=== PATIENT | male | born 1955 | race Caucasian/White ===

== ENCOUNTER 2017-07-08 15:04 | Observation (INO) | payer OTHER, MEDICAID ==
[~2017-07-08] VITALS: Ht 175.3 cm; Wt 112.9 kg
[~2017-07-08 15:04] MED LIST: ALBU18 IN; AMLO5TAB2 PO; FENO160T8 PO; FUR40T PO; GLIP-116 PO; HYDR10TA26 PO; LORA-654 PO; MOME200A IN; PAR20T PO; POTA8TAB2 PO; TAMS0.4C36 PO; WARF5TAB71 PO
[2017-07-08] MEDS ORDERED: ALBUTEROL SULF 2.5 MG/0.5ML(0.5%) NEB SOLN NEB ONE (16:00)
[2017-07-08] MEDS ORDERED: methylPREDNISolone SOD SUCC 125 MG/2 ML VL IV ONE (16:00)
[2017-07-08] MEDS ORDERED: IPRATROPIUM BROM 0.5 MG/2.5ML INH SOL HHN ONE (16:00)
[2017-07-08 16:06] LABS: Basophils # (auto) 0.1 uL; Basophils % (auto) 0.5 % (0.0-2.0); Eosinophils # (auto) 0.2 uL; Eosinophils % (auto) 1.9 % (0.0-7.0); Hemoglobin 11.1 g/dL (13.5-17.5); Lymphocytes # (auto) 1.6 uL; Lymphocytes % (auto) 12.8 % (10.0-50.0); Mean Corpuscular Hemoglobin 29.4 pg (28.0-32.0); Mean Corpuscular Hgb Conc. 32.6 g/dL (32.0-36.0); Mean Corpuscular Volume 90.2 fL (80.0-100.0); Monocytes % (auto) 7.8 % (0.0-12.0); Neutrophils # (auto) 9.6 uL; Platelet Count (auto) 381 10^3/uL (140-450); Red Blood Cells 3.77 10^6/uL (4.5-5.90); Red Cell Distribution Width 16.4 % (11.8-14.3); White Blood Cell 12.5 10^3/uL (4.4-10.8)
[2017-07-08 16:28] LABS: Alanine Aminotransferase 30 U/L (16-61); Albumin 3.1 g/dL (3.4-5.0); Alkaline Phosphatase 80 U/L (45-117); Anion Gap 8 (5-15); Aspartate Aminotransferase 22 U/L (15-37); BUN/Creatinine Ratio 14.1; Bilirubin, Total 0.2 mg/dL (0.2-1.0); Blood Urea Nitrogen 19 mg/dL (7-18); Calcium 8.6 mg/dL (8.5-10.1); Carbon Dioxide 31 mmol/L (21-32); Chloride 99 mmol/L (98-107); GFR African American 68 mL/min; GFR Non-African American 57 mL/min; Glucose 121 mg/dL (74-106); INR 2.08 (0.9-1.15); Magnesium 2.2 mg/dL (1.6-2.6); Partial Thromboplastin Time 67.4 sec (23.78-33.04); Potassium 4.3 mmol/L (3.5-5.1); Prothrombin Time 21.4 sec (9.27-12.13); Sodium 138 mmol/L (136-145); Total Protein 7.9 g/dL (6.4-8.2)
[2017-07-08] MEDS ORDERED: cefTRIAXone 1GM/10ml IVPUSH 10 ML IV ONE (17:15)
[2017-07-08] MEDS ORDERED: AZITHROMYCIN 500MG/ 250ML 250 ML IV ONE (17:15)
[2017-07-08 21:26] VITALS: BP 147/87
== END 2017-07-08 21:27 | disposition short-term general hospital (02) | DRG 194 ==
LOC: EDBD 15:04 → ER 15:04 → OVERFLOW 15:53 → ER 21:27
PROVIDERS: ADMIT Family Medicine; ATTEND Family Medicine
DX: J18.1 Lobar pneumonia, unspecified organism (principal); J44.0 Chronic obstructive pulmonary disease with (acute) lower respiratory infection; I11.0 Hypertensive heart disease with heart failure; I50.9 Heart failure, unspecified; J44.1 Chronic obstructive pulmonary disease with (acute) exacerbation; I48.91 Unspecified atrial fibrillation; K80.20 Calculus of gallbladder without cholecystitis without obstruction; E78.5 Hyperlipidemia, unspecified; Z86.718 Personal history of other venous thrombosis and embolism; Z87.442 Personal history of urinary calculi; Z87.891 Personal history of nicotine dependence; Z93.3 Colostomy status
CPT/HCPCS: 36415; 71045; 74176; 80053; 83605; 83735; 83880; 84484; 85025; 85379; 85610; 85730; 87040; 87070; 87205; 93005; 94640; 96365; 96366; 96375; 99291; G0378; J0456; J2930; 87077; 87186

== ENCOUNTER 2018-06-17 09:09 | Emergency (ER) | payer OTHER ==
[~2018-06-17] VITALS: Ht 182.9 cm; Wt 127.0 kg
[~2018-06-17 09:09] MED LIST changes: +AMLO5TAB13 PO; -AMLO5TAB2 PO
[2018-06-17 10:01] LABS: Basophils # (auto) 0 uL; Basophils % (auto) 0.4 % (0.0-2.0); Eosinophils # (auto) 0.1 uL; Eosinophils % (auto) 0.5 % (0.0-7.0); Hematocrit 38.9 % (41.0-53.0); Hemoglobin 12.5 g/dL (13.5-17.5); Lymphocytes # (auto) 1.2 uL; Lymphocytes % (auto) 9.8 % (10.0-50.0); Mean Corpuscular Hemoglobin 29.4 pg (28.0-32.0); Mean Corpuscular Hgb Conc. 32.1 g/dL (32.0-36.0); Mean Corpuscular Volume 91.6 fL (80.0-100.0); Monocytes # (auto) 1.3 uL; Monocytes % (auto) 10.1 % (0.0-12.0); Neutrophils # (auto) 9.9 uL; Neutrophils % (auto) 79.2 % (37.0-80.0); Platelet Count (auto) 280 10^3/uL (140-450); Red Blood Cells 4.24 10^6/uL (4.5-5.90); Red Cell Distribution Width 17.7 % (11.8-14.3); White Blood Cell 12.5 10^3/uL (4.4-10.8)
[2018-06-17 10:17] LABS: INR 3.2 (0.9-1.15); Partial Thromboplastin Time 68.2 sec (23.78-33.04); Prothrombin Time 32.1 sec (9.27-12.13)
[2018-06-17 10:26] LABS: Albumin 2.8 g/dL (3.4-5.0); BUN/Creatinine Ratio 20.7; Calcium 8.4 mg/dL (8.5-10.1); Potassium 3.8 mmol/L (3.5-5.1)
[2018-06-17 10:31] LABS: Bilirubin, Total 0.3 mg/dL (0.2-1.0); Lactic Acid w/Reflex 2.8 mmol/L (0.4-2.0); Total Protein 6.8 g/dL (6.4-8.2)
[2018-06-17] MEDS ORDERED: SODIUM CHLORIDE 0.9% 1,000 ML IV ONE (10:53)
[2018-06-17] MEDS ORDERED: PHYTONADIONE (VIT K)10 MG/ML 1ML VIAL SUBCUT ONE (11:00)
[2018-06-17] MEDS ORDERED: IOHEXOL 300 MG/ML 100ML BOTTLE IJ ONE (11:18)
[2018-06-17 11:53] LABS: Urine Amorphous Crystal FEW /hpf (None Seen); Urine Bacteria NONE SEEN /hpf (None Seen); Urine Blood TRACE /uL (Negative); Urine Specific Gravity 1.011 (1.001-1.035); Urine WBC 1 /hpf (0 - 3)
[2018-06-17 12:02] LABS: Magnesium 1.7 mg/dL (1.6-2.6)
[2018-06-17] MEDS ORDERED: PROMETHAZINE HCL 25 MG/ML 1ML IV ONE (16:15)
[2018-06-17] MEDS ORDERED: MORPHINE SULF INJ 2 MG/ML SYRINGE 1ML IV ONE (16:15)
[2018-06-17 16:34] VITALS: BP 145/7
== END 2018-06-17 17:12 | disposition short-term general hospital (02) ==
LOC: EDBD 09:09 → ER 09:09
DX: J44.1 Chronic obstructive pulmonary disease with (acute) exacerbation (principal); K92.2 Gastrointestinal hemorrhage, unspecified; E11.9 Type 2 diabetes mellitus without complications; K80.20 Calculus of gallbladder without cholecystitis without obstruction; K76.0 Fatty (change of) liver, not elsewhere classified; T45.515A Adverse effect of anticoagulants, initial encounter; I11.0 Hypertensive heart disease with heart failure; I50.9 Heart failure, unspecified; I25.10 Atherosclerotic heart disease of native coronary artery without angina pectoris; E78.00 Pure hypercholesterolemia, unspecified; Z87.891 Personal history of nicotine dependence; Y92.89 Other specified places as the place of occurrence of the external cause
CPT/HCPCS: 36415; 71045; 74176; 80053; 81001; 83605; 83690; 83735; 84443; 84484; 85025; 85610; 85730; 87040; 93005; 93971; 94761; 96361; 96372; 96374; 96375; 99285; J2270; J2550; J3430; J7030

== ENCOUNTER 2018-06-22 14:51 | Emergency (ER) | payer OTHER ==
[~2018-06-22] VITALS: Ht 175.3 cm; Wt 122.5 kg
[2018-06-22] MEDS ORDERED: ALBUTEROL SULF 2.5 MG/0.5ML(0.5%) NEB SOLN HHN ONE (15:15)
[2018-06-22] MEDS ORDERED: methylPREDNISolone SOD SUCC 125 MG/2 ML VL IV ONE (15:15)
[2018-06-22] MEDS ORDERED: IPRATROPIUM BROM 0.5 MG/2.5ML INH SOL HHN ONE (15:15)
[2018-06-22 15:52] LABS: Basophils # (auto) 0 uL; Basophils % (auto) 0.1 % (0.0-2.0); Eosinophils # (auto) 0 uL; Hematocrit 34.4 % (41.0-53.0); Hemoglobin 10.8 g/dL (13.5-17.5); Lymphocytes # (auto) 0.8 uL; Lymphocytes % (auto) 6.9 % (10.0-50.0); Mean Corpuscular Hemoglobin 29.3 pg (28.0-32.0); Mean Corpuscular Hgb Conc. 31.4 g/dL (32.0-36.0); Mean Corpuscular Volume 93.2 fL (80.0-100.0); Monocytes # (auto) 0.5 uL; Neutrophils # (auto) 10.1 uL; Nucleated Red Blood Cells % 0.2 %; Platelet Count (auto) 270 10^3/uL (140-450); Red Cell Distribution Width 17.9 % (11.8-14.3); White Blood Cell 11.3 10^3/uL (4.4-10.8)
[2018-06-22 16:04] LABS: Potassium 4.4 mmol/L (3.5-5.1)
[2018-06-22 16:05] LABS: Albumin 2.4 g/dL (3.4-5.0); Calcium 8.4 mg/dL (8.5-10.1); INR 1.07 (0.9-1.15); Prothrombin Time 11.4 sec (9.27-12.13)
[2018-06-22 16:09] LABS: BUN/Creatinine Ratio 26.9; Bilirubin, Total 0.2 mg/dL (0.2-1.0); Total Protein 6.8 g/dL (6.4-8.2)
[2018-06-22 19:27] VITALS: BP 139/77
== END 2018-06-22 19:40 | disposition short-term general hospital (02) ==
LOC: ER 14:51 → EDBD 14:51 → ER 19:40
DX: J96.00 Acute respiratory failure, unspecified whether with hypoxia or hypercapnia (principal); J44.1 Chronic obstructive pulmonary disease with (acute) exacerbation; I11.0 Hypertensive heart disease with heart failure; I50.9 Heart failure, unspecified; E78.5 Hyperlipidemia, unspecified; Z86.73 Personal history of transient ischemic attack (TIA), and cerebral infarction without residual deficits; Z87.891 Personal history of nicotine dependence; Z87.442 Personal history of urinary calculi
CPT/HCPCS: 36415; 36600; 71045; 80053; 82805; 83605; 83735; 83880; 84484; 85025; 85610; 85730; 87040; 93005; 94644; 94761; 96374; 99291; J2930; J7611; J7644

== ENCOUNTER 2019-01-13 11:04 | Emergency (ER) | payer OTHER ==
[~2019-01-13] VITALS: Ht 167.6 cm; Wt 108.9 kg
[~2019-01-13 11:04] MED LIST changes: -AMLO5TAB13 PO; +AMLO5TAB15 PO; -GLIP-116 PO; +GLIP10TA9 PO; -LORA-654 PO; +LORA0.5T12 PO
[2019-01-13] MEDS ORDERED: SODIUM CHLORIDE 0.9% 1,000 ML IVB ONE (11:48)
[2019-01-13 12:20] LABS: Basophils # (auto) 0.1 uL; Basophils % (auto) 0.9 % (0.0-2.0); Eosinophils # (auto) 0.2 uL; Hematocrit 40.9 % (41.0-53.0); Hemoglobin 13.5 g/dL (13.5-17.5); Lymphocytes # (auto) 1.8 uL; Lymphocytes % (auto) 14.7 % (10.0-50.0); Mean Corpuscular Hemoglobin 29.1 pg (28.0-32.0); Mean Corpuscular Hgb Conc. 33.1 g/dL (32.0-36.0); Mean Corpuscular Volume 87.8 fL (80.0-100.0); Monocytes # (auto) 0.9 uL; Monocytes % (auto) 7.3 % (0.0-12.0); Neutrophils # (auto) 9.2 uL; Neutrophils % (auto) 75.1 % (37.0-80.0); Platelet Count (auto) 290 10^3/uL (140-450); Red Blood Cells 4.66 10^6/uL (4.5-5.90); Red Cell Distribution Width 16.8 % (11.8-14.3); White Blood Cell 12.2 10^3/uL (4.4-10.8)
[2019-01-13 13:08] LABS: Albumin 3.1 g/dL (3.4-5.0); Potassium 4.3 mmol/L (3.5-5.1)
[2019-01-13 13:12] LABS: BUN/Creatinine Ratio 43.4; Bilirubin, Total 0.2 mg/dL (0.2-1.0); Total Protein 7.2 g/dL (6.4-8.2)
[2019-01-13 16:17] VITALS: BP 126/96
== END 2019-01-13 15:05 | disposition short-term general hospital (02) ==
LOC: EDBD 11:04 → ER 11:04
DX: K80.20 Calculus of gallbladder without cholecystitis without obstruction (principal); R19.7 Diarrhea, unspecified; J44.9 Chronic obstructive pulmonary disease, unspecified; E11.9 Type 2 diabetes mellitus without complications; I11.0 Hypertensive heart disease with heart failure; I50.9 Heart failure, unspecified; Z79.899 Other long term (current) drug therapy
CPT/HCPCS: 36415; 71045; 74176; 80053; 83735; 85025; 99291

== ENCOUNTER 2019-05-27 17:43 | Inpatient (IN) | payer OTHER, SELFPAY ==
[~2019-05-27] VITALS: Ht 170.2 cm; Wt 102.8 kg
[2019-05-27] MEDS ORDERED: ACETAMINOPHEN 500 MG TAB PO PRN ×2 (18:30→21:30)
[2019-05-27] MEDS ORDERED: AZITHROMYCIN 500MG/ 250ML 250 ML IV ONE (18:30)
[2019-05-27] MEDS ORDERED: methylPREDNISolone SOD SUCC 125 MG/2 ML VL IV ONE (18:30)
[2019-05-27 19:31] LABS: Basophils # (auto) 0.2 10 ^3/uL (0-0.2); Eosinophils # (auto) 0 10 ^3/uL (0-0.8); Hemoglobin 11.9 g/dL (13.5-17.5); Lymphocytes # (auto) 0.8 10 ^3/uL (0.4-5.4); Monocytes # (auto) 0.4 10 ^3/uL (0-1.3)
[2019-05-27 19:41] LABS: Basophils % (auto) 1.1 % (0.0-2.0); Hematocrit 38.6 % (41.0-53.0); Lymphocytes % (auto) 4.7 % (10.0-50.0); Mean Corpuscular Hemoglobin 28.4 pg (28.0-32.0); Mean Corpuscular Hgb Conc. 30.9 g/dL (32.0-36.0); Monocytes % (auto) 2.2 % (0.0-12.0); Neutrophils # (auto) 16.4 10 ^3/uL (1.6-8.6); Nucleated Red Blood Cells % 0.1 %; Platelet Count (auto) 309 10^3/uL (140-450); Red Cell Distribution Width 15.3 % (11.8-14.3); White Blood Cell 17.8 10^3/uL (4.4-10.8)
[2019-05-27] MEDS ORDERED: SUCCINYLCHOLINE CHLORIDE 20 MG/ML 10ML VIAL IV ONE ×2 (19:47→20:00)
[2019-05-27] MEDS ORDERED: ETOMIDATE (2MG/ML) 20ML VIAL IV ONE ×2 (19:47→20:00)
[2019-05-27] MEDS: MIDAZOLAM DRIP 50 mg/50mL 50 ML IV SCH (20:04)
[2019-05-27] MEDS ORDERED: MIDAZOLAM DRIP 50 mg/50mL 50 ML IV ONE (20:05)
[2019-05-27] MEDS ORDERED: ONDANSETRON HCL 4 MG/2 ML VIAL IV PRN (21:00)
[2019-05-27] MEDS ORDERED: NOREPINEPHRINE 8 MG/250ML KIT 250 ML IV SCH (21:00)
[2019-05-27] MEDS ORDERED: ALBUTEROL SULF 2.5 MG/0.5ML(0.5%) NEB SOLN NEB PRN (21:00)
[2019-05-27] MEDS: SODIUM CHLORIDE 0.9% 1,000 ML IV SCH (21:00)
[2019-05-27] MEDS ORDERED: hydrOXYchloroQUINE SULFATE 200 MG TAB PO ONE (21:00)
[2019-05-27] MEDS ORDERED: cefTRIAXone 1GM/50ML D5W 50 ML IV ONE (21:00)
[2019-05-27] MEDS ORDERED: DEXTROSE (50%) 50ML SYRG IV PRN (21:00)
[2019-05-27] MEDS ORDERED: IPRATROPIUM BROM 0.5 MG/2.5ML INH SOL NEB PRN (21:00)
[2019-05-27] MEDS ORDERED: AMIODARONE HCL 150 MG in D5W 5% 100 ML IV ONE (21:00)
[2019-05-27] MEDS ORDERED: AMIODARONE 450mg/250ml AE 250 ML IV SCH (21:06)
[2019-05-27] MEDS: NOREPINEPHRINE 8 MG/250ML KIT 250 ML IV SCH (21:18)
[2019-05-27] MEDS ORDERED: NITROGLYCERIN 0.4 MG SL TAB SL PRN (21:45)
[2019-05-27] MEDS ORDERED: MORPHINE SULF INJ 2 MG/ML SYRINGE 1ML IV PRN (21:45)
[2019-05-27] MEDS ORDERED: ALBUTEROL SULF HFA 90MCG INH 200DOSE IN SCH (22:00)
[2019-05-27] MEDS: fentaNYL Drip 2500mCg/250mlNS 250 ML IV SCH (22:13)
[2019-05-27 22:14] LABS: Bilirubin, Total 0.2 mg/dL (0.2-1.0); Calcium 9.2 mg/dL (8.5-10.1); Magnesium 2.3 mg/dL (1.6-2.6); Total Protein 7.5 g/dL (6.4-8.2)
[2019-05-27 22:15] LABS: CRP High Sensitivity 0.936 mg/dL (< 0.3)
[2019-05-27 22:19] LABS: Potassium 7.3 mmol/L (3.5-5.1)
[2019-05-28] VITALS (88 sets, daily range): BP systolic 87–163; BP diastolic 43–89
[2019-05-28] MEDS: ACCU-CHEK COMFORT CURVE STRIP VI SCH ×5 (00:09→23:52)
[2019-05-28] MEDS: InsuLIN REG 1unit/0.01ml Soln (100units/ml) SC SCH ×5 (00:32→23:58)
[2019-05-28] MEDS: SODIUM ZIRCONIUM CYCL 10 GM PAK PO ONE ×2 (00:32→06:28)
[2019-05-28 00:59] LABS: INR 3.06 (0.9-1.15); Partial Thromboplastin Time 39.5 sec (23.64-32.05)
--- NOTE | 2019-05-28 04:15 | NUR ---
ADMISSION NOTE PT INTUBATED, ETT 8.0/26@LL. IV ON RT AC20G SL, RT WRIST 20 SL, RT IJ TL INFUSING FENTANYL, VERSED, LEVOPHED, AMIODARONE, AND NS. KAUR CATHETER DRAINING VIA GRAVITY W/ YELLOW CLOUDY URINE. ABRASION ON RT TOE, PICTURES TAKEN. RECTAL TEMP 99.5. OGT INSERTED 18FR. PLACEMENT CHECKED, CLAMPED. SAFETY PRECAUTIONS IN PLACE. WILL CONTINUE TO MONITOR.
[2019-05-28] MEDS: MIDAZOLAM DRIP 50 mg/50mL 50 ML IV SCH ×4 (04:30→23:58)
--- NOTE | 2019-05-28 04:47 | NUR ---
RT Transport Note: Patient transported to [facility] with [facility] D[facility]. Patient transported to 262 on ventilator with previous ordered settings. Patient on electronic device monitor with alarms set and audible, ambu-bag/mask connected to 02 tank. Transport completed without incident.
[2019-05-28 05:56] LABS: Basophils # (auto) 0 10 ^3/uL (0-0.2); Basophils % (auto) 0.2 % (0.0-2.0); Eosinophils # (auto) 0 10 ^3/uL (0-0.8); Hematocrit 36.9 % (41.0-53.0); Hemoglobin 11.5 g/dL (13.5-17.5); Lymphocytes # (auto) 0.5 10 ^3/uL (0.4-5.4); Mean Corpuscular Hemoglobin 28.2 pg (28.0-32.0); Mean Corpuscular Hgb Conc. 31.2 g/dL (32.0-36.0); Mean Corpuscular Volume 90.4 fL (80.0-100.0); Monocytes # (auto) 0.3 10 ^3/uL (0-1.3); Monocytes % (auto) 1.6 % (0.0-12.0); Neutrophils # (auto) 16.8 10 ^3/uL (1.6-8.6); Neutrophils % (auto) 95.2 % (37.0-80.0); Nucleated Red Blood Cells % 0.1 %; Platelet Count (auto) 301 10^3/uL (140-450); Red Blood Cells 4.08 10^6/uL (4.5-5.90); White Blood Cell 17.6 10^3/uL (4.4-10.8)
[2019-05-28 06:24] LABS: Albumin 2.4 g/dL (3.4-5.0); Calcium 8.5 mg/dL (8.5-10.1)
[2019-05-28 06:27] LABS: BUN/Creatinine Ratio 26.5; Bilirubin, Total 0.3 mg/dL (0.2-1.0); Total Protein 6.1 g/dL (6.4-8.2)
[2019-05-28 06:40] LABS: Potassium 6.3 mmol/L (3.5-5.1)
[2019-05-28] MEDS: ALBUTEROL SULF 2.5 MG/0.5ML(0.5%) NEB SOLN NEB SCH ×3 (06:53→22:27)
[2019-05-28] MEDS: IPRATROPIUM BROM 0.5 MG/2.5ML INH SOL NEB SCH ×3 (06:54→22:27)
[2019-05-28 07:16] LABS: Urine Bacteria NONE SEEN /hpf (None Seen); Urine Blood 3+ /uL (Negative); Urine Hyaline Cast MANY /lpf (0 - 2); Urine Mucus FEW (None Seen); Urine Specific Gravity 1.016 (1.001-1.035); Urine Sperm PRESENT /hpf (None Seen); Urine WBC 37 /hpf (0 - 3)
[2019-05-28] MEDS ORDERED: FUROSEMIDE 20 MG/2 ML VIAL IV ONE (07:30)
[2019-05-28] MEDS ORDERED: CALCIUM GLUC 4.65meq/50ml D5AE 50 ML IV ONE (07:30)
--- NOTE | 2019-05-28 08:55 | NUR ---
FAMIL Received phone call from patients sister, correct password provided and updated on patient condition. Questions/concerns answered. Addendum: 05/28/19 at 0856 by PARISH SWAN RN FAMILY
[2019-05-28] MEDS ORDERED: cefTRIAXone 1GM/50ML D5W 50 ML IV SCH (09:00)
[2019-05-28] MEDS: PANTOPRAZOLE 40 MG/10 ML VIAL INJ IV SCH (09:51)
[2019-05-28] MEDS: ASPirin 81 mg TAB PO SCH (09:52)
[2019-05-28] MEDS: ZINC SULFATE 220mg CAP or TAB PO SCH (09:52)
[2019-05-28] MEDS: ASCORBIC ACID 500 MG TAB PO SCH (09:53)
[2019-05-28] MEDS: CHOLECALCIFEROL (VITD3) 1,000IU=25mCg TAB PO SCH (09:53)
[2019-05-28] MEDS ORDERED: ENOXAPARIN SOD 40 MG/0.4 ML SYRINGE SC SCH (10:00)
[2019-05-28] MEDS: SODIUM CHLORIDE 0.9% 1,000 ML IV SCH (10:20)
[2019-05-28] MEDS ORDERED: AMIODARONE HCL 200 MG TAB GT ONE (12:15)
[2019-05-28] MEDS ORDERED: MORPHINE SULF INJ 2 MG/ML SYRINGE 1ML IV PRN (12:45)
--- NOTE | 2019-05-28 14:45 | NUR ---
MD Dr. Huff at bedside updated on patient condition with new orders, to input into system. Addendum: 05/28/19 at [address] SWAN RN Dr. Huff at nurses station updated on patient condition with new orders received, to input into system.
--- NOTE | 2019-05-28 16:20 | NUR ---
MD Dr. Linares at bedside updated on patient condition with new orders, this RN to input into system. Will carry out orders.
[2019-05-28] MEDS ORDERED: AZITHROMYCIN 500MG/ 250ML 250 ML IV ONE ×2 (17:15→23:30)
[2019-05-28] MEDS: PIPERACILLIN-TAZO 4.5GM 100 ML IV SCH (18:00)
[2019-05-28] MEDS: FUROSEMIDE 20 MG/2 ML VIAL IV SCH (18:00)
[2019-05-28] MEDS ORDERED: FUROSEMIDE 20 MG/2 ML VIAL IV SCH (18:00)
[2019-05-28] MEDS ORDERED: LINEZOLID 600MG/300ML 300 ML IV SCH (18:30)
--- NOTE | 2019-05-28 19:30 | NUR ---
PM ASSESSMENT PT INTUBATED, ETT 8.0/24@LL. IV ON RT AC18G SL, RT WRIST 20 SL, RT IJ TL INFUSING FENTANYL, VERSED, AND ABX. KAUR CATHETER DRAINING VIA GRAVITY W/ LIGHT YELLOW URINE. ABRASION ON RT TOE, OPEN TO AIR. COLOSTOMY BAG ON RT ABD. RECTAL TEMP 98.2. OGT 18FR, PLACEMENT CHECKED, CLAMPED. SAFETY PRECAUTIONS IN PLACE. WILL CONTINUE TO MONITOR.
[2019-05-28] MEDS: NOREPINEPHRINE 8 MG/250ML KIT 250 ML IV SCH (21:00)
[2019-05-28] MEDS: fentaNYL Drip 2500mCg/250mlNS 250 ML IV SCH (21:48)
[2019-05-28] MEDS: ATORVASTATIN 20 MG TAB PO SCH (23:51)
[2019-05-28] MEDS: LINEZOLID 600MG/300ML 300 ML IV SCH (23:54)
[2019-05-29] VITALS (100 sets, daily range): BP systolic 81–140; BP diastolic 45–61
--- NOTE | 2019-05-29 01:00 | NUR ---
LEVOPHED RESTARTED, SBP BELOW 90. PT TOLERATING WELL. SAFETY PRECAUTIONS IN PLACE. WILL CONTINUE TO MONITOR.
[2019-05-29] MEDS: PIPERACILLIN-TAZO 4.5GM 100 ML IV SCH ×3 (02:00→19:17)
[2019-05-29] MEDS ORDERED: FUROSEMIDE 40 MG/4 ML VIAL ONE (05:20)
[2019-05-29 06:11] LABS: Basophils # (auto) 0 10 ^3/uL (0-0.2); Basophils % (auto) 0.3 % (0.0-2.0); Eosinophils # (auto) 0 10 ^3/uL (0-0.8); Eosinophils % (auto) 0.1 % (0.0-7.0); Hematocrit 35.8 % (41.0-53.0); Hemoglobin 11.6 g/dL (13.5-17.5); Lymphocytes # (auto) 0.3 10 ^3/uL (0.4-5.4); Lymphocytes % (auto) 1.5 % (10.0-50.0); Mean Corpuscular Hemoglobin 28.7 pg (28.0-32.0); Mean Corpuscular Hgb Conc. 32.4 g/dL (32.0-36.0); Mean Corpuscular Volume 88.7 fL (80.0-100.0); Monocytes # (auto) 0.4 10 ^3/uL (0-1.3); Monocytes % (auto) 2.3 % (0.0-12.0); Neutrophils % (auto) 95.8 % (37.0-80.0); Platelet Count (auto) 282 10^3/uL (140-450); Red Blood Cells 4.03 10^6/uL (4.5-5.90); Red Cell Distribution Width 15.1 % (11.8-14.3); White Blood Cell 18.8 10^3/uL (4.4-10.8)
[2019-05-29] MEDS: FUROSEMIDE 20 MG/2 ML VIAL IV SCH (06:19)
[2019-05-29] MEDS: InsuLIN REG 1unit/0.01ml Soln (100units/ml) SC SCH ×3 (06:21→19:19)
[2019-05-29] MEDS: ACCU-CHEK COMFORT CURVE STRIP VI SCH ×2 (06:21→13:12)
[2019-05-29] MEDS: MIDAZOLAM DRIP 50 mg/50mL 50 ML IV SCH ×6 (06:22→21:52)
[2019-05-29 06:24] LABS: INR 1.5 (0.9-1.15)
[2019-05-29 06:27] LABS: BUN/Creatinine Ratio 29.9; Calcium 9.1 mg/dL (8.5-10.1); Potassium 3.8 mmol/L (3.5-5.1)
--- NOTE | 2019-05-29 06:30 | NUR ---
CXR NOT DONE, ATTEMPTED TO CONTACT XRAY DEPT SEVERAL TIMES, NO ANSWER AT THIS TIME, WILL RETRY AGAIN.
--- NOTE | 2019-05-29 06:40 | NUR ---
INITIAL ASSESSMENT RECEIVED PT FROM SENIOR LOGISTICS MANAGER RT ON SETTINGS: AC, RR 20, VT 550, PEEP +5, FIO2 50%. PT IS ON VENT V5 PLUGGED INTO RED OUTLET, AMBU BAG AND MASK AVAILABLE AT BEDSIDE. PT WITH ETT 8.0 @ 24CM LIP SECURED WITH HOLISTER. ETT REPOSITIONED FROM RIGHT TO LEFT, NO SKIN BREAKDOWN NOTED. BREATH SOUNDS BILATERAL COARSE CRACKLES, SUCTIONED X2 FOR LARGE AMOUNT THICK PALE YELLOW SECRETIONS. PT'S GAG REFLEX INTACT. MEDNEB TX GIVEN INLINE VIA AEROGEN, NO ADVERSE REACTIONS NOTED. ALARMS SET AND AUDIBLE TO NURSE'S STATION. PT SEDATED AND DOES NOT WAKE TO VERBAL OR TACTILE STIMULI. SKIN IS WARM AND DRY TO TOUCH. ABG DRAWN, RESULTS TO FOLLOW. NOC SHIFT RN AT BEDSIDE. WILL CONTINUE TO MONITOR.
[2019-05-29] MEDS: AZITHROMYCIN 500MG/ 250ML 250 ML IV SCH (09:13)
[2019-05-29] MEDS: LINEZOLID 600MG/300ML 300 ML IV SCH ×2 (09:13→21:46)
[2019-05-29] MEDS: NOREPINEPHRINE 8 MG/250ML KIT 250 ML IV SCH (09:15)
[2019-05-29] MEDS: PANTOPRAZOLE 40 MG/10 ML VIAL INJ IV SCH (09:16)
[2019-05-29] MEDS: AMIODARONE HCL 200 MG TAB GT SCH (09:18)
[2019-05-29] MEDS: ASPirin 81 mg TAB PO SCH (09:18)
[2019-05-29] MEDS: ASCORBIC ACID 500 MG TAB PO SCH (09:19)
--- NOTE | 2019-05-29 09:30 | NUR ---
AM ASSESSMENT COMPLETED. REPOSITIONED FOR COMFORT. ALL GTTS VERIFIED. AM PHYSICIAN ROUNDING. DISCUSSED POC WITH MD.
[2019-05-29] MEDS ORDERED: POTASSIUM CHL 20MEQ/100ML 100 ML IV SCH (10:00)
[2019-05-29] MEDS: CHOLECALCIFEROL (VITD3) 1,000IU=25mCg TAB PO SCH (10:00)
--- NOTE | 2019-05-29 10:00 | NUR ---
MEAT PROCESSOR ROUNDING. UPDATED ON PT'S CONDITION. NO NEW ORDERS RECEIVED. PLEASED WITH UOP. WILL CONTINUE WITH CURRENT TREATMENT.
[2019-05-29] MEDS: ZINC SULFATE 220mg CAP or TAB PO SCH (12:11)
[2019-05-29] MEDS: INSULIN LANTUS (GLARGINE) 1 /0.01ml (100units/ml) SC SCH (14:14)
--- NOTE | 2019-05-29 15:00 | NUR ---
SNUFF BOX FINISHER ROUNDING. WILL PROCEED WITH CURRENT POC. AWAITING FOR COVID 19 RESULTS.
[2019-05-29] MEDS ORDERED: WARFARIN SODIUM 5 MG TAB PO ONE (17:00)
[2019-05-29] MEDS ORDERED: DEXTROSE (50%) 50ML SYRG IV PRN (18:30)
--- NOTE | 2019-05-29 19:00 | NUR ---
REPORT GIVEN TO STEAM GIGGER.
--- NOTE | 2019-05-29 19:30 | NUR ---
REPORT RECEIVED, ASSUMED CARE.
[2019-05-29] MEDS: ATORVASTATIN 20 MG TAB PO SCH (21:46)
[2019-05-29] MEDS: fentaNYL Drip 2500mCg/250mlNS 250 ML IV SCH (21:48)
[2019-05-29] MEDS: IPRATROPIUM BROM 0.5 MG/2.5ML INH SOL NEB SCH (22:10)
[2019-05-29] MEDS: ALBUTEROL SULF 2.5 MG/0.5ML(0.5%) NEB SOLN NEB SCH (22:10)
--- NOTE | 2019-05-29 23:10 | NUR ---
Patient bathe/linen change Patient given complete bath. Skin integrity assessed for any changes. Linens changed. Patient repositioned for comfort.
[2019-05-30] VITALS (97 sets, daily range): BP systolic 87–189; BP diastolic 45–77
--- NOTE | 2019-05-30 00:15 | NUR ---
ACCU CHECK 415, CALL OUT TO HOSPITALIST.
[2019-05-30] MEDS: ACCU-CHEK COMFORT CURVE STRIP VI SCH ×4 (00:28→18:00)
--- NOTE | 2019-05-30 00:34 | NUR ---
DAUGHTER CALLED GAVE UPDATE.
--- NOTE | 2019-05-30 01:48 | NUR ---
[facility] HOSPITALIST, OBTAINED NEW ORDERS.
[2019-05-30] MEDS ORDERED: InsuLIN REG 1unit/0.01ml Soln (100units/ml) SC ONE (02:00)
[2019-05-30] MEDS: PIPERACILLIN-TAZO 4.5GM 100 ML IV SCH ×3 (02:13→18:00)
[2019-05-30 05:33] LABS: Basophils # (auto) 0 10 ^3/uL (0-0.2); Basophils % (auto) 0.3 % (0.0-2.0); Eosinophils # (auto) 0.3 10 ^3/uL (0-0.8); Eosinophils % (auto) 2.8 % (0.0-7.0); Hematocrit 35.5 % (41.0-53.0); Hemoglobin 11.6 g/dL (13.5-17.5); Lymphocytes # (auto) 0.5 10 ^3/uL (0.4-5.4); Lymphocytes % (auto) 4.2 % (10.0-50.0); Mean Corpuscular Hemoglobin 28.7 pg (28.0-32.0); Mean Corpuscular Hgb Conc. 32.5 g/dL (32.0-36.0); Mean Corpuscular Volume 88.3 fL (80.0-100.0); Monocytes # (auto) 0.7 10 ^3/uL (0-1.3); Monocytes % (auto) 6.3 % (0.0-12.0); Neutrophils # (auto) 9.7 10 ^3/uL (1.6-8.6); Neutrophils % (auto) 86.4 % (37.0-80.0); Platelet Count (auto) 240 10^3/uL (140-450); Red Blood Cells 4.02 10^6/uL (4.5-5.90); Red Cell Distribution Width 15.3 % (11.8-14.3); White Blood Cell 11.3 10^3/uL (4.4-10.8)
[2019-05-30] MEDS: InsuLIN REG 1unit/0.01ml Soln (100units/ml) SC SCH ×3 (05:45→18:00)
[2019-05-30 05:51] LABS: INR 1.36 (0.9-1.15); Partial Thromboplastin Time 29.6 sec (23.64-32.05)
[2019-05-30 05:57] LABS: Potassium 3.7 mmol/L (3.5-5.1)
[2019-05-30 06:04] LABS: BUN/Creatinine Ratio 21.5; Calcium 8.8 mg/dL (8.5-10.1)
[2019-05-30] MEDS: INSULIN LANTUS (GLARGINE) 1 /0.01ml (100units/ml) SC SCH (06:36)
--- NOTE | 2019-05-30 07:25 | NUR ---
INITIAL ASSESSMENT Report received from Abdon CHATMAN, care assumed. Patient under sedation of Versed and Fentanyl. Patient responds to voice and painful stimuli. Rectal temp 100.2, cooling measures initiated. Pulses palpable radial and pedal bilaterally. Sinus rhythm noted on bedside monitor. Low dose Levophed gtt to maintain hemodynamic stability. Lungs clear but diminished anteriorly. Patient intubated on ventilator, tolerated well, oxygen saturation 94%. Right quadrant ileostomy present. Patino catheter patent, and secure below bladder. See skin/wound assessment and IV spreadsheet. Patient frequent repositioning. Bed locked in lowest position, alarms in place. All extremities off loaded on pillows. Will continue to monitor.
[2019-05-30] MEDS: IPRATROPIUM BROM 0.5 MG/2.5ML INH SOL NEB SCH ×3 (07:52→22:05)
[2019-05-30] MEDS: ALBUTEROL SULF 2.5 MG/0.5ML(0.5%) NEB SOLN NEB SCH ×3 (07:52→22:05)
[2019-05-30] MEDS: AZITHROMYCIN 500MG/ 250ML 250 ML IV SCH (08:17)
--- NOTE | 2019-05-30 08:20 | NUR ---
FAMILY Patient sister called with password. Updated on patient status and plan of care.
[2019-05-30] MEDS: ACETAMINOPHEN 325 MG TAB PO PRN ×2 (08:29→18:20)
--- NOTE | 2019-05-30 08:34 | NUR ---
TEMPERATURE Patient rectal temp 100.4, cooling measures continued. Ice packs applied to trunk, cool compress to forehead, and PRN Tylenol. Will continue to monitor.
--- NOTE | 2019-05-30 08:51 | NUR ---
MD VISIT: NEPHRO at bedside. No new orders received at this time.
--- NOTE | 2019-05-30 09:20 | NUR ---
WOUND CARE Safia CHATMAN at bedside for skin assessment.
--- NOTE | 2019-05-30 10:02 | NUR ---
WOUND CARE NOTE: Added patient to wound care monitoring list due to low intubation status putting patient to high risk for skin breakdown. Patient is 64 years old male with admitting diagnosis of Acute Resp Failure. Patient with history of BPH, CHF, s/p hemicolectomy with ileostomy. Patient is resting in SDU bed in Rm. 262. Patient is intubated, sedated and mechanically ventilated. Patient appears to be in no pain using Newman Roberts Faces Pain Scale. His Louis score is 14. No wound noted other than RLE erythema with dry hyperkeratotic skin, and dry intact scabs to patient's Rt 2nd toe and distal Rt 4th toe, avulsed nail to L great toe. No pressure injury noted. Patient is receiving BID/PRN cleaning and application of HYdraguard cream to sacral buttocks and dry RLE skin as preventative. RECOMMENDATION: Nursing to continue with BID/PRN cleaning and application of Hydraguard cream to sacral buttocks and RLE as preventative, frequent turning and repositioning schedule as condition permits, redistribute pressure points with pillows,elevate heels on pillow, continue monitoring by wound care while patient is mechanically ventilated. Addendum: 05/30/19 at 1202 by Phyllis Gil RN Amended: Links added.
--- NOTE | 2019-05-30 10:30 | NUR ---
SEDATION /Milagros would like to attempt cpap trial today if patient is able to follow commands when sedation is decreased. Titrating off sedation.
[2019-05-30] MEDS: ZINC SULFATE 220mg CAP or TAB PO SCH (10:39)
[2019-05-30] MEDS: ASCORBIC ACID 500 MG TAB PO SCH (10:39)
[2019-05-30] MEDS: FUROSEMIDE 20 MG/2 ML VIAL IV SCH (10:39)
[2019-05-30] MEDS: AMIODARONE HCL 200 MG TAB GT SCH (10:40)
[2019-05-30] MEDS: LINEZOLID 600MG/300ML 300 ML IV SCH ×2 (10:40→22:07)
[2019-05-30] MEDS: PANTOPRAZOLE 40 MG/10 ML VIAL INJ IV SCH (10:40)
[2019-05-30] MEDS: CHOLECALCIFEROL (VITD3) 1,000IU=25mCg TAB PO SCH (11:12)
--- NOTE | 2019-05-30 11:20 | NUR ---
RADIOLOGY geoscience technician at bedside for CXR.
--- NOTE | 2019-05-30 11:24 | NUR ---
CARDIOLOGY ROUNDS Byres AUTO SUSPENSION AND STEERING MECHANIC at bedside rounding.
--- NOTE | 2019-05-30 12:28 | NUR ---
MD VISIT: PCP at bedside rounding. MD would like to attempt to transfer patient to [facility].
--- NOTE | 2019-05-30 13:25 | NUR ---
NEURO Patient opened eyes once laying flat. Patient able to nod yes or no to simple questions. Patient having trouble staying awake at this time. Will continue to monitor.
--- NOTE | 2019-05-30 14:38 | NUR ---
assessment Patient is a 64 year old male who is on a vent. Per patients Miranda prior to admission patient lived home with her and was on Palliative care thru [facility]. Patients PCP is Dr Gayle Tripp with Palliative care. Per Miranda patient will resume with Palliative care on discharge. Miranda agrees to transfer to [facility] if they ask for patient to be in network. Patient has a fww, 02, nebulizer, and wheelchair for home use. I informed Miranda patients post discharge needs to be determined after extubation and prior to discharge. Miranda verbalized understanding. Addendum: 05/30/19 at 1443 by July ALONSO Amended: Links added.
--- NOTE | 2019-05-30 14:50 | NUR ---
MD VISIT: PULM at bedside assessing patient.
[2019-05-30] MEDS ORDERED: OPTISON 3ml Vial for INJ IV ONE (14:59)
--- NOTE | 2019-05-30 15:08 | NUR ---
ECHO mechanical system technician at bedside.
--- NOTE | 2019-05-30 15:40 | NUR ---
CARES/TEMPERATURE Complete linen change and partial bed bath given. Patient repositioned on side. Patient tolerated activity well. Temperature 99.9 rectal, cooling measures initiated. Will continue to monitor. Patient opening eyes intermittently, able to follow simple commands. Bed locked in lowest position, call light within reach.
[2019-05-30] MEDS ORDERED: WARFARIN SODIUM 2.5 MG TAB PO ONE (17:00)
--- NOTE | 2019-05-30 18:20 | NUR ---
TEMPERATURE Rectal temperature 100.6, ice packs applied and PRN Tylenol given.
--- NOTE | 2019-05-30 18:22 | NUR ---
RESP/NEURO ASSESSMENT Patient has not been alert or awake enough to attempt cpap trial today. Patient now able to open eyes and follow commands when prompted, but does appear to fall back to sleep shortly after. RT placed patient on Cpap trial attempt. Patient lasted approx 2 minutes due recurrent episodes of apnea. Patient is calm and relaxed. No use to sedation at this time. Will attempt another Cpap trial in AM.
--- NOTE | 2019-05-30 19:17 | NUR ---
REPORT Report given to Janice CHATMAN care endorsed.
--- NOTE | 2019-05-30 20:00 | NUR ---
SHIFT OPENING NOTE RECEIVED PATIENT LAYING IN BED INTUBATED. SEDATION OFF. PENDING CPAP TRIAL IN THE AM. PATIENT IS CALM AND OPEN EYES TO VOICE, OBEYS COMMANDS, AND NODS HEAD TO ANSWER QUESTIONS. ETT SIZE 8, 24 AT THE LIP AC 20, TV 550 FI02 40%, PEEP 5. FEBRILE AT 100.6, TYLENOL GIVEN EARLIER AND COOLING MEASURES IN PLACE. OJ TUBE CLAMPED, CHECKED FOR PLACEMENT. KAUR CATH DRAINING YELLOW URINE WITH SEDIMENT TO GRAVITY. RIGHT IJ 3 LUMEN INFUSING NS AND ABX. PHYSICAL ASSESSMENT COMPLETED, SEE INTERVENTIONS. WILL CLOSELY MONITOR.
[2019-05-30] MEDS: NOREPINEPHRINE 8 MG/250ML KIT 250 ML IV SCH (21:00)
[2019-05-30] MEDS: fentaNYL Drip 2500mCg/250mlNS 250 ML IV SCH (21:23)
[2019-05-30] MEDS: dilTIAZem HCL 60 MG TAB GT SCH (21:27)
[2019-05-30] MEDS: ATORVASTATIN 20 MG TAB PO SCH (22:07)
[2019-05-31] VITALS (100 sets, daily range): BP systolic 90–154; BP diastolic 44–79
[2019-05-31] MEDS: ACCU-CHEK COMFORT CURVE STRIP VI SCH ×4 (01:14→18:21)
[2019-05-31] MEDS: InsuLIN REG 1unit/0.01ml Soln (100units/ml) SC SCH ×4 (01:17→18:28)
[2019-05-31] MEDS: PIPERACILLIN-TAZO 4.5GM 100 ML IV SCH ×3 (01:17→17:33)
[2019-05-31] MEDS: ACETAMINOPHEN 325 MG TAB PO PRN (03:40)
[2019-05-31 03:58] LABS: Basophils # (auto) 0 10 ^3/uL (0-0.2); Basophils % (auto) 0.4 % (0.0-2.0); Eosinophils # (auto) 0.5 10 ^3/uL (0-0.8); Eosinophils % (auto) 4.5 % (0.0-7.0); Hematocrit 34.2 % (41.0-53.0); Hemoglobin 11.4 g/dL (13.5-17.5); Lymphocytes # (auto) 0.4 10 ^3/uL (0.4-5.4); Lymphocytes % (auto) 3.8 % (10.0-50.0); Mean Corpuscular Hemoglobin 29.3 pg (28.0-32.0); Mean Corpuscular Hgb Conc. 33.3 g/dL (32.0-36.0); Monocytes # (auto) 0.6 10 ^3/uL (0-1.3); Monocytes % (auto) 5.1 % (0.0-12.0); Neutrophils # (auto) 9.4 10 ^3/uL (1.6-8.6); Neutrophils % (auto) 86.2 % (37.0-80.0); Nucleated Red Blood Cells % 0.1 %; Platelet Count (auto) 297 10^3/uL (140-450); Red Blood Cells 3.89 10^6/uL (4.5-5.90); White Blood Cell 10.9 10^3/uL (4.4-10.8)
[2019-05-31 04:13] LABS: BUN/Creatinine Ratio 18.6; Calcium 8.7 mg/dL (8.5-10.1); Potassium 4.4 mmol/L (3.5-5.1)
--- NOTE | 2019-05-31 05:00 | NUR ---
MORNING HYGIENE CARE FULL BED BATH PERFORMED USING COLD WASH CLOTHES AND CHG WIPES. GOWN CHANGED. PARTIAL LINEN CHANGED. ORAL CARE PERFORMED. PATIENT REPOSITIONED FOR COMFORT. TOLERATED IT WELL.
[2019-05-31 05:24] LABS: INR 1.4 (0.9-1.15); Partial Thromboplastin Time 32.9 sec (23.64-32.05)
[2019-05-31] MEDS: dilTIAZem HCL 60 MG TAB GT SCH ×3 (05:35→22:00)
--- NOTE | 2019-05-31 05:40 | NUR ---
COOLING MEASURES REAPPLIED. TEMP SUSTAINING AT 100.6 TYLENOL GIVEN EARLIER. ICE PACKS PLACED UNDER ARMPITS AND COLD WASH CLOTHES PLACED ON NECK AND FOREHEAD. WILL CONTINUE TO MONITOR.
[2019-05-31] MEDS: IPRATROPIUM BROM 0.5 MG/2.5ML INH SOL NEB SCH ×3 (06:06→22:03)
[2019-05-31] MEDS: ALBUTEROL SULF 2.5 MG/0.5ML(0.5%) NEB SOLN NEB SCH ×3 (06:06→22:03)
[2019-05-31] MEDS: INSULIN LANTUS (GLARGINE) 1 /0.01ml (100units/ml) SC SCH (06:34)
--- NOTE | 2019-05-31 06:50 | NUR ---
END OF SHIFT PATIENT IS QUIETLY LAYING IN BED SLEEPING. INTUBATED WITHOUT WITH NO SEDATION ON. CPAP TRIAL PENDING FOR TODAY. WILL GIVE REPORT AND ENDORSE CARE TO THE DAY SHIFT RN.
[2019-05-31] MEDS: AZITHROMYCIN 500MG/ 250ML 250 ML IV SCH (08:45)
--- NOTE | 2019-05-31 09:35 | NUR ---
DR BEAL AT BEDSIDE DISCUSSED PATIENTS STATUS. NEW ORDERS RECEIVED
--- NOTE | 2019-05-31 09:40 | NUR ---
PATIENTS MONICO CALLED FOR UPDATE PROVIDED PASSWORD. UPDATED ON STATUS THROUGHOUT THE NIGHT AND CURRENT PLAN OF CARE.
[2019-05-31] MEDS: CHOLECALCIFEROL (VITD3) 1,000IU=25mCg TAB PO SCH (10:00)
--- NOTE | 2019-05-31 10:05 | NUR ---
CPAP PLACED ON BY RESPIRATORY THERAPIST
[2019-05-31] MEDS: PANTOPRAZOLE 40 MG/10 ML VIAL INJ IV SCH (10:51)
[2019-05-31] MEDS: LINEZOLID 600MG/300ML 300 ML IV SCH ×2 (10:51→23:00)
[2019-05-31] MEDS: FUROSEMIDE 20 MG/2 ML VIAL IV SCH (10:51)
[2019-05-31 11:20] LABS: Protein, Urine 85.6 mg/dL (0.0-11.9)
--- NOTE | 2019-05-31 11:30 | NUR ---
PATIENT CONTINUES TO BE ON CPAP- VITALS STABLE PATIENT NODS YES/NO TO SIMPLE QUESTIONS BUT NOT AWAKE ENOUGH FOR WEANING PARAMETERS. WILL CONTINUE TO MONITOR CLOSELY AND REEVALUATE FOR WEANING PARAMETERS
--- NOTE | 2019-05-31 12:11 | NUR ---
DR PARKER AT BEDSIDE DISCUSSED PATIENTS STATUS AND PLAN OF CARE. NO NEW ORDERS
--- NOTE | 2019-05-31 12:34 | NUR ---
DESATURATION/ ABDOMINAL BREATHING PATIENT SWITCH BACK TO PREVIOUS SETTINGS AC MODE DUE TO PATIENTS RR RATE INCREASING, DESATURATION TO 86% AND ABDOMINAL BREATHING. WILL CONTINUE TO MONITOR
--- NOTE | 2019-05-31 14:30 | NUR ---
PATIENT MORE AWAKE, PLACED ON CPAP BY RESPIRATORY THERAPIST. WILL CONTINUE TO MONITOR
--- NOTE | 2019-05-31 14:35 | NUR ---
RT NOTE: PT PLACED ONTO CPAP AGAIN. NO SIGNS OF DISTRESS. PT AWARE THAT I WILL RETURN IN AN HOUR TO ATTEMPT WEANING PARAMETERS AGAIN. RN AWARE. WILL CONTINUE TO MONITOR.
--- NOTE | 2019-05-31 15:18 | NUR ---
NUTRITION ASSESSMENT NOTES Please refer to link notes of nutrition screen form filed under the intervention section of the plan of care for further details. Est. Energy Needs: 8229-9471 kcal (12-15 kcal/kg BW). Est. Protein Needs: 88-100 gms/day (1.0-1.2 gms/kg Adj.BW). Will continue to monitor pertinent labs and reassess nutrient need prn Addendum: 05/31/19 at [address] Amended: Links added.
--- NOTE | 2019-05-31 15:42 | NUR ---
PATIENT BACK ON ASSIST CONTROL, PREVIOUS SETTINGS PATIENT UNABLE TO PREFORM ANY WEANING PARAMETERS. BEST NIF 14. PATIENT STILL FATIGUED. WILL NOTIFY MD AND REASSESS LATER
--- NOTE | 2019-05-31 16:15 | NUR ---
DR BARRIENTOS AT BEDSIDE DISCUSSED PATIENTS STATUS, CPAP WHEN AWAKE
--- NOTE | 2019-05-31 16:31 | NUR ---
PATIENTS SISTER CALLED FOR UPDATE PROVIDED PASSWORD. UPDATED ON CURRENT STATUS, ADDRESSED CONCERNS
[2019-05-31] MEDS ORDERED: WARFARIN SODIUM 2.5 MG TAB PO ONE (17:00)
--- NOTE | 2019-05-31 18:05 | NUR ---
Respiratory note: Received pt on vent v5, vent connected to red outlet and o2 source. alarms are set and audible. Ambu bag and mask at bedside. Bs are course t/o, sxd x2 for large thick creamy rosario/brown secretions. Pts current temp is 99.9f. Rt name and pager assignment written on pts room board will continue to monitor.
--- NOTE | 2019-05-31 20:00 | NUR ---
Pt stable at this time. No S/S of distress. Slight low grade temp. Will continue to monitor.
--- NOTE | 2019-05-31 20:22 | NUR ---
Respiratory note: at bedside for routine vent check. sxd via ett for large amounts of thick rosario/brown. RN heaven at bedside and aware of secretions. will continue poc.
--- NOTE | 2019-05-31 21:15 | NUR ---
Pt seems anxious. paged. Dr. Reyes ordered Verced at half protocol rate. Will start rate at 1mg/hr to see if it helps and assess in 30 minutes. Will continue to monitor.
[2019-05-31] MEDS: MIDAZOLAM DRIP 50 mg/50mL 50 ML IV SCH (21:20)
[2019-05-31] MEDS: ATORVASTATIN 20 MG TAB PO SCH (22:00)
--- NOTE | 2019-05-31 22:03 | NUR ---
Respiratory note: AT BEDSIDE FOR ROUTINE VENT CHECK. NO VENT CHANGES DONE. SXD VIA ETT FOR SMALL THICK ZAMAN/CREAMY BROWN SECRETIONS. MED NEB TX GIVEN INLINE VIA AEROGEN. NO ADVERSE REACTION NOTED. PTS CURRENT TEMP IS 100.6F. WILL CONTINUE TO MONITOR.
--- NOTE | 2019-05-31 23:00 | NUR ---
Pt stable. Resting comfortably at this time. Will continue to monitor.
--- NOTE | 2019-05-31 23:58 | NUR ---
Respiratory note: AT BEDSIDE FOR ROUTINE VENT CHECK. NO CHANGES MADE. PTS CURRENT TEMP IS 100.6F. WILL CONTINUE TO MONITOR.
[2019-06-01] VITALS (87 sets, daily range): BP systolic 83–128; BP diastolic 41–67
--- NOTE | 2019-06-01 01:57 | NUR ---
Pt tolerating Versed well. Still able to open eyes when spoken too. Still occasionally restless but calms down quickly. Will continue to monitor. Temp noted 100.6, Tylenol given.
--- NOTE | 2019-06-01 02:14 | NUR ---
Respiratory note: AT BEDSIDE FOR ROUTINE VENT CHECK. SXD VIA ETT FOR MODERATE THICK ZAMAN. PTS CURRENT TEMP IS 100.6F. WILL CONTINUE TO MONITOR.
--- NOTE | 2019-06-01 04:20 | NUR ---
Respiratory note: AT BEDSIDE FOR END OF SHIFT VENT CHECK. SXD VIA ETT FOR SMALL THICK CREAMY ZAMAN. PTS CURRENT TEMP IS 100.4F. WILL HAVE DAY SHIFT CONTINUE TO POC.
--- NOTE | 2019-06-01 05:00 | NUR ---
Pt pulled out OG tube. Mittens on but pt was still able to pull tube. Discussed with RT, stated she was going to try to change to CPAP this morning so will wait to discuss with AM shift RN to see how she wants to handle OG placement or leave off. Pt is stable at this time. Temp down to 99.9. Full bath given. Will continue to monitor.
[2019-06-01] MEDS: dilTIAZem HCL 60 MG TAB GT SCH ×3 (06:00→22:00)
[2019-06-01] MEDS: PIPERACILLIN-TAZO 4.5GM 100 ML IV SCH ×3 (06:00→22:53)
[2019-06-01] MEDS: ACCU-CHEK COMFORT CURVE STRIP VI SCH ×4 (06:00→18:26)
[2019-06-01] MEDS: InsuLIN REG 1unit/0.01ml Soln (100units/ml) SC SCH ×4 (06:00→18:28)
[2019-06-01] MEDS: IPRATROPIUM BROM 0.5 MG/2.5ML INH SOL NEB SCH ×3 (06:05→22:25)
[2019-06-01] MEDS: ALBUTEROL SULF 2.5 MG/0.5ML(0.5%) NEB SOLN NEB SCH ×3 (06:05→22:25)
[2019-06-01] MEDS: INSULIN LANTUS (GLARGINE) 1 /0.01ml (100units/ml) SC SCH (06:55)
[2019-06-01 07:21] LABS: INR 1.83 (0.9-1.15); Partial Thromboplastin Time 35.3 sec (23.64-32.05)
[2019-06-01 07:26] LABS: Albumin 1.8 g/dL (3.4-5.0); Calcium 8.3 mg/dL (8.5-10.1); Potassium 3.6 mmol/L (3.5-5.1)
[2019-06-01 07:30] LABS: Bilirubin, Total 0.2 mg/dL (0.2-1.0); Phosphorus 3.1 mg/dL (2.5-4.90)
--- NOTE | 2019-06-01 07:30 | NUR ---
Report given to AM shift. Pt stable at this time. Discussed OG tube, Radha RN will decide on placement. Radiology came to do CXR, asked if they would come back at 0700 for OG placement so all could be done at one time. Report given, care endorsed.
[2019-06-01 07:33] LABS: BUN/Creatinine Ratio 20.9
[2019-06-01] MEDS: MIDAZOLAM DRIP 50 mg/50mL 50 ML IV SCH (08:00)
[2019-06-01] MEDS: fentaNYL Drip 2500mCg/250mlNS 250 ML IV SCH (08:00)
--- NOTE | 2019-06-01 08:00 | NUR ---
OPEN: STATUS RECEIVED REPORT FROM NIGHT RN. ASSUMED CARE OF ICU PATIENT IN [facility] ROOM 262, FULL CODE STATUS. PATIENT FOUND AWAKE ON VENT BUT ABLE TO FOLLOW COMMANDS AT THIS TIME. PATIENT ANXIOUS, EDUCATED PATIENT ON NEED TO REMAIN CALM DURING THIS TIME. INCREASED VERSED GTT PER PROTOCOL, SEE IV FLOW SHEET. STARTED GTT AT 2 MG/HR. FENTANYL GTT STARTED AT THIS TIME, STARTED PER PROTOCOL, 25 MCG/HR. SEE FRANCHISE SALES MANAGER, IV FLOW SHEET, AND VS FLOW SHEET FOR FURTHER PATIENT INFORMATION. WILL CONTINUE CARE.
[2019-06-01] MEDS ORDERED: AZITHROMYCIN 500MG/ 250ML 250 ML IV SCH (09:00)
[2019-06-01] MEDS: CHOLECALCIFEROL (VITD3) 1,000IU=25mCg TAB PO SCH (10:00)
[2019-06-01] MEDS: PANTOPRAZOLE 40 MG/10 ML VIAL INJ IV SCH (10:05)
[2019-06-01] MEDS: FUROSEMIDE 20 MG/2 ML VIAL IV SCH (10:05)
[2019-06-01] MEDS: LINEZOLID 600MG/300ML 300 ML IV SCH (10:15)
[2019-06-01] MEDS ORDERED: fentaNYL Drip 2500mCg/250mlNS 250 ML IV ONE (11:37)
[2019-06-01] MEDS: NOREPINEPHRINE 8 MG/250ML KIT 250 ML IV SCH (12:22)
--- NOTE | 2019-06-01 14:00 | NUR ---
STATUS PATIENT CONTINUES ON VENT, VERSED GTT AT 5 MG/HR, FENTANYL GTT AT 75 MCG/HR. NS AT TKO. NO DISTRESS NOTED AT THIS TIME.WILL CONTINUE TO MONITOR.
--- NOTE | 2019-06-01 16:00 | NUR ---
Respiratory note: UNABLE TO CPAP PT AT THIS TIME. PT IS FEBRILE AND DEMANDING MORE FIO2 TO SUSTAIN ABOVE 92% POX. SPOKE TO COMPA LOYOLA.
[2019-06-01] MEDS ORDERED: PROPOFOL 100 ML IV ONE (16:50)
[2019-06-01] MEDS ORDERED: WARFARIN SODIUM 2.5 MG TAB PO ONE (17:00)
[2019-06-01] MEDS: PROPOFOL 100 ML IV SCH (17:00)
--- NOTE | 2019-06-01 17:30 | NUR ---
HOLD PO WARFARIN : NO NGT/OGT AT THIS TIME PATIENT CONTINUES ON VENT. PATIENT UNABLE TO SWALLOW MEDICATIONS AT THIS TIME. UNABLE TO CRUSH MEDS. INFORMED PHARMACY ON CURRENT MATTER. HOLDING AT THIS TIME. WILL RELAY TO MD ON NEED TO CHANGE PO WARFARIN TO EITHER LOVENOX OR HEPARIN GTT PER PHARMACY RECOMMENDATIONS. CONTINUE CARE
--- NOTE | 2019-06-01 18:20 | NUR ---
Respiratory note: received pt on vent v5, vent connected to red outlet and o2 source. alarms are set and audible. ambu bag and mask at bedside. bs are course t/o, sxd via ett x2 for large thick creamy rosario secretions. pts current temp is 100.6f. rt name and pager assignment written on pts room board. will continue to monitor.
--- NOTE | 2019-06-01 19:45 | NUR ---
Opening Shift Note Assumed care of patient. No S/S of distress/SOB or pain. Pt on vent, will continue to monitor for changes Q1hr and PRN.
--- NOTE | 2019-06-01 20:34 | NUR ---
Respiratory note: ROUTINE VENT CHECK NO CHANGES MADE. PTS CURRENT TEMP IS 100.6F. WILL CONTINUE TO MONITOR.
[2019-06-01] MEDS: ATORVASTATIN 20 MG TAB PO SCH (22:00)
--- NOTE | 2019-06-01 22:25 | NUR ---
Respiratory note: ROUTINE VENT CHECK NO CHANGES MADE.MED NEB TX GIVEN INLINE VIA AEROGEN, NO ADVERSE REACTION NOTED. PTS CURRENT TEMP IS 100.6F. WILL CONTINUE TO MONITOR.
[2019-06-02] VITALS (87 sets, daily range): BP systolic 93–163; BP diastolic 29–78
--- NOTE | 2019-06-02 00:22 | NUR ---
Respiratory note: ROUTINE VENT CHECK NO CHANGES MADE. PTS CURRENT TEMP IS 100.6F. WILL CONTINUE TO MONITOR.
[2019-06-02] MEDS: LINEZOLID 600MG/300ML 300 ML IV SCH ×3 (00:34→23:00)
[2019-06-02] MEDS: PROPOFOL 100 ML IV SCH (03:11)
[2019-06-02] MEDS: IPRATROPIUM BROM 0.5 MG/2.5ML INH SOL NEB SCH ×3 (05:45→22:14)
[2019-06-02] MEDS: ALBUTEROL SULF 2.5 MG/0.5ML(0.5%) NEB SOLN NEB SCH ×3 (05:45→22:14)
[2019-06-02] MEDS: dilTIAZem HCL 60 MG TAB GT SCH ×3 (06:00→22:55)
[2019-06-02] MEDS: InsuLIN REG 1unit/0.01ml Soln (100units/ml) SC SCH ×5 (06:00→22:59)
[2019-06-02 06:18] LABS: INR 1.96 (0.9-1.15); Partial Thromboplastin Time 36.7 sec (23.64-32.05)
[2019-06-02 06:19] LABS: Potassium 3.6 mmol/L (3.5-5.1)
[2019-06-02 06:26] LABS: Albumin 1.8 g/dL (3.4-5.0); BUN/Creatinine Ratio 20.2; Bilirubin, Total 0.3 mg/dL (0.2-1.0); Calcium 8.3 mg/dL (8.5-10.1)
[2019-06-02] MEDS: PIPERACILLIN-TAZO 4.5GM 100 ML IV SCH ×3 (06:28→22:56)
[2019-06-02] MEDS: ACCU-CHEK COMFORT CURVE STRIP VI SCH ×5 (06:29→22:59)
[2019-06-02] MEDS: INSULIN LANTUS (GLARGINE) 1 /0.01ml (100units/ml) SC SCH (06:32)
--- NOTE | 2019-06-02 07:00 | NUR ---
Pt remained stable this shift. No s/s of anxiety and rested comfortably. Responds with nods when spoken to. Report given to AM shift, care endorsed.
--- NOTE | 2019-06-02 07:40 | NUR ---
OPENING SHIFT NOTE: Received report from NOC RNEunice. Assumed care of patient. Received patient on bedside monitor with no s/s of distress noted. Patient on ventilator with 8.0ET at 24cm at the lip, on AC rate 20, TV 550, Peep 5 and fiO2 45%. Patient is able to respond to simple commands. Patient with RIJ TLC in place with Fentanyl at 50mcg/hr and Propofol @10mcg/hr. Patino in place draining to gravity. Plan for patient to have CPAP trial today and start Precedex per Dr Linares communication order. Will continue to monitor q1hr/PRN.
--- NOTE | 2019-06-02 08:24 | NUR ---
Respiratory at bedside doing ABG prior to CPAP trial. Pharmacy notified of precedex order, will send up medication.
--- NOTE | 2019-06-02 08:30 | NUR ---
Dr Ricardo Robin at bedside. Updated MD on plan of care to include Dr Linares's plan for CPAP trial and Precedex.
--- NOTE | 2019-06-02 09:00 | NUR ---
Precedex started. See IV spreadsheet.
[2019-06-02] MEDS: DexMEDEtomidine 400 MCG in D5W 5% 96 ML IV SCH ×2 (09:01→23:59)
--- NOTE | 2019-06-02 09:15 | NUR ---
Propofol decreased to 5mcg/hr per protocol due to decreased BP. See IV spreadsheet.
[2019-06-02] MEDS: CHOLECALCIFEROL (VITD3) 1,000IU=25mCg TAB PO SCH (10:00)
--- NOTE | 2019-06-02 10:00 | NUR ---
Precedex increased per protocol. Propofol turned off. See IV spreadsheet.
--- NOTE | 2019-06-02 10:15 | NUR ---
T/C from patient's , iMranda. Verified password. Updated on plan of care. Questions answered.
--- NOTE | 2019-06-02 10:30 | NUR ---
Fentanyl gtt decreased to 25mcg/hr per protocol. See IV spreadsheet. Patient RASS -2
[2019-06-02] MEDS: FUROSEMIDE 20 MG/2 ML VIAL IV SCH (10:31)
[2019-06-02] MEDS: PANTOPRAZOLE 40 MG/10 ML VIAL INJ IV SCH (10:31)
--- NOTE | 2019-06-02 11:00 | NUR ---
Precedex increased per protocol. See IV spread sheet.
--- NOTE | 2019-06-02 11:30 | NUR ---
Fentanyl gtt hold for CPAP trial.
--- NOTE | 2019-06-02 11:43 | NUR ---
Oneyda RT at bedside starting CPAP trial. Addendum: 06/02/19 at 1348 by SHANTELLE SMITH RN CPAP trial Order for CPAP trial by Dr. Linares. Patient completely off any sedation, except for Precedex per order at 0.4mcg/kg/hr. Patient educated on need to remain calm, and to breathe steady/even. Room is distration free for patient comfort. RT at bedside placed patient ventilator on CPAP. Current sats 93%. Continue to monitor closely.
--- NOTE | 2019-06-02 11:45 | NUR ---
Respiratory note: CPAP TRIAL INITIATED. HR 80, RR 22, SPO2 93%, BP 98/38 RN AT BEDSIDE.
--- NOTE | 2019-06-02 13:26 | NUR ---
CPAP trial results relayed to Dr Linares via phone. Orders received for extubation and bipap PRN. Oneyda RT aware.
--- NOTE | 2019-06-02 13:40 | NUR ---
Respiratory note: EXTUBATED PATIENT AND PLACED ON 50% COOL MIST AEROSOL. HR 100, RR 26, SPO2 93%. NO STRIDOR HEARD.RN AT BEDSIDE.
--- NOTE | 2019-06-02 13:40 | NUR ---
Patient extubated by RT Extubation order received by Dr. Linares, RT at bedside. Patient extubated with no problems, patient tolerated well. Patient placed on 50% cool mist mask. Sats prior to extubation 94%, following extubation 93%. Continue to monitor.
--- NOTE | 2019-06-02 14:20 | NUR ---
Cardizem held due to immediate post extubation and no OG/NG tube.
[2019-06-02] MEDS ORDERED: EPINEPHrine HCL 0.5 ML NEB ONE (14:43)
[2019-06-02] MEDS ORDERED: EPINEPHrine HCL 0.5 ML NEB NEB ONE (14:45)
[2019-06-02] MEDS ORDERED: DexAMETHasone SOD PHOS 4 MG/1ML SDV INJ IV ONE (15:00)
--- NOTE | 2019-06-02 15:03 | NUR ---
Dr Linares at bedside. Orders received.
--- NOTE | 2019-06-02 15:10 | NUR ---
Patient started on Bipap 15/8. O2 sats 92% RR 21.
[2019-06-02] MEDS ORDERED: BUMETANIDE 2.5mg/10ml (0.25 mg/ml) INJ IV ONE (15:15)
[2019-06-02] MEDS: fentaNYL Drip 2500mCg/250mlNS 250 ML IV SCH (16:56)
[2019-06-02] MEDS ORDERED: WARFARIN SODIUM 2.5 MG TAB PO ONE (17:00)
--- NOTE | 2019-06-02 17:00 | NUR ---
Coumadin held at this time due to bipap. Will endorse to NOC RN if patient can tolerate swallowing and respiratory status is improved.
--- NOTE | 2019-06-02 17:35 | NUR ---
Patient remains on Bipap 15/8 fiO2 45% with O2 sats 94%. Patient able to tolerate ice chips and swallow with no cough. Patient c/o of being hungry and not eating in over a week. Educated patient on importance of resting his throat and making sure he is breathing fine. Patient apologized and verbalized understanding.
--- NOTE | 2019-06-02 18:21 | NUR ---
Respiratory note: PT TAKEN OFF BIPAP AT THIS TIME AND PLACED BACK ON COOL AEROSOL 12 L/M 50% FIO2: HR 101, RR 24, SPO2 95%. PT APPEARS TO BE TOLERATING CHANGE WELL. RN AWARE OF CHANGE WILL CONTINUE TO MONITOR.
--- NOTE | 2019-06-02 18:30 | NUR ---
RT at bedside. Patient placed on 5L Oxymizer.
--- NOTE | 2019-06-02 18:52 | NUR ---
RT at bedside. Patient taken off oxymizer and placed back on cool mist mask at fiO2 50%.
--- NOTE | 2019-06-02 19:25 | NUR ---
Opening Shift Note Assumed care of patient, awake and alert. No S/S of distress/SOB or pain. Instructed on POC and to call for assist PRN, will continue to monitor for changes Q1hr and PRN. Pt on Bipap and satting well.
--- NOTE | 2019-06-02 19:40 | NUR ---
CLOSING SHIFT NOTE: Report given to NOC RN, Eunice. Patient placed back on Bipap 15/8 at fiO2 45% at 1915 after desating to 83% on cool mist mask at 50%. Patient remains NPO but tolerates ice chips. Endorsed care of patient.
[2019-06-02] MEDS: NOREPINEPHRINE 8 MG/250ML KIT 250 ML IV SCH (21:00)
[2019-06-02] MEDS: DexAMETHasone SOD PHOS 4 MG/1ML SDV INJ IV SCH (22:56)
[2019-06-02] MEDS: ATORVASTATIN 20 MG TAB PO SCH (22:58)
[2019-06-03] VITALS (22 sets, daily range): BP systolic 141–175; BP diastolic 61–80
--- NOTE | 2019-06-03 03:00 | NUR ---
Pt stating he's gonna , and wants to talk to MD. MD paged for orders for anxiety. New orders given for Ativan PO and Hydralazine PO for BP. Sys bp 185 at this time. Will continue to monitor.
[2019-06-03] MEDS ORDERED: hydrALAZINE HCL 25 MG TAB PO PRN (03:15)
[2019-06-03] MEDS: LORazepam 0.5 MG TAB PO PRN ×3 (03:34→18:49)
--- NOTE | 2019-06-03 04:30 | NUR ---
Pt stated pain to penis. Patino balloon deflated and catheter repositioned. Catheter started leaking at meatus. Inflated balloon with 3ml and still continued leaking. Patino was removed. A lot of creamy mucus at tip of catheter upon removal. New Patino 18Fr placed with 7ml saline in balloon. Pt winced when more was placed. Urine sent for UA and UC. Immediately bag filled with 900ml. Pt tolerated placement well. Patino went in with no resistance. After bladder finished emptying into the bag, small amount of blood came into tube. Will continue to monitor.
[2019-06-03 05:11] LABS: Basophils # (auto) 0 10 ^3/uL (0-0.2); Basophils % (auto) 0.2 % (0.0-2.0); Eosinophils # (auto) 0 10 ^3/uL (0-0.8); Hematocrit 34.4 % (41.0-53.0); Hemoglobin 11.3 g/dL (13.5-17.5); Lymphocytes # (auto) 0.5 10 ^3/uL (0.4-5.4); Lymphocytes % (auto) 5.9 % (10.0-50.0); Mean Corpuscular Hemoglobin 28.5 pg (28.0-32.0); Mean Corpuscular Hgb Conc. 32.8 g/dL (32.0-36.0); Monocytes # (auto) 0.2 10 ^3/uL (0-1.3); Monocytes % (auto) 2.7 % (0.0-12.0); Neutrophils # (auto) 8.2 10 ^3/uL (1.6-8.6); Neutrophils % (auto) 91.2 % (37.0-80.0); Platelet Count (auto) 222 10^3/uL (140-450); Red Blood Cells 3.95 10^6/uL (4.5-5.90); Red Cell Distribution Width 15.1 % (11.8-14.3)
[2019-06-03 05:16] LABS: INR 1.79 (0.9-1.15); Partial Thromboplastin Time 37.6 sec (23.64-32.05)
[2019-06-03 05:17] LABS: Albumin 2.1 g/dL (3.4-5.0); Calcium 8.6 mg/dL (8.5-10.1); Potassium 4.1 mmol/L (3.5-5.1)
[2019-06-03 05:22] LABS: BUN/Creatinine Ratio 20.5; Bilirubin, Total 0.3 mg/dL (0.2-1.0)
[2019-06-03 05:23] LABS: Urine Amorphous Crystal FEW /hpf (None Seen); Urine Bacteria FEW /hpf (None Seen); Urine Blood 2+ /uL (Negative); Urine Specific Gravity 1.012 (1.001-1.035); Urine Sperm PRESENT /hpf (None Seen); Urine WBC 3 /hpf (0 - 3)
[2019-06-03] MEDS: InsuLIN REG 1unit/0.01ml Soln (100units/ml) SC SCH ×4 (06:00→23:09)
[2019-06-03] MEDS: ACCU-CHEK COMFORT CURVE STRIP VI SCH ×4 (06:00→23:09)
[2019-06-03] MEDS: ALBUTEROL SULF 2.5 MG/0.5ML(0.5%) NEB SOLN NEB SCH ×3 (06:10→22:50)
[2019-06-03] MEDS: IPRATROPIUM BROM 0.5 MG/2.5ML INH SOL NEB SCH ×3 (06:10→22:50)
[2019-06-03] MEDS: dilTIAZem HCL 60 MG TAB GT SCH ×3 (06:57→22:21)
[2019-06-03] MEDS: PIPERACILLIN-TAZO 4.5GM 100 ML IV SCH ×3 (06:57→22:21)
[2019-06-03] MEDS: DexAMETHasone SOD PHOS 4 MG/1ML SDV INJ IV SCH ×2 (06:57→14:35)
[2019-06-03] MEDS: INSULIN LANTUS (GLARGINE) 1 /0.01ml (100units/ml) SC SCH (06:58)
--- NOTE | 2019-06-03 07:40 | NUR ---
OPENING SHIFT NOTE: Received report from BRANDON RNEunice. Assumed care of patient. Received patient resting in bed, connected to bedside monitor, no s/s of distress noted. Patient is A&Ox4, denies pain, with occasional bouts of anxiety. Patient on Bipap 15/8 with fiO2 30% with Os sats 94%. Rt IJ TLC in place with antibiotics infusing. All ports flush and return blood. Patino draining to gravity pink tinged urine after being changed out by BRANDON RN. Bed in lowest position, rails x3 up and call light within reach. Updated on plan of care. Will continue to monitor q1hr/PRN.
--- NOTE | 2019-06-03 08:20 | NUR ---
Change ostomy bag to right upper quadrant. Bright red, double barrel stoma noted measuring 1"x2" oval. Peristomal skin is pink and intact. Site cleansed with warm water and skin protectant applied along with new bag. Approximately 100ml of liquid stool noted in bag.
[2019-06-03] MEDS: CHOLECALCIFEROL (VITD3) 1,000IU=25mCg TAB PO SCH (10:00)
--- NOTE | 2019-06-03 10:19 | NUR ---
OFF BIPAP PT MOVING AROUND FREQUENTLY IN BED, WANTING TO TAKE BIPAP MASK OFF. PLACED ON 8LPM OXYMIZER, SPO2 99%. RN PIPER AT BEDSIDE AND AWARE OF CHANGES. ADVISED PT TO CALL FOR RT IF FEELING SOB. WILL CONTINUE TO MONITOR.
[2019-06-03] MEDS: FUROSEMIDE 20 MG/2 ML VIAL IV SCH (10:50)
[2019-06-03] MEDS: PANTOPRAZOLE 40 MG/10 ML VIAL INJ IV SCH (10:50)
[2019-06-03] MEDS: LINEZOLID 600MG/300ML 300 ML IV SCH (11:32)
--- NOTE | 2019-06-03 12:40 | NUR ---
RT at bedside placing patient back on Bipap per patient request.
--- NOTE | 2019-06-03 12:50 | NUR ---
PT ON BIPAP PUT PT BACK ON BIPAP DUE TO INCREASED WOB. BIPAP PLUGGED INTO RED OUTLET, FITTED WITH SIZE LARGE MASK, CHANGED TO SIZE MEDIUM STRAPS FOR BETTER FIT. PT TOLERATING BIPAP WELL. COMPA SALDAAÑ MADE AWARE OF CHANGES. WILL CONTINUE TO MONITOR.
--- NOTE | 2019-06-03 14:08 | NUR ---
Dr Huff at bedside to see patient. Orders received.
--- NOTE | 2019-06-03 14:55 | NUR ---
Deisi Byers, Cardio TIP TESTER at bedside to see patient.
--- NOTE | 2019-06-03 15:09 | NUR ---
Nutrition Follow-up Wt.: 125.8 kg Pt has been extubated, currently on BiPAP and is off sedation. Pt remains NPO. Noted swallow evaluation order placed. Will continue to monitor NPO status, skin status, pertinent labs and weight trends. Will f/u in 2 to 3 days. Est. Energy Needs: 1482-3119 kcal (12-15 kcal/kg BW). Est. Protein Needs: 88-100 gms/day (1.0-1.2 gms/kg Adj.BW). Labs 06/02: Na 134 L, BUN 34 H, Cr 1.66 H, Glucose 280 H, POC 258 H, Albumin 2.1 L Skin: Louis scale 12, high risk, scab to R toe PES: 1) Obese, Class III r/t energy intake in excess of energy needs aeb BMI 44.7 kg/m2 and 193% IBW Recommendations: 1) Advance diet gradually to oral CCHO 60g diet, when medically appropriate. 2) If Albumin continues trending down, consider Prostat 1 pkt BID. 3) Refer pt to CDE/RD for further nutrition education and weight monitoring upon discharge. 4) Continue current plan of care.
[2019-06-03] MEDS ORDERED: CARVEDILOL 12.5 MG TAB PO ONE (15:15)
[2019-06-03] MEDS ORDERED: amLODIPine BESYLATE 5 MG TAB PO ONE (15:15)
--- NOTE | 2019-06-03 15:28 | NUR ---
Dr Linares at bedside to see patient.
[2019-06-03] MEDS ORDERED: WARFARIN SODIUM 10 MG TAB PO ONE (17:00)
[2019-06-03] MEDS: CARVEDILOL 12.5 MG TAB PO SCH (17:37)
--- NOTE | 2019-06-03 18:16 | NUR ---
RT paged, patient asking to take off Bipap.
--- NOTE | 2019-06-03 18:25 | NUR ---
Respiratory note: TOOK PT OF BIPAP. PLACED PT ON 8L OXYMIZER. PT TOLERATING WELL. HR 81, RR 26, 98%, BREATH SOUNDS ARE COARSE. RN AWARE OF CHANGE.
--- NOTE | 2019-06-03 18:54 | NUR ---
CLOSING SHIFT NOTE: Report given to NOC Rose CHATMAN. Patient on Oxymizer at 8L. Patient remains NPO but tolerates ice chips and water, swallow eval pending. Patient recently medicated with ativan due to anxiety. Endorsed care of patient.
--- NOTE | 2019-06-03 19:45 | NUR ---
Opening Shift Note: A&Ox2-3, confusion present. According to patient's , patient is not confused at baseline. Currently on 8LO2 via Oxymizer/intermittent Bipap; pain level 0/10, and current/baseline is bedrest. Bed locked in lowest position, side rails up x3, call light within reach, and bed alarm on for patient safety. Patient was previously intubated on 05/31/19 and extubated 06/02/19. Patient does have a RUQ ileostomy. Patino reinserted on 06/03/19 for strict I/O. Skin: generalized bruising/erythema; scabbing on bilateral toes. IVs: right AC 18 g IID inserted on 05/27/19; right wrist 20 g inserted on 05/27/19; R IJ TLC inserted 05/27/19. Patient is unable to understand POC education at this time related to confusion. Will round/reposition prn.
--- NOTE | 2019-06-03 21:00 | NUR ---
KEL: Miranda- updated on patients current status.
[2019-06-03] MEDS: ATORVASTATIN 20 MG TAB PO SCH (22:21)
[2019-06-04] VITALS (30 sets, daily range): BP systolic 66–150; BP diastolic 29–97
[2019-06-04] MEDS: LORazepam 0.5 MG TAB PO PRN ×2 (00:38→10:01)
--- NOTE | 2019-06-04 02:50 | NUR ---
Respiratory note: INCREASED PT'S FIO2 TO 45%. SPO2 IN THE LOW 90'S. RN AWARE OF CHANGE
--- NOTE | 2019-06-04 04:00 | NUR ---
Patient bathe/linen change Patient given complete CHG bath. Skin integrity assessed for any changes. Linens and gown changed. Patient repositioned for comfort.
[2019-06-04] MEDS: dilTIAZem HCL 60 MG TAB GT SCH ×3 (05:39→21:21)
[2019-06-04] MEDS: PIPERACILLIN-TAZO 4.5GM 100 ML IV SCH ×3 (05:39→21:44)
[2019-06-04] MEDS: ACCU-CHEK COMFORT CURVE STRIP VI SCH ×3 (05:41→17:02)
[2019-06-04] MEDS: InsuLIN REG 1unit/0.01ml Soln (100units/ml) SC SCH ×3 (05:41→18:06)
[2019-06-04] MEDS: INSULIN LANTUS (GLARGINE) 1 /0.01ml (100units/ml) SC SCH (05:42)
[2019-06-04] MEDS: IPRATROPIUM BROM 0.5 MG/2.5ML INH SOL NEB SCH ×3 (06:20→22:00)
[2019-06-04] MEDS: ALBUTEROL SULF 2.5 MG/0.5ML(0.5%) NEB SOLN NEB SCH ×3 (06:20→22:00)
[2019-06-04 06:34] LABS: Basophils # (auto) 0.1 10 ^3/uL (0-0.2); Basophils % (auto) 0.6 % (0.0-2.0); Eosinophils # (auto) 0 10 ^3/uL (0-0.8); Hematocrit 32.8 % (41.0-53.0); Hemoglobin 11.1 g/dL (13.5-17.5); Lymphocytes # (auto) 0.9 10 ^3/uL (0.4-5.4); Lymphocytes % (auto) 6.5 % (10.0-50.0); Mean Corpuscular Hemoglobin 29.3 pg (28.0-32.0); Mean Corpuscular Hgb Conc. 33.7 g/dL (32.0-36.0); Mean Corpuscular Volume 86.9 fL (80.0-100.0); Monocytes # (auto) 1.2 10 ^3/uL (0-1.3); Monocytes % (auto) 8.1 % (0.0-12.0); Neutrophils # (auto) 12.1 10 ^3/uL (1.6-8.6); Neutrophils % (auto) 84.8 % (37.0-80.0); Platelet Count (auto) 255 10^3/uL (140-450); Red Blood Cells 3.77 10^6/uL (4.5-5.90); Red Cell Distribution Width 14.9 % (11.8-14.3); White Blood Cell 14.3 10^3/uL (4.4-10.8)
[2019-06-04 06:49] LABS: INR 2.92 (0.9-1.15)
[2019-06-04 06:53] LABS: Albumin 2.3 g/dL (3.4-5.0); Calcium 8.5 mg/dL (8.5-10.1); Potassium 3.8 mmol/L (3.5-5.1)
[2019-06-04 06:59] LABS: BUN/Creatinine Ratio 20.4; Bilirubin, Total 0.2 mg/dL (0.2-1.0); Total Protein 7.1 g/dL (6.4-8.2)
--- NOTE | 2019-06-04 07:30 | NUR ---
IV removal from right hand IV DC'd with sterile technique, catheter fully intact. Pressure dressing applied to site. Patient tolerated procedure well.
--- NOTE | 2019-06-04 07:40 | NUR ---
Opening Shift Note Assumed care of patient, awake and alert, sitting up on the bed and watching TV, patient has sitter at the bedside as well. Patient able to tell me his name, follow direction, knows where he is and why he is in the hospital. No S/S of distress/SOB or pain noted, removed MITT since last night. Instructed on POC and to call for assist PRN, will continue to monitor for changes Q1hr and PRN. Patient was informed about the test of covid came back negative, will continue Antibiotic for Pneumonia and breathing treatment as ordered. Patient made aware that waiting for swallow eval and still NPO.
--- NOTE | 2019-06-04 07:50 | NUR ---
Central line dressing changed at this time at right IJ. BT 99.3 F (rectal), Ice pack applied, explained plan of care, patient agreed with the plan.
[2019-06-04] MEDS: CARVEDILOL 12.5 MG TAB PO SCH ×3 (08:00→18:00)
--- NOTE | 2019-06-04 08:11 | NUR ---
Non admit Coreg due to NPO and waiting for swallow eval.
[2019-06-04] MEDS: CHOLECALCIFEROL (VITD3) 1,000IU=25mCg TAB PO SCH (09:29)
[2019-06-04] MEDS: PANTOPRAZOLE 40 MG/10 ML VIAL INJ IV SCH (09:33)
[2019-06-04] MEDS: FUROSEMIDE 20 MG/2 ML VIAL IV SCH (09:33)
[2019-06-04] MEDS ORDERED: amLODIPine BESYLATE 5 MG TAB PO SCH (10:00)
[2019-06-04] MEDS: ACETAMINOPHEN 325 MG TAB PO PRN (10:02)
--- NOTE | 2019-06-04 10:17 | NUR ---
Standby Bipap for 10 minutes for mouth care and medications, O2 saturation 98% RR 30-34, patient also stated that would like to have Bipap back. Mouth care provided, Ativan given for Anxious, Coreg and Tylenol given at this time as well, crushed and mixed with apple sauce, no coughing or aspiration noted. Patient on Bipap back, sitting on the bed and watching TV, changing position by himself.
--- NOTE | 2019-06-04 10:55 | NUR ---
Speech therapist at the bedside for swallow eval, paged RT as well. Standby Bipap and changed to Oxymizer 12 LPM at this time.
--- NOTE | 2019-06-04 11:09 | NUR ---
O2 saturation 98-99%, RR 28-34/min with Oxymizer 12 LPM. RT at the bedside for ABG. Will continue to monitor and care.
--- NOTE | 2019-06-04 11:15 | NUR ---
Patient is back to Bipap as previous setting. HR 90-95/min, RR 28-35/min, O2 saturation 96-98%. Waiting for ABG result.
[2019-06-04] MEDS ORDERED: FUROSEMIDE 20 MG/2 ML VIAL IV SCH ×2 (11:30→18:00)
[2019-06-04] MEDS ORDERED: POTASSIUM CHL 20MEQ/100ML 100 ML IV ONE (11:30)
--- NOTE | 2019-06-04 11:30 | NUR ---
Dr. Yi at the bedside, received new orders, patient made aware. Increased Lasix IV BID, Potassium once dose as orders.
--- NOTE | 2019-06-04 11:36 | NUR ---
SWALLOW EVALUATED. PATIENT HAS SOME NATURAL TEETH, UPPER AND LOWER. PATIENT ABLE TO FOLLOW COMMANDS. PATIENT ABLE TO TOLERATE PUREE DIET TEXTURE WITH HONEY THICKENED LIQUIDS. PATIENT VERY CONGESTED. COUGHING ON TRIAL OF THIN AND NECTAR THICKENED LIQUIDS. NURSING PRESENT FOR EVALUATION.
--- NOTE | 2019-06-04 12:10 | NUR ---
Respiratory note: PT TAKEN OFF BIPAP AND PLACED ON 9 LPM OXYMIZER TO EAT. PT TOLERATING WELL.
--- NOTE | 2019-06-04 12:20 | NUR ---
Dr. Huff at the bedside.
--- NOTE | 2019-06-04 12:56 | NUR ---
Patient had Lunch, sitting up with high casper position, changed to Oxymizer while eating, had around 25%. No coughing or aspiration noted.
--- NOTE | 2019-06-04 13:45 | NUR ---
On Bipap at this time. Patient able to tolerated Oxymizer 11 LPM after Lunch around > 1 hour, O2 saturation 98%, HR 90-98/min, RR 26-30/min.
--- NOTE | 2019-06-04 15:45 | NUR ---
Ultrasound at the bedside.
--- NOTE | 2019-06-04 16:39 | NUR ---
Patient desaturation 80-82% with BIPAP I15 E8 FiO2 35% rate 12, increased FiO2 to 40%, called and talked to Dr. Huff, received order for Lasix 40 mg IV BID.
--- NOTE | 2019-06-04 17:14 | NUR ---
Patient unable to lying down due to desaturation 78-82%, paged RT, Lasix given at this time as well.
--- NOTE | 2019-06-04 17:16 | NUR ---
Paged Hospitalist school transportation director, waiting MD to call back.
[2019-06-04] MEDS: FUROSEMIDE 100 MG/10ML VIAL IV SCH (17:17)
--- NOTE | 2019-06-04 17:28 | NUR ---
Paged Hospitalist monument mason and RT at this time .
--- NOTE | 2019-06-04 17:33 | NUR ---
Received a call from James OZUNA, Will come and see patient. Paged Dr. Linares, waiting MD to call back.
--- NOTE | 2019-06-04 17:35 | NUR ---
[employer] Manager [employer] and RT at the bedside, received new orders, will do ABG and CXR.
[2019-06-04] MEDS ORDERED: BUMETANIDE 1mg/4ml VIAL (0.25mg/ml) ONE (17:50)
[2019-06-04] MEDS ORDERED: BUMETANIDE 2.5mg/10ml (0.25 mg/ml) INJ IV ONE (18:00)
[2019-06-04] MEDS ORDERED: ETOMIDATE (2MG/ML) 20ML VIAL IV ONE ×2 (18:19→18:34)
[2019-06-04] MEDS ORDERED: ROCURONIUM 10MG/ML 10ML VIAL IV ONE ×2 (18:20→18:34)
[2019-06-04] MEDS: ACETYLCYSTEINE 10 %(100MG/ML) SOL 4ML NEB SCH (18:36)
[2019-06-04] MEDS ORDERED: PROPOFOL 100 ML IV ONE (18:37)
--- NOTE | 2019-06-04 18:50 | NUR ---
ICU pt. intubated called regarding patient's respiratory status. Order received for intubation. Respiratory Therapist notified and at bedside. Patient/Family instructed on need for intubation and possible sedation while on ventilator. Patient intubated by Dr. Linares with 8.0 ETT, 24 at the lip, and OGT placed. Medications given as follows: see EMAR
--- NOTE | 2019-06-04 19:15 | NUR ---
OPENING NOTE RECEIVED REPORT FROM DAY NURSE. PT INTUBATED AND SEDATED. NO DISTRESS NOTED. COMPLETE PHYSICAL ASSESSMENT UNDER INTERVENTIONS. WILL CONTINUE TO MONITOR.
[2019-06-04] MEDS: PROPOFOL 100 ML IV SCH (19:17)
--- NOTE | 2019-06-04 19:20 | NUR ---
James CLIENT PORTFOLIO MANAGER at the bedside, no new order at this time.
[2019-06-04] MEDS: fentaNYL Drip 2500mCg/250mlNS 250 ML IV SCH (19:31)
--- NOTE | 2019-06-04 19:42 | NUR ---
Paged hospitalist plant operations engineer due to low BP after started sedation.
--- NOTE | 2019-06-04 19:45 | NUR ---
Received a call back from James OZUNA, received order for Levophed.
[2019-06-04] MEDS: NOREPINEPHRINE 8 MG/250ML KIT 250 ML IV SCH (21:00)
[2019-06-04] MEDS: BUMETANIDE INJECTION 25 MG in GIVE UN-DILUTED 0 ML IV SCH (21:19)
[2019-06-04] MEDS: ATORVASTATIN 20 MG TAB PO SCH (21:44)
[2019-06-04] MEDS: DOXYCYCLINE 100 MG TAB/CAP PO SCH (21:44)
[2019-06-05] VITALS (106 sets, daily range): BP systolic 81–147; BP diastolic 36–71
[2019-06-05] MEDS: ACETYLCYSTEINE 10 %(100MG/ML) SOL 4ML NEB SCH ×4 (00:34→22:03)
[2019-06-05] MEDS: PROPOFOL 100 ML IV SCH ×6 (01:00→22:22)
[2019-06-05 03:56] LABS: Basophils # (auto) 0.1 10 ^3/uL (0-0.2); Basophils % (auto) 0.5 % (0.0-2.0); Eosinophils # (auto) 0 10 ^3/uL (0-0.8); Eosinophils % (auto) 0.2 % (0.0-7.0); Hematocrit 34.1 % (41.0-53.0); Hemoglobin 11.2 g/dL (13.5-17.5); Lymphocytes % (auto) 7.3 % (10.0-50.0); Mean Corpuscular Hemoglobin 28.8 pg (28.0-32.0); Mean Corpuscular Hgb Conc. 32.8 g/dL (32.0-36.0); Mean Corpuscular Volume 87.8 fL (80.0-100.0); Monocytes # (auto) 1.5 10 ^3/uL (0-1.3); Monocytes % (auto) 11.2 % (0.0-12.0); Neutrophils # (auto) 10.8 10 ^3/uL (1.6-8.6); Neutrophils % (auto) 80.8 % (37.0-80.0); Platelet Count (auto) 289 10^3/uL (140-450); Red Blood Cells 3.88 10^6/uL (4.5-5.90); White Blood Cell 13.3 10^3/uL (4.4-10.8)
--- NOTE | 2019-06-05 04:00 | NUR ---
COMPLETE LINEN CHANGE PT RESTING IN BED. WHOLE LINEN CHANGE. NO DISTRESS NOTED.
[2019-06-05 04:11] LABS: Albumin 2.4 g/dL (3.4-5.0); Calcium 8.4 mg/dL (8.5-10.1); Potassium 3.3 mmol/L (3.5-5.1)
[2019-06-05 04:15] LABS: BUN/Creatinine Ratio 22.2; Bilirubin, Total 0.2 mg/dL (0.2-1.0); Total Protein 6.9 g/dL (6.4-8.2)
[2019-06-05 04:18] LABS: Partial Thromboplastin Time 38.7 sec (23.64-32.05)
[2019-06-05 04:42] LABS: INR 4.03 (0.9-1.15)
[2019-06-05] MEDS: IPRATROPIUM BROM 0.5 MG/2.5ML INH SOL NEB SCH ×3 (06:00→22:03)
[2019-06-05] MEDS: ACCU-CHEK COMFORT CURVE STRIP VI SCH ×5 (06:00→23:33)
[2019-06-05] MEDS: InsuLIN REG 1unit/0.01ml Soln (100units/ml) SC SCH ×5 (06:00→23:33)
[2019-06-05] MEDS: dilTIAZem HCL 60 MG TAB GT SCH ×3 (06:00→21:23)
[2019-06-05] MEDS: PIPERACILLIN-TAZO 4.5GM 100 ML IV SCH ×3 (06:24→21:24)
[2019-06-05] MEDS: FUROSEMIDE 100 MG/10ML VIAL IV SCH (06:24)
[2019-06-05] MEDS: ALBUTEROL SULF 2.5 MG/0.5ML(0.5%) NEB SOLN NEB SCH ×3 (06:39→22:03)
--- NOTE | 2019-06-05 06:42 | NUR ---
HOSPITALIST PAGED REGARDING k LEVEL THIS MORNING.
[2019-06-05] MEDS: BUMETANIDE INJECTION 25 MG in GIVE UN-DILUTED 0 ML IV SCH ×2 (06:45→13:59)
[2019-06-05] MEDS ORDERED: POTASSIUM CHLORIDE 40 MEQ, LIDOCAINE 1% (LOCAL ANESTH.) 4 ML in SODIUM CHL 0.9% 100 ML IV ONE (07:00)
--- NOTE | 2019-06-05 07:20 | NUR ---
OPENING NOTE SHIFT REPORT RECEIVED AND ASSUMED CARE OF PT FROM GARCIA CHATMAN
[2019-06-05] MEDS: INSULIN LANTUS (GLARGINE) 1 /0.01ml (100units/ml) SC SCH (07:52)
--- NOTE | 2019-06-05 07:57 | NUR ---
ENDORSED CARE TO DAY NURSE VSS. PT STILL RESTING WITH NO DISTRESS NOTED.
[2019-06-05] MEDS: fentaNYL Drip 2500mCg/250mlNS 250 ML IV SCH (08:39)
[2019-06-05] MEDS: CARVEDILOL 12.5 MG TAB PO SCH ×2 (08:40→18:00)
--- NOTE | 2019-06-05 09:00 | NUR ---
PAGED DR. ALCALA REGARDING PT'S INR LEVEL IN REGARDS TO PT HAVING BRONCHOSCOPY TODAY
--- NOTE | 2019-06-05 09:35 | NUR ---
DR. ALCALA CALLED BACK AND STATES HE IS OK WITH INR LEVEL AND WILL PROCEED WITH BRONCHOSCOPY FOR THIS AFTERNOON. OR TEAM CONTACTED AND THEY ARE AWARE OF BRONCHOSCOPY FOR THE AFTERNOON
--- NOTE | 2019-06-05 09:35 | NUR ---
DR. ALCALA ALSO AWARE OF ABG'S BUT DOES NOT WANT ANY CHANGES AT THIS TIME
[2019-06-05] MEDS: CHOLECALCIFEROL (VITD3) 1,000IU=25mCg TAB PO SCH (10:00)
[2019-06-05] MEDS ORDERED: FUROSEMIDE 100 MG/10ML VIAL IV SCH (10:00)
[2019-06-05] MEDS ORDERED: LIDOCAINE 2%HCL (LOCAL ANESTH.) INJ 20ML MDV ONE (10:51)
[2019-06-05] MEDS ORDERED: SODIUM CHLORIDE LOCK 10 ML ONE ×2 (10:51→11:38)
[2019-06-05] MEDS ORDERED: EPINEPHrine HCL 1 MG/1 ML AMP ONE (10:51)
[2019-06-05] MEDS ORDERED: LIDOCAINE HCL 2% TOP JELLY 5ML TOP ONE (10:52)
[2019-06-05] MEDS: PANTOPRAZOLE 40 MG/10 ML VIAL INJ IV SCH (10:56)
--- NOTE | 2019-06-05 11:20 | NUR ---
Dr. Yi at the bedside, received order for continue Bumex iv 1 mg/hr.
[2019-06-05] MEDS: POTASSIUM CHL 20MEQ/100ML 100 ML IV SCH ×3 (11:30→15:00)
[2019-06-05] MEDS ORDERED: MIDAZOLAM HCL 5 MG/ML-1ML VIAL ONE (11:38)
--- NOTE | 2019-06-05 12:10 | NUR ---
DR. ALCALA AT BEDSIDE FOR BRONCHOSCOPY WITH OR TEAM. WILL CONTINUE TO MONITOR.
--- NOTE | 2019-06-05 12:30 | NUR ---
DR. PARKER AT BEDSIDE SHE STATES SHE WILL SPEAK WITH DR. NOBLE TO COME UP WITH A PLAN FOR THE RESULT OF THE LOWER EXT ARTHROGRAM.
--- NOTE | 2019-06-05 12:30 | NUR ---
DR. PARKER AT BEDSIDE NO NEW ORDERS AT THIS TIME
[2019-06-05] MEDS: DOXYCYCLINE 100 MG TAB/CAP PO SCH ×2 (14:32→21:24)
--- NOTE | 2019-06-05 19:10 | NUR ---
CLOSING NOTE SHIFT REPORT GIVE BACK AND CARE ENDORSED TO GARCIA CHATMAN
--- NOTE | 2019-06-05 19:20 | NUR ---
OPENING NOTE RECEIVED REPORT FROM DAY NURSE. PT RESTING IN BED. NO DISTRESS NOTED, BREATHING EVEN AND UNLABORED. PT INTUBATED AND SEDATED. COMPLETE PHYSICAL ASSESSMENT UNDER INTERVENTIONS. BED LOCKED FOR SAFETY. WILL CONTINUE TO MONITOR.
[2019-06-05] MEDS: NOREPINEPHRINE 8 MG/250ML KIT 250 ML IV SCH (19:45)
[2019-06-05] MEDS: ATORVASTATIN 20 MG TAB PO SCH (21:24)
[2019-06-06] VITALS (95 sets, daily range): BP systolic 53–232; BP diastolic 23–101
[2019-06-06] MEDS: fentaNYL Drip 2500mCg/250mlNS 250 ML IV SCH ×2 (01:15→15:39)
[2019-06-06] MEDS: dilTIAZem HCL 60 MG TAB GT SCH ×3 (04:44→21:45)
[2019-06-06 05:18] LABS: INR 3.46 (0.9-1.15)
[2019-06-06 05:19] LABS: Albumin 2.2 g/dL (3.4-5.0); Calcium 8.3 mg/dL (8.5-10.1); Potassium 3.4 mmol/L (3.5-5.1)
[2019-06-06] MEDS: PIPERACILLIN-TAZO 4.5GM 100 ML IV SCH ×3 (05:19→21:48)
[2019-06-06 05:21] LABS: BUN/Creatinine Ratio 19.9
[2019-06-06 05:23] LABS: Bilirubin, Total 0.2 mg/dL (0.2-1.0); Total Protein 6.6 g/dL (6.4-8.2)
--- NOTE | 2019-06-06 05:46 | NUR ---
MORNING k LEVEL HOSPITALIST PAGED.
[2019-06-06] MEDS: PROPOFOL 100 ML IV SCH ×4 (05:51→19:00)
[2019-06-06] MEDS: InsuLIN REG 1unit/0.01ml Soln (100units/ml) SC SCH ×4 (06:26→22:50)
[2019-06-06] MEDS: IPRATROPIUM BROM 0.5 MG/2.5ML INH SOL NEB SCH ×3 (06:27→22:16)
[2019-06-06] MEDS: ACETYLCYSTEINE 10 %(100MG/ML) SOL 4ML NEB SCH ×3 (06:27→22:17)
[2019-06-06] MEDS: ACCU-CHEK COMFORT CURVE STRIP VI SCH ×4 (06:27→22:57)
[2019-06-06] MEDS: ALBUTEROL SULF 2.5 MG/0.5ML(0.5%) NEB SOLN NEB SCH ×3 (06:27→22:16)
[2019-06-06] MEDS: INSULIN LANTUS (GLARGINE) 1 /0.01ml (100units/ml) SC SCH (06:28)
[2019-06-06] MEDS ORDERED: POTASSIUM EFFERVESENT TAB 25 MEQ GT ONE ×2 (06:30→14:45)
--- NOTE | 2019-06-06 06:40 | NUR ---
HOSPITALIST CALLED BACK RECEIVED ORDERS FOR K.
[2019-06-06] MEDS: NOREPINEPHRINE 8 MG/250ML KIT 250 ML IV SCH (07:01)
--- NOTE | 2019-06-06 07:25 | NUR ---
ENDORSED CARE TO DAY NURSE PT RESTING IN BED. NO DISTRESS NOTED.
[2019-06-06] MEDS: CARVEDILOL 12.5 MG TAB PO SCH ×2 (08:00→19:04)
--- NOTE | 2019-06-06 08:15 | NUR ---
Transfer Patient transferred to room 102 ICU from [facility]. Patient transferred via bed on portable monitor and R.t at bedside. Patient tolerated transfer well.
--- NOTE | 2019-06-06 08:15 | NUR ---
Respiratory note: PT TRANSPORTED FROM ROOM 262 [facility], TO BED 102 IN ICU WITHOUT INCIDENT. RN AT BEDSIDE. WILL CONTINUE TO MONITOR PT.
--- NOTE | 2019-06-06 09:35 | NUR ---
Respiratory note: LM FOR DR BARRIENTOS REGARDING PT ABG CRITICAL VALUES. RN MADE AWARE. WILL TRY CALLING AGAIN.
[2019-06-06] MEDS: CHOLECALCIFEROL (VITD3) 1,000IU=25mCg TAB PO SCH (09:49)
[2019-06-06] MEDS: DOXYCYCLINE 100 MG TAB/CAP PO SCH ×2 (09:49→21:48)
[2019-06-06] MEDS: PANTOPRAZOLE 40 MG/10 ML VIAL INJ IV SCH (09:49)
[2019-06-06] MEDS: BUMETANIDE INJECTION 25 MG in GIVE UN-DILUTED 0 ML IV SCH (10:34)
--- NOTE | 2019-06-06 10:34 | NUR ---
Oxygenation Patient noted to desaturate to 88% during CXR, 100% provided and patient pox increased back to 97%. Lungs diminished throughout. No significant secretions noted. Will continue to monitor.
--- NOTE | 2019-06-06 11:00 | NUR ---
WOUND CARE NOTE: WOUND CARE TEAM IS MONITORING PATIENT FOR SKIN INTEGRITY. PATIENT REMAINS INTUBATED, SEDATED. HE CONTINUES TO BE WOUND FREE AT THIS TIME, WITH ONLY EDEMA, HEMOSIDERIN STAIN NOTED AND SCABS TO BLE. SKIN/WOUND CARE PLAN UPDATED. RECOMMEND: CONTINUATION WITH ALL WOUND CARE ORDERS PREVIOUSLY PRESCRIBED BY MD. WOUND CARE TEAM WILL CONTINUE TO MONITOR.
[2019-06-06 11:01] LABS: Basophils # (auto) 0.1 10 ^3/uL (0-0.2); Basophils % (auto) 1.2 % (0.0-2.0); Eosinophils # (auto) 0.4 10 ^3/uL (0-0.8); Eosinophils % (auto) 3.9 % (0.0-7.0); Hematocrit 35.3 % (41.0-53.0); Hemoglobin 11.5 g/dL (13.5-17.5); Lymphocytes % (auto) 10.4 % (10.0-50.0); Mean Corpuscular Hemoglobin 28.9 pg (28.0-32.0); Mean Corpuscular Hgb Conc. 32.5 g/dL (32.0-36.0); Monocytes # (auto) 1.3 10 ^3/uL (0-1.3); Neutrophils # (auto) 6.6 10 ^3/uL (1.6-8.6); Neutrophils % (auto) 70.5 % (37.0-80.0); Nucleated Red Blood Cells % 0.1 %; Platelet Count (auto) 292 10^3/uL (140-450); Red Blood Cells 3.96 10^6/uL (4.5-5.90); Red Cell Distribution Width 14.9 % (11.8-14.3); White Blood Cell 9.3 10^3/uL (4.4-10.8)
--- NOTE | 2019-06-06 11:30 | NUR ---
DR BARRIENTOS WAS GIVEN ABG CRITICAL VALUES. NO NEW VENT CHANGES ORDERED AT THIS TIME.
[2019-06-06] MEDS ORDERED: FLUCONAZOLE 200MG/100ML 100 ML IV ONE (13:00)
--- NOTE | 2019-06-06 13:55 | NUR ---
Electronics Instructor at bedside Md updated on abg. No new orders at this time. R.t aware.
--- NOTE | 2019-06-06 13:56 | NUR ---
Hospitalist at bedside Dr. Huff at bedside. New orders in place.
[2019-06-06] MEDS ORDERED: CATHFLO ACTIVASE (ALTEPLASE) 2 MG VIAL IV ONE (14:00)
--- NOTE | 2019-06-06 14:26 | NUR ---
CENTRAL LINE PORTS OCCLUDED Md paged to notify 2 central line ports are not flushing. New order in place for cath carlos. Awaiting medication from pharmacy.
--- NOTE | 2019-06-06 14:28 | NUR ---
PRODUCTION HAND PAGED PAGED TO NOTIFY K THIS A.M. WAS 3.4 WITH 25MEQ COVERAGE BUT SO FAR FOR THIS SHIFT PATIENT HAS DIURESED 1500ML WITH BUMEX GTT INFUSING. AWAITING CALLBACK.
--- NOTE | 2019-06-06 14:31 | NUR ---
AWAITING TUBE FEEDINGS TO BE DELIVERED BY DIETARY.
--- NOTE | 2019-06-06 14:48 | NUR ---
REPORT GIVEN BRIANA. UPDATED ON PLAN OF CARE.
--- NOTE | 2019-06-06 15:06 | NUR ---
Assumed care of patient sedated and orally intubated. Patient is connected to all monitors. Vital signs are stable and WNL. Levophed infusing per protocol, see flow sheet for titration. Pupils are equal and reactive. Patient has an OGT, placement verified and clamped. RIJTL noted, unable to flush two ports, cathflo will be administered per protocol. Right leg appears red and scaly. Pillows placed under alex prominence to offload pressure for patient safety and comfort. Patino hanging below bladder, patent draining clear yellow urine to gravity. No indication of pain observed. Bed is locked in lowest position. HOB elevated 30 degrees, side rails up X2, safety maintained, will continue to monitor.
[2019-06-06] MEDS: ATORVASTATIN 20 MG TAB PO SCH (21:48)
[2019-06-06] MEDS: Glucerna 1.2 Cal 1Liter BOTTLE GT SCH (21:49)
[2019-06-07] VITALS (84 sets, daily range): BP systolic 70–173; BP diastolic 28–117
[2019-06-07] MEDS: PROPOFOL 100 ML IV SCH ×7 (01:26→23:18)
[2019-06-07 05:44] LABS: INR 2.41 (0.9-1.15); Partial Thromboplastin Time 36.2 sec (23.64-32.05)
[2019-06-07] MEDS: ACCU-CHEK COMFORT CURVE STRIP VI SCH ×4 (06:00→23:54)
[2019-06-07] MEDS: ALBUTEROL SULF 2.5 MG/0.5ML(0.5%) NEB SOLN NEB SCH ×3 (06:50→22:19)
[2019-06-07] MEDS: ACETYLCYSTEINE 10 %(100MG/ML) SOL 4ML NEB SCH ×3 (06:50→22:19)
[2019-06-07] MEDS: IPRATROPIUM BROM 0.5 MG/2.5ML INH SOL NEB SCH ×3 (06:50→22:19)
[2019-06-07] MEDS: InsuLIN REG 1unit/0.01ml Soln (100units/ml) SC SCH ×4 (06:53→23:54)
[2019-06-07] MEDS: INSULIN LANTUS (GLARGINE) 1 /0.01ml (100units/ml) SC SCH (07:07)
[2019-06-07] MEDS: dilTIAZem HCL 60 MG TAB GT SCH ×3 (07:15→20:35)
[2019-06-07] MEDS: fentaNYL Drip 2500mCg/250mlNS 250 ML IV SCH ×2 (07:17→20:10)
[2019-06-07] MEDS: PIPERACILLIN-TAZO 4.5GM 100 ML IV SCH (07:22)
[2019-06-07] MEDS: BUMETANIDE INJECTION 25 MG in GIVE UN-DILUTED 0 ML IV SCH (07:47)
[2019-06-07] MEDS: CARVEDILOL 12.5 MG TAB PO SCH (08:00)
[2019-06-07 09:01] LABS: Basophils # (auto) 0.1 10 ^3/uL (0-0.2); Basophils % (auto) 0.9 % (0.0-2.0); Eosinophils # (auto) 0.5 10 ^3/uL (0-0.8); Eosinophils % (auto) 5.5 % (0.0-7.0); Hematocrit 35.3 % (41.0-53.0); Hemoglobin 11.5 g/dL (13.5-17.5); Lymphocytes # (auto) 0.9 10 ^3/uL (0.4-5.4); Lymphocytes % (auto) 9.5 % (10.0-50.0); Mean Corpuscular Hgb Conc. 32.4 g/dL (32.0-36.0); Mean Corpuscular Volume 89.4 fL (80.0-100.0); Monocytes # (auto) 0.9 10 ^3/uL (0-1.3); Monocytes % (auto) 9.8 % (0.0-12.0); Neutrophils # (auto) 6.8 10 ^3/uL (1.6-8.6); Neutrophils % (auto) 74.3 % (37.0-80.0); Nucleated Red Blood Cells % 0.1 %; Platelet Count (auto) 279 10^3/uL (140-450); Red Blood Cells 3.95 10^6/uL (4.5-5.90); Red Cell Distribution Width 15.1 % (11.8-14.3); White Blood Cell 9.1 10^3/uL (4.4-10.8)
[2019-06-07 09:32] LABS: Albumin 2.1 g/dL (3.4-5.0); Potassium 3.5 mmol/L (3.5-5.1)
[2019-06-07 09:35] LABS: BUN/Creatinine Ratio 17.4; Bilirubin, Total 0.2 mg/dL (0.2-1.0); Total Protein 6.8 g/dL (6.4-8.2)
[2019-06-07] MEDS: PANTOPRAZOLE 40 MG/10 ML VIAL INJ IV SCH (09:51)
[2019-06-07] MEDS: FLUCONAZOLE 200MG/100ML 100 ML IV SCH ×3 (09:51→12:12)
[2019-06-07] MEDS: DOXYCYCLINE 100 MG TAB/CAP PO SCH ×2 (09:51→21:37)
--- NOTE | 2019-06-07 10:39 | NUR ---
DR SAEZ VISITS AND EXAMINES PATIENT - INFORMED OF VT RUN AND K+ 3.5 - ORDER RECEIVED.
[2019-06-07] MEDS ORDERED: POTASSIUM CHL 20 Meq TABLET PO ONE (10:45)
[2019-06-07] MEDS: NOREPINEPHRINE 8 MG/250ML KIT 250 ML IV SCH (11:00)
[2019-06-07] MEDS: MAGNESIUM SULFATE 1GM/100ML 100 ML IV SCH ×2 (12:48→14:28)
--- NOTE | 2019-06-07 13:15 | NUR ---
DR PARKER VISITS AND EXAMINES PATIENT -NEW ORDERS RECEIVED.
[2019-06-07] MEDS: POTASSIUM CHL 20MEQ/100ML 100 ML IV SCH ×2 (14:28→16:00)
--- NOTE | 2019-06-07 14:35 | NUR ---
MENDOZA SUPERVISOR PAPER COATING VISITS FOR CARDIOLOGY AND EXAMINES PATIENT - NO NEW ORDERS RECEIVED.
--- NOTE | 2019-06-07 15:15 | NUR ---
DR FRANCOIS VISITS AND EXAMINES PATIENT - ORDERS RECEIVED.
[2019-06-07] MEDS: MEROPENEM 1GM IVPB 100 ML IV SCH ×2 (15:20→21:37)
--- NOTE | 2019-06-07 16:08 | NUR ---
Nutrition Follow-up Wt.: 115.9 kg Pt is sedated with propofol providing 976 kcals from lipids, intubated, and remains NPO. Pt receiving EN support of Glucerna 1.2 @ 30 ml/hr. providing an additional 864 kcals for a total of 1840 kcals. Will continue to monitor NPO status, skin status, pertinent labs and weight trends. Will f/u in 2 to 3 days. Est. Energy Needs: 4195-6018 kcal (12-15 kcal/kg BW). Est. Protein Needs: 88-100 gms/day (1.0-1.2 gms/kg Adj.BW). Labs 06/06: BUN 37 H, Cr 1.86 H, GFR 39 L, POC Glucose 153 H, Albumin 2.2 L GI: pt with daily diarrhea per RN doc. Skin: Louis scale 11, high risk, scab to R toe PES: 1) Obese, Class III r/t energy intake in excess of energy needs aeb BMI 44.7 kg/m2 and 193% IBW Recommendations: 1) Advance diet gradually to oral CCHO 60g diet, when medically appropriate. 2) If Albumin continues trending down, consider Prostat 1 pkt BID. 3) Refer pt to CDE/RD for further nutrition education and weight monitoring upon discharge. 4) Continue current plan of care.
[2019-06-07] MEDS ORDERED: WARFARIN SODIUM 5 MG TAB PO ONE (17:00)
--- NOTE | 2019-06-07 17:00 | NUR ---
PATIENT'S MONICO LANGLEY - UPDATED ON PATIENT CONDITION - VERBALIZES UNDERSTANDING.
--- NOTE | 2019-06-07 17:00 | NUR ---
GLUCERNA TF RATE INCREASED TO 40ML/HR - NO RESIDUALS NOTED THIS SHIFT
--- NOTE | 2019-06-07 19:25 | NUR ---
OPENING NOTE RECEIVED REPORT FROM DAY NURSE. PT IS INTUBATED AND SEDATED. NO DISTRESS NOTED, AND RESPIRATIONS EVEN AND UNLABORED. COMPLETE PHYSICAL ASSESSMENT UNDER INTERVENTIONS. BED LOCKED IN PLACE FOR SAFETY. SEE IV SPREADSHEET FOR MEDICATION DOSAGE AND RATES.
[2019-06-07] MEDS: ATORVASTATIN 20 MG TAB PO SCH (21:37)
[2019-06-07] MEDS ORDERED: MEROPENEM 1GM IVPB 100 ML IV SCH (22:00)
[2019-06-08] VITALS (100 sets, daily range): BP systolic 89–159; BP diastolic 34–86
[2019-06-08] MEDS: PROPOFOL 100 ML IV SCH ×4 (00:23→15:57)
--- NOTE | 2019-06-08 02:47 | NUR ---
ROUNDING PT RESTING. NO DISTRESS NOTED. WILL CONTINUE TO MONITOR.
[2019-06-08 04:37] LABS: Basophils # (auto) 0.1 10 ^3/uL (0-0.2); Basophils % (auto) 1.2 % (0.0-2.0); Eosinophils # (auto) 0.8 10 ^3/uL (0-0.8); Eosinophils % (auto) 6.9 % (0.0-7.0); Hematocrit 33.3 % (41.0-53.0); Hemoglobin 10.8 g/dL (13.5-17.5); Lymphocytes # (auto) 1.3 10 ^3/uL (0.4-5.4); Lymphocytes % (auto) 11.7 % (10.0-50.0); Mean Corpuscular Hgb Conc. 32.5 g/dL (32.0-36.0); Mean Corpuscular Volume 89.3 fL (80.0-100.0); Monocytes % (auto) 9.4 % (0.0-12.0); Neutrophils # (auto) 7.8 10 ^3/uL (1.6-8.6); Neutrophils % (auto) 70.8 % (37.0-80.0); Platelet Count (auto) 274 10^3/uL (140-450); Red Blood Cells 3.73 10^6/uL (4.5-5.90); Red Cell Distribution Width 15.2 % (11.8-14.3)
[2019-06-08 04:48] LABS: INR 1.95 (0.9-1.15); Partial Thromboplastin Time 35.8 sec (23.64-32.05)
[2019-06-08 04:56] LABS: Calcium 7.9 mg/dL (8.5-10.1); Potassium 4.2 mmol/L (3.5-5.1)
[2019-06-08 04:59] LABS: BUN/Creatinine Ratio 14.9; Bilirubin, Total 0.2 mg/dL (0.2-1.0); Total Protein 6.8 g/dL (6.4-8.2)
[2019-06-08] MEDS: dilTIAZem HCL 60 MG TAB GT SCH ×3 (05:09→21:55)
[2019-06-08] MEDS: InsuLIN REG 1unit/0.01ml Soln (100units/ml) SC SCH ×4 (06:23→23:33)
[2019-06-08] MEDS: INSULIN LANTUS (GLARGINE) 1 /0.01ml (100units/ml) SC SCH (06:23)
[2019-06-08] MEDS: ACCU-CHEK COMFORT CURVE STRIP VI SCH ×4 (06:23→23:33)
[2019-06-08] MEDS: ACETYLCYSTEINE 10 %(100MG/ML) SOL 4ML NEB SCH ×2 (06:43→13:40)
[2019-06-08] MEDS: IPRATROPIUM BROM 0.5 MG/2.5ML INH SOL NEB SCH ×2 (06:43→13:39)
[2019-06-08] MEDS: ALBUTEROL SULF 2.5 MG/0.5ML(0.5%) NEB SOLN NEB SCH ×2 (06:43→13:39)
--- NOTE | 2019-06-08 07:17 | NUR ---
ENDORSED CARE TO DAY NURSE VSS. NO CHANGES.
--- NOTE | 2019-06-08 08:30 | NUR ---
RESIDUALS; Patient with Glucerna tube feeding running at 40 mL/hr, residual assessed 475 mL of tube feeding and gastric contents aspirated via OGT. Tube feeding placed on hold.
--- NOTE | 2019-06-08 08:40 | NUR ---
RT AT BEDSIDE: Isabel RT at bedside, patient with desaturation to 82%. FiO2 increased to 50%.
--- NOTE | 2019-06-08 08:41 | NUR ---
INCREASED FIO2 TO 50%, SATS INCREASED TO 92%, DUE TO LOW SATS OF 82% ON FI02 35%.
--- NOTE | 2019-06-08 08:45 | NUR ---
LEFT MESSAGE ON DR. BARRIENTOS'S ANSWERING SERVICE WITH ABG RESULTS.
[2019-06-08] MEDS: DOXYCYCLINE 100 MG TAB/CAP PO SCH (10:28)
[2019-06-08] MEDS: FLUCONAZOLE 200MG/100ML 100 ML IV SCH ×2 (10:28→13:12)
[2019-06-08] MEDS: PANTOPRAZOLE 40 MG/10 ML VIAL INJ IV SCH (10:28)
[2019-06-08] MEDS: fentaNYL Drip 2500mCg/250mlNS 250 ML IV SCH (11:11)
--- NOTE | 2019-06-08 15:00 | NUR ---
TUBE FEEDING RESUMED; Re-assessed residual, 30 mL of gastric contents aspirated via OGT. Resumed Glucerna tube feeding at rate of 20 mL/hr.
[2019-06-08] MEDS: MEROPENEM 1GM IVPB 100 ML IV SCH ×2 (15:04→21:57)
[2019-06-08] MEDS ORDERED: WARFARIN SODIUM 2.5 MG TAB PO ONE (17:00)
[2019-06-08] MEDS: NOREPINEPHRINE 8 MG/250ML KIT 250 ML IV SCH (18:18)
--- NOTE | 2019-06-08 19:15 | NUR ---
OPENING NOTE RECEIVED REPORT FROM DAY SHIFT RN AND ASSUMED CARE OF PT. PT IS INTUBATED AND SEDATED WITH A MECHANICAL VENTILATOR IN PLACE. VITAL SIGNS STABLE WITH NO S/S OF DISTRESS NOTED. SEDATION OF DIPRIVAN AT 50 MCG AND FENTANYL AT 200 MCG CURRENTLY RUNNING. RECTAL TEMP IS READING 99.5- FAN PLACED ON PT AND SHEETS REMOVED. KAUR CATHETER IN PLACE AND DRAINING APPROPRIATELY TO GRAVITY. TUBE FEEDINGS-GLUCERNA CURRENTLY RUNNING AT 30 ML/HR. 10 ML OF RESIDUAL NOTED. ALL EXTREMITIES OFFLOADED WITH PILLOWS AND ORAL CARE DONE. WILL CONTINUE TO MONITOR AND ASSESS PT.
[2019-06-08] MEDS: ATORVASTATIN 20 MG TAB PO SCH (21:57)
[2019-06-09] VITALS (96 sets, daily range): BP systolic 82–177; BP diastolic 16–112
--- NOTE | 2019-06-09 01:45 | NUR ---
BATH/LINEN CHANGE ADMINISTERED CHG BATH. SKIN ASSESSED WITH NO NEW CHANGES AT THIS TIME. MOISTURE BARRIER LOTION APPLIED TO LOWER EXTREMITIES. SHOWER CAP APPLIED TO PTS HAIR. ORAL CARE PREFORMED. PT TURNED AND EXTREMITIES OFFLOADED WITH PILLOWS. FULL LINEN CHANGE DONE WITH NEW GOWN.
--- NOTE | 2019-06-09 02:15 | NUR ---
TUBE FEEDINGS HELD FOR RESIDUALS >60 ML. WILL REASSESS AND RESUME FEEDINGS PER PT TOLERANCE.
[2019-06-09 04:20] LABS: INR 2.79 (0.9-1.15); Partial Thromboplastin Time 42.6 sec (23.64-32.05)
[2019-06-09 04:21] LABS: Albumin 1.8 g/dL (3.4-5.0); Calcium 7.9 mg/dL (8.5-10.1); Potassium 4.4 mmol/L (3.5-5.1)
[2019-06-09 04:26] LABS: Bilirubin, Total 0.2 mg/dL (0.2-1.0); Total Protein 6.5 g/dL (6.4-8.2)
[2019-06-09] MEDS: InsuLIN REG 1unit/0.01ml Soln (100units/ml) SC SCH ×3 (06:00→18:00)
[2019-06-09] MEDS: dilTIAZem HCL 60 MG TAB GT SCH ×3 (06:20→22:00)
[2019-06-09] MEDS: ACCU-CHEK COMFORT CURVE STRIP VI SCH ×3 (06:20→18:40)
--- NOTE | 2019-06-09 06:30 | NUR ---
COOLING MEASURES INITIATED FOR RECTAL TEMP OF 100.0. FAN DIRECTED ON PT AND ICE PACKS APPLIED TO AXILLARY AREA.
[2019-06-09] MEDS: IPRATROPIUM BROM 0.5 MG/2.5ML INH SOL NEB SCH ×3 (06:49→22:11)
[2019-06-09] MEDS: ALBUTEROL SULF 2.5 MG/0.5ML(0.5%) NEB SOLN NEB SCH ×4 (06:49→22:10)
[2019-06-09] MEDS: ACETYLCYSTEINE 10 %(100MG/ML) SOL 4ML NEB SCH ×4 (06:49→22:10)
--- NOTE | 2019-06-09 06:57 | NUR ---
TUBE FEEDINGS REMAIN OFF FOR HIGH RESIDUALS. WILL PASS OFF TO DAYSHIFT RN IN REPORT.
[2019-06-09] MEDS: INSULIN LANTUS (GLARGINE) 1 /0.01ml (100units/ml) SC SCH (07:00)
--- NOTE | 2019-06-09 07:22 | NUR ---
LANTUS NON ADMIN HELD LANTUS FOR STABLE BLOOD GLUCOSE LEVELS THROUGHOUT THE SHIFT, 117 AND 113. TUBE FEEDINGS HAVE BEEN HELD FOR HIGH RESIDUALS FOR THE MAJORITY OF THE NIGHT. DAY SHIFT RN AWARE. SHE WILL FOLLOW UP.
--- NOTE | 2019-06-09 08:10 | NUR ---
PT PLACED ON CPAP 5, PS 7, PER DR. SHELDON'S ORDERS. PT. IS AWAKE AND ALERT AND FOLLOWING COMMANDS. HE SEEMS TO BE TOLERATING MODE PRETTY WELL AT THIS TIME. HR=96,RR=12, SP02=92%,ZG=864/67, WILL CONTINUE TO MONITOR RESP. STATUS WHILE ON CPAP.
[2019-06-09] MEDS: fentaNYL Drip 2500mCg/250mlNS 250 ML IV SCH ×3 (09:15→22:13)
--- NOTE | 2019-06-09 09:17 | NUR ---
FAILED CPAP: Isabel RT to bedside for cessation of CPAP trial. Patient became tachycardic rate 140's, tachypneic rate 40's, and desaturated to the 70's. Attempted to calm the patient, patient remains agitated and uncooperative. Patient placed back on previous settings.
--- NOTE | 2019-06-09 09:17 | NUR ---
PLACED PT. BACK ON AC MODE, WITH PRIOR SETTINGS, DUE TO DESATURATION 75%, INCREASED HR 140,INCREASED RR 40'S, INCREASED BP 177/112. PT. IS VERY ANXIOUS AND AGGITATED. RN. AT THE BEDSIDE RESEDATING PT. FOR COMFORT. SATURATION IMPROVED TO 90'S, WOB DECREASED, WILL CONTINUE TO MONITOR PT'S RESP. STATUS.
[2019-06-09] MEDS: FLUCONAZOLE 200MG/100ML 100 ML IV SCH ×2 (10:00→13:00)
[2019-06-09] MEDS: PANTOPRAZOLE 40 MG/10 ML VIAL INJ IV SCH (10:12)
[2019-06-09] MEDS: MEROPENEM 1GM IVPB 100 ML IV SCH ×2 (10:12→22:05)
[2019-06-09] MEDS: ACETAMINOPHEN 650 mg PER 20 mL UD GT PRN (10:12)
[2019-06-09] MEDS ORDERED: SODIUM CHLORIDE 0.9% 500 ML IV ONE (14:45)
[2019-06-09] MEDS: SODIUM CHLORIDE 0.9% 1,000 ML IV SCH ×3 (16:00→22:30)
--- NOTE | 2019-06-09 16:00 | NUR ---
BRADYCARDIC: Patient with decreased HR to 47, diprivan drip decreased to 40 mcg's.
[2019-06-09] MEDS: PROPOFOL 100 ML IV SCH (18:57)
[2019-06-09] MEDS: NOREPINEPHRINE 8 MG/250ML KIT 250 ML IV SCH (19:45)
[2019-06-09] MEDS: ATORVASTATIN 20 MG TAB PO SCH (22:09)
--- NOTE | 2019-06-09 22:26 | NUR ---
[id number] ORAL CARE GIVEN AFTER SUCTIONING. REMAINS MARYANNE
[2019-06-10] VITALS (106 sets, daily range): BP systolic 81–170; BP diastolic 17–84
[2019-06-10] MEDS: ACCU-CHEK COMFORT CURVE STRIP VI SCH ×5 (00:18→23:50)
--- NOTE | 2019-06-10 00:27 | NUR ---
OOOO - ON SR AND RIGHT INTERNAL JUGULAR TLC IS INTACT
--- NOTE | 2019-06-10 01:18 | NUR ---
COMPLETEBED BATH GIVEN
[2019-06-10] MEDS: PROPOFOL 100 ML IV SCH ×3 (01:55→21:37)
--- NOTE | 2019-06-10 02:11 | NUR ---
RESPONDING TO TOUCH AND SUCTIONING AND OPEN EYES INTERMITTENTLY
--- NOTE | 2019-06-10 02:57 | NUR ---
AT 0300 SINUS MARYANNE AT 57/MIN. REMAINS SEDATED
--- NOTE | 2019-06-10 04:08 | NUR ---
AT 0400 AM PT REMAINS BRADYCARDEIOC AND AFEBRILE
[2019-06-10 04:29] LABS: Basophils # (auto) 0.1 10 ^3/uL (0-0.2); Basophils % (auto) 0.6 % (0.0-2.0); Eosinophils # (auto) 0.7 10 ^3/uL (0-0.8); Eosinophils % (auto) 6.5 % (0.0-7.0); Hematocrit 30.2 % (41.0-53.0); Hemoglobin 9.8 g/dL (13.5-17.5); Lymphocytes # (auto) 0.9 10 ^3/uL (0.4-5.4); Lymphocytes % (auto) 8.5 % (10.0-50.0); Mean Corpuscular Hemoglobin 29.3 pg (28.0-32.0); Mean Corpuscular Hgb Conc. 32.3 g/dL (32.0-36.0); Mean Corpuscular Volume 90.5 fL (80.0-100.0); Monocytes # (auto) 0.8 10 ^3/uL (0-1.3); Monocytes % (auto) 7.7 % (0.0-12.0); Neutrophils % (auto) 76.7 % (37.0-80.0); Platelet Count (auto) 239 10^3/uL (140-450); Red Blood Cells 3.33 10^6/uL (4.5-5.90); Red Cell Distribution Width 15.8 % (11.8-14.3); White Blood Cell 10.4 10^3/uL (4.4-10.8)
[2019-06-10 04:47] LABS: Potassium 4.1 mmol/L (3.5-5.1)
[2019-06-10 04:55] LABS: Albumin 1.7 g/dL (3.4-5.0); BUN/Creatinine Ratio 18.4; Bilirubin, Total 0.2 mg/dL (0.2-1.0); Calcium 7.9 mg/dL (8.5-10.1); Partial Thromboplastin Time 54.6 sec (23.64-32.05); Total Protein 6.4 g/dL (6.4-8.2)
[2019-06-10 05:08] LABS: INR 5.73 (0.9-1.15)
--- NOTE | 2019-06-10 05:51 | NUR ---
DR. SHERMAN WAS CALLED AT 550 REGARDING ELEVATED ptt AND pt
[2019-06-10] MEDS: InsuLIN REG 1unit/0.01ml Soln (100units/ml) SC SCH ×5 (06:00→23:49)
[2019-06-10] MEDS: dilTIAZem HCL 60 MG TAB GT SCH ×3 (06:00→21:40)
--- NOTE | 2019-06-10 06:08 | NUR ---
ORDERED A PERIPHERAL DRAW FOR REPEAT pt AND PTT
[2019-06-10] MEDS: ACETYLCYSTEINE 10 %(100MG/ML) SOL 4ML NEB SCH ×3 (06:37→21:55)
[2019-06-10] MEDS: IPRATROPIUM BROM 0.5 MG/2.5ML INH SOL NEB SCH ×3 (06:38→21:55)
[2019-06-10] MEDS: ALBUTEROL SULF 2.5 MG/0.5ML(0.5%) NEB SOLN NEB SCH ×3 (06:38→21:55)
[2019-06-10] MEDS: INSULIN LANTUS (GLARGINE) 1 /0.01ml (100units/ml) SC SCH (06:39)
[2019-06-10 07:27] LABS: Partial Thromboplastin Time 55.8 sec (23.64-32.05)
[2019-06-10 07:34] LABS: INR 5.39 (0.9-1.15)
--- NOTE | 2019-06-10 07:55 | NUR ---
CRITICAL LAB Received critical lab value from laboratory INR 5.39: will notify
[2019-06-10] MEDS: PANTOPRAZOLE 40 MG/10 ML VIAL INJ IV SCH (10:22)
[2019-06-10] MEDS: FLUCONAZOLE 200MG/100ML 100 ML IV SCH ×2 (10:22→11:00)
--- NOTE | 2019-06-10 10:50 | NUR ---
FAMILY Received phone call from sister in law Jessie, correct password provided, updated on patient condition.
[2019-06-10] MEDS: MEROPENEM 1GM IVPB 100 ML IV SCH ×2 (11:00→21:39)
--- NOTE | 2019-06-10 11:30 | NUR ---
RESPIRATORY RT Eunice at bedside to switched to CPAP mode, patient tolerating well.
--- NOTE | 2019-06-10 11:30 | NUR ---
Respiratory note: PT SWITCHED TO CPAP TRIAL. PS 7, CPAP 5. FI02 40%. PT AWAKE, ALERT AND FOLLOWING COMMANDS. COACHED AND EDUCATED PT ON TEST.
--- NOTE | 2019-06-10 11:45 | NUR ---
TEMPERATURE Patient temperature rectally has reached 99.9: cooling measures applied: ice packs, cool wash cloth and a fan.
--- NOTE | 2019-06-10 12:00 | NUR ---
NUTRITION Re-started Glucerna at 20ml/hr. Will continue to monitor residuals.
--- NOTE | 2019-06-10 12:10 | NUR ---
Respiratory note: PT PLACED BACK ON FULL SUPPORT WITH PREVIOUS SETTINGS. ABG DRAWN, PT BECAME TACHYPNEIC AND DESATURATIONS TO THE 80%. DR. BERUMEN INFORMED BY VOICEMAIL.
--- NOTE | 2019-06-10 12:10 | NUR ---
RESPIRATORY RT Eunice at bedside and placed patient back on AC mode secondary to patient anxious, tachycardic, tachypneic and de saturating into the 80's.
--- NOTE | 2019-06-10 12:40 | NUR ---
FAMILY Received phone call from patients daughter Teresita, correct password provided and updated on patient condition.
[2019-06-10] MEDS: ACETAMINOPHEN 650 mg PER 20 mL UD GT PRN (14:51)
--- NOTE | 2019-06-10 16:50 | NUR ---
FAMILY Patient's Miranda, called, correct password provided, updated on patient condition.
--- NOTE | 2019-06-10 19:26 | NUR ---
at 1930 report received from Angeline STAFF ATTORNEY. received pt moderately sedated with fentanyl of 175mcg/min and profopol drip at 30mcg/kg/ min, Responding to noxious stimuli silvino suctioning and turning. oral care done and repositioned. on sr . iv site right internal jugular is intact with dressing
[2019-06-10] MEDS: NOREPINEPHRINE 8 MG/250ML KIT 250 ML IV SCH (19:45)
[2019-06-10] MEDS: SODIUM CHLORIDE 0.9% 1,000 ML IV SCH ×2 (20:45→22:15)
[2019-06-10] MEDS: ATORVASTATIN 20 MG TAB PO SCH (21:39)
--- NOTE | 2019-06-10 21:42 | NUR ---
2100 THE WHOLE DIPRIVAN TUBING IS FILLED WITH LOTS OF AIR AND WAS PRIMEDAS DICONNECTED FROM PT, BUT I ENDED UP CHANGIN IT TO A NEW BOTTLE BECAUSE THE AIR WAS TOO MUCH TO REMOVE
--- NOTE | 2019-06-10 21:58 | NUR ---
loida Woo exchange was called to verify the IV maintenace rate and Dr. VERA SAID TO REDUCE RATE TO 70ML/HR
--- NOTE | 2019-06-10 22:54 | NUR ---
THE 88% O2 SAT CAME UP IMMEDIATELY, PT IN NO DISTRESS
--- NOTE | 2019-06-10 23:48 | NUR ---
[id number], ORAL CARE DONE. ACUCHECK 123
[2019-06-11] VITALS (104 sets, daily range): BP systolic 91–157; BP diastolic 22–117
[2019-06-11] MEDS: PROPOFOL 100 ML IV SCH ×4 (00:27→23:07)
--- NOTE | 2019-06-11 00:35 | NUR ---
SOME WHAT AWAKE AND AGITATED THIS TIME, BP IS UP TO157/30 AND GETTING AWAKE AND DESATURATING TO 91%
[2019-06-11] MEDS: dilTIAZem HCL 60 MG TAB GT SCH ×4 (02:20→22:07)
[2019-06-11] MEDS: fentaNYL Drip 2500mCg/250mlNS 250 ML IV SCH ×2 (02:25→16:23)
--- NOTE | 2019-06-11 03:15 | NUR ---
AT 0300, PT WAS GIVEN COM-PLETE BED BATH AND LINEN CHANGE
[2019-06-11 04:14] LABS: Partial Thromboplastin Time 65.2 sec (23.64-32.05)
[2019-06-11 04:55] LABS: INR 6.01 (0.9-1.15)
--- NOTE | 2019-06-11 05:22 | NUR ---
AT 0400 AM, PT IS STILL SEDATED
--- NOTE | 2019-06-11 05:23 | NUR ---
AT 0530AM THE INR IS 6.1 AND REPORTED TO CARLOS
[2019-06-11] MEDS: InsuLIN REG 1unit/0.01ml Soln (100units/ml) SC SCH ×3 (05:57→17:57)
[2019-06-11] MEDS: ACCU-CHEK COMFORT CURVE STRIP VI SCH ×3 (05:58→17:57)
[2019-06-11] MEDS: ACETYLCYSTEINE 10 %(100MG/ML) SOL 4ML NEB SCH ×3 (06:28→22:05)
[2019-06-11] MEDS: IPRATROPIUM BROM 0.5 MG/2.5ML INH SOL NEB SCH ×3 (06:28→22:04)
[2019-06-11] MEDS: ALBUTEROL SULF 2.5 MG/0.5ML(0.5%) NEB SOLN NEB SCH ×3 (06:29→22:04)
[2019-06-11] MEDS: INSULIN LANTUS (GLARGINE) 1 /0.01ml (100units/ml) SC SCH (06:47)
--- NOTE | 2019-06-11 07:14 | NUR ---
nicole chapman was called for INR 6.1 and called backed but no orders made
[2019-06-11] MEDS: PANTOPRAZOLE 40 MG/10 ML VIAL INJ IV SCH (10:06)
[2019-06-11] MEDS: FLUCONAZOLE 200MG/100ML 100 ML IV SCH ×2 (10:07→11:00)
[2019-06-11] MEDS: MEROPENEM 1GM IVPB 100 ML IV SCH (10:07)
--- NOTE | 2019-06-11 10:15 | NUR ---
PT PLACED ON CPAP WEANING TRIAL ORDERED. PT ABLE TO UNDERSTAND AND FOLLOW INDICATIONS. PT TOLERATING WELL. WILL CONTINUE TO MONITOR PT.
--- NOTE | 2019-06-11 10:15 | NUR ---
RESPIRATORY RT Katherine at bedside to switched patient to CPAP mode on ventilator, patient tolerating well OS sats 96%, heart rate 96 and respirations 12.
--- NOTE | 2019-06-11 10:20 | NUR ---
[facility] Received phone call from DEB from [facility], password provided and information given. Deb will discharge patient from palliative care if needed have [facility] referral patient back.
--- NOTE | 2019-06-11 11:15 | NUR ---
[facility] Received phone call from JOSE L dependency case manager, updated on patient condition.
--- NOTE | 2019-06-11 11:28 | NUR ---
Respiratory note: PT PLACED BACK ON AC MODE DUE TO SATURATION 75%. PT NOT TOLERATING CPAP MODE AT THIS TIME. RT PHILL AND RN PARISH AWARE.
[2019-06-11 12:12] LABS: Basophils # (auto) 0.1 10 ^3/uL (0-0.2); Basophils % (auto) 0.7 % (0.0-2.0); Eosinophils # (auto) 0.6 10 ^3/uL (0-0.8); Eosinophils % (auto) 6.4 % (0.0-7.0); Hematocrit 30.6 % (41.0-53.0); Hemoglobin 9.7 g/dL (13.5-17.5); Lymphocytes # (auto) 0.8 10 ^3/uL (0.4-5.4); Mean Corpuscular Hemoglobin 28.2 pg (28.0-32.0); Mean Corpuscular Hgb Conc. 31.9 g/dL (32.0-36.0); Mean Corpuscular Volume 88.5 fL (80.0-100.0); Monocytes % (auto) 10.8 % (0.0-12.0); Neutrophils # (auto) 7.2 10 ^3/uL (1.6-8.6); Neutrophils % (auto) 74.1 % (37.0-80.0); Platelet Count (auto) 283 10^3/uL (140-450); Red Blood Cells 3.45 10^6/uL (4.5-5.90); Red Cell Distribution Width 15.5 % (11.8-14.3); White Blood Cell 9.7 10^3/uL (4.4-10.8)
[2019-06-11] MEDS: SODIUM CHLORIDE 0.9% 1,000 ML IV SCH (12:33)
--- NOTE | 2019-06-11 12:38 | NUR ---
1230 06/11/19 I called [facility] and spoke with lan analyst Boo-requested to speak with Automation Tender Gayathri. Per Boo Trinh is unavailable at this time. Per Boo, inpatient stay is authorized until 06/12/19 1000. Per Boo, they are still not accepting any ICU or [facility] transfers at this time due to over saturation. I made Dr. Huff aware of the same.
[2019-06-11 12:50] LABS: BUN/Creatinine Ratio 20.4; Calcium 8.3 mg/dL (8.5-10.1); Potassium 4.2 mmol/L (3.5-5.1)
--- NOTE | 2019-06-11 13:00 | NUR ---
NUTRITION Re-started patients tube feedings at current rate of 30ml/hr. Will continue to monitor residuals.
[2019-06-11] MEDS ORDERED: CIPROFLOXACIN 400MG/200ML 200 ML IV ONE (14:30)
--- NOTE | 2019-06-11 18:40 | NUR ---
MD Dr. Linares at bedside updated on patient condition with new orders received, this RN to input into system.
--- NOTE | 2019-06-11 19:00 | NUR ---
OPENING NOTES ASSUMED CARE, STILL ON VENT AND SEDATION WITH PROPOFOL AND FENTANYL INFUSING IN THE RIGHT IJ, NGT, ILEOSTOMY TUBE AND KAUR CATHETER IN PLACE, OPENS EYES SPONTANEOUSLY TO VOICE AND ABLE TO MOVE UPPER EXTREMITIES. BED IN LOWEST POSITION WITH SIDE RAILS UP, BED ALARM ON. WILL CONTINUE CARE AND MONITORING.
[2019-06-11] MEDS: NOREPINEPHRINE 8 MG/250ML KIT 250 ML IV SCH (19:45)
--- NOTE | 2019-06-11 22:00 | NUR ---
NO RESIDUAL VIA TF, INCREASED RATE @ 35 ML/HR.
[2019-06-11] MEDS: CIPROFLOXACIN 400MG/200ML 200 ML IV SCH (22:07)
[2019-06-11] MEDS: ATORVASTATIN 20 MG TAB PO SCH (22:56)
[2019-06-12] VITALS (105 sets, daily range): BP systolic 86–158; BP diastolic 29–71
--- NOTE | 2019-06-12 | NUR ---
NO RESIDUAL VIA TF, INCREASED RATE TO 40 ML/HR THE GOAL RATE. WELL TOLERATED BY PT.
[2019-06-12] MEDS: ACCU-CHEK COMFORT CURVE STRIP VI SCH ×5 (00:18→23:44)
[2019-06-12] MEDS: MEROPENEM 1GM IVPB 100 ML IV SCH ×3 (00:23→22:32)
[2019-06-12] MEDS: PROPOFOL 100 ML IV SCH ×3 (02:00→21:10)
[2019-06-12] MEDS: SODIUM CHLORIDE 0.9% 1,000 ML IV SCH ×2 (03:00→17:09)
--- NOTE | 2019-06-12 04:00 | NUR ---
Patient bathe/linen change Patient given complete bath. Skin integrity assessed for any changes. Linens changed. Patient repositioned for comfort.
[2019-06-12 04:21] LABS: Basophils # (auto) 0.1 10 ^3/uL (0-0.2); Eosinophils # (auto) 0.6 10 ^3/uL (0-0.8); Eosinophils % (auto) 5.9 % (0.0-7.0); Hematocrit 30.6 % (41.0-53.0); Lymphocytes % (auto) 9.3 % (10.0-50.0); Mean Corpuscular Hemoglobin 29.1 pg (28.0-32.0); Mean Corpuscular Hgb Conc. 32.6 g/dL (32.0-36.0); Mean Corpuscular Volume 89.3 fL (80.0-100.0); Monocytes # (auto) 1.1 10 ^3/uL (0-1.3); Monocytes % (auto) 10.1 % (0.0-12.0); Neutrophils # (auto) 7.7 10 ^3/uL (1.6-8.6); Neutrophils % (auto) 73.7 % (37.0-80.0); Platelet Count (auto) 276 10^3/uL (140-450); Red Blood Cells 3.43 10^6/uL (4.5-5.90); Red Cell Distribution Width 15.7 % (11.8-14.3); White Blood Cell 10.5 10^3/uL (4.4-10.8)
[2019-06-12 04:36] LABS: Albumin 1.7 g/dL (3.4-5.0); Potassium 4.3 mmol/L (3.5-5.1)
[2019-06-12 04:39] LABS: Partial Thromboplastin Time 64.3 sec (23.64-32.05)
[2019-06-12 04:42] LABS: BUN/Creatinine Ratio 19.5; Bilirubin, Total 0.3 mg/dL (0.2-1.0); Total Protein 6.9 g/dL (6.4-8.2)
[2019-06-12 05:03] LABS: INR 4.83 (0.9-1.15)
[2019-06-12] MEDS: CIPROFLOXACIN 400MG/200ML 200 ML IV SCH ×3 (05:22→22:32)
[2019-06-12] MEDS: dilTIAZem HCL 60 MG TAB GT SCH ×3 (05:22→22:32)
--- NOTE | 2019-06-12 05:45 | NUR ---
MEENA CARLOS RN CARDIAC CATH RE: DESATURATION 70'S, PT IS BITING ET TUBE, RT ALSO AWARE, MAXED OUT ON SEDATION. DELIVERED 100% O2, SUCTIONING DONE PRN. AWAITING CALL BACK
--- NOTE | 2019-06-12 06:01 | NUR ---
TERRANCE OZUNA CALLED BACK, UPDATED ON PT'S STATUS, GAVE AN ORDER TO START VERSED DRIP.
[2019-06-12] MEDS: InsuLIN REG 1unit/0.01ml Soln (100units/ml) SC SCH ×5 (06:05→23:46)
[2019-06-12] MEDS: INSULIN LANTUS (GLARGINE) 1 /0.01ml (100units/ml) SC SCH (06:06)
[2019-06-12] MEDS: IPRATROPIUM BROM 0.5 MG/2.5ML INH SOL NEB SCH ×3 (06:06→21:58)
[2019-06-12] MEDS: ALBUTEROL SULF 2.5 MG/0.5ML(0.5%) NEB SOLN NEB SCH ×3 (06:06→21:58)
[2019-06-12] MEDS: ACETYLCYSTEINE 10 %(100MG/ML) SOL 4ML NEB SCH ×3 (06:07→21:59)
--- NOTE | 2019-06-12 06:07 | NUR ---
INCREASED FIO2 50% PT WITH DESATURATION EPISODES TO 70%. SUCTIONED FOR MODERATE AMOUNT THICK ZAMAN SECRETIONS. INCREASED FIO2 TO 50%. PT TOLERATING CHANGES WELL, NOW MAINTAINING SPO2 95%.
[2019-06-12] MEDS ORDERED: MIDAZOLAM DRIP 50 mg/50mL 50 ML IV ONE (06:09)
[2019-06-12] MEDS: MIDAZOLAM DRIP 50 mg/50mL 50 ML IV SCH (06:35)
--- NOTE | 2019-06-12 08:00 | NUR ---
Received phone call from Dr. Aviles stating " He has scheduled patient for tracheostomy for 06/13/2019 at 0800 but INR in high have ATTENDING order FFP and VITAMIN K: INR needs to be 1.5 or below for tracheostomy to be done."
[2019-06-12] MEDS: FLUCONAZOLE 200MG/100ML 100 ML IV SCH ×2 (09:49→11:06)
[2019-06-12] MEDS: PANTOPRAZOLE 40 MG/10 ML VIAL INJ IV SCH (09:49)
--- NOTE | 2019-06-12 10:00 | NUR ---
Received phone call from Dr. Aviles with new orders, this RN to input into system.
[2019-06-12] MEDS ORDERED: PHYTONADIONE (VIT K)10 MG/ML 1ML VIAL SUBCUT ONE ×2 (10:15→18:00)
--- NOTE | 2019-06-12 10:45 | NUR ---
VENT CHANGES DR BARRIENTOS AT BEDSIDE, ORDERS TO INCREASE RR TO 20. TITRATED FIO2 TO 45%. PT TOLERATING CHANGES WELL, NO ADVERSE REACTIONS NOTED.
--- NOTE | 2019-06-12 12:42 | NUR ---
FFP FFP TRANSFUSION STARTED.
--- NOTE | 2019-06-12 14:28 | NUR ---
Nutrition Follow-up Wt.: 118.0 kg Pt is sedated with propofol running @29.56 ml/hr providing 780 kcals from lipids, intubated, and remains NPO. Pt receiving EN support of Glucerna 1.2 @ 40 ml/hr. providing an additional 1152 kcals for a total of 1932 kcals. Will continue to monitor NPO status, skin status, pertinent labs and weight trends. Will f/u in 2 to 3 days. Est. Energy Needs: 3474-8789 kcal (12-15 kcal/kg BW). Est. Protein Needs: 88-100 gms/day (1.0-1.2 gms/kg Adj.BW). Labs 06/11: BUN 52 H, Cr 2.66 H, GFR 26 L, Glucose 157 H, Albumin 1.7 L GI: pt with daily diarrhea per RN doc. Skin: Louis scale 13, mod risk, please refer to wound assessment report for full details PES: 1) Obese, Class III r/t energy intake in excess of energy needs aeb BMI 44.7 kg/m2 and 193% IBW Recommendations: 1) Advance diet gradually to oral CCHO 60g diet, when medically appropriate. 2) If Albumin continues trending down, consider Prostat 1 pkt BID. 3) Refer pt to CDE/RD for further nutrition education and weight monitoring upon discharge. 4) Continue current plan of care.
--- NOTE | 2019-06-12 15:42 | NUR ---
FFP SECOND FFP TRANSFUSION STARTED.
--- NOTE | 2019-06-12 17:15 | NUR ---
CONSENT OBTAINED CONSENT FOR TRACHEOSTOMY FROM MONICO HEREDIA VIA TELEPHONE WITNESSED BY MARYLOU CHATMAN.
--- NOTE | 2019-06-12 18:18 | NUR ---
Respiratory note: PEEP VALVE PLACED AT BEDSIDE, CONNECTED TO AMBU BAG.
[2019-06-12] MEDS: fentaNYL Drip 2500mCg/250mlNS 250 ML IV SCH (18:20)
[2019-06-12] MEDS: NOREPINEPHRINE 8 MG/250ML KIT 250 ML IV SCH (19:45)
[2019-06-12] MEDS: ACETAMINOPHEN 650 mg PER 20 mL UD GT PRN (20:38)
[2019-06-12] MEDS: ATORVASTATIN 20 MG TAB PO SCH (22:32)
[2019-06-13] VITALS (98 sets, daily range): BP systolic 81–162; BP diastolic 24–62
--- NOTE | 2019-06-13 01:00 | NUR ---
Central Line Dressing Changes Central line dressing change done with a sterile technique. Cleansed with chloraprep scrub/betadine. Bio-patch applied to insertion site. Occlusive dressing applied.
--- NOTE | 2019-06-13 01:30 | NUR ---
Patient bathe/linen change Patient given complete bath with chlorhexidine wipes. Skin integrity assessed for any changes. Linens changed. Patient repositioned for comfort.
--- NOTE | 2019-06-13 02:00 | NUR ---
Respiratory note: PT PLACED ON RENTAL VENT [id number] WITH HEATED WIRE CIRCUIT, UNEVENTFUL. VENT SST'D AND PASSED. PT PLACED BACK ON PREVIOUS VENT SETTINGS. VENT PLUGGED INTO RED OUTLET, ALARMS SET AND AUDIBLE. JC HEATED SET TO PROPER TEMPERATURE, WATER AT ADEQUATE LEVEL.
[2019-06-13] MEDS: PROPOFOL 100 ML IV SCH ×7 (03:01→22:51)
[2019-06-13 04:16] LABS: Basophils # (auto) 0.1 10 ^3/uL (0-0.2); Basophils % (auto) 0.7 % (0.0-2.0); Eosinophils # (auto) 0.6 10 ^3/uL (0-0.8); Eosinophils % (auto) 4.5 % (0.0-7.0); Hematocrit 29.6 % (41.0-53.0); Hemoglobin 9.4 g/dL (13.5-17.5); Lymphocytes # (auto) 0.6 10 ^3/uL (0.4-5.4); Lymphocytes % (auto) 4.6 % (10.0-50.0); Mean Corpuscular Hemoglobin 28.2 pg (28.0-32.0); Mean Corpuscular Hgb Conc. 31.7 g/dL (32.0-36.0); Monocytes # (auto) 0.9 10 ^3/uL (0-1.3); Monocytes % (auto) 6.9 % (0.0-12.0); Neutrophils # (auto) 10.3 10 ^3/uL (1.6-8.6); Neutrophils % (auto) 83.3 % (37.0-80.0); Platelet Count (auto) 280 10^3/uL (140-450); Red Blood Cells 3.33 10^6/uL (4.5-5.90); Red Cell Distribution Width 15.6 % (11.8-14.3); White Blood Cell 12.4 10^3/uL (4.4-10.8)
[2019-06-13 04:37] LABS: Albumin 1.7 g/dL (3.4-5.0); Calcium 7.8 mg/dL (8.5-10.1); Potassium 4.2 mmol/L (3.5-5.1)
[2019-06-13 04:38] LABS: INR 2.39 (0.9-1.15); Partial Thromboplastin Time 47.6 sec (23.64-32.05)
[2019-06-13 04:40] LABS: BUN/Creatinine Ratio 18.1; Bilirubin, Total 0.6 mg/dL (0.2-1.0); Total Protein 6.6 g/dL (6.4-8.2)
--- NOTE | 2019-06-13 05:20 | NUR ---
HOSPITALIST PAGED HOSPITALIST REGARDING HIGH INR AND PATIENT NEEDS TO GO TO TRACHEOSTOMY TODAY.
[2019-06-13] MEDS: CIPROFLOXACIN 400MG/200ML 200 ML IV SCH ×2 (05:32→18:06)
[2019-06-13] MEDS: ACCU-CHEK COMFORT CURVE STRIP VI SCH ×3 (05:32→18:16)
[2019-06-13] MEDS: InsuLIN REG 1unit/0.01ml Soln (100units/ml) SC SCH ×3 (05:35→18:20)
[2019-06-13] MEDS: dilTIAZem HCL 60 MG TAB GT SCH ×3 (06:00→22:00)
[2019-06-13] MEDS: IPRATROPIUM BROM 0.5 MG/2.5ML INH SOL NEB SCH ×3 (06:01→22:10)
[2019-06-13] MEDS: ALBUTEROL SULF 2.5 MG/0.5ML(0.5%) NEB SOLN NEB SCH ×3 (06:01→22:10)
[2019-06-13] MEDS: ACETYLCYSTEINE 10 %(100MG/ML) SOL 4ML NEB SCH ×3 (06:01→22:10)
[2019-06-13] MEDS: MIDAZOLAM DRIP 50 mg/50mL 50 ML IV SCH (06:02)
--- NOTE | 2019-06-13 06:15 | NUR ---
HOSPITALIST CALLED BACK AND ORDERS RECEIVED.
[2019-06-13] MEDS: INSULIN LANTUS (GLARGINE) 1 /0.01ml (100units/ml) SC SCH (06:40)
[2019-06-13] MEDS ORDERED: PHYTONADIONE (VIT K)10 MG/ML 1ML VIAL SUBCUT ONE (07:45)
[2019-06-13] MEDS ORDERED: MEROPENEM 500MG IVPB 50 ML IV SCH ×2 (10:00→11:30)
[2019-06-13] MEDS: PANTOPRAZOLE 40 MG/10 ML VIAL INJ IV SCH (10:04)
[2019-06-13] MEDS: SODIUM CHLORIDE 0.9% 1,000 ML IV SCH (10:04)
[2019-06-13] MEDS: FLUCONAZOLE 200MG/100ML 100 ML IV SCH ×2 (10:04→11:22)
[2019-06-13] MEDS: ACETAMINOPHEN 650 mg PER 20 mL UD GT PRN (10:21)
--- NOTE | 2019-06-13 12:11 | NUR ---
Resumed care at 0725, orders reviewed and ongoing assessments being done. Being treated for multiple problems and remains intubated and sedated. Does move upon tactile simulation and withdraws to touch. Scheduled for tracheostomy today with Dr. Aviles at 0800. Contacted him at 0750 and made him aware that the INR is 2.3. Orders to give vitamin K 10mg SC once and two units of FFP, second unit infusing now. Will recheck INR post transfusion. Dr. Woo in to round at 1110 am, discussed condition and plan of care.
--- NOTE | 2019-06-13 12:30 | NUR ---
WOUND CARE NOTE: Wound care in to see patient for skin integrity monitoring. Patient is resting in ICU premium bed in Rm. 102. Patient is intubated, sedated and mechanically ventilated. Patient appears to be in no pain using Newman Roberts Faces Pain Scale. His Louis score is 11. Skin assessment done with assistance of patient's nurse, COMPA Chua. Patient's Rt barakat continue to display hemosiderin staining with dry skin. Multi dry intact scabs/dry blister remain in bilateral foot/toes, no drainage/odor noted,left open to air. Patient developed 2x0.3cm superficial skin tear to medial sacrum at intragluteal fold. megan wound is pink and blanchable. Megan care given and applied Z Guard cream. No pressure injury noted. New photograph of wounds are taken for reference. Patient tolerated well. COMPA Chua at bedside. RECOMMENDATION: Continuation of all wound care orders prescribed by MD, continue with skin/wound plan of care, continue monitoring by wound care while patient is mechanically ventilated.
[2019-06-13] MEDS: MEROPENEM 500MG IVPB 50 ML IV SCH ×2 (12:43→23:55)
--- NOTE | 2019-06-13 13:10 | NUR ---
FIO2 TITRATED TO 50%
[2019-06-13] MEDS ORDERED: CIPROFLOXACIN 400MG/200ML 200 ML IV SCH (14:00)
[2019-06-13] MEDS: LINEZOLID 600MG/300ML 300 ML IV SCH (16:22)
[2019-06-13 18:34] LABS: INR 2.28 (0.9-1.15)
--- NOTE | 2019-06-13 18:35 | NUR ---
Dr. Huff rounded at 1405. Made her aware that he spiked a temperature of 105.5 at 1400. Cooling measures already implemented; Tylenol, cooling blanket and ice packs. Blood cultures and urine sent to lab. Temperature at this time per rectal 98.6. Dr. Aviles rescheduled surgery for tomorrow (tracheostomy). Spoke with Miranda twice today and keep her abreast of plan of care. Lona wound care nurse was in earlier today to evaluate skin. Noted on assessment earlier, skin tear to intergluteal fold. Picture taken and applied skin barrier cream.
[2019-06-13 18:44] LABS: Urine Bacteria FEW /hpf (None Seen); Urine Blood 3+ /uL (Negative); Urine Mucus FEW (None Seen); Urine Specific Gravity 1.022 (1.001-1.035); Urine WBC 14 /hpf (0 - 3)
[2019-06-13] MEDS: fentaNYL Drip 2500mCg/250mlNS 250 ML IV SCH ×2 (18:45→21:00)
[2019-06-13 18:49] LABS: Creatinine, Urine 201 mg/dL (30.0-125.0); Sodium Urine 14 mmol/L (40-220)
[2019-06-13] MEDS: NOREPINEPHRINE 8 MG/250ML KIT 250 ML IV SCH (19:45)
[2019-06-13] MEDS: ATORVASTATIN 20 MG TAB PO SCH (22:00)
[2019-06-14] VITALS (89 sets, daily range): BP systolic 78–122; BP diastolic 19–60
[2019-06-14] MEDS: LINEZOLID 600MG/300ML 300 ML IV SCH ×2 (03:07→15:03)
[2019-06-14] MEDS: ACETAMINOPHEN 650 mg PER 20 mL UD GT PRN ×2 (03:08→14:12)
[2019-06-14 04:57] LABS: INR 2.73 (0.9-1.15); Partial Thromboplastin Time 55.2 sec (23.64-32.05)
[2019-06-14] MEDS: CIPROFLOXACIN 400MG/200ML 200 ML IV SCH ×2 (05:00→16:57)
[2019-06-14 05:02] LABS: BUN/Creatinine Ratio 15.3; Calcium 7.6 mg/dL (8.5-10.1); Potassium 4.5 mmol/L (3.5-5.1)
[2019-06-14] MEDS: InsuLIN REG 1unit/0.01ml Soln (100units/ml) SC SCH ×4 (06:12→17:47)
[2019-06-14] MEDS: INSULIN LANTUS (GLARGINE) 1 /0.01ml (100units/ml) SC SCH (06:12)
[2019-06-14] MEDS: ACCU-CHEK COMFORT CURVE STRIP VI SCH ×5 (06:14→23:22)
[2019-06-14] MEDS: dilTIAZem HCL 60 MG TAB GT SCH ×3 (06:14→22:00)
[2019-06-14] MEDS: ALBUTEROL SULF 2.5 MG/0.5ML(0.5%) NEB SOLN NEB SCH ×3 (07:26→21:45)
[2019-06-14] MEDS: IPRATROPIUM BROM 0.5 MG/2.5ML INH SOL NEB SCH ×3 (07:26→21:45)
[2019-06-14] MEDS: ACETYLCYSTEINE 10 %(100MG/ML) SOL 4ML NEB SCH ×3 (07:27→21:45)
--- NOTE | 2019-06-14 07:50 | NUR ---
ASSESS- PT. LYING IN BED ON VENT SIZE #8.0 ET, 24 AT THE LIP, AC-20, TV-500, PEEP-8, FIO2-45%. LUNGS CLEAR JENNIFER. INSPIRATORY AND EXPIRATORY, DIMINISHED BASES JENNIFER. PT. HAS GAG/COUGH REFLEX. RESPONDS TO PAINFUL/TACTILE STIMULI. ON PROPOFOL GTT. AT 25 MCG. AND FENTANYL GTT. AT 125 MCG. OGT IN PLACED, CLAMPED. PT. IS NPO FOR POSSIBLE TRACHEOSTOMY TODAY. ABD. SOFT, LG. BOWEL SOUNDS ALL FOUR QUADRANTS. F/C TO GRAVITY WITH LT. COLE URINE, CLOUDY WITH SEDIMENT. ILEOSTOMY TO RT. UPPER QUADRANT INTACT WITH LIQUID GREEN STOOL, STOMA PINK. RADIAL PULSES STRONG, PALPABLE JENNIFER. DORSALIS PEDAL PULSES STRONG, PALPABLE JENNIFER. 2 PLUS EDEMA FT./ANKLES JENNIFER. JENNIFER. LE WITH ERYTHEMA, ROUGH SKIN. RT. FT. WITH SCABBED TOES, OPEN TO AIR. SKIN TEAR TO RT. UPPER ARM WITH OPTIFOAM DSG. D/I. SKIN TEAR TO GLUTEAL FOLD WITH TRIAD CREAM, OPEN TO AIR. TLC RT. IJ INTACT. RECTAL PROBE IN PLACE, COOLING BLANKET UNDER PT.
--- NOTE | 2019-06-14 08:21 | NUR ---
DR. MUNIZ CALLED AND GAVE UPDATE ON PT. NEW ORDER RECEIVED FOR HEMATOLOGY CONSULT. TRACH POSTPONED UNTIL AT LEAST MON. WITH INR-2.[address] MUNIZ.
[2019-06-14] MEDS: MIDAZOLAM DRIP 50 mg/50mL 50 ML IV SCH (08:30)
[2019-06-14] MEDS: SODIUM CHLORIDE 0.9% 1,000 ML IV SCH ×2 (08:47→11:50)
[2019-06-14] MEDS: PROPOFOL 100 ML IV SCH ×3 (08:48→17:18)
--- NOTE | 2019-06-14 10:00 | NUR ---
DR. BEAL Provider/Hospitalist at bedside. GAVE UPDATE ON PT. NEW ORDERS RECEIVED.
[2019-06-14] MEDS: PANTOPRAZOLE 40 MG/10 ML VIAL INJ IV SCH (10:16)
[2019-06-14] MEDS: FLUCONAZOLE 200MG/100ML 100 ML IV SCH ×2 (10:16→11:01)
[2019-06-14] MEDS: DOPamine 1600MCG/ML D5W 250 ML IV SCH (10:25)
--- NOTE | 2019-06-14 10:35 | NUR ---
OGT placement verified by aspiration of stomach contents, residual check, or air auscultation. Tube feeding started per MD order. RESTARTED GLUCERNA AT 10 CC/HR. WITH GOAL RATE OF 30 CC/HR. NO SURGERY TODAY, PT. NO LONGER NPO. RESIDUAL 30 CC. STARTED TF AT 10 CC/HR.
[2019-06-14] MEDS: Glucerna 1.2 Cal 1Liter BOTTLE GT SCH (10:42)
[2019-06-14] MEDS: BUMETANIDE INJECTION 25 MG in GIVE UN-DILUTED 0 ML IV SCH (11:01)
--- NOTE | 2019-06-14 11:55 | NUR ---
TEMP 99.5 RECTALLY. TURNED ON COOLING BLANKET WHICH IS UNDER PT. WITH SHEET. NO COVERS ON PT. MONITORING TEMP.
[2019-06-14] MEDS: MEROPENEM 500MG IVPB 50 ML IV SCH ×2 (13:00→23:22)
--- NOTE | 2019-06-14 14:10 | NUR ---
AUSCULTATED GOOD PLACEMENT WITH OGT. CHECKED RESIDUAL AND ASPIRATED 60 CC BILE WITH TF AT 10 CC/HR. NO EMESIS. TURNED OFF TF FOR NOW.
--- NOTE | 2019-06-14 14:12 | NUR ---
TEMP 100.4 RECTALLY WITH COOLING BLANKET ON. MED. WITH TYLENOL 650 MG. ELIXER VIA OGT. MONITORING TEMP.
[2019-06-14] MEDS: fentaNYL Drip 2500mCg/250mlNS 250 ML IV SCH (14:20)
--- NOTE | 2019-06-14 14:25 | NUR ---
DR. Nic STEVENS Provider/Hospitalist at bedside. GAVE UPDATE ON PT.
--- NOTE | 2019-06-14 16:00 | NUR ---
TEMP 100.8 RECTALLY AFTER RECEIVING TYLENOL 650 MG. ELIXER VIA OGT AND COOLING BLANKET ON UNDER PT. MONITORING TEMP.
[2019-06-14] MEDS: NOREPINEPHRINE 8 MG/250ML KIT 250 ML IV SCH (19:45)
--- NOTE | 2019-06-14 20:00 | NUR ---
OGT residuals, 920 ml. TF on hold
--- NOTE | 2019-06-14 22:00 | NUR ---
RT at bedside, decreased FiO2 to 40%, sat 93%
[2019-06-14] MEDS: ATORVASTATIN 20 MG TAB PO SCH (22:02)
--- NOTE | 2019-06-14 22:09 | NUR ---
Temp 98.4, cooling measures temp. stopped
[2019-06-15] VITALS (98 sets, daily range): BP systolic 75–150; BP diastolic 28–67
[2019-06-15] MEDS: InsuLIN REG 1unit/0.01ml Soln (100units/ml) SC SCH ×4 (00:05→18:39)
[2019-06-15] MEDS: PROPOFOL 100 ML IV SCH ×3 (00:07→23:00)
--- NOTE | 2019-06-15 01:00 | NUR ---
Patient bathe/linen change Patient given complete bath. Skin integrity assessed for any changes. Linens changed. Patient repositioned for comfort.
[2019-06-15] MEDS: NOREPINEPHRINE 8 MG/250ML KIT 250 ML IV SCH (02:51)
--- NOTE | 2019-06-15 02:52 | NUR ---
Levophed started @ 2mcg/min, SBP high 70s to 80's. Will continue to monitor BP
[2019-06-15] MEDS: LINEZOLID 600MG/300ML 300 ML IV SCH ×2 (03:00→16:58)
[2019-06-15] MEDS: CIPROFLOXACIN 400MG/200ML 200 ML IV SCH ×2 (05:11→18:55)
[2019-06-15 05:13] LABS: Potassium 5.2 mmol/L (3.5-5.1)
[2019-06-15 05:19] LABS: Albumin 1.5 g/dL (3.4-5.0); BUN/Creatinine Ratio 13.8; Bilirubin, Total 1.7 mg/dL (0.2-1.0); Calcium 7.6 mg/dL (8.5-10.1); Total Protein 6.8 g/dL (6.4-8.2)
[2019-06-15] MEDS: dilTIAZem HCL 60 MG TAB GT SCH ×3 (06:00→21:55)
[2019-06-15] MEDS: MIDAZOLAM DRIP 50 mg/50mL 50 ML IV SCH (06:02)
[2019-06-15] MEDS: IPRATROPIUM BROM 0.5 MG/2.5ML INH SOL NEB SCH ×3 (06:08→22:18)
[2019-06-15] MEDS: ALBUTEROL SULF 2.5 MG/0.5ML(0.5%) NEB SOLN NEB SCH ×3 (06:08→22:18)
[2019-06-15] MEDS: ACETYLCYSTEINE 10 %(100MG/ML) SOL 4ML NEB SCH ×3 (06:09→22:18)
[2019-06-15] MEDS: ACCU-CHEK COMFORT CURVE STRIP VI SCH ×3 (06:17→18:28)
[2019-06-15] MEDS: INSULIN LANTUS (GLARGINE) 1 /0.01ml (100units/ml) SC SCH (07:00)
--- NOTE | 2019-06-15 07:45 | NUR ---
DR Ricardo STEVENS VISITS - NO NEW ORDERS RECEIVED.
[2019-06-15] MEDS: DOPamine 1600MCG/ML D5W 250 ML IV SCH ×2 (08:36→20:38)
--- NOTE | 2019-06-15 09:00 | NUR ---
ABDOMEN DISTENDED WITH FAINT BOWEL SOUNDS X 4 QUADS. ILEOSTOMY WITH SM AMT BROWN LIQUID NOTED - ASPIRATED - UNABLE TO ASPIRATE GASTRIC CONTENTS BUT ABLE TO AUSCULTATE PLACEMENT OF NG TUBE. WILL CONTINUE TO MONITOR -TF HELD.
[2019-06-15] MEDS: BUMETANIDE INJECTION 25 MG in GIVE UN-DILUTED 0 ML IV SCH (10:00)
[2019-06-15] MEDS: FLUCONAZOLE 200MG/100ML 100 ML IV SCH ×2 (10:08→12:50)
[2019-06-15] MEDS: PANTOPRAZOLE 40 MG/10 ML VIAL INJ IV SCH (10:08)
--- NOTE | 2019-06-15 10:20 | NUR ---
DR BEAL VISITS - ORDERS RECEIVED.
[2019-06-15] MEDS: ALBUMIN 25% 100 ML IV SCH ×2 (12:51→21:55)
[2019-06-15] MEDS: SODIUM CHLORIDE 0.9% 1,000 ML IV SCH ×2 (12:52→16:39)
[2019-06-15] MEDS: MEROPENEM 500MG IVPB 50 ML IV SCH (14:14)
--- NOTE | 2019-06-15 14:55 | NUR ---
PATIENT'S PHONES - UPDATED ON PATIENT CONDITION
--- NOTE | 2019-06-15 15:10 | NUR ---
DR STEVENS NOTIFIED OF ABD DISTENTION, DECREASED BOWEL SOUNDS, LOW ILEOSTOMY OUTPUT, DRNG OBTAINED PER NG TO LIS - ORDERS RECEIVED.
--- NOTE | 2019-06-15 15:16 | NUR ---
CALL PLACED TO DR BEAL RE: CONT'D LOW URINE OUTPUT
--- NOTE | 2019-06-15 15:20 | NUR ---
DR JAMES VISITS - NEW ORDERS RECEIVED.
[2019-06-15 16:32] LABS: INR 2.31 (0.9-1.15)
[2019-06-15] MEDS: fentaNYL Drip 2500mCg/250mlNS 250 ML IV SCH (18:30)
--- NOTE | 2019-06-15 18:30 | NUR ---
ANOTHER CALL PLACED TO DR DR BEAL RE: LOW URINE OUTPUT.DR BEAL NOTIFIED OF LOW URINE OUTPUT - ORDERS RECEIVED. KAUR CATHETER REPOSITIONED UPON COMPLETION OF RENAL U.S. AT BEDSIDE - 900 ML BROWN URINE IMMEDIATELY RETURNED WITH EXTENSIVE SEDIMENT NOTED.
--- NOTE | 2019-06-15 20:00 | NUR ---
ADMITTED WITH RESPIRATORY FAILURE, JOANNA, SEPTIC SHOCK, PNA, CHF. DR MUNIZ WOULD LIKE TO DO A TRACH, BUT THE COAG LABS ARE NOT WITHIN RANGE. ORALLY INTUBATED. ORAL NGT. HAD TROUBLE WITH HIGH TUBE FEED RESIDUALS, SO THE TUBE FEED NUTRITION IS NOT ON. ORAL CAVITY IS CLEAR. OCCASIONALLY SUCTION CLOUDY SECRETIONS FROM THE MOUTH. LUNGS CLEAR. SMALL AMOUNT OF CLOUDY SECRETIONS FROM THE ETT. NO VENTILATOR CHANGES. HAS FAILED CPAP TRIALS SEVERAL TIMES. ABDOMEN IS LARGE, ROUND AND FIRM. NO BOWEL SOUNDS. OGT TO LIS DRAINING GREEN LIQUID. KUB DUE IN THE AM. HAS AN ABDOMINAL ILEOSTOMY. APPROXIMATELY 30CC OF GREEN LIQUID IN BAG. THE BAG SEAL IS GOOD. . KAUR CATHETER. URINE IS A MURKY BROWN COLOR. FOUND PUS AT THE END OF HIS PENIS. REMOVED THE WATER IN THE KAUR BULB AND THERE WAS ONLY 2 CC. CLEANED PENIS WITH ANTIBACTERIAL SOAP. LUBRICANT APPLIED. MOVED KAUR IN, PUT THE WATER BACK IN THE BULB AND BROUGHT IT FORWARD . 1350 CC OF URINE DRAINED INTO THE BAG. PUS WAS STILL AT THE END OF THE PENIS. CULTURE SENT. CLEANED THE PENIS AGAIN WITH ANTIBACTERIAL SOAP AND DRIED IT. NOTED RED SCATTERED RASH OVER NECK, TRUNK, ARMS AND TOP OF LEGS. REDNESS IN THE PANUS. REDNESS IN THE LINO AREA. AREA CLEANED WITH CHLORHEXADINE PADS AND DRIED. PULSES WEAK. GENERALIZED EDEMA. RIGHT LOWER LEG IS HOT RED, LUMPY. THE 2ND-4TH TOE TOPS ARE SCABBED. LEFT LEG IS OK. RIJ TLC IS THE ONLY IV ACCESS. MAIN IV FLUID IS AT 70CC/HR. LEVOPHED, FENTANYL, BUMEX AND DIPRIVAN ARE RUNNING. PATIENT IS WELL SEDATED. URINE C&S SENT. HYPONATREMIC AND HYPERKALEMIC.
[2019-06-15] MEDS: ATORVASTATIN 20 MG TAB PO SCH (21:54)
--- NOTE | 2019-06-15 22:00 | NUR ---
REPOSITIONED. ORAL CARE DONE. SUCTIONED THE ETT FOR NO SECRETIONS. NSR WITHOUT ECTOPY. PENIS CLEANED AGAIN.
[2019-06-16] VITALS (93 sets, daily range): BP systolic 80–193; BP diastolic 25–68
--- NOTE | 2019-06-16 | NUR ---
REPOSITIONED TO BACK. CHG BATH AND LINEN CHANGE. NSR WITHOUT ECTOPY. WEANING DOWN THE LEVOPHED. IV SITE SHOWS NO REDNESS OR SWELLING.
--- NOTE | 2019-06-16 02:00 | NUR ---
WEANED DOWN THE LEVOPHED TO 5 MCG. NSR WITHOUT ECTOPY. LUNGS CLEAR. NOTHING SUCTIONED FROM THE LUNGS. ORAL CARE DONE. CLOUDY WHITE SECRETIONS FROM THE LUNGS.
[2019-06-16] MEDS: LINEZOLID 600MG/300ML 300 ML IV SCH ×2 (02:52→17:59)
--- NOTE | 2019-06-16 04:00 | NUR ---
NO CHANGE IN ASSESSMENT. ORAL CARE. SUCTIONED THE ETT FOR NO SECRETIONS.
[2019-06-16] MEDS: ACCU-CHEK COMFORT CURVE STRIP VI SCH ×4 (05:58→18:05)
[2019-06-16] MEDS: dilTIAZem HCL 60 MG TAB GT SCH ×3 (05:58→22:20)
[2019-06-16] MEDS: IPRATROPIUM BROM 0.5 MG/2.5ML INH SOL NEB SCH ×3 (06:10→22:39)
[2019-06-16] MEDS: ACETYLCYSTEINE 10 %(100MG/ML) SOL 4ML NEB SCH ×3 (06:10→22:40)
[2019-06-16] MEDS: ALBUTEROL SULF 2.5 MG/0.5ML(0.5%) NEB SOLN NEB SCH ×3 (06:10→22:40)
[2019-06-16] MEDS: InsuLIN REG 1unit/0.01ml Soln (100units/ml) SC SCH ×4 (06:15→18:06)
[2019-06-16 07:05] LABS: Basophils # (auto) 0.1 10 ^3/uL (0-0.2); Basophils % (auto) 0.6 % (0.0-2.0); Eosinophils # (auto) 1.8 10 ^3/uL (0-0.8); Eosinophils % (auto) 12.6 % (0.0-7.0); Hematocrit 30.8 % (41.0-53.0); Hemoglobin 9.9 g/dL (13.5-17.5); Lymphocytes # (auto) 1.2 10 ^3/uL (0.4-5.4); Lymphocytes % (auto) 8.5 % (10.0-50.0); Mean Corpuscular Hemoglobin 27.9 pg (28.0-32.0); Mean Corpuscular Hgb Conc. 32.1 g/dL (32.0-36.0); Mean Corpuscular Volume 86.9 fL (80.0-100.0); Monocytes # (auto) 0.3 10 ^3/uL (0-1.3); Neutrophils # (auto) 10.9 10 ^3/uL (1.6-8.6); Neutrophils % (auto) 76.3 % (37.0-80.0); Platelet Count (auto) 370 10^3/uL (140-450); Red Blood Cells 3.54 10^6/uL (4.5-5.90); Red Cell Distribution Width 15.9 % (11.8-14.3); White Blood Cell 14.2 10^3/uL (4.4-10.8)
[2019-06-16 07:41] LABS: INR 2.12 (0.9-1.15); Partial Thromboplastin Time 64.3 sec (23.64-32.05)
--- NOTE | 2019-06-16 07:45 | NUR ---
DR Ricardo STEVENS VISITS - ORDERS RECEIVED.
[2019-06-16] MEDS ORDERED: fentaNYL Drip 2500mCg/250mlNS 250 ML IV ONE (07:51)
[2019-06-16] MEDS: fentaNYL Drip 2500mCg/250mlNS 250 ML IV SCH (07:52)
[2019-06-16] MEDS: MIDAZOLAM DRIP 50 mg/50mL 50 ML IV SCH (07:57)
--- NOTE | 2019-06-16 08:00 | NUR ---
PATIENT'S TEMP 96.3 - BEAR HUGGER APPLIED.
[2019-06-16] MEDS: INSULIN LANTUS (GLARGINE) 1 /0.01ml (100units/ml) SC SCH (08:03)
[2019-06-16 08:04] LABS: Albumin 1.9 g/dL (3.4-5.0); BUN/Creatinine Ratio 14.6; Calcium 7.6 mg/dL (8.5-10.1); Potassium 4.8 mmol/L (3.5-5.1)
[2019-06-16 08:07] LABS: Bilirubin, Total 2.4 mg/dL (0.2-1.0); Total Protein 6.9 g/dL (6.4-8.2)
[2019-06-16] MEDS: SODIUM CHLORIDE 0.9% 1,000 ML IV SCH ×2 (09:09→21:15)
[2019-06-16] MEDS: MAGNESIUM SULFATE 1GM/100ML 100 ML IV SCH ×2 (09:15→10:08)
[2019-06-16] MEDS: BUMETANIDE INJECTION 25 MG in GIVE UN-DILUTED 0 ML IV SCH (09:16)
[2019-06-16] MEDS: PROPOFOL 100 ML IV SCH ×4 (09:17→22:00)
--- NOTE | 2019-06-16 11:00 | NUR ---
PATIENT'S TEMP 99.3 - BEAR HUGGER REMOVED.
--- NOTE | 2019-06-16 11:36 | NUR ---
Dr Yi visits and examines patient - orders received.
--- NOTE | 2019-06-16 11:40 | NUR ---
IVANIA report called to Dr Robin - order received.
[2019-06-16] MEDS: PANTOPRAZOLE 40 MG/10 ML VIAL INJ IV SCH (12:05)
[2019-06-16] MEDS: FLUCONAZOLE 200MG/100ML 100 ML IV SCH ×2 (12:05→13:31)
[2019-06-16] MEDS: ALBUMIN 25% 100 ML IV SCH ×2 (12:06→22:20)
[2019-06-16] MEDS: MEROPENEM 500MG IVPB 50 ML IV SCH ×2 (14:00)
--- NOTE | 2019-06-16 14:00 | NUR ---
INCREASING LEVOPHED IN RESPONSE TO HYPOTENSION - SEE IV SPREAD SHEET.
--- NOTE | 2019-06-16 14:50 | NUR ---
TEMP 102.2 DESPITE COOLING BLANKET ON PATIENT -ICE PACKS APPLIED, FAN PLACED IN ROOM. TITRATING LEVOPHED PER PROTOCOL - SEE IV SPREADSHEET.
[2019-06-16] MEDS: NOREPINEPHRINE 8 MG/250ML KIT 250 ML IV SCH (15:09)
[2019-06-16] MEDS: CIPROFLOXACIN 400MG/200ML 200 ML IV SCH (15:14)
--- NOTE | 2019-06-16 15:25 | NUR ---
TEMP DOWN TO 101.5 RECTALLY WITH ADDITIONAL COOLING MEASURES - WILL CONTINUE TO MONITOR.
[2019-06-16] MEDS: PHENYLEPHRINE IV 250 ML IV SCH ×2 (15:32→23:52)
--- NOTE | 2019-06-16 17:07 | NUR ---
Respiratory note: SPUTUM CULTURE SENT TO LAB PER DR Nic STEVENS'S ORDER. WILL ENDORSE TO HOP WEIGHER.
--- NOTE | 2019-06-16 20:00 | NUR ---
ADMITTED WITH ACUTE RESPIRATORY FAILURE, JOANNA, SEPTIC SHOCK, UNCONTROLLED DM, CHF, ILEOSTOMY. DR MUNIZ CALLED IN TO DO A TRACHEOSTOMY. THE INR IS LONG. DR LANGE CONSULTED FOR THE INCREASED INR. DR JAMES HERE AND HE MADE VENTILATOR CHANGES. AC INCREASED TO 24 AND FIO2 DECREASED TO 45%. NO PLANS OR PROCEDURES FOR TOMORROW. NADIR. GRIMACES. ORAL CARE DONE. ETT TO VENTILATOR. NOTHING SUCTIONED FROM HIS LUNGS. PIP IS HIGH: 41. ABDOMEN IS ROUND, LARGE, FIRM. OGT TO LIS. DRAINING A MODERATE AMOUNT OF GREEN DRNG FROM THE OGT. KAUR IN PLACE. SMALL AMOUNT OF LIGHT YELLOW DRNG COMING FROM THE TIP OF HIS PENIS. PENIS TIP IS RED. GROIN IS RED. TEMPERATURE PROBE IN. IT IS NOT ACCURATE WITH THE ORAL TEMP. ORAL TEMPERATURE IS HIGHER. GLENNA HAS A SKIN TEAR THAT IS SCABBED. ON LEVOPHED. WEANING IT DOWN. DOPAMINE AT 2.5. BUMEX DRIP: ON 0.5MG LARGE URINE OUTPUT
--- NOTE | 2019-06-16 21:10 | NUR ---
Respiratory note: CHANGED RR TO 22 AT THIS TIME, TITRATED FIO2 TO 45% AT THIS TIME Addendum: 06/16/19 at 2224 by TREVA JC CHANGED RR TO 24 NOT 22
--- NOTE | 2019-06-16 21:20 | NUR ---
NIGHT AUDITOR RETURNED PATIENT'S 'S PHONE CALL - UPDATED HER ON PATIENT CONDITION - VERBALIZES UNDERSTANDING -TEARFUL - SUPPORT OFFERED.
[2019-06-16] MEDS ORDERED: METOCLOPRAMIDE HCL 5MG/ml INJ 2ml VIAL IV ONE (22:00)
[2019-06-16] MEDS: ATORVASTATIN 20 MG TAB PO SCH (22:19)
--- NOTE | 2019-06-16 22:30 | NUR ---
RT REPORTED TO ME THAT HE LEFT THE ABG RESULT WITH DR JAMES. REPOSITIONED TO BACK . ORAL CARE. DECREASED LEVOPHED TO 1 MCG. SBP 124.
[2019-06-17] VITALS (98 sets, daily range): BP systolic 87–138; BP diastolic 30–91
--- NOTE | 2019-06-17 | NUR ---
REPOSITIONED. ORAL CARE. OGT TO LIS DRAINING GREEN LIQUID. ABDOMEN REMAINS FIRM. DIFFUSE RASH PERSISTS. NO BOWEL SOUNDS. IV SITE SHOWS NO REDNESS OR SWELLING. URINE COLOR IS STILL BROWN. LEVOPHED OFF.
[2019-06-17] MEDS: MEROPENEM 500MG IVPB 50 ML IV SCH ×2 (00:20→15:34)
--- NOTE | 2019-06-17 01:45 | NUR ---
RESTARTED LEVOPHED FOR SYSTOLIC OF 74.
[2019-06-17] MEDS: LINEZOLID 600MG/300ML 300 ML IV SCH ×2 (03:50→17:55)
--- NOTE | 2019-06-17 03:58 | NUR ---
AM LABS SENT
[2019-06-17 04:24] LABS: Hematocrit 28.1 % (41.0-53.0); Hemoglobin 9.2 g/dL (13.5-17.5); Mean Corpuscular Hemoglobin 28.3 pg (28.0-32.0); Mean Corpuscular Hgb Conc. 32.8 g/dL (32.0-36.0); Mean Corpuscular Volume 86.2 fL (80.0-100.0); Platelet Count (auto) 308 10^3/uL (140-450); Red Blood Cells 3.27 10^6/uL (4.5-5.90); Red Cell Distribution Width 16.1 % (11.8-14.3); White Blood Cell 10.7 10^3/uL (4.4-10.8)
[2019-06-17 04:38] LABS: Basophils % (manual) 0 (0.0-2.0); Blast Cells 0; Metamyelocytes % 0; Myelocytes % 0; Promyelocytes % 0; Reactive Lymphocytes 0
[2019-06-17 04:41] LABS: Calcium 7.2 mg/dL (8.5-10.1); INR 1.8 (0.9-1.15); Magnesium 1.7 mg/dL (1.6-2.6); Partial Thromboplastin Time 56.5 sec (23.64-32.05); Potassium 4.2 mmol/L (3.5-5.1)
[2019-06-17 04:44] LABS: BUN/Creatinine Ratio 14.1; Bilirubin, Total 2.5 mg/dL (0.2-1.0); Total Protein 6.5 g/dL (6.4-8.2)
--- NOTE | 2019-06-17 05:00 | NUR ---
CHG BATH AND LINEN CHANGE
[2019-06-17 05:11] LABS: Band Neutrophils % (manual) 23; Eosinophils % (manual) 13 (0-7); Lymphocytes % (manual) 9 (10.0-50.0); Monocytes % (manual) 3 (0-12)
[2019-06-17] MEDS: DOPamine 1600MCG/ML D5W 250 ML IV SCH ×2 (05:48→15:32)
[2019-06-17] MEDS: InsuLIN REG 1unit/0.01ml Soln (100units/ml) SC SCH ×4 (06:00→18:00)
[2019-06-17] MEDS: ACCU-CHEK COMFORT CURVE STRIP VI SCH ×4 (06:00→18:14)
[2019-06-17] MEDS: MIDAZOLAM DRIP 50 mg/50mL 50 ML IV SCH (06:02)
[2019-06-17] MEDS: ALBUTEROL SULF 2.5 MG/0.5ML(0.5%) NEB SOLN NEB SCH ×3 (06:05→21:41)
[2019-06-17] MEDS: ACETYLCYSTEINE 10 %(100MG/ML) SOL 4ML NEB SCH ×3 (06:05→21:41)
[2019-06-17] MEDS: IPRATROPIUM BROM 0.5 MG/2.5ML INH SOL NEB SCH ×3 (06:05→21:41)
[2019-06-17] MEDS: dilTIAZem HCL 60 MG TAB GT SCH ×3 (06:32→21:50)
[2019-06-17] MEDS: CIPROFLOXACIN 400MG/200ML 200 ML IV SCH (06:32)
[2019-06-17] MEDS: INSULIN LANTUS (GLARGINE) 1 /0.01ml (100units/ml) SC SCH (07:00)
--- NOTE | 2019-06-17 07:00 | NUR ---
HELD LANTUS DUE TO BLOOD SUGAR OF 110. PATIENT IS NOT EATING
[2019-06-17] MEDS: fentaNYL Drip 2500mCg/250mlNS 250 ML IV SCH ×2 (07:52→18:55)
[2019-06-17] MEDS: PHENYLEPHRINE IV 250 ML IV SCH ×2 (08:12→16:32)
--- NOTE | 2019-06-17 09:45 | NUR ---
Cooling Measures applied. Patient currently has temp of 99.3 , cooling measures in place.
[2019-06-17] MEDS: PANTOPRAZOLE 40 MG/10 ML VIAL INJ IV SCH ×2 (11:17→20:00)
[2019-06-17] MEDS: FLUCONAZOLE 200MG/100ML 100 ML IV SCH ×2 (11:18→12:30)
[2019-06-17] MEDS: BUMETANIDE INJECTION 25 MG in GIVE UN-DILUTED 0 ML IV SCH (11:18)
[2019-06-17] MEDS ORDERED: METOCLOPRAMIDE HCL 5MG/ml INJ 2ml VIAL IV SCH (14:00)
--- NOTE | 2019-06-17 15:00 | NUR ---
MEDICATION HELD: Cardizem held due to persistent hypotension and increasing dosage of Levophed. Cardiology notified.
[2019-06-17] MEDS: SODIUM CHLORIDE 0.9% 1,000 ML IV SCH (15:34)
--- NOTE | 2019-06-17 15:35 | NUR ---
FAMILY: Spoke with patient's [id number], password provided. Updated given on patient condition, informed her that the patient has required increasing dosages of vasopressors, has had a low grade temp in the 99 degree range. Also informed her that the physician was asked to call patient's Miranda to discuss patient's condition, prognosis and plan of care.
--- NOTE | 2019-06-17 16:00 | NUR ---
Cooling Measures applied. Patient currently has temp of 100.0 rectally, cooling measures in place.
[2019-06-17] MEDS ORDERED: MAGNESIUM SULFATE 1GM/100ML 100 ML IV ONE (17:15)
[2019-06-17] MEDS ORDERED: methylPREDNISolone SOD SUCC 40 MG/ML VL IV ONE (18:00)
[2019-06-17] MEDS: PROPOFOL 100 ML IV SCH ×2 (18:03→22:00)
[2019-06-17] MEDS: NOREPINEPHRINE 8 MG/250ML KIT 250 ML IV SCH (18:05)
--- NOTE | 2019-06-17 18:18 | NUR ---
Respiratory note: RECEIVED PT ON VENT STANTON V200 ([id number]). VENT CONNECTED TO RED OUTLET AND O2 SOURCE. ALARMS ARE SET AND AUDIBLE. AMBU BAG AND MASK AT BEDSIDE. BS ARE FINE COURSE, LAVAGED SXD FOR LARGE THICK CREAMY ZAMAN/BROWN SECRETIONS. . PTS CURRENT TEMP IS 100.2F. COOLING MEASURES BEING TAKEN. RT NAME AND PAGER ASSIGNMENT WRITTEN ON PTS ROOM BOARD.
--- NOTE | 2019-06-17 20:00 | NUR ---
ADMITTED WITH RESPIRATORY FAILURE, JOANNA, SEPTIC SHOCK, UNCONTROLLED DM, CHF, ILEOSTOMY. UNABLE TO WEAN OFF VENTILATOR. DR MUNIZ CONSULTED FOR TRACHEOSTOMY. DR Frida LANGE CONSULTED FOR COAGULAPATHY. DR LANGE WANTS TO WAIT A FEW MORE DAYS BECAUSE THE PATIENT WAS ON COUMADIN. WANTS EVERYTHING DONE. TEMP 100.4. 6 ICE BAGS ON. URINE, WOUND, BLOOD AND RESPIRATORY CULTURE NEGATIVE. DRNG FROM END OF PENIS DRNG IS NEGATIVE. KUB BEING DONE NOW. ALL OVER BODY RASH. NO COMMENT FROM THE MD. LARGE, ROUND, FIRM ABDOMEN.KAUR TO DOWN DRAIN BAG DRAINING A BROWN GREEN COLOR WITH SEDIMENT. GENERALIZED PITTING EDEMA. IVF DISCONTINUED TODAY. ILEOSTOMY DRNG DARK GREEN.
--- NOTE | 2019-06-17 20:05 | NUR ---
Respiratory note: AT BEDSIDE FOR ROUTINE VENT CHECK, FIO2 INCREASED TO 50% VIA VENT DUE TO RECURRENT DESATURATING EVENTS. RN KAYLAN COMMUNICATED ON O2 CHANGE. PTS CURRENT TEMP IS 100.4F. WILL CONTINUE TO MONITOR.
--- NOTE | 2019-06-17 21:41 | NUR ---
Respiratory note: AT BEDSIDE FOR ROUTINE VENT CHECK. MED NEB TX GIVEN INLINE WITHOUT ADVERSE REACTION NOTED. PTS CURRENT TEMP IS 99.9F. WILL CONTINUE TO MONITOR.
[2019-06-17] MEDS: ATORVASTATIN 20 MG TAB PO SCH (21:51)
--- NOTE | 2019-06-17 22:00 | NUR ---
TEMP COMING DOWN. ICE BAGS ON. LUNGS CLEAR. ETT TO VENTILATOR. TRIED DECREASING THE FIO2 TO 45%, BUT THE O2 SATURATION DROPPED TO TO 90. NOTHING SUCTIONED FROM THE ETT. OGT CONTENTS ARE GREEN. ORAL CARE DONE. IV SITE CLEAN, DRY.
[2019-06-18] VITALS (95 sets, daily range): BP systolic 112–164; BP diastolic 46–75
--- NOTE | 2019-06-18 | NUR ---
TEMP NORMAL. PATIENT OPENED HIS EYES. LEVOPHED OFF. SBP STABLE. HR 96. ORAL CARE DONE. ETT TO VENTILATOR. NOTHING SUCTIONED FROM THE ETT.
--- NOTE | 2019-06-18 00:11 | NUR ---
Respiratory note: AT BEDSIDE FOR ROUTINE VENT CHECK. TITRATED FIO2 TO 45% VIA VENT. PTS CURRENT TEMP IS 99.1F. WILL CONTINUE TO MONITOR.
[2019-06-18] MEDS: ACCU-CHEK COMFORT CURVE STRIP VI SCH ×4 (00:25→18:00)
[2019-06-18] MEDS: MEROPENEM 500MG IVPB 50 ML IV SCH ×2 (00:27→11:58)
[2019-06-18] MEDS: CIPROFLOXACIN 400MG/200ML 200 ML IV SCH ×2 (00:28→16:59)
--- NOTE | 2019-06-18 01:01 | NUR ---
Respiratory note: RN COMMUNICATED PTS SATS DROPPING AGAIN. FIO2 INCREASED BACK TO 50% VIA VENT DUE TO DESATURATION, RN KAYLAN AT BEDSIDE AND AWARE OF CHANGE.
[2019-06-18] MEDS: NOREPINEPHRINE 8 MG/250ML KIT 250 ML IV SCH (01:15)
--- NOTE | 2019-06-18 02:00 | NUR ---
SBP 155. NSR WITHOUT ECTOPY. REMAIN VERY EDEMETOUS. DIURESING. RED RASH ALL OVER HIS BODY. RIGHT LOWER LEG IS HOT , RED, LUMPY, SWOLLEN. SCABS ON TOP OF TOES STABLE.
[2019-06-18] MEDS: LINEZOLID 600MG/300ML 300 ML IV SCH ×2 (03:13→14:43)
--- NOTE | 2019-06-18 04:00 | NUR ---
LABS SENT. CHG BATH AND PARTIAL LINEN CHANGE. DIURESING. URINE IS MORE YELLOW NOW. NSR WITHOUT ECTOPY. IV SITE SHOWS NO REDNESS OR SWELLING.
[2019-06-18 04:15] LABS: Basophils # (auto) 0.1 10 ^3/uL (0-0.2); Basophils % (auto) 0.7 % (0.0-2.0); Eosinophils # (auto) 0 10 ^3/uL (0-0.8); Eosinophils % (auto) 0.2 % (0.0-7.0); Hematocrit 30.4 % (41.0-53.0); Hemoglobin 9.8 g/dL (13.5-17.5); Lymphocytes # (auto) 0.8 10 ^3/uL (0.4-5.4); Lymphocytes % (auto) 8.9 % (10.0-50.0); Mean Corpuscular Hemoglobin 27.6 pg (28.0-32.0); Mean Corpuscular Hgb Conc. 32.4 g/dL (32.0-36.0); Mean Corpuscular Volume 85.4 fL (80.0-100.0); Monocytes # (auto) 0.1 10 ^3/uL (0-1.3); Monocytes % (auto) 1.2 % (0.0-12.0); Neutrophils # (auto) 8.4 10 ^3/uL (1.6-8.6); Nucleated Red Blood Cells % 0.1 %; Platelet Count (auto) 301 10^3/uL (140-450); Red Blood Cells 3.55 10^6/uL (4.5-5.90); Red Cell Distribution Width 15.7 % (11.8-14.3); White Blood Cell 9.5 10^3/uL (4.4-10.8)
[2019-06-18 04:37] LABS: Albumin 1.8 g/dL (3.4-5.0); Calcium 7.2 mg/dL (8.5-10.1); Potassium 4.3 mmol/L (3.5-5.1)
[2019-06-18 04:41] LABS: BUN/Creatinine Ratio 14.8; Bilirubin, Total 2.8 mg/dL (0.2-1.0); Total Protein 6.9 g/dL (6.4-8.2)
[2019-06-18] MEDS: ALBUTEROL SULF 2.5 MG/0.5ML(0.5%) NEB SOLN NEB SCH ×3 (05:55→22:15)
[2019-06-18] MEDS: ACETYLCYSTEINE 10 %(100MG/ML) SOL 4ML NEB SCH ×3 (05:55→22:16)
[2019-06-18] MEDS: IPRATROPIUM BROM 0.5 MG/2.5ML INH SOL NEB SCH ×3 (05:55→22:15)
[2019-06-18] MEDS: dilTIAZem HCL 60 MG TAB GT SCH ×3 (06:00→22:00)
[2019-06-18] MEDS: InsuLIN REG 1unit/0.01ml Soln (100units/ml) SC SCH ×4 (06:25→18:09)
[2019-06-18] MEDS: fentaNYL Drip 2500mCg/250mlNS 250 ML IV SCH ×2 (06:59→17:00)
[2019-06-18] MEDS: INSULIN LANTUS (GLARGINE) 1 /0.01ml (100units/ml) SC SCH (07:00)
--- NOTE | 2019-06-18 07:55 | NUR ---
ASSESS- PT. LYING IN BED ON VENT SIZE # 8.0 ET, 24 AT THE LIP, AC-24, TV-550, PEEP-8, FIO2-50%. PROPOFL GTT. AT 20 MCG. AND FENTANYL GTT. AT 200 MCG. RESPONDS TO PAINFUL/TACTILE STIMULI. OPENED EYES ONCE SPONTANEOUSLY FOR FEW SECONDS, NO TRACKING. NO MOVEMENT OF EXTREMITIES SEEN. LUNGS CLEAR JENNIFER. INSPIRATORY AND EXPIRATORY. OGT IN PLACE TO LIS WITH BILE DRAINAGE. ABD. FIRM, ROUND, LG. BOWEL SOUNDS ABSENT ALL FOUR QUADRANTS. ILEOSTOMY RT. UPPER QUADRANT WITH SM. AMOUNT LIQUID GREEN STOOL. RADIAL PULSES WEAK, PALPABLE JENNIFER. DORSALIS PEDAL PULSES WEAK, PALPABLE JENNIFER. 3 PLUS EDEMA UPPER EXTREMITIES JENNIFER. AND HANDS JENNIFER. 3 PLUS EDEMA LE JENNIFER. WITH FT./ANKLES JENNIFER. LE JENNIFER. WITH ERYTHEMA, SKIN ROUGH, SCALY, THICK, OPEN TO AIR. RT. FT. WITH TOES 2ND. THRU 4TH. WITH SCABS, BLACKENED, THICK, ROUGH OPEN TO AIR. RASH ALL OVER BODY. SKIN TEAR GLENNA WITH OPTIFOAM DSG. D/I. COCCYX WITH SM. SKIN TEAR WITH TRIAD CREAM IN PLACE. RECTAL PROBE IN PLACE. TLC RT. IJ INTACT. SBP 130'S-140'S, LEVOPHED GTT. REMAINS OFF.
[2019-06-18 08:16] LABS: INR 1.54 (0.9-1.15); Partial Thromboplastin Time 46.3 sec (23.64-32.05)
[2019-06-18] MEDS: PHENYLEPHRINE IV 250 ML IV SCH ×3 (09:12→14:38)
[2019-06-18] MEDS: PANTOPRAZOLE 40 MG/10 ML VIAL INJ IV SCH (10:05)
[2019-06-18] MEDS: PROPOFOL 100 ML IV SCH ×3 (10:06→21:00)
[2019-06-18] MEDS: FLUCONAZOLE 200MG/100ML 100 ML IV SCH ×2 (10:06→11:08)
--- NOTE | 2019-06-18 10:12 | NUR ---
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 GAVE UPDATE ON PT.
--- NOTE | 2019-06-18 10:44 | NUR ---
Called/paged Dr. MUNIZ called re:. Waiting for call back. Continue care.
--- NOTE | 2019-06-18 10:51 | NUR ---
returned call Dr. MUNIZ returned call, updated on patient status and reason for call, orders received. Continue care.
[2019-06-18] MEDS: MIDAZOLAM DRIP 50 mg/50mL 50 ML IV SCH (11:00)
[2019-06-18] MEDS: BUMETANIDE INJECTION 25 MG in GIVE UN-DILUTED 0 ML IV SCH (11:08)
--- NOTE | 2019-06-18 12:15 | NUR ---
DR. PARKER Provider/Hospitalist at bedside. GAVE UPDATE ON PT.
[2019-06-18] MEDS: DOPamine 1600MCG/ML D5W 250 ML IV SCH (14:38)
--- NOTE | 2019-06-18 17:30 | NUR ---
TECH AT BS FOR 2D ECHO.
--- NOTE | 2019-06-18 18:21 | NUR ---
Respiratory note: RECEIVED PT ON VENT STANTON V200 ([id number]). VENT CONNECTED TO RED OUTLET AND O2 SOURCE. ALARMS ARE SET AND AUDIBLE. AMBU BAG AND MASK AT BEDSIDE. BS ARE FINE COURSE, SXD FOR MODERATE THICK CREAMY ZAMAN/BROWN SECRETIONS. PTS CURRENT TEMP IS 99.5F. RT NAME AND PAGER ASSIGNMENT WRITTEN ON PTS ROOM BOARD. WILL CONTINUE TO MONITOR.
--- NOTE | 2019-06-18 18:35 | NUR ---
TEMP 99.5 RECTALLY. PLACED ICE PACKS JENNIFER. AXILLA. NO COVERS ON PT.
--- NOTE | 2019-06-18 18:45 | NUR ---
DR. JAMES Provider/Hospitalist at bedside. GAVE UPDATE ON PT.
--- NOTE | 2019-06-18 19:29 | NUR ---
ADMITTED WITH MD DIAGNOSIS OF ACUTE RESPIRATORY FAILURE, JOANNA, SEPTIC SHOCK, UNCONTROLLED DM, CHF, ILEOSTOMY. HAS REMAINED OFF OF LEVOPHED. NO VENTILATOR CHANGES TODAY. OGT CONTINUES AT LIS DRAINING GREEN LIQUID. KAUR IN PLACE TO DOWN DRAIN BAG. CLEAR YELLOW LIQUID IN KAUR BAG WITH SEDIMENT LINING THE TUBING. HAS A RIJ TLC WITH DOPAMINE, DIPRIVAN, FENTANYL AND BUMEX RUNNING. LARGE URINE OUTPUT. PATIENT REMAINS WITH A LARGE AMOUNT OF PITTING EDEMA. ALL OVER BODY RED RASH. RIGHT LEG IS RED, HOT, AND SWOLLEN. CLOSED SCABS ON 2-4TH ANTERIOR TOES OF RIGHT FOOT. SCAB TO LEFT 4TH TOE IS CLOSED. HEELS OFF BED. NO SCDS. CUFF ON LEFT FOREARM. HAS A SCAB ON LEFT HAND. SKIN TEAR RIGHT ELBOW. POTENTIAL TRACHEOSTOMY WITH DR MUNIZ TOMORROW. NEW CONSENT BEING GENERATED. IN CONTACT WITH HIS , MONICO. HAS AN ILEOSTOMY THAT HAS A SMALL AMOUNT OF THICK GREEN DRAINAGE INSIDE IT. GOOD SEAL ON THE ILEOSTOMY BAG.
--- NOTE | 2019-06-18 19:45 | NUR ---
CONSENT OBTAINED FOR TRACHEOSTOMY. PHONE CONSENT WITH MONICO HEREDIA.
--- NOTE | 2019-06-18 20:28 | NUR ---
Respiratory note: AT BEDSIDE FOR ROUTINE VENT CHECK NO CHANGES MADE THIS CHECK. PTS CURRENT TEMP IS 99.5F. WILL CONTINUE TO MONITOR.
--- NOTE | 2019-06-18 22:00 | NUR ---
REPOSITIONED TO RIGHT. ORAL CARE DONE. SHAVED. NOTHING SUCTIONED FROM THE ETT. ETT TO VENTILATOR. NSR WITHOUT ECTOPY. OPENS EYES OCCASIONALLY. RESISTS YOU LIFTING HIS LIDS.
[2019-06-18] MEDS: ATORVASTATIN 20 MG TAB PO SCH (22:01)
--- NOTE | 2019-06-18 22:16 | NUR ---
Respiratory note: AT BEDSIDE FOR ROUTINE VENT CHECK NO CHANGES MADE THIS CHECK. BS ARE FINE COURSE SXD VIA ETT FOR NO RETURN. MED NEB TX GIVEN INLINE WITHOUT ADVERSE REACTION NOTED. PTS CURRENT TEMP IS 99.1F. WILL CONTINUE TO MONITOR.
[2019-06-19] VITALS (94 sets, daily range): BP systolic 99–187; BP diastolic 45–78
--- NOTE | 2019-06-19 | NUR ---
NSR WITHOUT ECTOPY. ORAL CARE. OPENS EYES. LUNGS CLEAR. ABDOMEN REMAINS LARGE, ROUND AND FIRM. IV SHOWS NO REDNESS OR SWELLING.
--- NOTE | 2019-06-19 03:00 | NUR ---
AM LABS DRAWN.
--- NOTE | 2019-06-19 04:00 | NUR ---
VSS. REMAINS OFF OF LEVOPHED FOR OVER 24 HOURS. CARDIZEM DID NOT SUBSTANTIALLY DROP THE BLOOD PRESSURE. NOTHING SUCTIONED FROM THE ETT. ORAL CARE DONE.
[2019-06-19] MEDS: PROPOFOL 100 ML IV SCH ×4 (04:14→22:28)
[2019-06-19] MEDS: LINEZOLID 600MG/300ML 300 ML IV SCH ×2 (04:18→16:19)
[2019-06-19 05:04] LABS: Basophils # (auto) 0.1 10 ^3/uL (0-0.2); Basophils % (auto) 1.2 % (0.0-2.0); Eosinophils # (auto) 0 10 ^3/uL (0-0.8); Eosinophils % (auto) 0.2 % (0.0-7.0); Hematocrit 29.8 % (41.0-53.0); Hemoglobin 9.8 g/dL (13.5-17.5); Lymphocytes % (auto) 12.1 % (10.0-50.0); Mean Corpuscular Hemoglobin 27.8 pg (28.0-32.0); Mean Corpuscular Hgb Conc. 32.9 g/dL (32.0-36.0); Mean Corpuscular Volume 84.4 fL (80.0-100.0); Monocytes # (auto) 0.5 10 ^3/uL (0-1.3); Monocytes % (auto) 5.8 % (0.0-12.0); Neutrophils # (auto) 6.9 10 ^3/uL (1.6-8.6); Neutrophils % (auto) 80.7 % (37.0-80.0); Platelet Count (auto) 314 10^3/uL (140-450); Red Blood Cells 3.53 10^6/uL (4.5-5.90); Red Cell Distribution Width 15.7 % (11.8-14.3); White Blood Cell 8.6 10^3/uL (4.4-10.8)
[2019-06-19 05:21] LABS: INR 1.33 (0.9-1.15)
[2019-06-19 05:23] LABS: Albumin 1.9 g/dL (3.4-5.0); Calcium 7.4 mg/dL (8.5-10.1); Magnesium 1.8 mg/dL (1.6-2.6); Potassium 3.3 mmol/L (3.5-5.1)
[2019-06-19 05:26] LABS: Bilirubin, Total 1.4 mg/dL (0.2-1.0); Total Protein 7.5 g/dL (6.4-8.2)
[2019-06-19] MEDS: dilTIAZem HCL 60 MG TAB GT SCH ×3 (06:00→22:13)
[2019-06-19] MEDS: ACCU-CHEK COMFORT CURVE STRIP VI SCH ×5 (06:17→23:57)
[2019-06-19] MEDS: InsuLIN REG 1unit/0.01ml Soln (100units/ml) SC SCH ×5 (06:18→23:57)
[2019-06-19] MEDS: ACETYLCYSTEINE 10 %(100MG/ML) SOL 4ML NEB SCH ×3 (06:28→18:07)
[2019-06-19] MEDS: IPRATROPIUM BROM 0.5 MG/2.5ML INH SOL NEB SCH ×3 (06:28→18:07)
[2019-06-19] MEDS: ALBUTEROL SULF 2.5 MG/0.5ML(0.5%) NEB SOLN NEB SCH ×3 (06:28→18:07)
[2019-06-19] MEDS: INSULIN LANTUS (GLARGINE) 1 /0.01ml (100units/ml) SC SCH (07:00)
--- NOTE | 2019-06-19 07:00 | NUR ---
PATIENT BOOSTED UP IN BED. NSR WITHOUT ECTOPY. LARGE 12 HOUR URINE OUTPUT 4700 CC. ON A BUMEX DRIP
[2019-06-19] MEDS ORDERED: LIDOCAINE W/ EPINEPHRINE 1% 20ML VIAL ONE ×2 (07:13→08:45)
--- NOTE | 2019-06-19 08:25 | NUR ---
DR. MUNIZ CALLED AND [id number] MEQ. KCL IV TIMES ONE DOSE FOR K LEVEL OF 3.3. PT. IS GOING FOR TRACHEOSTOMY HE SAID THIS AM. INR 1.33 THIS AM. GAVE CONSENT VIA PHONE WITH 2 RN'S. SURGICAL CHECKLIST DONE.
[2019-06-19] MEDS: POTASSIUM CHL 20MEQ/100ML 100 ML IV SCH ×2 (08:36→10:54)
[2019-06-19] MEDS ORDERED: HYDROmorphone HCL 2 MG/ML VL IV PRN ×2 (09:15)
[2019-06-19] MEDS ORDERED: ACCU-CHEK COMFORT CURVE STRIP VI ONE (09:15)
--- NOTE | 2019-06-19 09:25 | NUR ---
FIREMAN HELPER HERE, GAVE REPORT. RT AT BS, PT. PLACED ON PLANT TENDER, RT BAGGING PT VIA BED TO OR FOR TRACHEOSTOMY. PT. IS NPO. VSS. FULL CODE.
--- NOTE | 2019-06-19 09:35 | NUR ---
DR. BEAL Provider/Hospitalist at bedside.
[2019-06-19] MEDS ORDERED: ROCURONIUM 10MG/ML 10ML VIAL IV ONE (09:45)
[2019-06-19] MEDS ORDERED: MIDAZOLAM HCL 1MG/1ML-2 ML VIAL ONE ×2 (09:46→10:23)
--- NOTE | 2019-06-19 10:33 | NUR ---
PT. CAME BACK FROM OR VIA BED WITH WITH OR TEAM. RT AT BS AND CONNECTED PT. ON VENT VIA TRACH # 8.0 SHILEY BILLING DEPARTMENT SUPERVISOR. CONNECTED TO INTRUSION ANALYST. VSS. FENTANYL GTT. AT 200 MCG., PROPOFOL GTT. OFF AT THIS TIME.
--- NOTE | 2019-06-19 10:33 | NUR ---
Respiratory note: PT CAME BACK FROM OR WITH SIZE 8.0 FIRE PREVENTION CAPTAIN SHILEY TRACH. PT WAS THEN PLACED ON ORIGINAL VENT SETTINGS OF AC 24/550/+8/45%. TRACH IS SECURED WITH TRACH TIES AND HAS SUTURES. TRACH IS SLIGHTLY BLEEDING. WILL CONTINUE TO MONITOR PT.
[2019-06-19] MEDS: MIDAZOLAM DRIP 50 mg/50mL 50 ML IV SCH (10:50)
[2019-06-19] MEDS: FLUCONAZOLE 200MG/100ML 100 ML IV SCH ×2 (10:54→11:51)
[2019-06-19] MEDS: BUMETANIDE INJECTION 25 MG in GIVE UN-DILUTED 0 ML IV SCH (10:55)
--- NOTE | 2019-06-19 12:00 | NUR ---
SCANT AMOUNT OF BLEEDING AROUND TRACH SITE, INTACT, SECURED. PT. REMAINS SUPINE AND FLAT AFTER SURGERY.
[2019-06-19] MEDS: PHENYLEPHRINE IV 250 ML IV SCH ×3 (12:40→15:58)
[2019-06-19] MEDS: MEROPENEM 500MG IVPB 50 ML IV SCH ×3 (12:46→23:53)
--- NOTE | 2019-06-19 12:57 | NUR ---
Nutrition Follow-up Wt.: 130.6 kg Pt is sedated with new tracheotomy, propofol running @15.096 ml/hr providing 398 kcals from lipids, and remains NPO. Pt EN support of Glucerna 1.2 @ 40 ml/hr suspended d/t medical procedure. Pt with no noted distress per RN doc. Will continue to monitor NPO status, skin status, pertinent labs and weight trends. Will f/u in 2 to 3 days. Est. Energy Needs: 7343-2872 kcal (12-15 kcal/kg BW). Est. Protein Needs: 88-100 gms/day (1.0-1.2 gms/kg Adj.BW). Labs 06/11: BUN 62 H, Cr 3.44 H, GFR 19 L, Glucose 209 H, Albumin 1.9 L GI: pt with ileostomy per RN doc. Skin: Louis scale 11, high risk, please refer to wound assessment report for full details PES: 1) Obese, Class III r/t energy intake in excess of energy needs aeb BMI 44.7 kg/m2 and 193% IBW Recommendations: 1) Advance diet gradually to oral CCHO 60g diet, when medically appropriate. 2) If Albumin continues trending down, consider Prostat 1 pkt BID. 3) Refer pt to CDE/RD for further nutrition education and weight monitoring upon discharge. 4) Continue current plan of care.
--- NOTE | 2019-06-19 13:35 | NUR ---
DR. PARKER Provider/Hospitalist at bedside. GAVE UPDATE ON PT. NEW ORDERS RECEIVED.
[2019-06-19] MEDS: DOPamine 1600MCG/ML D5W 250 ML IV SCH (13:58)
[2019-06-19] MEDS: CIPROFLOXACIN 400MG/200ML 200 ML IV SCH (14:51)
--- NOTE | 2019-06-19 15:00 | NUR ---
SBP TIMES 2 DECREASED TO THE 70'S PREVIOUSLY. DECREASED PROPOFOL GTT. TO 15 MCG. FROM 20 MCG. NO VASOPRESSORS ON. MONITORING TEMP.
--- NOTE | 2019-06-19 15:00 | NUR ---
DR. JAMES Provider/Hospitalist at bedside. GAVE UPDATE ON PT.
--- NOTE | 2019-06-19 15:30 | NUR ---
SBP INCREASED TO 122.
--- NOTE | 2019-06-19 16:15 | NUR ---
TEMP 99.5 RECTALLY. PLACED ICE PACKS JENNIFER. AXILLA. MONITORING TEMP.
[2019-06-19] MEDS: fentaNYL Drip 2500mCg/250mlNS 250 ML IV SCH (17:45)
--- NOTE | 2019-06-19 18:03 | NUR ---
RT NOTE RECEIVED PT TRACHED AND ON VENT #[id number] ON STATED SETTINGS WITH HEATED WIRE CIRCUIT. VENT IS PLUGGED TO RED OUTLET. ALARMS ARE ON AND AUDIBLE TO NURSING. AMBU BAG AT BEDSIDE AND CONNECTED TO O2 SOURCE.8.0 SHILEY PATIENT CARE SPECIALIST SECURED WITH SURGICAL TRACH TIES AND SUTURES. OBTURATOR AND SPARE TRACH AT BEDSIDE. BILATERAL BS ARE CTA/ PT WAS SUCTIONED FOR NO RETURN FROM TRACH AND SMALL RETURN ORALLY. HHN GIVEN INLINE WITH 2.5 MG ALBUTEROL, 0.5 MG ATROVENT AND 1CC 10% MUCOMYST WITHOUT ADVERSE REACTION NOTED. CIRCUIT TEMP 35.0, WATER LEVEL ADEQUATE. PT TEMP 99.5 ON COOLING MEASURES. POX 98% Addendum: 06/19/19 at 1858 by Zoe Clement RT Amended: Links added.
[2019-06-19] MEDS: NOREPINEPHRINE 8 MG/250ML KIT 250 ML IV SCH (19:45)
--- NOTE | 2019-06-19 19:57 | NUR ---
RT NOTE ROUTINE VENT CHECK DONE. PT TRACHED AND ON VENT #[id number] ON STATED SETTINGS WITH HEATED WIRE CIRCUIT. VENT IS PLUGGED TO RED OUTLET. ALARMS ARE ON AND AUDIBLE TO NURSING. AMBU BAG AT BEDSIDE AND CONNECTED TO O2 SOURCE.8.0 SHILEY LIBRARY ASSOCIATE SECURED WITH SURGICAL TRACH TIES AND SUTURES. OBTURATOR AND SPARE TRACH AT BEDSIDE. ADVERSE REACTION NOTED. CIRCUIT TEMP 34.9, WATER LEVEL ADEQUATE. PT TEMP 99.1 ON COOLING MEASURES. POX 96% Addendum: 06/19/19 at 2011 by oZe Clement RT Amended: Links added.
--- NOTE | 2019-06-19 20:14 | NUR ---
RHYTHM PATIENT'S RHYTHM IS AFIB HR 80-90/MIN, BP 153/54 12 LEAD EKG DONE PAGED HOSPITALIST - MIGHT NEED TO CHECK ELECTROLYTES
--- NOTE | 2019-06-19 21:11 | NUR ---
LAITH CARLOS AT BEDSIDE NOTED OF ATRIAL FIBRILLATION HR 80-90/MIN BLOOD SENT FOR BMP
--- NOTE | 2019-06-19 21:32 | NUR ---
Family updated on pt status of STEFFANY HEREDIA (ADAM) called. correct password was given. updated on patient's status and condition. All questions and concerns addressed. verbalized understanding.
[2019-06-19 21:35] LABS: BUN/Creatinine Ratio 19.1; Calcium 7.5 mg/dL (8.5-10.1); Potassium 3.1 mmol/L (3.5-5.1)
--- NOTE | 2019-06-19 21:56 | NUR ---
RT NOTE ROUTINE VENT CHECK DONE. PT TRACHED AND ON VENT #[id number] ON STATED SETTINGS WITH HEATED WIRE CIRCUIT. VENT IS PLUGGED TO RED OUTLET. ALARMS ARE ON AND AUDIBLE TO NURSING. AMBU BAG AT BEDSIDE AND CONNECTED TO O2 SOURCE.8.0 SHILEY FLOOR TECHNICIAN SECURED WITH SURGICAL TRACH TIES AND SUTURES. OBTURATOR AND SPARE TRACH AT BEDSIDE. PT WAS SUCTIONED FOR SMALL RETURN. CIRCUIT TEMP 35.1, WATER LEVEL ADEQUATE. PT TEMP 99.3 ON COOLING MEASURES. POX 96% Addendum: 06/19/19 at 2334 by Zoe Clement RT Amended: Links added.
[2019-06-19] MEDS: HEPARIN SODIUM (PORCINE) 5000 UNITS/ML 1ML VIAL SC SCH (22:00)
--- NOTE | 2019-06-19 22:00 | NUR ---
HEPARIN HELD Patient just had tracheostomy done today. Trach site with some small bleeding noted - will held Heparin and observe
--- NOTE | 2019-06-19 22:03 | NUR ---
paged hospitalist for lab results
[2019-06-19] MEDS: ATORVASTATIN 20 MG TAB PO SCH (22:12)
--- NOTE | 2019-06-19 22:41 | NUR ---
HOSPITALIST Called back Talked to LAITH More. informed of potassium 3.1 Telephone order received : 1. potassium 20meq rider 2. add magnesium in lab test catherineight
[2019-06-19] MEDS ORDERED: POTASSIUM CHL 20MEQ/100ML 100 ML IV ONE (22:45)
[2019-06-20] VITALS (75 sets, daily range): BP systolic 54–170; BP diastolic 29–74
--- NOTE | 2019-06-20 00:07 | NUR ---
paged hospitalist for magnesium result
--- NOTE | 2019-06-20 00:10 | NUR ---
RT NOTE ROUTINE VENT CHECK DONE. PT TRACHED AND ON VENT #[id number] ON STATED SETTINGS WITH HEATED WIRE CIRCUIT. VENT IS PLUGGED TO RED OUTLET. ALARMS ARE ON AND AUDIBLE TO NURSING. AMBU BAG AT BEDSIDE AND CONNECTED TO O2 SOURCE.8.0 SHILEY COAL HANDLER SECURED WITH SURGICAL TRACH TIES AND SUTURES. OBTURATOR AND SPARE TRACH AT BEDSIDE. PT WAS SUCTIONED FOR MODERATE RETURN. CIRCUIT TEMP 35.0, WATER LEVEL ADEQUATE. PT TEMP 99.3, POX 97% Addendum: 06/20/19 at 0121 by Zoe Clement RT Amended: Links added.
[2019-06-20] MEDS: MAGNESIUM SULFATE 1GM/100ML 100 ML IV SCH ×2 (01:11→03:16)
--- NOTE | 2019-06-20 02:07 | NUR ---
RT NOTE ROUTINE VENT CHECK DONE. PT TRACHED AND ON VENT #[id number] ON STATED SETTINGS WITH HEATED WIRE CIRCUIT. VENT IS PLUGGED TO RED OUTLET. ALARMS ARE ON AND AUDIBLE TO NURSING. AMBU BAG AT BEDSIDE AND CONNECTED TO O2 SOURCE.8.0 SHILEY TELEVISION PRODUCTION ASSISTANT SECURED WITH TRACH TIES AND SUTURES. TRACH STAY IN PLACE. OBTURATOR AND SPARE TRACH AT BEDSIDE. PT WAS SUCTIONED FOR SMALL RETURN.CIRCUIT TEMP 35.0, WATER LEVEL ADEQUATE. INLINE SUCTION, T-PIECE AND OMNIFLEX CHANGED WITHOUT INCIDENT. TRACH CARE DONE, SURGICAL TIES WERE CHANGED FOR A HARRISON. COMPA RAMIREZ AT BEDSIDE TO CLEAN IV SITE AND CHANGE BANDAGE. PT TEMP 99.6, POX 96% Addendum: 06/20/19 at 0248 by Zoe Clement RT Amended: Links added.
[2019-06-20] MEDS: PHENYLEPHRINE IV 250 ML IV SCH ×3 (02:52→19:32)
--- NOTE | 2019-06-20 04:00 | NUR ---
TEMP PATIENT'S TEMP 99.9F SPONGE BATH DONE ICE PACKS APPLIED WILL CONTINUE TO MONITOR
[2019-06-20] MEDS: LINEZOLID 600MG/300ML 300 ML IV SCH (04:14)
--- NOTE | 2019-06-20 04:23 | NUR ---
RT NOTE ROUTINE VENT CHECK DONE. PT TRACHED AND ON VENT #[id number] ON STATED SETTINGS WITH HEATED WIRE CIRCUIT. VENT IS PLUGGED TO RED OUTLET. ALARMS ARE ON AND AUDIBLE TO NURSING. AMBU BAG AT BEDSIDE AND CONNECTED TO O2 SOURCE.8.0 SHILEY BREAD STACKER SECURED WITH TRACH TIES AND SUTURES. TRACH STAY IN PLACE. OBTURATOR AND SPARE TRACH AT BEDSIDE.CIRCUIT TEMP 35.0, WATER LEVEL ADEQUATE. PT TEMP 99.9, POX 96% Addendum: 06/20/19 at 0444 by Zoe Clement RT Amended: Links added.
[2019-06-20] MEDS: PROPOFOL 100 ML IV SCH ×3 (04:52→18:28)
[2019-06-20 05:17] LABS: Basophils # (auto) 0.1 10 ^3/uL (0-0.2); Basophils % (auto) 1.1 % (0.0-2.0); Eosinophils # (auto) 1.5 10 ^3/uL (0-0.8); Eosinophils % (auto) 14.8 % (0.0-7.0); Hematocrit 29.9 % (41.0-53.0); Hemoglobin 9.9 g/dL (13.5-17.5); Lymphocytes # (auto) 1.6 10 ^3/uL (0.4-5.4); Lymphocytes % (auto) 15.8 % (10.0-50.0); Mean Corpuscular Hemoglobin 27.6 pg (28.0-32.0); Mean Corpuscular Volume 83.6 fL (80.0-100.0); Monocytes # (auto) 0.8 10 ^3/uL (0-1.3); Monocytes % (auto) 7.7 % (0.0-12.0); Neutrophils # (auto) 6.1 10 ^3/uL (1.6-8.6); Neutrophils % (auto) 60.6 % (37.0-80.0); Nucleated Red Blood Cells % 0.1 %; Platelet Count (auto) 281 10^3/uL (140-450); Red Blood Cells 3.58 10^6/uL (4.5-5.90); Red Cell Distribution Width 15.4 % (11.8-14.3); White Blood Cell 10.1 10^3/uL (4.4-10.8)
[2019-06-20 05:36] LABS: BUN/Creatinine Ratio 20.9; Calcium 7.3 mg/dL (8.5-10.1); Magnesium 2.1 mg/dL (1.6-2.6)
[2019-06-20 05:40] LABS: Potassium 2.9 mmol/L (3.5-5.1)
--- NOTE | 2019-06-20 05:45 | NUR ---
HOSPITALIST Called/paged HOSPITALIST paged re:critical lab value . Waiting for call back. Continue care.
[2019-06-20] MEDS: dilTIAZem HCL 60 MG TAB GT SCH (06:00)
--- NOTE | 2019-06-20 06:00 | NUR ---
TEMP RE-ASSESS TEMP 99.5F ICE PACKS APPLIED
[2019-06-20] MEDS: MIDAZOLAM DRIP 50 mg/50mL 50 ML IV SCH (06:02)
--- NOTE | 2019-06-20 06:11 | NUR ---
HOSPITALIST CALLED BACK INFORMED OF POTASSIUM RESULT TELEPHONE ORDER RECEIVED AND VERIFIED
[2019-06-20] MEDS: fentaNYL Drip 2500mCg/250mlNS 250 ML IV SCH ×2 (06:14→17:43)
[2019-06-20] MEDS: ACCU-CHEK COMFORT CURVE STRIP VI SCH ×3 (06:22→18:13)
[2019-06-20] MEDS: InsuLIN REG 1unit/0.01ml Soln (100units/ml) SC SCH ×3 (06:28→18:14)
[2019-06-20] MEDS: CIPROFLOXACIN 400MG/200ML 200 ML IV SCH ×2 (06:29→17:36)
[2019-06-20] MEDS: INSULIN LANTUS (GLARGINE) 1 /0.01ml (100units/ml) SC SCH (06:33)
[2019-06-20] MEDS: POTASSIUM CHL 20MEQ/100ML 100 ML IV SCH ×4 (06:36→15:58)
[2019-06-20] MEDS: ACETYLCYSTEINE 10 %(100MG/ML) SOL 4ML NEB SCH ×3 (06:48→22:22)
[2019-06-20] MEDS: ALBUTEROL SULF 2.5 MG/0.5ML(0.5%) NEB SOLN NEB SCH ×3 (06:48→22:21)
[2019-06-20] MEDS: IPRATROPIUM BROM 0.5 MG/2.5ML INH SOL NEB SCH ×3 (06:48→22:22)
--- NOTE | 2019-06-20 07:30 | NUR ---
REPORT REPORT GIVEN TO COMPA CARLSON
[2019-06-20] MEDS: FLUCONAZOLE 200MG/100ML 100 ML IV SCH ×2 (09:05→10:17)
[2019-06-20] MEDS: HEPARIN SODIUM (PORCINE) 5000 UNITS/ML 1ML VIAL SC SCH (10:00)
[2019-06-20] MEDS: NOREPINEPHRINE 8 MG/250ML KIT 250 ML IV SCH ×2 (10:00→19:45)
[2019-06-20] MEDS: PANTOPRAZOLE 40 MG/10 ML VIAL INJ IV SCH (10:17)
[2019-06-20] MEDS: FUROSEMIDE 100 MG/10ML VIAL IV SCH (10:18)
--- NOTE | 2019-06-20 10:18 | NUR ---
DR MUNIZ CONTACTED RE: ADMINISTRATION OF HEPARIN AND RECENT TRACH PLACEMENT-ORDER RECEIVED - HEPARIN HELD PER ORDER.
--- NOTE | 2019-06-20 10:19 | NUR ---
DR JAMES PHONES - GIVEN UPDATE ON PATIENT CURRENT CONDITION.
[2019-06-20] MEDS: DOPamine 1600MCG/ML D5W 250 ML IV SCH (11:30)
[2019-06-20] MEDS: MEROPENEM 500MG IVPB 50 ML IV SCH (13:08)
--- NOTE | 2019-06-20 14:00 | NUR ---
DR PARKER VISITS AND EXAMINES PATIENT - ORDERS RECEIVED.
--- NOTE | 2019-06-20 18:00 | NUR ---
PATIENT'S TEMP 100.2 - COOLING MEASURES STARTED - ICE PACKS APPLIED AND FAN IN ROOM - WILL CONTINUE TO MONITOR.
[2019-06-20] MEDS: MEROPENEM 1GM IVPB 100 ML IV SCH (20:00)
--- NOTE | 2019-06-20 22:00 | NUR ---
BED ON AUTO ROTATE.
[2019-06-20] MEDS: ATORVASTATIN 20 MG TAB PO SCH (22:26)
[2019-06-21] VITALS (80 sets, daily range): BP systolic 60–190; BP diastolic 27–69
[2019-06-21] MEDS: POTASSIUM CHL 20MEQ/100ML 100 ML IV SCH ×2 (01:15→03:15)
[2019-06-21] MEDS: PHENYLEPHRINE IV 250 ML IV SCH ×3 (03:52→20:32)
[2019-06-21] MEDS: ALBUTEROL SULF 2.5 MG/0.5ML(0.5%) NEB SOLN NEB SCH ×3 (05:55→22:36)
[2019-06-21] MEDS: ACETYLCYSTEINE 10 %(100MG/ML) SOL 4ML NEB SCH ×3 (05:55→22:36)
[2019-06-21] MEDS: IPRATROPIUM BROM 0.5 MG/2.5ML INH SOL NEB SCH ×3 (05:55→22:35)
[2019-06-21] MEDS: InsuLIN REG 1unit/0.01ml Soln (100units/ml) SC SCH ×4 (06:00→18:00)
[2019-06-21] MEDS: ACCU-CHEK COMFORT CURVE STRIP VI SCH ×4 (06:18→18:05)
[2019-06-21] MEDS: MIDAZOLAM DRIP 50 mg/50mL 50 ML IV SCH (06:18)
[2019-06-21] MEDS: CIPROFLOXACIN 400MG/200ML 200 ML IV SCH ×2 (06:23→18:05)
[2019-06-21] MEDS: INSULIN LANTUS (GLARGINE) 1 /0.01ml (100units/ml) SC SCH (07:00)
[2019-06-21] MEDS: MEROPENEM 1GM IVPB 100 ML IV SCH ×2 (08:00→20:00)
[2019-06-21] MEDS: MEROPENEM 500MG IVPB 50 ML IV SCH (09:40)
[2019-06-21] MEDS ORDERED: MEROPENEM 500MG IVPB 50 ML IV ONE (09:45)
[2019-06-21 10:17] LABS: BUN/Creatinine Ratio 24.3; Calcium 7.7 mg/dL (8.5-10.1); Potassium 3.7 mmol/L (3.5-5.1)
[2019-06-21] MEDS: PROPOFOL 100 ML IV SCH ×2 (10:51→18:40)
[2019-06-21] MEDS: NOREPINEPHRINE 8 MG/250ML KIT 250 ML IV SCH (11:00)
--- NOTE | 2019-06-21 11:00 | NUR ---
DR UMANA VISITS AND EXAMINES PATIENT - ORDERS RECEIVED.
[2019-06-21] MEDS: DOPamine 1600MCG/ML D5W 250 ML IV SCH (11:04)
[2019-06-21] MEDS: PANTOPRAZOLE 40 MG/10 ML VIAL INJ IV SCH (11:22)
[2019-06-21] MEDS: HEPARIN SODIUM (PORCINE) 5000 UNITS/ML 1ML VIAL SC SCH (11:23)
[2019-06-21] MEDS: FUROSEMIDE 100 MG/10ML VIAL IV SCH (11:35)
[2019-06-21] MEDS: FLUCONAZOLE 200MG/100ML 100 ML IV SCH ×3 (12:37→13:58)
--- NOTE | 2019-06-21 15:32 | NUR ---
WOUND CARE NOTE: Wound care in to see patient for skin integrity monitoring. Patient continue resting in ICU premium bed in Rm. 102. Patient is on vent via trach. Patient appears to be in no pain using Newman Roberts Faces Pain Scale. His Louis score is 13. Skin assessment done with assistance of patient's nurse, COMPA Judge. Patient's Rt barakat continue to display hemosiderin staining with dry skin. Multi dry intact scabs/dry blister remain in bilateral foot/toes, no drainage/odor noted,left open to air. Patient's intragluteal fold skin tear looks resolving and display dry peeling skin with pink and blanchable surrounding skin. Megan care given and applied Z Barrier cream . Skin tear to Rt upper arm is dry and scabbed also. Patient's Rt arm is erythremic and edematous. Dr. Huff at bedside, aware and gave COMPA Avelar order for Ultra sound. New photograph of wounds are taken for reference. Patient tolerated well, repositioned for comfort facing his Rt side, redistributed pressure points with pillows . RECOMMENDATION: Continuation of all wound care orders prescribed by MD, continue with skin/wound plan of care, continue monitoring by wound care while patient is hospitalized. Addendum: 06/21/19 at 1723 by Phyllis Gil RN Amended: Links added.
[2019-06-21] MEDS ORDERED: HEPARIN DRIP/D5W 100UNITS/ML 250 ML IV SCH (16:53)
[2019-06-21] MEDS ORDERED: HEPARIN SODIUM (PORCINE) 5000 UNITS/ML 1ML VIAL IV ONE (17:00)
--- NOTE | 2019-06-21 17:00 | NUR ---
DR PARKER VISITS AND EXAMINES PATIENT - ORDERS RECEIVED.
[2019-06-21] MEDS: fentaNYL Drip 2500mCg/250mlNS 250 ML IV SCH (17:07)
[2019-06-21] MEDS ORDERED: TPN PER PHARMACY 0 ML IV SCH (17:15)
--- NOTE | 2019-06-21 17:25 | NUR ---
RECEIVED COPY OF RESULTS OF U.U. RIGHT UPPER EXTREMITY - POSITIVE RESULTS FOR DVT.
--- NOTE | 2019-06-21 17:30 | NUR ---
DR JAMES VISITS AND EXAMINES PATIENT-ORDERS RECEIVED.
[2019-06-21 17:45] LABS: INR 1.18 (0.9-1.15)
--- NOTE | 2019-06-21 17:48 | NUR ---
PLACED PAGE THROUGH PBX TO DR PARKER TO CALL RESULTS OF U.S.
[2019-06-21] MEDS ORDERED: InsuLIN REG 1unit/0.01ml Soln (100units/ml) SC SCH (18:00)
[2019-06-21] MEDS ORDERED: DEXTROSE (50%) 50ML SYRG IV SCH (18:00)
[2019-06-21] MEDS ORDERED: ACCU-CHEK COMFORT CURVE STRIP VI SCH (18:00)
--- NOTE | 2019-06-21 19:45 | NUR ---
DR JAMES AT BEDSIDE - PLACED RIGHT RADIAL ARTERIAL LINE WITH USE OF ULTRASOUND - PATIENT BANDAR WELL.
[2019-06-21] MEDS: AMINO ACID INFUSION IN D5W 1,000 ML IV NR (20:00)
[2019-06-21] MEDS ORDERED: MEROPENEM 1GM IVPB 100 ML IV ONE (20:21)
[2019-06-21] MEDS: HEPARIN DRIP/D5W 100UNITS/ML 250 ML IV SCH (22:00)
[2019-06-21] MEDS: METOCLOPRAMIDE HCL 5MG/ml INJ 2ml VIAL IV SCH (22:00)
[2019-06-21] MEDS: ATORVASTATIN 20 MG TAB PO SCH (22:00)
[2019-06-22] VITALS (97 sets, daily range): BP systolic 1–171; BP diastolic 34–154
[2019-06-22] MEDS: InsuLIN REG 1unit/0.01ml Soln (100units/ml) SC SCH ×4 (06:00→17:39)
[2019-06-22] MEDS: ALBUTEROL SULF 2.5 MG/0.5ML(0.5%) NEB SOLN NEB SCH ×3 (06:26→22:21)
[2019-06-22] MEDS: IPRATROPIUM BROM 0.5 MG/2.5ML INH SOL NEB SCH ×3 (06:26→22:21)
[2019-06-22] MEDS: ACETYLCYSTEINE 10 %(100MG/ML) SOL 4ML NEB SCH ×3 (06:27→22:21)
[2019-06-22] MEDS: ACCU-CHEK COMFORT CURVE STRIP VI SCH ×4 (06:29→17:39)
[2019-06-22] MEDS: METOCLOPRAMIDE HCL 5MG/ml INJ 2ml VIAL IV SCH ×3 (06:29→22:00)
[2019-06-22] MEDS: CIPROFLOXACIN 400MG/200ML 200 ML IV SCH ×2 (06:29→17:39)
[2019-06-22] MEDS: MIDAZOLAM DRIP 50 mg/50mL 50 ML IV SCH ×3 (06:30→11:31)
--- NOTE | 2019-06-22 07:30 | NUR ---
ASSESS- PT. LYING IN BED ON VENT VIA TRACH #8.0 SHILEY, AC-24, TV-550, PEEP-8, FIO2-50%. LUNGS CLEAR JENNIFER. INSPIRATORY AND EXPIRATORY, DIMINISHED THROUGHOUT. PT. DOES NOT HAVE GAG/COUGH REFLEX. RESPONDS TO PAINFUL/TACTILE STIMULI. ON FENTANYL GTT. AT 200 MCG. AND PROPOFOL GTT. AT 20 MCG. NO MOVEMENT OF EXTREMITIES SEEN. OGT IN PLACE TO LIS WITH BILE DRAINAGE. ABD. LG., FIRM, ROUND. ILEOSTOMY RT. UPPER QUADRANT ABD. WITH SM. AMOUNT LIQUID GREEN STOOL. F/C TO GRAVITY WITH CLEAR YELLOW URINE. RADIAL PULSES WEAK, PALPABLE JENNIFER. DORSALIS PEDAL PULSES WEAK, PALPABLE JENNIFER. 2 PLUS EDEMA LE JENNIFER. RT. ARM WITH 4 PLUS EDEMA. LT. ARM WITH 2 PLUS EDEMA. LE WITH ERYTHEMA JENNIFER. RT. FT. WITH 2ND. THRU 4TH. TOES WITH SCABS OPEN TO AIR. RT. UPPER ARM WITH SKIN TEAR WITH OPTIFOAM DSG. D/I. RECTAL PROBE IN PLACE. A-LINE RT. RADIAL INTACT, ZEROED, POOR WAVEFORM AT TIMES. LEVOPHED GTT. AT 9 MCG. CLINIMIX AT 42 CC/HR.
[2019-06-22 07:47] LABS: Hematocrit 32.3 % (41.0-53.0); Hemoglobin 10.3 g/dL (13.5-17.5); Mean Corpuscular Hemoglobin 27.5 pg (28.0-32.0); Mean Corpuscular Volume 85.9 fL (80.0-100.0); Platelet Count (auto) 233 10^3/uL (140-450); Red Blood Cells 3.76 10^6/uL (4.5-5.90); Red Cell Distribution Width 16.1 % (11.8-14.3); White Blood Cell 19.6 10^3/uL (4.4-10.8)
[2019-06-22] MEDS: INSULIN LANTUS (GLARGINE) 1 /0.01ml (100units/ml) SC SCH (07:48)
--- NOTE | 2019-06-22 07:48 | NUR ---
A-LINE SBP READING IN THE LOW 80'S. INCREASED LEVOPHED GTT. TO 11 MCG. FROM 9 MCG. MONITORING BP.
[2019-06-22 07:51] LABS: Basophils % (manual) 0 (0.0-2.0); Blast Cells 0; Promyelocytes % 0; Reactive Lymphocytes 0
[2019-06-22 07:58] LABS: Calcium 7.9 mg/dL (8.5-10.1); Magnesium 1.6 mg/dL (1.6-2.6); Potassium 3.7 mmol/L (3.5-5.1)
[2019-06-22 08:03] LABS: BUN/Creatinine Ratio 23.2; Bilirubin, Total 0.9 mg/dL (0.2-1.0); Phosphorus 4.5 mg/dL (2.5-4.90); Pre Albumin 14.2 mg/dL (20.0-40.0); Total Protein 8.2 g/dL (6.4-8.2)
[2019-06-22 08:05] LABS: Band Neutrophils % (manual) 1; Eosinophils % (manual) 31 (0-7); Lymphocytes % (manual) 10 (10.0-50.0); Metamyelocytes % 1; Monocytes % (manual) 4 (0-12); Myelocytes % 1
[2019-06-22 08:11] LABS: INR 1.18 (0.9-1.15); Partial Thromboplastin Time 41.3 sec (23.64-32.05)
--- NOTE | 2019-06-22 08:30 | NUR ---
A-LINE SBP WITH ACCURATE WAVEFORM READING IN THE 80'S. TITRATED LEVOPHED GTT. UP TO 13 MCG. MONITORING BP.
--- NOTE | 2019-06-22 08:45 | NUR ---
PTT-41.3. NO BOLUS, INCREASED HEPARIN GTT. BY 200 UNITS/HR., NOW 1800 UNITS/HR. NEXT PTT IN 6 HRS. NO SIGNS OF BLEEDING.
[2019-06-22] MEDS: MEROPENEM 1GM IVPB 100 ML IV SCH ×2 (08:49→21:30)
--- NOTE | 2019-06-22 09:00 | NUR ---
A-LINE RT. RADIAL SBP IN THE 80'S. INCREASED LEVOPHED GTT. TO 15 MCG. MONITORING BP.
[2019-06-22] MEDS: PANTOPRAZOLE 40 MG/10 ML VIAL INJ IV SCH (09:54)
[2019-06-22] MEDS: NOREPINEPHRINE 8 MG/250ML KIT 250 ML IV SCH (09:55)
[2019-06-22] MEDS: DOPamine 1600MCG/ML D5W 250 ML IV SCH (09:57)
[2019-06-22] MEDS: HEPARIN DRIP/D5W 100UNITS/ML 250 ML IV SCH ×2 (09:57→16:15)
--- NOTE | 2019-06-22 10:30 | NUR ---
TEMP 100.2 RECTALLY. PLACED ICE PACKS JENNIFER. AXILLA. NO COVERS ON PT.
--- NOTE | 2019-06-22 11:15 | NUR ---
A-LINE RT. RADIAL PRESSURES NOT READING ACCURATELY, LINE ZEROED AND STILL NOT READING, VERY POSITIONAL. PLACED BP CUFF ON LT. FOREARM.
[2019-06-22] MEDS: PHENYLEPHRINE IV 250 ML IV SCH ×3 (11:20→21:32)
--- NOTE | 2019-06-22 11:25 | NUR ---
DR. UMANA Provider/Hospitalist at bedside. GAVE UPDATE ON PT.
[2019-06-22] MEDS ORDERED: MAGNESIUM SULFATE 1GM/100ML 100 ML IV ONE (11:45)
[2019-06-22] MEDS: PROPOFOL 100 ML IV SCH ×2 (12:00→18:08)
--- NOTE | 2019-06-22 12:30 | NUR ---
DR. ORTEGA Provider/Hospitalist at bedside.
--- NOTE | 2019-06-22 13:25 | NUR ---
DR. JAMES Provider/Hospitalist at bedside.
[2019-06-22] MEDS: ACETAMINOPHEN 650 mg PER 20 mL UD GT PRN (13:26)
--- NOTE | 2019-06-22 13:26 | NUR ---
TEMP 100.6 RECTALLY WITH ICE PACKS IN PLACE JENNIFER. AXILLA. NO COVERS ON PT. MED. WITH TYLENOL 650 MG. ELIXER VIA OGT. MONITORING TEMP.
[2019-06-22 15:58] LABS: INR 1.18 (0.9-1.15); Partial Thromboplastin Time 45.3 sec (23.64-32.05)
--- NOTE | 2019-06-22 16:00 | NUR ---
RECTAL TEMP REMAINS 100.6. REPLACED ICE PACKS JENNIFER. AXILLA. NO COVERS ON PT.
--- NOTE | 2019-06-22 16:10 | NUR ---
PTT-45.3. NO HEPARIN BOLUS, INCREASED HEPARIN GTT. TO 20 UNITS/HR. PER PROTOCOL. NEXT PTT IN 6 HRS.
[2019-06-22] MEDS: fentaNYL Drip 2500mCg/250mlNS 250 ML IV SCH (17:08)
[2019-06-22] MEDS: AMINO ACID INFUSION IN D5W 1,000 ML IV NR (19:49)
[2019-06-22] MEDS: TPN PER PHARMACY IV NR ×10 (20:00)
[2019-06-22] MEDS: ATORVASTATIN 20 MG TAB PO SCH (22:00)
--- NOTE | 2019-06-22 22:15 | NUR ---
PTT - 50.6 NO CHANGE IN GTT.
[2019-06-23] VITALS (104 sets, daily range): BP systolic 54–143; BP diastolic 23–106
[2019-06-23] MEDS ORDERED: levoFLOXacin 500MG 100 ML IV ONE (00:31)
--- NOTE | 2019-06-23 04:28 | NUR ---
TRACH CARE DONE
[2019-06-23 04:34] LABS: Hematocrit 28.9 % (41.0-53.0); Hemoglobin 8.8 g/dL (13.5-17.5); Mean Corpuscular Hemoglobin 26.2 pg (28.0-32.0); Mean Corpuscular Hgb Conc. 30.5 g/dL (32.0-36.0); Mean Corpuscular Volume 85.9 fL (80.0-100.0); Platelet Count (auto) 194 10^3/uL (140-450); Red Blood Cells 3.36 10^6/uL (4.5-5.90); Red Cell Distribution Width 16.1 % (11.8-14.3); White Blood Cell 23.3 10^3/uL (4.4-10.8)
[2019-06-23 04:35] LABS: Basophils % (manual) 0 (0.0-2.0); Blast Cells 0; Metamyelocytes % 0; Myelocytes % 0; Promyelocytes % 0; Reactive Lymphocytes 0
[2019-06-23] MEDS: HEPARIN DRIP/D5W 100UNITS/ML 250 ML IV SCH ×3 (04:45→22:50)
[2019-06-23 04:52] LABS: Potassium 3.3 mmol/L (3.5-5.1)
[2019-06-23 04:57] LABS: Albumin 1.6 g/dL (3.4-5.0); BUN/Creatinine Ratio 25.2; Bilirubin, Total 0.7 mg/dL (0.2-1.0); Calcium 7.4 mg/dL (8.5-10.1); Magnesium 1.7 mg/dL (1.6-2.6); Phosphorus 4.6 mg/dL (2.5-4.90); Total Protein 7.3 g/dL (6.4-8.2)
[2019-06-23 05:28] LABS: Band Neutrophils % (manual) 5; Eosinophils % (manual) 42 (0-7); Lymphocytes % (manual) 6 (10.0-50.0); Monocytes % (manual) 2 (0-12)
[2019-06-23] MEDS: CIPROFLOXACIN 400MG/200ML 200 ML IV SCH ×2 (06:00→17:37)
[2019-06-23] MEDS: ACCU-CHEK COMFORT CURVE STRIP VI SCH ×4 (06:00→18:23)
[2019-06-23] MEDS: METOCLOPRAMIDE HCL 5MG/ml INJ 2ml VIAL IV SCH ×3 (06:00→22:21)
[2019-06-23] MEDS: IPRATROPIUM BROM 0.5 MG/2.5ML INH SOL NEB SCH ×3 (06:33→22:23)
[2019-06-23] MEDS: ACETYLCYSTEINE 10 %(100MG/ML) SOL 4ML NEB SCH ×3 (06:33→22:23)
[2019-06-23] MEDS: ALBUTEROL SULF 2.5 MG/0.5ML(0.5%) NEB SOLN NEB SCH ×3 (06:33→22:23)
[2019-06-23] MEDS: INSULIN LANTUS (GLARGINE) 1 /0.01ml (100units/ml) SC SCH (07:00)
--- NOTE | 2019-06-23 08:00 | NUR ---
TEMP 100.4 RECTALLY. PLACED ICE PACKS JENNIFER. AXILLA. NO COVERS ON PT.
[2019-06-23] MEDS ORDERED: POTASSIUM CHL 20MEQ/100ML 100 ML IV ONE (09:15)
[2019-06-23 09:57] LABS: INR 1.21 (0.9-1.15)
[2019-06-23 09:58] LABS: Partial Thromboplastin Time 45.3 sec (23.64-32.05)
[2019-06-23] MEDS: PANTOPRAZOLE 40 MG/10 ML VIAL INJ IV SCH (10:04)
[2019-06-23] MEDS: MEROPENEM 1GM IVPB 100 ML IV SCH ×2 (10:05→20:08)
[2019-06-23] MEDS: PROPOFOL 100 ML IV SCH ×4 (10:31→23:36)
--- NOTE | 2019-06-23 10:45 | NUR ---
PTT 45.3. INCREASED HEPARIN GTT. TO 2200 UNITS/HR. NEXT PTT IN 6HRS. PER PROTOCOL.
[2019-06-23] MEDS: NOREPINEPHRINE 8 MG/250ML KIT 250 ML IV SCH ×3 (11:00→23:34)
--- NOTE | 2019-06-23 11:39 | NUR ---
Nutrition Follow-up Wt.: 117.0 kg Pt is sedated with new tracheotomy, propofol running @15.096 ml/hr providing 398 kcals from lipids. Currently NPO with TPN support running @50ml/hr providing 1090 kcal, 60 gms protein and 850 NPCs. Pt with inadequate energy intake from PN support aeb 56% to 70% of est caloric needs. Note that total kcals with current rate of propofol is 1489 kcal, and meets 76% to 96% of estimated caloric needs. Protein intake from PN support is inadequate aeb 60% to 68% protein needs. Pt with no noted distress per RN doc. Will continue to monitor NPO status, skin status, pertinent labs and weight trends. Will f/u in 2 to 3 days. Est. Energy Needs: 8130-3571 kcal (12-15 kcal/kg BW). Est. Protein Needs: 88-100 gms/day (1.0-1.2 gms/kg Adj.BW). Labs 06/22: BUN 64 H, Cr 2.54 H, GFR 27 L, Glucose 215 H, Albumin 1.6 L GI: Pt with ileostomy per RN doc. Skin: Louis scale 12, high risk. Please refer to wound assessment report for full details PES: 1) Obese, Class III r/t energy intake in excess of energy needs aeb BMI 44.7 kg/m2 and 193% IBW Recommendations: 1) Advance diet gradually to oral CCHO 60g diet, when medically appropriate. 2) If Albumin continues trending down, consider Prostat 1 pkt BID. 3) Refer pt to CDE/RD for further nutrition education and weight monitoring upon discharge. 4) Continue current plan of care.
[2019-06-23] MEDS: InsuLIN REG 1unit/0.01ml Soln (100units/ml) SC SCH ×3 (11:54→18:26)
--- NOTE | 2019-06-23 12:00 | NUR ---
TEMP DECREASED TO 99.5 RECTALLY. MONITORING TEMP.
--- NOTE | 2019-06-23 12:05 | NUR ---
DR. ORTEGA Provider/Hospitalist at bedside. GAVE UPDATE ON PT. NEW ORDERS RECEIVED.
[2019-06-23] MEDS: DOPamine 1600MCG/ML D5W 250 ML IV SCH (12:20)
[2019-06-23] MEDS: MAGNESIUM SULFATE 1GM/100ML 100 ML IV SCH ×2 (12:20→13:48)
[2019-06-23] MEDS ORDERED: VANCOMYCIN PER PHARMACY 0 MG IV SCH (12:30)
--- NOTE | 2019-06-23 12:35 | NUR ---
Called/paged Dr. ORTEGA called re:. Waiting for call back. Continue care.
--- NOTE | 2019-06-23 12:37 | NUR ---
returned call Dr. CAMPOS returned call, updated on patient status and reason for call. Continue care. WANTS PT. TO RECEIVE ANOTHER 40 MEQ. KCL IV FOR TOTAL 60 MEQ. KCL IV.
[2019-06-23] MEDS ORDERED: VANCOMYCIN 1GM/250ML 250 ML IV ONE (12:45)
[2019-06-23] MEDS: POTASSIUM CHL 20MEQ/100ML 100 ML IV SCH ×2 (12:50→14:43)
--- NOTE | 2019-06-23 13:50 | NUR ---
Sputum sample obtained and sent to lab. RN aware
--- NOTE | 2019-06-23 13:52 | NUR ---
DR. Blaise DELANEY CALLED FOR CONSULT. GAVE UPDATE ON PT. WANTS OGT CLAMPED FOR 4HRS. THEN CHECK RESIDUAL AND PLACE BACK ON LIS.
--- NOTE | 2019-06-23 13:55 | NUR ---
GINA SENT TO LAB.
--- NOTE | 2019-06-23 14:15 | NUR ---
TEMP INCREASED TO 100.2 RECTALLY. PLACED NEW ICE PACKS JENNIFER. AXILLA.
--- NOTE | 2019-06-23 14:40 | NUR ---
DR. JAMES Provider/Hospitalist at bedside. GAVE UPDATE.
--- NOTE | 2019-06-23 14:47 | NUR ---
DR. Blaise DELANEY Provider/Hospitalist at bedside. GAVE UPDATE ON PT.
--- NOTE | 2019-06-23 15:30 | NUR ---
A-LINE PRESSURE RT. RADIAL DECREASED TO THE 60'S WITH GOOD WAVEFORM. CUFF PRESSURE DECREASED TO THE 60'S. INCREASED LEVOPHED GTT. TO 11 MCG. MONITORING BP.
--- NOTE | 2019-06-23 15:45 | NUR ---
A-LINE PRESSURE RT. RADIAL IN THE 70'S WITH CUFF PRESSURES IN THE 70'S. INCREASED LEVOPHED GTT. TO 13 MCG. MONITORING BP.
--- NOTE | 2019-06-23 16:15 | NUR ---
INCREASED FIO2 55%, PT MAINTAINING SPO2 95%. TRACH CARE DONE WITHOUT INCIDENT.
--- NOTE | 2019-06-23 16:15 | NUR ---
A-LINE PRESSURES RT. RADIAL INCREASED TO 100'S, CUFF PRESSURE IN THE 100'S TO ONE TEENS. MONITORING BP.
[2019-06-23] MEDS: fentaNYL Drip 2500mCg/250mlNS 250 ML IV SCH (17:37)
--- NOTE | 2019-06-23 17:58 | NUR ---
Respiratory note: received pt on vent [place] v200 # [id number]. Trach to vent. Vent connected to red outlet and o2 source alarms are set and audible. Ambu bag and mask at bedside. Bs are fine course sxd via trach for scant rosario, pts current body temp is 100.1f. rt name and pager assignment written on pts room board. Will continue to monitor q2h.
--- NOTE | 2019-06-23 18:00 | NUR ---
CHECKED RESIDUAL FROM OGT AND THERE WAS NONE. PLACED OGT BACK TO LIS. NO VOMITING.
[2019-06-23 19:04] LABS: INR 1.37 (0.9-1.15)
--- NOTE | 2019-06-23 19:15 | NUR ---
PTT-72.00. NO BOLUS, NO CHANGE IN HEPARIN GTT. RATE. NEXT PTT IN 6HRS. PER PROTOCOL.
[2019-06-23] MEDS: TPN PER PHARMACY IV NR ×10 (19:38)
--- NOTE | 2019-06-23 19:51 | NUR ---
RECEIVED REPORT FROM NARINDER. PT IS FULLY SEDATED AND IN NO RESP. DISTRESS
[2019-06-23] MEDS ORDERED: TPN PER PHARMACY IV NR ×9 (20:00)
--- NOTE | 2019-06-23 20:00 | NUR ---
Respiratory note: At bedside for routine vent check, lvgd sxd via trach for large thick rosario/brown. Pts current temp is 100.0f. No vent changes made will continue to monitor.
[2019-06-23] MEDS: ATORVASTATIN 20 MG TAB PO SCH (22:22)
--- NOTE | 2019-06-23 22:22 | NUR ---
Respiratory note: At bedside for routine vent check, fio2 titrated to 50% pox remains at 100%. lvgd sxd via trach for large thick rosario/brown. RN at bedside and communicated findings and changes with RN josh. med neb tx given inline with out adverse reaction noted. pts current temp is 99.9f. Will continue to monitor.
--- NOTE | 2019-06-23 22:30 | NUR ---
[id number] O2 WAS DECREASED TO 50% BY RT WITH 02 SAT OF 100%
[2019-06-24] VITALS (98 sets, daily range): BP systolic 84–290; BP diastolic 18–275
--- NOTE | 2019-06-24 00:07 | NUR ---
Respiratory note: At bedside for routine vent check, fio2 titrated to 45%. Sxd via trach for large thick rosario/brown. RN Alice at bedside and communicated changes. Pts current temp is 100.2f. Will continue to monitor.
--- NOTE | 2019-06-24 00:40 | NUR ---
02 was decreased to 45% by rt
[2019-06-24] MEDS: ACCU-CHEK COMFORT CURVE STRIP VI SCH ×4 (01:01→18:00)
[2019-06-24 01:54] LABS: INR 1.18 (0.9-1.15); Partial Thromboplastin Time 39.9 sec (23.64-32.05)
[2019-06-24] MEDS: PROPOFOL 100 ML IV SCH ×4 (03:28→20:48)
--- NOTE | 2019-06-24 03:30 | NUR ---
at 0300 am pt ptt was 39, so the rate was increased to 24/hr at 2400 units per hour
[2019-06-24 04:39] LABS: Hematocrit 28.9 % (41.0-53.0); Hemoglobin 9.2 g/dL (13.5-17.5); Mean Corpuscular Hemoglobin 27.9 pg (28.0-32.0); Mean Corpuscular Hgb Conc. 31.9 g/dL (32.0-36.0); Mean Corpuscular Volume 87.7 fL (80.0-100.0); Platelet Count (auto) 208 10^3/uL (140-450); Red Cell Distribution Width 16.3 % (11.8-14.3); White Blood Cell 27.2 10^3/uL (4.4-10.8)
--- NOTE | 2019-06-24 04:44 | NUR ---
[id number], temp was 100.2, cooling measures done
[2019-06-24 04:52] LABS: Basophils % (manual) 0 (0.0-2.0); Blast Cells 0; Metamyelocytes % 0; Myelocytes % 0; Promyelocytes % 0; Reactive Lymphocytes 0
[2019-06-24 05:00] LABS: Potassium 4.6 mmol/L (3.5-5.1)
[2019-06-24 05:07] LABS: Albumin 1.6 g/dL (3.4-5.0); BUN/Creatinine Ratio 24.2; Bilirubin, Total 0.8 mg/dL (0.2-1.0); Calcium 7.7 mg/dL (8.5-10.1); Magnesium 2.4 mg/dL (1.6-2.6); Phosphorus 6.2 mg/dL (2.5-4.90); Total Protein 7.7 g/dL (6.4-8.2)
[2019-06-24 05:35] LABS: Band Neutrophils % (manual) 4; Eosinophils % (manual) 24 (0-7); Lymphocytes % (manual) 3 (10.0-50.0); Monocytes % (manual) 4 (0-12)
[2019-06-24] MEDS: fentaNYL Drip 2500mCg/250mlNS 250 ML IV SCH ×2 (05:35→17:24)
[2019-06-24] MEDS: InsuLIN REG 1unit/0.01ml Soln (100units/ml) SC SCH ×4 (05:36→18:30)
[2019-06-24] MEDS: CIPROFLOXACIN 400MG/200ML 200 ML IV SCH ×2 (05:36→18:18)
[2019-06-24] MEDS: METOCLOPRAMIDE HCL 5MG/ml INJ 2ml VIAL IV SCH ×3 (05:38→22:25)
[2019-06-24] MEDS: MIDAZOLAM DRIP 50 mg/50mL 50 ML IV SCH (06:02)
[2019-06-24] MEDS: IPRATROPIUM BROM 0.5 MG/2.5ML INH SOL NEB SCH ×3 (06:05→21:42)
[2019-06-24] MEDS: ALBUTEROL SULF 2.5 MG/0.5ML(0.5%) NEB SOLN NEB SCH ×3 (06:05→21:42)
[2019-06-24] MEDS: ACETYLCYSTEINE 10 %(100MG/ML) SOL 4ML NEB SCH ×3 (06:06→21:42)
--- NOTE | 2019-06-24 06:42 | NUR ---
dR. Pritchett WAS CALLED FOR LOW NA 128 AND [id number]
--- NOTE | 2019-06-24 06:45 | NUR ---
AT 0400, THE ANTONIETA WAVEFORM IS DAMPING AND ITS VERY POSITIONAL UPON RECEIPT. UNABLE TO FLUSH IT MANUALLY SO i WILL REPORT TO AM NURSE TO DAINA ROLAND TO DISCONTINUE IT
[2019-06-24] MEDS: INSULIN LANTUS (GLARGINE) 1 /0.01ml (100units/ml) SC SCH (06:51)
[2019-06-24] MEDS ORDERED: FUROSEMIDE 40 MG/4 ML VIAL IV ONE (07:00)
[2019-06-24] MEDS ORDERED: FUROSEMIDE 20 MG/2 ML VIAL ONE (07:04)
--- NOTE | 2019-06-24 07:20 | NUR ---
DR UMANA VISITS - ORDERS RECEIVED.
--- NOTE | 2019-06-24 08:30 | NUR ---
ARTERIAL LINE ART LINE WAVEFORM DAMPENED - POSITIONAL BUT DECORATOR INSPECTOR UNABLE TO PLACE ARM AT APPROPRIATE PLACEMENT TO KEEP SATISFACTORY WAVEFORM. LAB ARRIVES - DECORATOR INSPECTOR ABLE TO DRAW LABS FROM ARTERIAL LINE.
[2019-06-24] MEDS ORDERED: SODIUM BICARBONATE 8.4 % INJ 50ML VIAL IV ONE (09:15)
--- NOTE | 2019-06-24 09:15 | NUR ---
MNEDOZA OZUNA FROM CARDIOLOGY VISITS AND EXAMINES PATIENT - UPDATED ON PATIENT CONDITION - NO ORDERS RECEIVED.
[2019-06-24] MEDS: MEROPENEM 1GM IVPB 100 ML IV SCH ×2 (09:30→20:12)
[2019-06-24] MEDS: HEPARIN DRIP/D5W 100UNITS/ML 250 ML IV SCH ×2 (11:05→20:14)
--- NOTE | 2019-06-24 11:30 | NUR ---
DR PARKER VISITS AND EXAMINES PATIENT - ORDERS RECEIVED.
[2019-06-24] MEDS: DOPamine 1600MCG/ML D5W 250 ML IV SCH (11:39)
--- NOTE | 2019-06-24 12:00 | NUR ---
PATIENT TO CT PER BED PER RN AND RT ON PORTABLE WHARF LABORER AND PORTABLE O2 FOR CT ABD AND CHEST.
[2019-06-24] MEDS: LINEZOLID 600MG/300ML 300 ML IV SCH ×2 (12:57→22:25)
[2019-06-24] MEDS: PANTOPRAZOLE 40 MG/10 ML VIAL INJ IV SCH (12:57)
--- NOTE | 2019-06-24 14:28 | NUR ---
PICC line placement Patient significant other educated on need for PICC line placement. All risks and benefits explained and all questions and concerns addressed prior to procedure. Noted past medical history and allergies with no contraindications. INR and Plt counts within acceptable range. 5 fr PICC line inserted via left basilic vein using [employer] US and Tip Location System. Sterile technique with maximum barrier precautions utilized. Blood return obtained from each of the 3 lumens and each flushed easily with NS using proper technique. PICC secured with Stat-lock; biodisc and occlusive dressing applied. Stat portable chest x-ray obtained for PICC tip placement. *Baseline Arm Circumference 37 cm. Internal length 53 cm. External length 0cm. PICC lot #[id number]
[2019-06-24] MEDS ORDERED: LIDOCAINE 1% (LOCAL ANESTH.) PF 5ml SDV ID ONE (14:30)
--- NOTE | 2019-06-24 15:00 | NUR ---
Okay to use PICC line Xray completed. Okay to use PICC line. Nu CHATMAN notified.
--- NOTE | 2019-06-24 15:30 | NUR ---
RECEIVED CONFIRMATION OF PLACEMENT OF CENTRAL LINE FROM NAHOMY CHATMAN.
--- NOTE | 2019-06-24 15:45 | NUR ---
RIGHT IJ TLC CATHETER REMOVED PER ORDERS - TIP SENT TO LAB FOR C&S - SITE CLEANSED WITH CHLORHEXIDINE SWAB AND STERILE DRSG APPLIED.
--- NOTE | 2019-06-24 18:30 | NUR ---
DR JAMES VISITS AND EXAMINES PATIENT -ORDERS RECEIVED.
[2019-06-24 18:45] LABS: INR 1.16 (0.9-1.15); Partial Thromboplastin Time 56.8 sec (23.64-32.05)
[2019-06-24] MEDS ORDERED: TPN PER PHARMACY IV NR ×9 (20:00)
--- NOTE | 2019-06-24 20:00 | NUR ---
OPENING NOTE RECEIVED REPORT FROM DAY NURSE. PT IS INTUBATED AND SEDATED. NO DISTRESS NOTED, AND RESPIRATIONS EVEN AND UNLABORED. COMPLETE PHYSICAL ASSESSMENT UNDER INTERVENTIONS. BED LOCKED IN PLACE FOR SAFETY. SEE IV SPREADSHEET FOR MEDICATION DOSAGE AND RATES. PICC LINE AND TRACH ARE INTACT.
[2019-06-24] MEDS ORDERED: WARFARIN SODIUM 2.5 MG TAB PO ONE (22:00)
[2019-06-24] MEDS: ATORVASTATIN 20 MG TAB PO SCH (22:25)
[2019-06-24] MEDS: NOREPINEPHRINE 8 MG/250ML KIT 250 ML IV SCH (22:26)
[2019-06-24] MEDS: SODIUM CHLOR 0.9% PF (SALINE LOCK) 10ML VIAL/SYR IV SCH (22:39)
[2019-06-25] VITALS (81 sets, daily range): BP systolic 76–153; BP diastolic 23–61
[2019-06-25] MEDS: ACCU-CHEK COMFORT CURVE STRIP VI SCH ×4 (00:12→17:58)
[2019-06-25] MEDS: InsuLIN REG 1unit/0.01ml Soln (100units/ml) SC SCH ×4 (00:20→17:58)
[2019-06-25] MEDS: PROPOFOL 100 ML IV SCH ×6 (00:50→19:13)
[2019-06-25 01:41] LABS: INR 1.18 (0.9-1.15)
[2019-06-25 01:42] LABS: Partial Thromboplastin Time 64.9 sec (23.64-32.05)
--- NOTE | 2019-06-25 03:00 | NUR ---
APPLIED OPTIFOAM TO SACRAL AREA
[2019-06-25] MEDS: fentaNYL Drip 2500mCg/250mlNS 250 ML IV SCH ×2 (04:40→15:40)
[2019-06-25 05:15] LABS: Hematocrit 28.2 % (41.0-53.0); Mean Corpuscular Hemoglobin 27.7 pg (28.0-32.0); Mean Corpuscular Hgb Conc. 31.8 g/dL (32.0-36.0); Mean Corpuscular Volume 87.2 fL (80.0-100.0); Platelet Count (auto) 208 10^3/uL (140-450); Red Blood Cells 3.23 10^6/uL (4.5-5.90); Red Cell Distribution Width 16.7 % (11.8-14.3); White Blood Cell 20.9 10^3/uL (4.4-10.8)
[2019-06-25 05:26] LABS: Basophils % (manual) 0 (0.0-2.0); Blast Cells 0; Promyelocytes % 0; Reactive Lymphocytes 0
[2019-06-25 05:34] LABS: INR 1.15 (0.9-1.15); Potassium 4.1 mmol/L (3.5-5.1)
[2019-06-25 05:41] LABS: Albumin 1.4 g/dL (3.4-5.0); BUN/Creatinine Ratio 27.7; Bilirubin, Total 0.7 mg/dL (0.2-1.0); Calcium 7.9 mg/dL (8.5-10.1); Magnesium 2.5 mg/dL (1.6-2.6); Phosphorus 5.7 mg/dL (2.5-4.90); Total Protein 7.2 g/dL (6.4-8.2)
[2019-06-25] MEDS: METOCLOPRAMIDE HCL 5MG/ml INJ 2ml VIAL IV SCH ×3 (05:42→22:03)
[2019-06-25] MEDS: CIPROFLOXACIN 400MG/200ML 200 ML IV SCH ×2 (05:42→17:54)
--- NOTE | 2019-06-25 05:56 | NUR ---
partial bath provided
[2019-06-25] MEDS: MIDAZOLAM DRIP 50 mg/50mL 50 ML IV SCH (06:02)
[2019-06-25] MEDS: ALBUTEROL SULF 2.5 MG/0.5ML(0.5%) NEB SOLN NEB SCH ×3 (06:04→22:15)
[2019-06-25] MEDS: IPRATROPIUM BROM 0.5 MG/2.5ML INH SOL NEB SCH ×3 (06:04→22:15)
[2019-06-25] MEDS: ACETYLCYSTEINE 10 %(100MG/ML) SOL 4ML NEB SCH ×3 (06:04→22:15)
[2019-06-25] MEDS: HEPARIN DRIP/D5W 100UNITS/ML 250 ML IV SCH ×2 (06:25→15:33)
[2019-06-25] MEDS: INSULIN LANTUS (GLARGINE) 1 /0.01ml (100units/ml) SC SCH (06:55)
[2019-06-25 07:27] LABS: INR 1.17 (0.9-1.15)
--- NOTE | 2019-06-25 07:30 | NUR ---
OPENING NOTE PATIENT RESTING WITH NO DISTRESS NOTED. PATIENT HAS TRACHEOSTOMY AND CONNECTED TO VENT. COMPLETE PHYSICAL ASSESSMENT UNDER INTERVENTIONS. WILL CONTINUE TO MONITOR.
[2019-06-25 07:43] LABS: Partial Thromboplastin Time 37.1 sec (23.64-32.05)
[2019-06-25 07:53] LABS: Band Neutrophils % (manual) 1; Eosinophils % (manual) 32 (0-7); Lymphocytes % (manual) 4 (10.0-50.0); Metamyelocytes % 1; Monocytes % (manual) 7 (0-12); Myelocytes % 1
--- NOTE | 2019-06-25 08:50 | NUR ---
MD CALLED MD JAMES CALLED BY TELEPHONE UPDATED ON PT'S BLOOD GAS. NO CHANGES MADE. CONTINUE TO MONITOR.
[2019-06-25] MEDS: MEROPENEM 1GM IVPB 100 ML IV SCH ×2 (09:12→20:37)
[2019-06-25] MEDS ORDERED: FUROSEMIDE 100 MG/10ML VIAL IV SCH (10:00)
[2019-06-25] MEDS: LINEZOLID 600MG/300ML 300 ML IV SCH ×2 (10:02→22:03)
[2019-06-25] MEDS: PANTOPRAZOLE 40 MG/10 ML VIAL INJ IV SCH (10:02)
[2019-06-25] MEDS: SODIUM CHLOR 0.9% PF (SALINE LOCK) 10ML VIAL/SYR IV SCH ×2 (10:02→22:13)
[2019-06-25] MEDS: DOPamine 1600MCG/ML D5W 250 ML IV SCH ×2 (11:30→11:58)
[2019-06-25] MEDS: NOREPINEPHRINE 8 MG/250ML KIT 250 ML IV SCH (12:38)
--- NOTE | 2019-06-25 13:02 | NUR ---
Nutrition Follow-up Wt.: 124.0 kg (+2 edema compared to previous assessment) Pt is sedated with new tracheotomy, propofol running @ 33.966 ml/hr providing 896 kcals from lipids. Currently NPO with TPN support running @56ml/hr providing 1270 kcal, 80 gms protein and 950 NPCs. Pt with more than adequate energy intake from PN support aeb 111-139% of est caloric needs however meets 80-90% protein needs with propofol on board. Est. Energy Needs: 6417-0967 kcal (12-15 kcal/kg BW). Est. Protein Needs: 88-100 gms/day (1.0-1.2 gms/kg Adj.BW). Labs BUN 74 H, CREAT 2.67 H, GLU 333 H, CA 7.9 L, ALB 1.4 L. GI: Pt with ileostomy per RN doc. Skin: Louis scale 12, high risk. Please refer to wound assessment report for full details PES: 1) Obese, Class III r/t energy intake in excess of energy needs aeb BMI 44.7 kg/m2 and 193% IBW Recommendations: 1) Continue TPN to meet > 75% of needs. 2) Advance diet gradually to oral CCHO 60g diet, when medically appropriate.3) Refer pt to CDE/RD for further nutrition education and weight monitoring upon discharge. 4) Continue current plan of care.
--- NOTE | 2019-06-25 13:25 | NUR ---
AT [facility] NEW ORDERS GIVEN AND PLACED INTO SYSTEM. Addendum: 06/25/19 at 1636 by Reyes Rossi RN WITH MD SAUL.
--- NOTE | 2019-06-25 13:40 | NUR ---
ARTERIAL LINE REMOVED ORDERED BY MD SAUL.
[2019-06-25] MEDS: NOREPINEPHRINE BITARTRATE 16 MG in SODIUM CHL 0.9% 250 ML IV SCH (15:02)
[2019-06-25] MEDS ORDERED: WARFARIN SODIUM 2.5 MG TAB PO ONE (17:00)
[2019-06-25] MEDS ORDERED: HEPARIN SODIUM (PORCINE) 5000 UNITS/ML 1ML VIAL IV ONE (17:45)
[2019-06-25] MEDS: FUROSEMIDE 100 MG/10ML VIAL IV SCH (19:35)
[2019-06-25] MEDS ORDERED: TPN PER PHARMACY IV NR ×8 (20:00)
--- NOTE | 2019-06-25 20:27 | NUR ---
PAGED HOSPITALIST REGARDING VTACH 11 RUNS OF VTACK. 2031 NO NEW ORDERS FROM TERRANCE OZUNA
--- NOTE | 2019-06-25 20:55 | NUR ---
RINCON BIG DATA DEVELOPER advanced manager (Arnold) was updated on pt's status and POC. All questions and concerns addressed.
--- NOTE | 2019-06-25 21:03 | NUR ---
COOLING MEASURES IMPLEMENTED, T: 99.3
--- NOTE | 2019-06-25 21:57 | NUR ---
PAGED RT REGARDING LOW SPO2 ()91%
[2019-06-25] MEDS: ATORVASTATIN 20 MG TAB PO SCH (22:03)
--- NOTE | 2019-06-25 22:05 | NUR ---
RT AT BEDSIDE. FIO2 WAS INCREASED TO 45% BY RT
[2019-06-25 23:31] LABS: INR 1.3 (0.9-1.15); Partial Thromboplastin Time 23.3 sec (23.64-32.05)
[2019-06-26] VITALS (102 sets, daily range): BP systolic 80–137; BP diastolic 25–57
[2019-06-26] MEDS: HEPARIN DRIP/D5W 100UNITS/ML 250 ML IV SCH ×2 (00:29→06:40)
--- NOTE | 2019-06-26 00:29 | NUR ---
HEPARIN DRIP [facility] did not allow to put in 23.3 aptt as the value, the lowest aptt is allowed is 24.6. In [facility] aptt was set to 24.6 for heparin in order to administer medication. Addendum: 06/26/19 at 0106 by SHAHRIAR KEYS RN RN CORRECTION, LOWEST APTT THAT IS ALLOWED TO BE ENTERED IS 23.64
[2019-06-26] MEDS: InsuLIN REG 1unit/0.01ml Soln (100units/ml) SC SCH ×4 (00:45→17:43)
[2019-06-26] MEDS: PROPOFOL 100 ML IV SCH ×4 (01:17→17:55)
[2019-06-26] MEDS: fentaNYL Drip 2500mCg/250mlNS 250 ML IV SCH (01:23)
[2019-06-26] MEDS: NOREPINEPHRINE BITARTRATE 16 MG in SODIUM CHL 0.9% 250 ML IV SCH (03:29)
[2019-06-26 04:25] LABS: Hematocrit 27.6 % (41.0-53.0); Hemoglobin 8.6 g/dL (13.5-17.5); Mean Corpuscular Hemoglobin 27.5 pg (28.0-32.0); Mean Corpuscular Hgb Conc. 31.4 g/dL (32.0-36.0); Mean Corpuscular Volume 87.8 fL (80.0-100.0); Platelet Count (auto) 262 10^3/uL (140-450); Red Blood Cells 3.14 10^6/uL (4.5-5.90); White Blood Cell 23.3 10^3/uL (4.4-10.8)
[2019-06-26 04:34] LABS: Basophils % (manual) 0 (0.0-2.0); Blast Cells 0; Metamyelocytes % 0; Myelocytes % 0; Promyelocytes % 0; Reactive Lymphocytes 0
[2019-06-26 04:41] LABS: Albumin 1.3 g/dL (3.4-5.0); Magnesium 2.1 mg/dL (1.6-2.6); Potassium 4.4 mmol/L (3.5-5.1)
[2019-06-26 04:46] LABS: BUN/Creatinine Ratio 27.2; Bilirubin, Total 0.6 mg/dL (0.2-1.0); Phosphorus 6.5 mg/dL (2.5-4.90)
[2019-06-26 04:50] LABS: INR 1.47 (0.9-1.15)
[2019-06-26 04:52] LABS: Partial Thromboplastin Time 30.5 sec (23.64-32.05)
[2019-06-26] MEDS: FUROSEMIDE 100 MG/10ML VIAL IV SCH ×2 (05:43→17:32)
[2019-06-26] MEDS: CIPROFLOXACIN 400MG/200ML 200 ML IV SCH (05:43)
[2019-06-26] MEDS: ACCU-CHEK COMFORT CURVE STRIP VI SCH ×4 (05:43→17:36)
[2019-06-26] MEDS: METOCLOPRAMIDE HCL 5MG/ml INJ 2ml VIAL IV SCH ×3 (05:43→22:47)
[2019-06-26] MEDS: MIDAZOLAM DRIP 50 mg/50mL 50 ML IV SCH (06:02)
[2019-06-26 06:11] LABS: Band Neutrophils % (manual) 8; Eosinophils % (manual) 27 (0-7); Lymphocytes % (manual) 9 (10.0-50.0); Monocytes % (manual) 4 (0-12)
[2019-06-26] MEDS: IPRATROPIUM BROM 0.5 MG/2.5ML INH SOL NEB SCH ×3 (06:22→22:17)
[2019-06-26] MEDS: ACETYLCYSTEINE 10 %(100MG/ML) SOL 4ML NEB SCH ×3 (06:22→22:17)
[2019-06-26] MEDS: ALBUTEROL SULF 2.5 MG/0.5ML(0.5%) NEB SOLN NEB SCH ×3 (06:22→22:17)
[2019-06-26] MEDS: INSULIN LANTUS (GLARGINE) 1 /0.01ml (100units/ml) SC SCH (06:39)
[2019-06-26 07:43] LABS: INR 1.5 (0.9-1.15)
[2019-06-26 07:49] LABS: Partial Thromboplastin Time 30.3 sec (23.64-32.05)
[2019-06-26] MEDS: MEROPENEM 1GM IVPB 100 ML IV SCH (08:01)
--- NOTE | 2019-06-26 08:30 | NUR ---
HEPARIN GTT Heparin GTT increased to 3600 units = 36ml/hr for a PTT of 30.3 per protocol.
[2019-06-26] MEDS ORDERED: HEPARIN SODIUM (PORCINE) 5000 UNITS/ML 1ML VIAL SC ONE (08:45)
[2019-06-26] MEDS ORDERED: HEPARIN SODIUM (PORCINE) 5000 UNITS/ML 1ML VIAL IV ONE (08:45)
--- NOTE | 2019-06-26 09:30 | NUR ---
MD Dr. Weber at bedside updated on patient condition with no new orders.
[2019-06-26] MEDS ORDERED: FUROSEMIDE 100 MG/10ML VIAL IV SCH (10:00)
[2019-06-26] MEDS: LINEZOLID 600MG/300ML 300 ML IV SCH ×2 (10:13→22:47)
[2019-06-26] MEDS: SODIUM CHLOR 0.9% PF (SALINE LOCK) 10ML VIAL/SYR IV SCH ×2 (10:13→22:00)
[2019-06-26] MEDS: PANTOPRAZOLE 40 MG/10 ML VIAL INJ IV SCH (10:13)
--- NOTE | 2019-06-26 10:20 | NUR ---
URINE CULTURE/BLOOD SPECIMEN Collected urine specimen and blood specimen.
--- NOTE | 2019-06-26 10:55 | NUR ---
Received phone call from Dr. Sparrow regarding AM ABG with no new orders. would like RT Dawson to call him to notify him of peak pressures. RT Dawson aware.
[2019-06-26] MEDS ORDERED: FLUCONAZOLE 200MG/100ML 100 ML IV SCH (11:00)
--- NOTE | 2019-06-26 11:01 | NUR ---
Respiratory note: CALLED DR JAMES WITH UPDATE. NEW ORDERS RECEIVED. WILL CARRY OUT
--- NOTE | 2019-06-26 11:04 | NUR ---
Received phone call from Dr. Sparrow with new orders this RN to input into system.
[2019-06-26] MEDS ORDERED: SODIUM BICARBONATE 8.4 % INJ 50ML VIAL IV ONE ×2 (11:15→15:00)
--- NOTE | 2019-06-26 11:33 | NUR ---
HEPARIN GTT Heparin GTT turned off per MD order.
--- NOTE | 2019-06-26 12:13 | NUR ---
Respiratory note: DECREASED RR TO 18, VT TO 600 PER ORDERS. RN PARISH AWARE.
--- NOTE | 2019-06-26 12:15 | NUR ---
CURRENT VENT SETTINGS: AC, RR 18, VT 600, PEEP +8, FIO2 45%
[2019-06-26] MEDS ORDERED: FLUCONAZOLE 200MG/100ML 100 ML IV ONE (13:00)
[2019-06-26] MEDS ORDERED: NOREPINEPHRINE BITARTRATE 16 MG in D5W 5% 250 ML IV SCH (13:00)
--- NOTE | 2019-06-26 13:10 | NUR ---
MD Dr. Weber in unit and aware of urine specimen results with no new orders.
--- NOTE | 2019-06-26 13:15 | NUR ---
MD Dr. Huff at bedside updated on patient condition with new orders, MD to input into system. Will implement orders per MD orders.
--- NOTE | 2019-06-26 14:45 | NUR ---
CALLED DR JAMES, UPDATED ON FOLLOW-UP ABG RESULTS. MD AWARE. NO NEW RESPIRATORY ORDERS RECEIVED.
[2019-06-26] MEDS ORDERED: NOREPINEPHRINE BITARTRATE 16 MG in SODIUM CHL 0.9% 250 ML IV SCH (15:15)
[2019-06-26] MEDS: CeftoloZANE-TAZOB 1g/0.5g in D5W 5% 100 ML IV SCH (16:10)
[2019-06-26] MEDS ORDERED: levoFLOXacin 750MG 150 ML IV ONE (17:00)
[2019-06-26] MEDS ORDERED: WARFARIN SODIUM 2 MG TAB PO ONE (17:00)
--- NOTE | 2019-06-26 19:05 | NUR ---
MD Dr. Sparrow at bedside updated on patient with no new orders at this time.
--- NOTE | 2019-06-26 19:30 | NUR ---
Opening Shift Note Received pt on mechanical ventilator with trach. Sedated but facial grimaces to tactile stimuli. OGT to LIS with green bile out. Full assessment done see interventions. Skin assessment done see interventions. Turning pt q 2hr to prevent further skin breakdown. Ileostomy to right lower quadrant with dark green liquid in dust collector attendant bag. Stoma site benign. Patino catheter intact draining below bladder, free of kinks and draining to gravity. Bed locked in lowest position. Pt in full view of RN.
[2019-06-26] MEDS ORDERED: TPN PER PHARMACY IV NR ×9 (20:00)
--- NOTE | 2019-06-26 20:30 | NUR ---
OGT dc/d. NGT to left nare inserted. Positive placement verified via air auscultation. Ngt to LIS with green bile out
[2019-06-26] MEDS: ATORVASTATIN 20 MG TAB PO SCH (22:47)
[2019-06-27] VITALS (106 sets, daily range): BP systolic 82–139; BP diastolic 26–57
--- NOTE | 2019-06-27 02:00 | NUR ---
Skin assessment Patient found to have a pressure wound developing on left side of ear. Pictures taken and in chart. Pressure taken off from that side and head turned to other side
[2019-06-27] MEDS: PROPOFOL 100 ML IV SCH ×5 (02:46→23:21)
[2019-06-27] MEDS: fentaNYL Drip 2500mCg/250mlNS 250 ML IV SCH ×2 (02:51→15:54)
--- NOTE | 2019-06-27 04:00 | NUR ---
Cares/ wound care Pt given complete bed bath. z guard placed to sacral pressure area; skin open. Optifoam applied. Pt tolerated well. Weeping to bilateral upper arms.
[2019-06-27 04:12] LABS: Hematocrit 25.7 % (41.0-53.0); Hemoglobin 8.2 g/dL (13.5-17.5)
[2019-06-27 04:15] LABS: Mean Corpuscular Hemoglobin 27.6 pg (28.0-32.0); Mean Corpuscular Hgb Conc. 31.8 g/dL (32.0-36.0); Mean Corpuscular Volume 86.8 fL (80.0-100.0); Platelet Count (auto) 300 10^3/uL (140-450); Red Blood Cells 2.96 10^6/uL (4.5-5.90); Red Cell Distribution Width 16.8 % (11.8-14.3); White Blood Cell 16.4 10^3/uL (4.4-10.8)
[2019-06-27 04:24] LABS: Basophils % (manual) 0 (0.0-2.0); Blast Cells 0; Metamyelocytes % 0; Myelocytes % 0; Promyelocytes % 0; Reactive Lymphocytes 0
[2019-06-27 04:34] LABS: BUN/Creatinine Ratio 27.2; Potassium 4.5 mmol/L (3.5-5.1)
[2019-06-27] MEDS: ACCU-CHEK COMFORT CURVE STRIP VI SCH ×4 (05:23→17:35)
[2019-06-27] MEDS: METOCLOPRAMIDE HCL 5MG/ml INJ 2ml VIAL IV SCH ×3 (05:23→21:35)
[2019-06-27] MEDS: levoFLOXacin 750MG 150 ML IV SCH (05:23)
[2019-06-27] MEDS: FUROSEMIDE 100 MG/10ML VIAL IV SCH ×2 (05:23→17:33)
[2019-06-27 05:35] LABS: Band Neutrophils % (manual) 6; Eosinophils % (manual) 23 (0-7); Lymphocytes % (manual) 7 (10.0-50.0); Monocytes % (manual) 3 (0-12)
[2019-06-27] MEDS: MIDAZOLAM DRIP 50 mg/50mL 50 ML IV SCH (06:02)
[2019-06-27] MEDS: InsuLIN REG 1unit/0.01ml Soln (100units/ml) SC SCH ×4 (06:27→17:40)
[2019-06-27] MEDS: INSULIN LANTUS (GLARGINE) 1 /0.01ml (100units/ml) SC SCH (06:27)
[2019-06-27] MEDS: ALBUTEROL SULF 2.5 MG/0.5ML(0.5%) NEB SOLN NEB SCH ×3 (07:13→22:05)
[2019-06-27] MEDS: IPRATROPIUM BROM 0.5 MG/2.5ML INH SOL NEB SCH ×3 (07:13→22:05)
[2019-06-27] MEDS: ACETYLCYSTEINE 10 %(100MG/ML) SOL 4ML NEB SCH ×3 (07:13→22:05)
[2019-06-27] MEDS: CeftoloZANE-TAZOB 1g/0.5g in D5W 5% 100 ML IV SCH ×4 (08:25→16:25)
[2019-06-27 09:08] LABS: INR 1.98 (0.9-1.15)
[2019-06-27 09:09] LABS: Partial Thromboplastin Time 17.8 sec (23.64-32.05)
--- NOTE | 2019-06-27 09:20 | NUR ---
MD Dr. Weber at bedside updated on patient condition with no new orders received.
[2019-06-27] MEDS: LINEZOLID 600MG/300ML 300 ML IV SCH ×2 (09:53→21:36)
[2019-06-27] MEDS: PANTOPRAZOLE 40 MG/10 ML VIAL INJ IV SCH (09:53)
[2019-06-27] MEDS: FLUCONAZOLE 200MG/100ML 100 ML IV SCH ×2 (09:53→11:00)
[2019-06-27] MEDS: SODIUM CHLOR 0.9% PF (SALINE LOCK) 10ML VIAL/SYR IV SCH ×2 (09:54→21:36)
--- NOTE | 2019-06-27 11:49 | NUR ---
Nutrition Follow-up Wt.: 135.0 kg (+3 edema compared to previous assessment wt gain of ~9 kg) Pt is sedated with new tracheotomy, propofol running @ 30.192 ml/hr providing 797 kcals from lipids. Currently NPO with TPN support on hold. per RN pt will begin EN support shortly. RN infomred of diet rec per MD approval. Est. Energy Needs: 4832-9548 kcal (12-15 kcal/kg BW). Est. Protein Needs: 88-100 gms/day (1.0-1.2 gms/kg Adj.BW). Labs BUN 78 H, CREAT 2.17 H, GLU 238 H, ALB 1.4 L. GI: Pt with ileostomy per RN doc. Skin: Louis scale 12, high risk. Please refer to wound assessment report for full details PES: 1) Obese, Class III r/t energy intake in excess of energy needs aeb BMI 44.7 kg/m2 and 193% IBW Recommendations: 1) Consider EN support with Glucerna @ 40 ml/hr per MD approval at current rate of propofol. 2) Resume PN support if pt unable to cain EN. 3) Advance diet gradually to oral CCHO 60g diet, when medically appropriate.3) Refer pt to CDE/RD for further nutrition education and weight monitoring upon discharge. 4) Continue current plan of care.
--- NOTE | 2019-06-27 11:50 | NUR ---
DIETARY Received phone call from dietitian regarding tube feedings when patient is ready to start tube feedings: " Please order Glucerna goal rate of 40ml/hr."
--- NOTE | 2019-06-27 12:30 | NUR ---
MD Dr. Huff at bedside updated on patient condition with no new orders.
--- NOTE | 2019-06-27 15:55 | NUR ---
[facility] Received phone call from family service caseworker Amanda updated on patient condition with current vent settings/vital signs.
--- NOTE | 2019-06-27 16:00 | NUR ---
WOUND CARE NOTE: NOTIFIED BY BEDSIDE NURSE THAT PATIENT HAS DEVELOPED A SKIN INTEGRITY CONCERN TO LEFT EAR. PATIENT CONTINUES TO BE INTUBATED, SEDATED. HIS NAHOMI SCORE IS 12. PATIENT CONTINUES TO BE MAX ASSIST, INCLUDING TURNING/REPOSITIONING. PATIENT NOTED TO HAVE WHAT APPEARS TO BE A DTI TO THE LEFT EARLOBE. WOUND PHOTO WAS TAKEN BY BEDSIDE NURSE FOR REFERENCE. LEFT OPEN TO AIR. RECOMMEND: AVOID REPOSITIONING ONTO LEFT SIDE, SO TO OFFLOAD LEFT EAR, CONTINUATION WITH ALL OTHER WOUND CARE ORDERS PREVIOUSLY PRESCRIBED BY MD. WOUND CARE TEAM WILL CONTINUE TO MONITOR. Addendum: 06/27/19 at 1925 by Marisol Garvey RN Amended: Links added.
[2019-06-27] MEDS ORDERED: WARFARIN SODIUM 2 MG TAB PO ONE (17:00)
[2019-06-27] MEDS: DOPamine 1600MCG/ML D5W 250 ML IV SCH (19:57)
[2019-06-27] MEDS: NOREPINEPHRINE BITARTRATE 16 MG in D5W 5% 250 ML IV SCH (19:57)
--- NOTE | 2019-06-27 20:38 | NUR ---
JACOB CALLED NEW ORDER FOR ABTonja OBTAINED
[2019-06-27] MEDS: ATORVASTATIN 20 MG TAB PO SCH (21:36)
--- NOTE | 2019-06-27 22:56 | NUR ---
PAGEBrigid JAMES REGARDING ABG RESULTS RECEIVED NEW ORDERS NEW VENT SETTING TV 650 - PAGED RT 2AMP OF BICARB
[2019-06-27] MEDS ORDERED: SODIUM BICARBONATE 8.4 % INJ 50ML VIAL IV ONE ×2 (23:05→23:15)
--- NOTE | 2019-06-27 23:10 | NUR ---
PAGED HOSPITALIST REGARDING LOW CRITICAL LAB VALUE
--- NOTE | 2019-06-27 23:16 | NUR ---
SPOKE WITH WHIT REGARDING LOW NA 122 NO NEW ORDER, WILL PASS ON LAB VALUE TO DAY SHIFT NURSE
[2019-06-28] VITALS (106 sets, daily range): BP systolic 86–147; BP diastolic 26–61
--- NOTE | 2019-06-28 00:18 | NUR ---
NO MEDICATION IN THE PYXIS (ZERBAXA CEFTOLOZANE-TAZOB) CLINICAL RESEARCH TECH SUGGESTED TO PASS INFORMATION TO DAY SHIFT RN
[2019-06-28] MEDS: InsuLIN REG 1unit/0.01ml Soln (100units/ml) SC SCH ×5 (00:46→23:30)
[2019-06-28] MEDS: fentaNYL Drip 2500mCg/250mlNS 250 ML IV SCH ×2 (03:26→18:51)
[2019-06-28] MEDS: PROPOFOL 100 ML IV SCH ×4 (03:26→14:53)
[2019-06-28 04:54] LABS: INR 2.14 (0.9-1.15)
[2019-06-28 04:57] LABS: BUN/Creatinine Ratio 25.2; Calcium 7.7 mg/dL (8.5-10.1); Potassium 4.6 mmol/L (3.5-5.1)
[2019-06-28] MEDS: ACCU-CHEK COMFORT CURVE STRIP VI SCH ×5 (06:00→23:30)
[2019-06-28] MEDS: MIDAZOLAM DRIP 50 mg/50mL 50 ML IV SCH ×2 (06:02→16:54)
[2019-06-28] MEDS: METOCLOPRAMIDE HCL 5MG/ml INJ 2ml VIAL IV SCH ×3 (06:08→22:04)
[2019-06-28] MEDS: FUROSEMIDE 100 MG/10ML VIAL IV SCH (06:09)
[2019-06-28] MEDS: IPRATROPIUM BROM 0.5 MG/2.5ML INH SOL NEB SCH ×3 (06:52→21:57)
[2019-06-28] MEDS: ALBUTEROL SULF 2.5 MG/0.5ML(0.5%) NEB SOLN NEB SCH ×3 (06:52→21:57)
[2019-06-28] MEDS: ACETYLCYSTEINE 10 %(100MG/ML) SOL 4ML NEB SCH ×3 (06:53→21:57)
[2019-06-28] MEDS: INSULIN LANTUS (GLARGINE) 1 /0.01ml (100units/ml) SC SCH (07:00)
--- NOTE | 2019-06-28 07:30 | NUR ---
REPORT RECEIVED FROM CROWN ASSEMBLY MACHINE OPERATOR NURSE. PATIENT RESTING IN BED AT THIS TIME. RESPIRATIONS EVEN AND UNLABORED TRACH AND SEDATION. BED IN LOW POSITION. WILL CONTINUE TO MONITOR.
[2019-06-28] MEDS: CeftoloZANE-TAZOB 1g/0.5g in D5W 5% 100 ML IV SCH ×5 (08:27→23:24)
--- NOTE | 2019-06-28 08:35 | NUR ---
MENDOZA MITCHELL BLANKET BINDER AT BEDSIDE TO ASSESS PATIENT AND DISCUSS PLAN OF CARE. NO NEW ORDERS AT THIS TIME.
[2019-06-28] MEDS: PANTOPRAZOLE 40 MG/10 ML VIAL INJ IV SCH (09:39)
[2019-06-28] MEDS: SODIUM CHLOR 0.9% PF (SALINE LOCK) 10ML VIAL/SYR IV SCH ×2 (09:39→22:04)
[2019-06-28] MEDS: FLUCONAZOLE 200MG/100ML 100 ML IV SCH ×2 (09:40→11:00)
[2019-06-28 10:35] LABS: Hemoglobin 7.9 g/dL (13.5-17.5); Red Cell Distribution Width 16.8 % (11.8-14.3)
[2019-06-28 10:36] LABS: Mean Corpuscular Hemoglobin 27.1 pg (28.0-32.0); Mean Corpuscular Hgb Conc. 31.6 g/dL (32.0-36.0); Mean Corpuscular Volume 85.8 fL (80.0-100.0); Platelet Count (auto) 336 10^3/uL (140-450); Red Blood Cells 2.91 10^6/uL (4.5-5.90); White Blood Cell 13.7 10^3/uL (4.4-10.8)
--- NOTE | 2019-06-28 10:51 | NUR ---
UPDATED DR Lashawn DELANEY OVER PHONE ON PATIENT STATUS. PER MD IS RESIDUALS CONTINUE TO BE LOW FROM NGT START TUBE FEEDINGS.
[2019-06-28 10:52] LABS: Basophils % (manual) 0 (0.0-2.0); Blast Cells 0; Myelocytes % 0; Promyelocytes % 0; Reactive Lymphocytes 0
[2019-06-28 11:05] LABS: Band Neutrophils % (manual) 1; Eosinophils % (manual) 29 (0-7); Lymphocytes % (manual) 7 (10.0-50.0); Metamyelocytes % 1; Monocytes % (manual) 5 (0-12)
[2019-06-28] MEDS: DOPamine 1600MCG/ML D5W 250 ML IV SCH (11:30)
--- NOTE | 2019-06-28 11:52 | NUR ---
DR PARKER AT BEDSIDE TO ASSESS PATIENT AND DISCUSS PLAN OF CARE. ALL ORDERS NOTED IN CHART.
[2019-06-28] MEDS: LINEZOLID 600MG/300ML 300 ML IV SCH (12:41)
[2019-06-28] MEDS: NOREPINEPHRINE BITARTRATE 16 MG in D5W 5% 250 ML IV SCH (13:15)
--- NOTE | 2019-06-28 14:14 | NUR ---
DR SAEZ AT BEDSIDE TO ASSESS PATIENT AND DISCUSS PLAN OF CARE. ALL ORDERS NOTED IN CHART. PER MD START PATIENT ON BUMEX DRIP.
--- NOTE | 2019-06-28 15:32 | NUR ---
DR JAMES AT BEDSIDE TO ASSESS PATIENT DISCUSS PLAN OF CARE. PER MD POSSIBLE BRONCHOSCOPY ON MONDAY.
--- NOTE | 2019-06-28 15:50 | NUR ---
RESP. RATE INCREASED TO [address] JAMES.
--- NOTE | 2019-06-28 15:55 | NUR ---
TRACH CARE DONE AT THIS TIME. CLEANED TRACH SITE, AND INNER CANNULA. CHANGED DRAIN SPONGES, AND SX. CATHETER.
[2019-06-28] MEDS ORDERED: SODIUM BICARBONATE 8.4 % INJ 50ML VIAL IV ONE (16:00)
[2019-06-28] MEDS: BUMETANIDE INJECTION 25 MG in GIVE UN-DILUTED 0 ML IV SCH (16:53)
[2019-06-28] MEDS ORDERED: WARFARIN SODIUM 2 MG TAB PO ONE (17:00)
--- NOTE | 2019-06-28 19:00 | NUR ---
Opening shift note: Primary RN Luis Carlos received report on patient. Patient with TRACH, VENT settings: AC 20, TV 650, FIO2 40, PEEP 8, O2 Sat 97%, bilateral lungs coarse, diminished. PICC line Left upper arm, infusing Versed @ 3, Fentanyl @ 100, Levo @ 4, Dopamine @ 2, Bumex @ 4. Patino catheter draining via gravity with yellow urine. Rectal probe in place. Safety precautions in place. Will continue to monitor.
[2019-06-28] MEDS: ATORVASTATIN 20 MG TAB PO SCH (22:05)
[2019-06-29] VITALS (101 sets, daily range): BP systolic 88–161; BP diastolic 26–72
[2019-06-29] MEDS: LINEZOLID 600MG/300ML 300 ML IV SCH ×2 (00:46→14:31)
--- NOTE | 2019-06-29 01:00 | NUR ---
Patient sacral dressing changed and patient repositioned.
--- NOTE | 2019-06-29 02:22 | NUR ---
TRACH CARE PERFORMED WITH NO COMPLICATIONS NOTED. TRACH OBSERVED BY Frederick JIMÉNEZ RN. SKIN REDDENED AROUND SUTURES. STOMA HAS NO BREAKDOWN NOTED. MODERATE AMOUNT OF DRAINAGE FROM TOP OF TRACH AND SCANT FROM BOTTOM OF FLANGE.
--- NOTE | 2019-06-29 02:51 | NUR ---
Urine output: Patient noted with 1,800mL urine output.
[2019-06-29 04:13] LABS: Basophils # (auto) 0.2 10 ^3/uL (0-0.2); Eosinophils # (auto) 1.8 10 ^3/uL (0-0.8); Nucleated Red Blood Cells % 0.1 %
[2019-06-29 04:15] LABS: Basophils % (auto) 1.4 % (0.0-2.0); Eosinophils % (auto) 13.2 % (0.0-7.0); Hematocrit 25.4 % (41.0-53.0); Hemoglobin 8.3 g/dL (13.5-17.5); Lymphocytes # (auto) 1.4 10 ^3/uL (0.4-5.4); Lymphocytes % (auto) 9.8 % (10.0-50.0); Mean Corpuscular Hemoglobin 27.2 pg (28.0-32.0); Mean Corpuscular Hgb Conc. 32.8 g/dL (32.0-36.0); Monocytes # (auto) 1.2 10 ^3/uL (0-1.3); Monocytes % (auto) 8.3 % (0.0-12.0); Neutrophils # (auto) 9.4 10 ^3/uL (1.6-8.6); Neutrophils % (auto) 67.3 % (37.0-80.0); Platelet Count (auto) 374 10^3/uL (140-450); Red Blood Cells 3.06 10^6/uL (4.5-5.90); Red Cell Distribution Width 16.3 % (11.8-14.3); White Blood Cell 13.9 10^3/uL (4.4-10.8)
[2019-06-29 04:27] LABS: INR 2.44 (0.9-1.15)
[2019-06-29 04:31] LABS: BUN/Creatinine Ratio 25.2; Calcium 7.4 mg/dL (8.5-10.1); Potassium 4.3 mmol/L (3.5-5.1)
[2019-06-29] MEDS: IPRATROPIUM BROM 0.5 MG/2.5ML INH SOL NEB SCH ×3 (05:40→21:51)
[2019-06-29] MEDS: ALBUTEROL SULF 2.5 MG/0.5ML(0.5%) NEB SOLN NEB SCH ×3 (05:40→21:51)
[2019-06-29] MEDS: ACETYLCYSTEINE 10 %(100MG/ML) SOL 4ML NEB SCH ×3 (05:40→21:51)
[2019-06-29] MEDS: levoFLOXacin 750MG 150 ML IV SCH (06:17)
[2019-06-29] MEDS: ACCU-CHEK COMFORT CURVE STRIP VI SCH ×2 (06:17→13:29)
[2019-06-29] MEDS: METOCLOPRAMIDE HCL 5MG/ml INJ 2ml VIAL IV SCH ×3 (06:17→22:37)
[2019-06-29] MEDS: InsuLIN REG 1unit/0.01ml Soln (100units/ml) SC SCH ×2 (06:23→11:51)
[2019-06-29] MEDS: INSULIN LANTUS (GLARGINE) 1 /0.01ml (100units/ml) SC SCH (06:52)
--- NOTE | 2019-06-29 08:00 | NUR ---
AM ASSESSMENT COMPLETED. GTTS VERIFIED. TRACH TO VENT. PT IS SEDATED TO COMPLY WITH VENTILATOR. REPOSITIONED FOR COMFORT, TOLERATED WITH MINOR DISCOMFORT. ANASARCA THROUGHOUT HIS BODY. WITH FLAKEY SKIN WITH PINK DISCOLORATION THROUGH BOTH UPPER AND LOWER EXTREMITIES. MILD WEEPING ON UPPER EXTREMITIES NOTED WHEN REPOSITION. PT ABLE TO FOLLOW SOME SIMPLE COMMANDS ON CURRENT SEDATION.
[2019-06-29] MEDS: CeftoloZANE-TAZOB 1g/0.5g in D5W 5% 100 ML IV SCH ×2 (09:02→19:01)
[2019-06-29] MEDS: FLUCONAZOLE 200MG/100ML 100 ML IV SCH ×2 (10:18→11:13)
[2019-06-29] MEDS: SODIUM CHLOR 0.9% PF (SALINE LOCK) 10ML VIAL/SYR IV SCH ×2 (10:18→22:00)
[2019-06-29] MEDS: PANTOPRAZOLE 40 MG/10 ML VIAL INJ IV SCH (10:18)
--- NOTE | 2019-06-29 10:45 | NUR ---
DR. SAEZ ROUNDED ON PT HE NOTICED THAT PT IS RESPONDING WELL TO BUMEX STATES "WE'LL KEEP HIM ON BUMEX GTT". HE INQUIRED ABOUT NGT NUTRITION. I TOLD HIM PT HAS HIGH RESIDUALS. 400 ML OF LIGHT GREEN BILE LAST NIGHT. NO NEW ORDERS RECEIVED.
[2019-06-29] MEDS: BUMETANIDE INJECTION 25 MG in GIVE UN-DILUTED 0 ML IV SCH (11:46)
[2019-06-29] MEDS: fentaNYL Drip 2500mCg/250mlNS 250 ML IV SCH (11:55)
--- NOTE | 2019-06-29 12:29 | NUR ---
Nutrition Follow-up Wt.: 138.2 kg (+4 edema compared to previous assessment wt gain of ~3 kg) Pt is sedated with Fentanyl, with new tracheotomy. Pt currently NPO with EN support on hold d/t high residuals of 800 yesterday and 400 last night, however bowel sounds are present per RN. Will continue to closely monitor pertinent labs, PO intake and skin status prn. Will followup in 2-3 days Est. Energy Needs: 5931-7995 kcal (12-15 kcal/kg BW). Est. Protein Needs: 88-100 gms/day (1.0-1.2 gms/kg Adj.BW). Labs BUN 78 H, CREAT 2.17 H, GLU 238 H, ALB 1.4 L. GI: Pt with ileostomy per RN doc. Skin: Louis scale 7, high risk. Please refer to wound assessment report for full details PES: 1) Obese, Class III r/t energy intake in excess of energy needs aeb BMI 44.7 kg/m2 and 193% IBW Recommendations: 1) Consider EN support with Glucerna @ 40 ml/hr per MD approval at current rate of propofol. 2) Resume PN support if pt unable to cain EN. 3) Advance diet gradually to oral CCHO 60g diet, when medically appropriate.3) Refer pt to CDE/RD for further nutrition education and weight monitoring upon discharge. 4) Continue current plan of care.
--- NOTE | 2019-06-29 12:55 | NUR ---
DR. DELANEY N ROUNDING ON PT UPDATED ON PT'S NGT OUTPUT ALSO ON WHY PT STILL NOT EXTUBATED. NO NEW ORDERS RECEIVED.
[2019-06-29] MEDS: ALBUMIN 25% 100 ML IV SCH ×2 (13:18→13:58)
[2019-06-29] MEDS: MIDAZOLAM DRIP 50 mg/50mL 50 ML IV SCH ×2 (13:28→23:12)
--- NOTE | 2019-06-29 13:42 | NUR ---
DR. Ricardo STEVENS ROUNDING ON PT. UPDATED ON PT'S CONDITION. MD REVIEWING PT'S CHART.
--- NOTE | 2019-06-29 15:30 | NUR ---
DR. BARRIENTOS ROUNDING ON PT. NEW ORDERS RECEIVED TO GET CONSENT FOR BRONCHOSCOPY FOR TOMORROW AND TO ARRANGE WITH [facility] TO BOOK BEDSIDE BRONCHOSCOPY. [facility]
[2019-06-29] MEDS ORDERED: WARFARIN SODIUM 1 MG TAB PO ONE (17:00)
--- NOTE | 2019-06-29 17:32 | NUR ---
CONSENT OBTAINED FOR BRONCHOSCOPY FROM PT'S WIFEWHEN SHE CALLED TO GET AN UPDATE ON PT'S CONDITION.
--- NOTE | 2019-06-29 18:45 | NUR ---
NGT UNCLAMPED AFTER [address] DELANEY. RESIDUAL = 250. MD WANTS NGT TO BE PLACED BACK TO LIS FOR TONIGHT AND THEN TO BE CLAMPED FOR FOUR HOURS AT A TIME TOMORROW TO CHECK RESIDUAL TO SEE IF IT SLOWS DOWN AND PT CAN BE STARTED ON TUBE FEEDINGS ONCE THE RESIDUAL IS LESS THAN 100 IN 4 HOURS OF BEING CLAMPED.
--- NOTE | 2019-06-29 19:45 | NUR ---
OPENING NOTE RECEIVED REPORT FROM DAY SHIFT RN AND ASSUMED CARE OF PT. PT IS CURRENTLY TRACHED WITH VENTILATOR IN PLACE. SEDATION RUNNING (SEE IV SPREADSHEET). VITAL SIGNS STABLE WITH NO S/S OF DISTRESS NOTED. KAUR CATHETER IN PLACE AND DRAINING APPROPRIATELY. BED IS LOCKED AND IN LOWEST POSITION. WILL CONTINUE TO MONITOR AND ASSESS PT.
[2019-06-29 21:25] LABS: Potassium 3.4 mmol/L (3.5-5.1)
[2019-06-29 21:29] LABS: Magnesium 1.3 mg/dL (1.6-2.6)
--- NOTE | 2019-06-29 21:58 | NUR ---
MD CALL CALLED HOSPITALIST TO MAKE AWARE OF PTS LATEST K AND MAG LEVELS. NEW ORDERS RECEIVED NOTED IN CHART.
[2019-06-29] MEDS ORDERED: MAGNESIUM SULFATE 1GM/100ML 100 ML IV ONE (22:00)
[2019-06-29] MEDS ORDERED: POTASSIUM CHL 20MEQ/100ML 100 ML IV ONE (22:00)
--- NOTE | 2019-06-29 22:15 | NUR ---
Respiratory note: TRACH CARE DONE USING STERILE TECHNIQUE, UNEVENTFUL. AMBU BAG, MASK, PEEP VALUE, AND SPARE TRACH AT BEDSIDE. GAUZE CHANGED, INNER CANNULA AND AREA AROUND TRACH FLANGE CLEANED AND DRIED. REDNESS AND DRAINAGE NOTED UNDER FLANGE, REPORTED TO DAYSHIFT RN, PICTURES TAKEN FOR WOUND CARE CONSULT.
[2019-06-29] MEDS: ATORVASTATIN 20 MG TAB PO SCH (22:38)
[2019-06-29] MEDS: DOPamine 1600MCG/ML D5W 250 ML IV SCH (23:08)
[2019-06-30] VITALS (100 sets, daily range): BP systolic 73–143; BP diastolic 26–75
--- NOTE | 2019-06-30 00:05 | NUR ---
ACCUCHECK/INSULIN NON ADMIN DAY SHIFT RN DID NOT DOCUMENT 1800 ACCUCHECK/INSULIN. FOR 0000- SUGAR WAS 126 AND NO INSULIN WAS GIVEN. WAS CHARTED TWICE IN e-MAR
[2019-06-30] MEDS: CeftoloZANE-TAZOB 1g/0.5g in D5W 5% 100 ML IV SCH ×4 (00:21→23:59)
[2019-06-30] MEDS: LINEZOLID 600MG/300ML 300 ML IV SCH ×3 (00:23→23:59)
[2019-06-30] MEDS: fentaNYL Drip 2500mCg/250mlNS 250 ML IV SCH ×2 (01:45→15:08)
--- NOTE | 2019-06-30 03:00 | NUR ---
PT CARE GAVE PT GENTLE BED BATH WITH SOAP AND WATER DUE TO IMPAIRED SKIN INTEGRITY. MOISTURE BARRIER APPLIED TO SKIN ON ALL EXTREMITIES. FULL [place] CHANGE DONE. ORAL CARE PREFORMED AND PT TURNED. SKIN ASSESSED WITH NO NEW CHANGES AT THIS TIME.
[2019-06-30 04:41] LABS: INR 3.12 (0.9-1.15)
[2019-06-30 05:05] LABS: Hemoglobin 7.1 g/dL (13.5-17.5); White Blood Cell 12.6 10^3/uL (4.4-10.8)
[2019-06-30 05:07] LABS: Hematocrit 22.1 % (41.0-53.0); Mean Corpuscular Hemoglobin 27.1 pg (28.0-32.0); Mean Corpuscular Hgb Conc. 32.3 g/dL (32.0-36.0); Mean Corpuscular Volume 83.8 fL (80.0-100.0); Platelet Count (auto) 313 10^3/uL (140-450); Red Blood Cells 2.63 10^6/uL (4.5-5.90); Red Cell Distribution Width 16.7 % (11.8-14.3)
[2019-06-30 05:10] LABS: Band Neutrophils % (manual) 0; Basophils % (manual) 0 (0.0-2.0); Blast Cells 0; Metamyelocytes % 0; Myelocytes % 0; Promyelocytes % 0; Reactive Lymphocytes 0
[2019-06-30 05:36] LABS: Albumin 1.5 g/dL (3.4-5.0); Anion Gap 13 (5-15); Blood Urea Nitrogen 73 mg/dL (7-18); Calcium 6.3 mg/dL (8.5-10.1); Carbon Dioxide 21 mmol/L (21-32); Chloride 96 mmol/L (98-107); Glucose 189 mg/dL (74-106); Potassium 3.4 mmol/L (3.5-5.1); Sodium 130 mmol/L (136-145)
[2019-06-30 05:40] LABS: Alanine Aminotransferase < 6 U/L (16-61); Alkaline Phosphatase 108 U/L (45-117); Aspartate Aminotransferase 15 U/L (15-37); BUN/Creatinine Ratio 28.5; Bilirubin, Total 0.7 mg/dL (0.2-1.0); GFR African American 32 mL/min; GFR Non-African American 27 mL/min; Total Protein 6.6 g/dL (6.4-8.2)
[2019-06-30] MEDS: METOCLOPRAMIDE HCL 5MG/ml INJ 2ml VIAL IV SCH ×3 (05:46→21:43)
[2019-06-30] MEDS: ACCU-CHEK COMFORT CURVE STRIP VI SCH ×5 (05:49→23:59)
--- NOTE | 2019-06-30 05:50 | NUR ---
0700 LANTUS HELD FOR GLUCOSE OF 104 AND PT REMAINING OFF TUBE FEEDINGS.
[2019-06-30] MEDS: InsuLIN REG 1unit/0.01ml Soln (100units/ml) SC SCH ×4 (05:51→17:23)
[2019-06-30] MEDS: INSULIN LANTUS (GLARGINE) 1 /0.01ml (100units/ml) SC SCH (05:51)
[2019-06-30] MEDS: ACETYLCYSTEINE 10 %(100MG/ML) SOL 4ML NEB SCH ×3 (06:02→22:08)
[2019-06-30] MEDS: ALBUTEROL SULF 2.5 MG/0.5ML(0.5%) NEB SOLN NEB SCH ×3 (06:02→22:07)
[2019-06-30] MEDS: IPRATROPIUM BROM 0.5 MG/2.5ML INH SOL NEB SCH ×3 (06:02→22:07)
--- NOTE | 2019-06-30 06:13 | NUR ---
NG TUBE/ GASTRIC RESIDUALS ASSESSMENT LEFT NARE NG TUBE IS POSITIVELY PLACED VIA AUSCULTATION AND ASPIRATION. NG WAS CLAMPED PER DR SOLIMAN ORDER IN HER PHYSICIANS REPORT. WHEN CONNECTED TO LIS GASTRIC RESIDUAL WAS NOTED TO BE 300 ML. TUBE FEEDINGS CONTINUED TO BE HELD AT THIS TIME.
[2019-06-30 06:29] LABS: Eosinophils % (manual) 17 (0-7); Lymphocytes % (manual) 9 (10.0-50.0); Monocytes % (manual) 3 (0-12)
--- NOTE | 2019-06-30 08:04 | NUR ---
DR. STEVENS AT BEDSIDE
[2019-06-30] MEDS ORDERED: POTASSIUM CHL 20MEQ/100ML 100 ML IV ONE (08:30)
[2019-06-30] MEDS: SODIUM CHLOR 0.9% PF (SALINE LOCK) 10ML VIAL/SYR IV SCH ×2 (09:50→21:44)
[2019-06-30] MEDS: FLUCONAZOLE 200MG/100ML 100 ML IV SCH ×2 (09:50→10:50)
[2019-06-30] MEDS: PANTOPRAZOLE 40 MG/10 ML VIAL INJ IV SCH (09:50)
[2019-06-30] MEDS: MIDAZOLAM DRIP 50 mg/50mL 50 ML IV SCH ×2 (09:56→21:43)
--- NOTE | 2019-06-30 11:09 | NUR ---
WOUND CARE NURSE AT BEDSIDE
--- NOTE | 2019-06-30 11:24 | NUR ---
WOUND CARE NOTE: Wound care in to see patient for skin integrity monitoring and new wound care request regarding distal trach site ulcer. Patient continue resting in ICU premium bed in Rm. 102. Patient is on vent via trach. Patient appears to be in no pain using Newman Roberts Faces Pain Scale. His Louis score is 10. Skin assessment done with assistance of patient's nurse, COMPA Preciado. Patient's Rt barakat continue to display hemosiderin staining with dry skin.Patient's extremities continue to display edema, erythema now display dry peeling skin all over his body. Multi dry intact scabs/dry blister remain in bilateral foot/toes, no drainage/odor noted,left open to air. Patient's intragluteal fold skin tear looks resolving however his buttocks and thighs display dry peeling skin with multi superficial skin tears with bright red blanchable surrounding skin. Megan care given and applied Barrier cream .He developed scab ulceration to L ear lobe, area is clean and dryl eft open to air. Distal trach site developed 1x1 red ulceration. Cleansed with NS moisten gauze, applied Thera honey gel and covered with small piece of Opti foam to cushion. New photograph of wounds are taken for reference. Patient tolerated well, repositioned for comfort facing his Lt side, redistributed pressure points with pillows . COMPA Preciado at bedside. RECOMMENDATION: Daily/PRN dressing change to distal trach site ulcer per MD order, Continuation of all wound care orders prescribed by MD, continue with skin/wound plan of care, continue monitoring by wound care while patient is hospitalized. Addendum: 06/30/19 at 1938 by Phyllis Gil RN Amended: Links added.
[2019-06-30] MEDS ORDERED: LIDOCAINE 2%HCL (LOCAL ANESTH.) INJ 20ML MDV ONE (11:52)
[2019-06-30] MEDS ORDERED: EPINEPHrine HCL 1 MG/1 ML AMP ONE (11:53)
[2019-06-30] MEDS ORDERED: SODIUM CHLORIDE LOCK 0 ML ONE (11:53)
[2019-06-30] MEDS ORDERED: LIDOCAINE HCL 2% TOP JELLY 5ML TOP ONE (11:53)
[2019-06-30] MEDS ORDERED: GLYCOPYRROLATE 0.2 MG/ML 1ML VIAL ONE (11:53)
--- NOTE | 2019-06-30 12:19 | NUR ---
DR. BLANCHARD AT BEDSIDE
--- NOTE | 2019-06-30 13:11 | NUR ---
DR. BERUMEN AT BEDSIDE FOR BRONCOSCOPY
[2019-06-30] MEDS: NOREPINEPHRINE BITARTRATE 16 MG in D5W 5% 250 ML IV SCH ×2 (13:15→15:56)
--- NOTE | 2019-06-30 14:49 | NUR ---
PARTIAL LINEN CHANGE PERFORMED AT THIS TIME
[2019-06-30] MEDS: BUMETANIDE INJECTION 25 MG in GIVE UN-DILUTED 0 ML IV SCH (15:06)
--- NOTE | 2019-06-30 16:01 | NUR ---
ORAL CARE PERFORMED PATIENT TOLERATED WELL, MINIMAL SECRETIONS
[2019-06-30] MEDS: ALBUMIN 25% 100 ML IV SCH ×2 (16:44→17:44)
--- NOTE | 2019-06-30 17:23 | NUR ---
BLOOD SUGAR 136 INSULIN GIVEN PER PROTOCOL
[2019-06-30] MEDS: PROPOFOL 100 ML IV SCH (18:45)
--- NOTE | 2019-06-30 20:00 | NUR ---
OPENING NOTE RECEIVED REPORT FROM DAY SHIFT RN AND ASSUMED CARE OF PT. PT HAS TRACH WITH VENTILATOR IN PLACE. SEDATION RUNNING (SEE IV SPREADSHEET). VITAL SIGNS STABLE WITH NO S/S OF DISTRESS NOTED. KAUR CATHETER IN PLACE AND DRAINING APPROPRIATELY. BED IS LOCKED AND IN LOWEST POSITION. WILL CONTINUE TO MONITOR AND ASSESS PT. WILL TITRATE DRIPS ACCORDING TO PROTOCOL
[2019-06-30] MEDS: ATORVASTATIN 20 MG TAB PO SCH (21:43)
--- NOTE | 2019-06-30 22:25 | NUR ---
MONITOR DISPLAYS INCORRECT RR ACTUAL RATE IS BETWEEN 20 AND 22
--- NOTE | 2019-06-30 23:30 | NUR ---
COOLING MEASURES IMPLEMENTED - T 99.3 AXILIARY RECTAL THERMOMETER DISPLAYS WRONG TEMP
[2019-06-30] MEDS ORDERED: InsuLIN REG 1unit/0.01ml Soln (100units/ml) ONE (23:57)
[2019-07-01] VITALS (100 sets, daily range): BP systolic 79–152; BP diastolic 34–89
[2019-07-01] MEDS: InsuLIN REG 1unit/0.01ml Soln (100units/ml) SC SCH ×4 (00:07→17:39)
--- NOTE | 2019-07-01 01:48 | NUR ---
RESIDUAL LESS THAN 100 FOR THE PAST FOUR HOURS GLUCERNA 1.2 IS NOT AVAILABLE, WILL ASK HOUSE SUP IF ONE CAN BE OBTAINED, WILL PASS INFORMATION TO DAY SHIFT NURSE.
--- NOTE | 2019-07-01 03:42 | NUR ---
CARES partial linen change and bath given
--- NOTE | 2019-07-01 03:52 | NUR ---
PICC LINE DRESSING CHANGED USING STERILE TECHNIQUE, PT TOLERATED WELL
[2019-07-01] MEDS: fentaNYL Drip 2500mCg/250mlNS 250 ML IV SCH ×2 (04:12→16:18)
[2019-07-01 04:16] LABS: Platelet Count (auto) 329 10^3/uL (140-450)
[2019-07-01 04:19] LABS: Hematocrit 22.9 % (41.0-53.0); Hemoglobin 7.3 g/dL (13.5-17.5); Mean Corpuscular Hemoglobin 27.3 pg (28.0-32.0); Mean Corpuscular Hgb Conc. 32.1 g/dL (32.0-36.0); Red Blood Cells 2.69 10^6/uL (4.5-5.90); Red Cell Distribution Width 17.3 % (11.8-14.3); White Blood Cell 11.7 10^3/uL (4.4-10.8)
[2019-07-01 04:38] LABS: Basophils % (manual) 0 (0.0-2.0); Blast Cells 0; Metamyelocytes % 0; Myelocytes % 0; Promyelocytes % 0; Reactive Lymphocytes 0
[2019-07-01 04:40] LABS: Calcium 6.3 mg/dL (8.5-10.1); Potassium 3.4 mmol/L (3.5-5.1)
[2019-07-01 04:43] LABS: BUN/Creatinine Ratio 29.6
[2019-07-01 04:45] LABS: INR 2.92 (0.9-1.15); Partial Thromboplastin Time 69.6 sec (23.64-32.05)
--- NOTE | 2019-07-01 05:00 | NUR ---
GLUCERNA FEEDING STARTED AT 15ML/HR (MAX RATE 30 ML/HR), WILL INCREASE ACCORDING TO PATIENTS TOLERANCE (RESIDUAL) HOB 45 DEGREES, NG TUBE WAS ASPIRATED AND AUSCULTATED BEFORE FEEDING STARTED
[2019-07-01 05:25] LABS: Band Neutrophils % (manual) 1; Lymphocytes % (manual) 18 (10.0-50.0); Monocytes % (manual) 4 (0-12)
[2019-07-01 05:26] LABS: Eosinophils % (manual) 12 (0-7)
[2019-07-01] MEDS: METOCLOPRAMIDE HCL 5MG/ml INJ 2ml VIAL IV SCH ×3 (05:40→20:51)
[2019-07-01] MEDS: ACCU-CHEK COMFORT CURVE STRIP VI SCH ×3 (05:40→17:39)
[2019-07-01] MEDS: levoFLOXacin 750MG 150 ML IV SCH (05:40)
--- NOTE | 2019-07-01 05:52 | NUR ---
PAGED HOSPITALIST REGARDING LOW K K 3.4, RECEIVED NEW ORDERS
[2019-07-01] MEDS: IPRATROPIUM BROM 0.5 MG/2.5ML INH SOL NEB SCH ×3 (06:05→21:49)
[2019-07-01] MEDS: ACETYLCYSTEINE 10 %(100MG/ML) SOL 4ML NEB SCH ×3 (06:05→21:50)
[2019-07-01] MEDS: ALBUTEROL SULF 2.5 MG/0.5ML(0.5%) NEB SOLN NEB SCH ×3 (06:05→21:49)
[2019-07-01] MEDS: POTASSIUM CHL 20MEQ/100ML 100 ML IV SCH ×2 (06:20→07:53)
[2019-07-01] MEDS: INSULIN LANTUS (GLARGINE) 1 /0.01ml (100units/ml) SC SCH (06:20)
[2019-07-01] MEDS: MIDAZOLAM DRIP 50 mg/50mL 50 ML IV SCH ×3 (06:20→23:17)
--- NOTE | 2019-07-01 07:28 | NUR ---
REPORT RECEIVED FROM HOSTEL MANAGER RN
[2019-07-01] MEDS: CeftoloZANE-TAZOB 1g/0.5g in D5W 5% 100 ML IV SCH ×2 (07:33→16:15)
[2019-07-01] MEDS: FLUCONAZOLE 200MG/100ML 100 ML IV SCH ×2 (09:20→10:32)
[2019-07-01] MEDS: PANTOPRAZOLE 40 MG/10 ML VIAL INJ IV SCH (09:20)
[2019-07-01] MEDS: SODIUM CHLOR 0.9% PF (SALINE LOCK) 10ML VIAL/SYR IV SCH ×2 (09:21→20:51)
--- NOTE | 2019-07-01 09:49 | NUR ---
FEEDINGS PATIENT DID NOT TOLERATE FEEDINGS AT THIS TIME. WILL INFORM
[2019-07-01] MEDS: BUMETANIDE INJECTION 25 MG in GIVE UN-DILUTED 0 ML IV SCH ×2 (11:15→13:52)
[2019-07-01] MEDS: DOPamine 1600MCG/ML D5W 250 ML IV SCH ×2 (11:15→18:03)
[2019-07-01] MEDS: LINEZOLID 600MG/300ML 300 ML IV SCH (11:30)
--- NOTE | 2019-07-01 12:59 | NUR ---
DR. JAMES AT BEDSIDE
--- NOTE | 2019-07-01 13:01 | NUR ---
DR. PARKER AT BEDSIDE
--- NOTE | 2019-07-01 13:05 | NUR ---
Respiratory note: NO ABG NEEDED TODAY PER
[2019-07-01] MEDS: NOREPINEPHRINE BITARTRATE 16 MG in D5W 5% 250 ML IV SCH (13:53)
--- NOTE | 2019-07-01 14:00 | NUR ---
ORAL CARE PERFORMED PATIENT TOLERATED WELL
--- NOTE | 2019-07-01 16:38 | NUR ---
SKIN CARE PERFORMED AT THIS TIME
--- NOTE | 2019-07-01 17:58 | NUR ---
PATIENT REPOSITIONED TOLERATED WELL
[2019-07-01] MEDS: PROPOFOL 100 ML IV SCH (18:45)
--- NOTE | 2019-07-01 19:30 | NUR ---
Opening Shift Note Report received from day shift RN. Pt sedated, with trach in place on ventilator. Full assessment done, see interventions. VSS. ABRAM PICC line see IV spreadsheet for details. Site benign. Ileostomy to right abdomen. Skin assessment done, see interventions. Pt repositioned on a 2 hr schedule and PRN. Patino catheter in place secured below bladder draining yellow urine with sediment. Bed locked in lowest position. All alarms on and audible.
[2019-07-01] MEDS: ATORVASTATIN 20 MG TAB PO SCH (20:51)
[2019-07-02] VITALS (99 sets, daily range): BP systolic 80–129; BP diastolic 34–57
--- NOTE | 2019-07-02 00:30 | NUR ---
Pt's HR went up to 140-150 with ECG rhythm change of course a-fib. EKG done with poor data quality. Placed in chart. Dopamine gtt turned off at this time. B/P dropped. Titrating up on levophed per MD order to hemodynamic stability. Left message with cardiology.
[2019-07-02] MEDS: LINEZOLID 600MG/300ML 300 ML IV SCH ×2 (01:22→11:40)
[2019-07-02 03:17] LABS: BUN/Creatinine Ratio 31.8; Calcium 6.4 mg/dL (8.5-10.1)
--- NOTE | 2019-07-02 04:00 | NUR ---
Skin Assessment/ Cares Pt given bed bath and skin care completed. Pressure areas noted to the back left side of patient and pressure wound noted under trach. Pictures taken and will notify wound care. Pt bleeding from spots on arms. Pt has generalized weeping. Optifoam placed and partial linen performed. Z guard placed to moisture associated areas.
[2019-07-02 04:20] LABS: Eosinophils # (auto) 1.5 10 ^3/uL (0-0.8); Hemoglobin 7.6 g/dL (13.5-17.5); Nucleated Red Blood Cells % 0.1 %
[2019-07-02 04:22] LABS: Basophils # (auto) 0.1 10 ^3/uL (0-0.2); Basophils % (auto) 0.6 % (0.0-2.0); Eosinophils % (auto) 11.4 % (0.0-7.0); Hematocrit 24.5 % (41.0-53.0); Lymphocytes # (auto) 1.5 10 ^3/uL (0.4-5.4); Mean Corpuscular Hemoglobin 27.4 pg (28.0-32.0); Mean Corpuscular Volume 88.4 fL (80.0-100.0); Monocytes # (auto) 1.1 10 ^3/uL (0-1.3); Monocytes % (auto) 8.8 % (0.0-12.0); Neutrophils # (auto) 8.7 10 ^3/uL (1.6-8.6); Neutrophils % (auto) 67.2 % (37.0-80.0); Platelet Count (auto) 349 10^3/uL (140-450); Red Blood Cells 2.78 10^6/uL (4.5-5.90); Red Cell Distribution Width 17.4 % (11.8-14.3); White Blood Cell 12.9 10^3/uL (4.4-10.8)
[2019-07-02 04:24] LABS: INR 2.64 (0.9-1.15)
[2019-07-02] MEDS: MIDAZOLAM DRIP 50 mg/50mL 50 ML IV SCH ×5 (05:06→22:04)
[2019-07-02] MEDS: fentaNYL Drip 2500mCg/250mlNS 250 ML IV SCH ×2 (05:24→16:23)
[2019-07-02] MEDS: ALBUTEROL SULF 2.5 MG/0.5ML(0.5%) NEB SOLN NEB SCH ×3 (05:56→22:20)
[2019-07-02] MEDS: IPRATROPIUM BROM 0.5 MG/2.5ML INH SOL NEB SCH ×3 (05:56→22:20)
--- NOTE | 2019-07-02 06:09 | NUR ---
Respiratory note: RECEIVED PATIENT ON RENTAL V200 ESPRIT VENT, TRACHED WITH AN 8 SHILEY CUFFED SECURED VIA TRACH TIE, AND MECHANICALLY VENTILATED WITH THE CHARTED SETTINGS. SPO2 94%, LUNG SOUNDS DIM T/O, SMALL AMOUNT OF THICK CLEAR SECRETIONS WHEN SUCTIONED. SKIN IS WARM/DRY TO THE TOUCH AND THERE IS A PRESSURE WOUND ON THE NECK, UNDER FLANGE OF TRACH. RN GIOVANNA AWARE OF PRESSURE ULCER AND HAS TAKEN PICTURES AND DOCUMENTED WELL. SKIN IS REDDENED THROUGHOUT ENTIRE BODY AND EXTREMELY FLAKY WELL. THERE IS A NGT IN THE LEFT NARE AND SECURED TO THE NOSE, THERE IS A PICC LINE PLACED IN THE LEFT BICEP. NO OTHER ADVANCE ACCESS LINES NOTED. PITTING EDEMA NOTED ON BILATERAL UPPER AND LOWER EXTREMITIES. NO NEW CXR TO ASSESS. PATIENT IS UNRESPONSIVE TO BOTH VERBAL/TACTILE STIMULI AND IS SEDATED ON FENTANYL AND VERSED DRIPS. HE IS RESTING COMFORTABLY AND TOLERATING VENT WELL, NO CHANGES MADE. VENT PLUGGED INTO RED OUTLET AND ALL ALARMS ARE SET AND AUDIBLE. WILL CONTINUE TO ASSESS PATIENT WELL VENTILATOR FUNCTION. [employer] RUN INLINE.
[2019-07-02] MEDS: METOCLOPRAMIDE HCL 5MG/ml INJ 2ml VIAL IV SCH ×3 (06:18→21:26)
[2019-07-02] MEDS: ACCU-CHEK COMFORT CURVE STRIP VI SCH ×4 (06:18→18:15)
[2019-07-02] MEDS: InsuLIN REG 1unit/0.01ml Soln (100units/ml) SC SCH ×4 (06:18→18:13)
[2019-07-02] MEDS: INSULIN LANTUS (GLARGINE) 1 /0.01ml (100units/ml) SC SCH (07:04)
--- NOTE | 2019-07-02 07:11 | NUR ---
REPORT RECEIVED FROM TECHNOLOGY SALES SPECIALIST RN
[2019-07-02] MEDS: CeftoloZANE-TAZOB 1g/0.5g in D5W 5% 100 ML IV SCH ×4 (07:30→15:27)
--- NOTE | 2019-07-02 08:02 | NUR ---
ORAL CARE PERFORMED
[2019-07-02] MEDS: FLUCONAZOLE 200MG/100ML 100 ML IV SCH ×2 (09:10→10:42)
[2019-07-02] MEDS: PANTOPRAZOLE 40 MG/10 ML VIAL INJ IV SCH (09:10)
[2019-07-02] MEDS: SODIUM CHLOR 0.9% PF (SALINE LOCK) 10ML VIAL/SYR IV SCH ×2 (09:10→22:00)
--- NOTE | 2019-07-02 09:38 | NUR ---
DR. JAMES AT BEDSIDE
[2019-07-02] MEDS ORDERED: MAGNESIUM SULFATE 1GM/100ML 100 ML IV ONE (10:00)
--- NOTE | 2019-07-02 11:29 | NUR ---
Nutrition Follow-up Wt.: 136.0 kg Pt is intubated sedated with no family by bedside. Pt currently NPO with EN support on hold d/t high residuals per RN. per RN pt with fluid overload and hence will not be initiated on pn/ppn Est. Energy Needs: 2454-0662 kcal (12-15 kcal/kg BW), Est. Protein Needs: 88-100 gms/day (1.0-1.2 gms/kg Adj.BW). Labs BUN BUN 78 H, CREAT 2.39 H, CA 6.4 L, ALB 1.5 L, GLU 139 H GI: Pt with ileostomy per RN doc. Skin: Louis scale 10, high risk. Please refer to wound assessment report for full details PES: 1) Obese, Class III r/t energy intake in excess of energy needs aeb BMI 44.7 kg/m2 and 193% IBW Recommendations: 1) Consider EN support with Glucerna @ 65 ml/hr per MD approval if pt off propofol. 2) Resume PN support if pt unable to cain EN. 3) Advance diet gradually to oral CCHO 60g diet, when medically appropriate.3) Refer pt to CDE/RD for further nutrition education and weight monitoring upon discharge. 4) Continue current plan of care.
--- NOTE | 2019-07-02 11:37 | NUR ---
DR. PARKER AT BEDSIDE
--- NOTE | 2019-07-02 12:25 | NUR ---
DR. BEAL AT BEDSIDE
[2019-07-02] MEDS: NOREPINEPHRINE BITARTRATE 16 MG in D5W 5% 250 ML IV SCH (13:15)
--- NOTE | 2019-07-02 16:31 | NUR ---
WOUND CARE NURSE AT BEDSIDE
--- NOTE | 2019-07-02 16:32 | NUR ---
Respiratory note: VENT CHANGES MADE; VT INCREASED TO 550 POST ABG DRAW WITH CRITICAL PH VALUE OF 7.20 AND CO2 OF 52.9, PER DR. JAMES'S TELEPHONE ORDER. COMPA BRITTON MADE AWARE OF CHANGE.
[2019-07-02] MEDS: NOREPINEPHRINE BITARTRATE 16 MG in SODIUM CHL 0.9% 250 ML IV SCH (16:45)
[2019-07-02] MEDS ORDERED: WARFARIN SODIUM 1 MG TAB PO ONE (17:00)
--- NOTE | 2019-07-02 17:15 | NUR ---
WOUND CARE NOTE: WOUND CARE IN TO SEE PATIENT. BEDSIDE NURSE NOTED NEW SKIN INTEGRITY CONCERNS. BEDSIDE NURSE ALSO NOTED SAME PRESSURE AREA TO TRACH COLLAR PREVIOUSLY ADDRESSED BY WOUND CARE. Skin assessment done with assistance of patient's nurse, COMPA Preciado. Patient's extremities continue to display edema, erythema now display dry peeling skin all over his body. Patient's intragluteal fold skin tear looks resolving however his buttocks and thighs display dry peeling skin with multi superficial skin tears with bright red blanchable surrounding skin. Patient also has new multi superficial skin tears with bright red blanchable surrounding skin to left lower abdomen and buttocks. Distal trach site developed 1x1 red ulceration. Patient tolerated well, repositioned for comfort facing his Rt side, redistributed pressure points with pillows. COMPA Preciado at bedside. RECOMMENDATION: Daily/PRN dressing change to distal trach site ulcer per MD order, Continuation of all wound care orders prescribed by MD, continue with skin/wound plan of care, continue monitoring by wound care while patient is hospitalized. Addendum: 07/02/19 at 1759 by ANANT MAIER RN RN Amended: Links added.
--- NOTE | 2019-07-02 18:03 | NUR ---
ORAL CARE PERFORMED MINIMAL SECRETIONS NOTED
[2019-07-02] MEDS: PROPOFOL 100 ML IV SCH (18:45)
[2019-07-02] MEDS: ATORVASTATIN 20 MG TAB PO SCH (21:27)
[2019-07-03] VITALS (99 sets, daily range): BP systolic 75–138; BP diastolic 21–60
[2019-07-03] MEDS: CeftoloZANE-TAZOB 1g/0.5g in D5W 5% 100 ML IV SCH ×3 (00:07→16:34)
[2019-07-03] MEDS: LINEZOLID 600MG/300ML 300 ML IV SCH ×2 (00:07→13:25)
[2019-07-03] MEDS: ACCU-CHEK COMFORT CURVE STRIP VI SCH ×4 (00:08→17:59)
[2019-07-03] MEDS: InsuLIN REG 1unit/0.01ml Soln (100units/ml) SC SCH ×4 (00:08→18:06)
--- NOTE | 2019-07-03 03:03 | NUR ---
CARES Full bed bath given and complete linen change. Skin integrity assessed. Weeping and bleeding from extremities. pt tolerated well.
[2019-07-03] MEDS: MIDAZOLAM DRIP 50 mg/50mL 50 ML IV SCH ×3 (04:03→16:35)
[2019-07-03 04:25] LABS: INR 2.53 (0.9-1.15)
[2019-07-03 04:45] LABS: Eosinophils # (auto) 1.1 10 ^3/uL (0-0.8); Lymphocytes # (auto) 1.7 10 ^3/uL (0.4-5.4); Lymphocytes % (auto) 15.6 % (10.0-50.0); Nucleated Red Blood Cells % 0.1 %
[2019-07-03 04:47] LABS: BUN/Creatinine Ratio 32.5; Basophils # (auto) 0.2 10 ^3/uL (0-0.2); Basophils % (auto) 2.1 % (0.0-2.0); Eosinophils % (auto) 9.9 % (0.0-7.0); Hematocrit 23.3 % (41.0-53.0); Hemoglobin 7.5 g/dL (13.5-17.5); Mean Corpuscular Hemoglobin 27.7 pg (28.0-32.0); Mean Corpuscular Hgb Conc. 32.4 g/dL (32.0-36.0); Mean Corpuscular Volume 85.5 fL (80.0-100.0); Monocytes # (auto) 0.9 10 ^3/uL (0-1.3); Monocytes % (auto) 8.1 % (0.0-12.0); Neutrophils # (auto) 7.1 10 ^3/uL (1.6-8.6); Neutrophils % (auto) 64.3 % (37.0-80.0); Platelet Count (auto) 324 10^3/uL (140-450); Potassium 3.8 mmol/L (3.5-5.1); Red Blood Cells 2.72 10^6/uL (4.5-5.90); Red Cell Distribution Width 16.6 % (11.8-14.3); White Blood Cell 11.1 10^3/uL (4.4-10.8)
[2019-07-03] MEDS: METOCLOPRAMIDE HCL 5MG/ml INJ 2ml VIAL IV SCH ×3 (06:22→21:40)
[2019-07-03] MEDS: levoFLOXacin 750MG 150 ML IV SCH (06:22)
[2019-07-03] MEDS: fentaNYL Drip 2500mCg/250mlNS 250 ML IV SCH ×2 (06:24→16:35)
[2019-07-03] MEDS: IPRATROPIUM BROM 0.5 MG/2.5ML INH SOL NEB SCH ×3 (06:26→22:05)
[2019-07-03] MEDS: ALBUTEROL SULF 2.5 MG/0.5ML(0.5%) NEB SOLN NEB SCH ×3 (06:26→22:05)
[2019-07-03] MEDS: INSULIN LANTUS (GLARGINE) 1 /0.01ml (100units/ml) SC SCH (07:00)
--- NOTE | 2019-07-03 07:30 | NUR ---
REPORT REPORT RECEIVED FROM GIOVANNA LARSEN RN. BEDSIDE CHECK DONE. PT RESTING IN BED, SEDATED WHILE ON THE VENTILATOR , AND ON PRESSORS FOR BP SUPPORT. CONTINUE TO MONITOR.
--- NOTE | 2019-07-03 07:38 | NUR ---
ASSESSMENT PT RESTING IN BED WITH EYS OPEN. MODERATELY SEDATED ON FENTANYL AND VERSED. NO SPONTANEOUS MOVEMENT NOTED. WITHDRAWS TO PAINFUL STIMULI. PT WITH VENTILATOR TO SHILEY TRACH #8, WITH DRESSING CLEAN AND DRY, VENTILATOR SETTINGS OF: AC 20, TV 550, 45% FIO2 AND PEEP OF 8. LUNGS CLEAR AND DIMINISHED THROUGHOUT. SUCTIONED VOA ETT FOR SMALL AMOUNT OF THIN ZAMAN FLUID. ORAL CARE PROVIDED. TELE ST 116 WITH INVERTED T WAVE IN LEAD I, BBB, AND DEPRESSED ST IN LEADS I, II, III AND AVF. WEAK PALPABLE PULSES TO ALL EXTREMITIES WITH +2 PITTING EDEMA(PE) TO BOTH FEET, +1 PE TO BOTH ANKLES AND +3 PE TO BOTH HANDS WELL GENERALIZED EDEMA. ABD SOFT WITH HYPOACTIVE BOWEL SOUNDS. LEFT NARES NGT WITH + PLACEMENT AND CLAMPED. GREATER THAN 60 ML THIN BILE FLUID RESIDUAL AND SO CONNECTED TO LIS WITH 150 ML FLUID RETURNED. PT WITH ILEOSTOMY TUBE TO ABD DRAINING THICK LIQUID GREENISH BROWN BM. TURNED FOR COMFORT TO HIS LEFT SIDE. LUE WITH 3 LUMEN PICC LINE, SITE BENIGN. SEE IV SPREADSHEET FOR ALL IV MEDS. LEFT UE WITH SOME MILD WEEPING NOTED AND LEFT OUTER UPPER ARM WITH ABRASION. JUST BELOW PT'S TRACH, ON UPPER CHEST, PT WITH AN OPTIFOAM DRESSING OVER A SMALL SEALED VERTICAL THIN LINE. BLISTERED AND PURPLE TRANSVERSE LINE ON LEFT OUTER CALF, OPEN TO AIR. LEFT FLANK NOTED TO HAVE MULTIPLE ABRASIONS IN VARYING DEGREES OF HEALING. LEFT OUTER ARM WITH HEALING STEFFANY WHICH APPEARS TO BE FROM TUBING. COMPLETE LINEN CHANGE DONE AND PT NOTED TO HAVE ABRASIONS ON LEFT BACK AND ONE ABRASION THAT IS LIGHTLY SEALED, ALL OPEN TO AIR. RAILS UP X4 AND BED IN LOW POSITION FOR PT SAFETY. CONTINUE TO MONITOR.
--- NOTE | 2019-07-03 07:42 | NUR ---
Report given to day shift RN to assume care
[2019-07-03] MEDS: DOPamine 1600MCG/ML D5W 250 ML IV SCH (07:45)
[2019-07-03] MEDS: BUMETANIDE 2.5mg/10ml (0.25 mg/ml) INJ IV SCH (09:28)
[2019-07-03] MEDS: PANTOPRAZOLE 40 MG/10 ML VIAL INJ IV SCH (09:32)
[2019-07-03] MEDS: MAGNESIUM OXIDE 400 MG TAB GT SCH (09:33)
[2019-07-03] MEDS: SODIUM CHLOR 0.9% PF (SALINE LOCK) 10ML VIAL/SYR IV SCH ×2 (09:33→21:40)
--- NOTE | 2019-07-03 10:23 | NUR ---
PHONE/MD RECEIVED A PHONE CALL FROM DR TAB DELANEY. I ANSWERED HER QUESTIONS AND UPDATED HER ON THE PT'S CURRENT CONDITION INCLUDING NGT WITH 150 OUTPUT THIS AM. SHE WANTS THE NGT TO BE CLAMPED FOR 4-6 HOURS AT A TIME DURING THE DAY AND THEN TO LIS AT NIGHT.
[2019-07-03] MEDS: FLUCONAZOLE 200MG/100ML 100 ML IV SCH ×2 (10:26→11:50)
--- NOTE | 2019-07-03 10:55 | NUR ---
MD VISIT PT SEEN BY DR PARKER. I UPDATED HER ON THE PT'S CURRENT CONDITION AND THAT DR TAB DELANEY HAD CALLED TO CHECK ON THE PT AND WOULD LILK THE NGT TO BE CLAMPED FOR 4-6 HOURS AT AM TIME AND THEN TO LIS AT NIGHT. ISABEL ALANIS DC'Brigid. LABS , ABG AND CXR TO BE DONE IN THE AM.
--- NOTE | 2019-07-03 12:34 | NUR ---
I faxed transfer order to [facility].
--- NOTE | 2019-07-03 14:24 | NUR ---
1420 07/03/19 I spoke with [facility] Instructional Coach Alaina regarding the transfer to [facility] request, she said there are no ICU beds available right now at [facility]. Per Alaina, they will take patients on a Levo gtt if it is in the single digit range (which his is). I spoke with Dr. Huff and made her aware that no ICU beds available today, that a new transfer request will have to be placed tomorrow and [facility] will re-assess the bed situation.
[2019-07-03] MEDS ORDERED: WARFARIN SODIUM 1 MG TAB PO ONE (17:00)
--- NOTE | 2019-07-03 17:55 | NUR ---
PT REPOSITIONED FOR COMFORT. REMAINS INTUBATED AND SEDATED AND ON LEVOPHED FOR BP SUPPORT. ACCUCHECK OF 144 AND GIVEN 2 UNITS OF REGULAR INSULIN. TURNED FOR COMFORT. CONTINUE TO MONITOR,.
[2019-07-03] MEDS ORDERED: NOREPINEPHRINE 8 MG/250ML KIT 250 ML IV ONE (18:04)
[2019-07-03] MEDS: PROPOFOL 100 ML IV SCH (18:13)
[2019-07-03] MEDS: NOREPINEPHRINE BITARTRATE 16 MG in SODIUM CHL 0.9% 250 ML IV SCH (18:17)
--- NOTE | 2019-07-03 19:30 | NUR ---
REPORT REPORT GIVEN TO CJ LARSEN RN.
[2019-07-03] MEDS: ATORVASTATIN 20 MG TAB PO SCH (21:40)
[2019-07-03] MEDS: TOBRAMYCIN 300 MG/5 ML NEB SOLN NEB SCH (22:08)
[2019-07-04] VITALS (91 sets, daily range): BP systolic 86–176; BP diastolic 30–67
[2019-07-04] MEDS: InsuLIN REG 1unit/0.01ml Soln (100units/ml) SC SCH ×5 (00:30→23:35)
[2019-07-04] MEDS: CeftoloZANE-TAZOB 1g/0.5g in D5W 5% 100 ML IV SCH ×4 (00:40→23:36)
[2019-07-04] MEDS: LINEZOLID 600MG/300ML 300 ML IV SCH ×3 (00:41→23:36)
[2019-07-04] MEDS: ACCU-CHEK COMFORT CURVE STRIP VI SCH ×5 (00:41→23:28)
--- NOTE | 2019-07-04 04:00 | NUR ---
PT CARE FULL [place] CHANGE DONE. PT TURNED, ORAL CARE PREFORMED. SKIN ASSESSED WITH NEW CHANGES- WILL TAKE PICTURES. ALL EXTREMITIES ELEVATED ON PILLOWS.
[2019-07-04 04:36] LABS: INR 2.41 (0.9-1.15)
[2019-07-04] MEDS: ALBUTEROL SULF 2.5 MG/0.5ML(0.5%) NEB SOLN NEB SCH ×3 (05:52→22:08)
[2019-07-04] MEDS: IPRATROPIUM BROM 0.5 MG/2.5ML INH SOL NEB SCH ×3 (05:52→22:08)
--- NOTE | 2019-07-04 06:45 | NUR ---
WOUND CARE PHOTO TOOK PICTURE OF POSTERIOR RIGHT CALF. DARK, SCABY WOUND NOTED. NO DRAINAGE AND WELL APPROXIMATED.
[2019-07-04] MEDS: INSULIN LANTUS (GLARGINE) 1 /0.01ml (100units/ml) SC SCH (06:47)
[2019-07-04] MEDS: METOCLOPRAMIDE HCL 5MG/ml INJ 2ml VIAL IV SCH ×3 (06:47→21:53)
[2019-07-04 07:10] LABS: Hemoglobin 7.6 g/dL (13.5-17.5); Lymphocytes # (auto) 2.2 10 ^3/uL (0.4-5.4); Monocytes # (auto) 0.7 10 ^3/uL (0-1.3); Nucleated Red Blood Cells % 0.1 %
[2019-07-04 07:12] LABS: Basophils # (auto) 0.3 10 ^3/uL (0-0.2); Basophils % (auto) 2.8 % (0.0-2.0); Eosinophils # (auto) 1.2 10 ^3/uL (0-0.8); Eosinophils % (auto) 11.7 % (0.0-7.0); Hematocrit 23.2 % (41.0-53.0); Mean Corpuscular Hemoglobin 27.5 pg (28.0-32.0); Mean Corpuscular Hgb Conc. 32.6 g/dL (32.0-36.0); Mean Corpuscular Volume 84.3 fL (80.0-100.0); Monocytes % (auto) 6.5 % (0.0-12.0); Neutrophils # (auto) 6.1 10 ^3/uL (1.6-8.6); Platelet Count (auto) 320 10^3/uL (140-450); Red Blood Cells 2.75 10^6/uL (4.5-5.90); White Blood Cell 10.5 10^3/uL (4.4-10.8)
[2019-07-04] MEDS: MIDAZOLAM DRIP 50 mg/50mL 50 ML IV SCH ×2 (07:17→23:37)
[2019-07-04 07:31] LABS: Albumin 1.3 g/dL (3.4-5.0); Potassium 3.6 mmol/L (3.5-5.1)
[2019-07-04 07:36] LABS: BUN/Creatinine Ratio 32.6; Bilirubin, Total 0.6 mg/dL (0.2-1.0); Total Protein 7.1 g/dL (6.4-8.2)
[2019-07-04 07:38] LABS: Calcium 5.9 mg/dL (8.5-10.1)
[2019-07-04] MEDS ORDERED: CALCIUM GLUC 4.65meq/50ml D5AE 50 ML IV ONE ×2 (07:50)
[2019-07-04] MEDS: BUMETANIDE 2.5mg/10ml (0.25 mg/ml) INJ IV SCH (08:02)
--- NOTE | 2019-07-04 08:05 | NUR ---
ASSESSMENT PT RESTING IN BED WITH EYS CLOSED. SEDATED WHILE ON THE VENTILATOR. PT WITHDRAWS TO PAINFUL STIMULI. VENT SETTINGS OF: SHILEY 8 TRACHEOSTOMY WITH AC 20, TV 550, 40% FIO2 AND PEEP OF 5. LUNGS CLEAR EXCEPT FOR EXPIRATORY RHONCHI NOTED ON THE LEFT. TELE SR 91. PALPABLE PULSES TO ALL EXTREMITIES WITH GENERALIZED EDEMA NOTED, ABD SOFT WITH HYPOACTIVE BOWEL SOUNDS. NGT TO THE LEFT NARES CONNECTED TO LIS WITH SMALL AMOUNT OF BILE FLUID DRAINING. ILEOSTOMY DRAINING SCANT AMOUNT OF PASTY GREENISH BROWN BM. KAUR CATHETER DRAINING YELLOW URINE WITH SMALL AOUNT OF SEDIMENT. CHANGED KAUR TUBING AND BAG. PT TURNED TO THE LEFT. PT WITH TLC PICC LINE TO Randall CHELORandall, SITE BENIGN. SEE SKIN ASSESSMENT. CONTINUE TO MONITOR.
[2019-07-04] MEDS: PANTOPRAZOLE 40 MG/10 ML VIAL INJ IV SCH (09:58)
[2019-07-04] MEDS: SODIUM CHLOR 0.9% PF (SALINE LOCK) 10ML VIAL/SYR IV SCH ×2 (09:58→21:54)
[2019-07-04] MEDS: MAGNESIUM OXIDE 400 MG TAB GT SCH (09:59)
[2019-07-04] MEDS: FLUCONAZOLE 200MG/100ML 100 ML IV SCH ×2 (09:59→11:30)
[2019-07-04] MEDS: TOBRAMYCIN 300 MG/5 ML NEB SOLN NEB SCH ×2 (10:00→22:08)
--- NOTE | 2019-07-04 10:42 | NUR ---
[facility] RECEIVED A CALL FROM LEONARDO AT [facility]. I UPDATED HER ON THE PT'S CURRENT CONDITION AND ANSWERED HER QUESTIONS. I ASKED HER IF THEY WOULD BE TRANSFERRING HIM TO [facility], AND SHE STATED THAT HE IS NOT STABLE FOR TRANSFER.
[2019-07-04] MEDS: DOPamine 1600MCG/ML D5W 250 ML IV SCH (13:44)
--- NOTE | 2019-07-04 14:45 | NUR ---
Nutrition Follow-up Wt.: 136.0 kg Pt is intubated sedated with no family by bedside. Pt currently NPO with EN support on hold d/t high residuals per RN. per RN pt with fluid overload and hence will not be initiated on pn/ppn Est. Energy Needs: 6611-9501 kcal (12-15 kcal/kg BW), Est. Protein Needs: 88-100 gms/day (1.0-1.2 gms/kg Adj.BW). Labs BUN BUN 77 H, CREAT 2.36 H, CA 5.9 L, ALB 1.3 L, GLU 169 H GI: Pt with ileostomy per RN doc. Skin: Louis scale 10, high risk. Please refer to wound assessment report for full details PES: 1) Obese, Class III r/t energy intake in excess of energy needs aeb BMI 47 kg/m2 and 202% IBW Recommendations: 1) Consider EN support with Glucerna @ 65 ml/hr per MD approval if pt off propofol. 2) Resume PN support if pt unable to cain EN. 3) Advance diet gradually to oral CCHO 60g diet, when medically appropriate.3) Refer pt to CDE/RD for further nutrition education and weight monitoring upon discharge. 4) Continue current plan of care.
--- NOTE | 2019-07-04 15:25 | NUR ---
PT SEEN AND EXAMINED BY HCELLY MITCHELL, CARDIOLOGY BLEACHER OPERATOR. SHE STATED TO CHANGE THE LEVOPHED TO NEOSYNEPHRINE DUE TO THE ELEVATED HEART RATE. I LET HER KNOW THAT WE HAD JUST RESTARTED THE DOPAMINE DRIP AND THE HR INCREASED AFTER THAT AND THAT I HAD PAGED DR PARKER REGARDING IT.
[2019-07-04] MEDS ORDERED: NOREPINEPHRINE 8 MG/250ML KIT 250 ML IV SCH (15:30)
[2019-07-04] MEDS: PHENYLEPHRINE IV 250 ML IV SCH ×2 (15:30→23:50)
--- NOTE | 2019-07-04 15:34 | NUR ---
CALLED AND SPOKE WITH DR PARKER REGARDING HEART RATE IN THE 120'S SINCE STARTING THE DOPAMINE DRIP AT 2 MCG/KG/MIN FOR RENAL PERFUSION. ORDERED TO DC DRIP.
--- NOTE | 2019-07-04 15:35 | NUR ---
PT WITH HR UP TO THE 120'S SINCE RESTARTING THE DOPAMINE DRIP. PAGED AND SPOKE WITH DR PARKER AND MADE HER AWARE. ORDER RECEIVED TO DISCONTINUE THE DOPAMINE. DOPAMINE STOPPED AT 1535. CONTINUE TO MONITOR.
--- NOTE | 2019-07-04 15:44 | NUR ---
MD VISIT PT SEEN BY DR BARRIENTOS. I UPDATED HIM ON HTE PT'S CURRENT CONDITION INCLUDING LABS ABD ELEVATED HR SINCE RESTARTING DOPAMINE DRIP AT 2 MCG/KG.MIN FOR RENAL PERFUSION. ORDER RECEIVED AND DOPAMINE ALREADY DC'D AT 1535. WOULD LIKE AN ABG DONE. CALLED AND MADE SHORTY, RT, AWARE.
[2019-07-04] MEDS ORDERED: HYDROCORTISONE SOD SUCC 100 MG/2ML INJ VIAL IV ONE (16:00)
[2019-07-04] MEDS: MAGNESIUM SULFATE 1GM/100ML 100 ML IV SCH ×2 (16:37→17:43)
[2019-07-04] MEDS: NOREPINEPHRINE BITARTRATE 16 MG in SODIUM CHL 0.9% 250 ML IV SCH (16:49)
[2019-07-04] MEDS ORDERED: WARFARIN SODIUM 2 MG TAB PO ONE (17:00)
[2019-07-04] MEDS: fentaNYL Drip 2500mCg/250mlNS 250 ML IV SCH (18:17)
[2019-07-04] MEDS: PROPOFOL 100 ML IV SCH (18:45)
--- NOTE | 2019-07-04 19:30 | NUR ---
OPENING NOTE RECEIVED REPORT FROM DAY SHIFT RN AND ASSUMED CARE OF PT. PT IS CURRENTLY TRACHED WITH VENTILATOR IN PLACE. SEDATION RUNNING (SEE IV SPREADSHEET). VITAL SIGNS STABLE WITH NO S/S OF DISTRESS NOTED. KAUR CATHETER IN PLACE AND DRAINING APPROPRIATELY. BED IS LOCKED AND IN LOWEST POSITION. FALL PRECAUTIONS IN PLACE. WILL CONTINUE TO MONITOR AND ASSESS PT.
--- NOTE | 2019-07-04 19:30 | NUR ---
REPORT GIVEN TO NIGHT RNCJ. BEDSIDE CHECK DONE.
--- NOTE | 2019-07-04 21:42 | NUR ---
FAMILY CALL PTS [facility] CALLED. PASSWORD VERIFIED. UPDATED HER ON PT CONDITION AND PLAN OF CARE. REQUESTS TO BE CALLED IF AND WHEN THE PT IS TRANSFERRED TO [facility].
[2019-07-04] MEDS: ATORVASTATIN 20 MG TAB PO SCH (21:52)
[2019-07-04] MEDS: HYDROCORTISONE SOD SUCC 100 MG/2ML INJ VIAL IV SCH (21:55)
[2019-07-05] VITALS (95 sets, daily range): BP systolic 86–127; BP diastolic 31–65
--- NOTE | 2019-07-05 03:43 | NUR ---
PT CARE GAVE PT GENTLE BED BATH. WASHED AND BRUSHED HAIR. DID FULL [place] CHANGE. ORAL CARE PREFORMED. SKIN ASSESSED WITH NO NEW CHANGES. LINO CARE PREFORMED AND PT WAS NOTED TO HAVE AN EXCESS OF DRY, FLAKY SKIN ON TESTICLES AND SURROUNDING AREAS. PT TURNED.
[2019-07-05 03:58] LABS: Basophils # (auto) 0 10 ^3/uL (0-0.2); Eosinophils # (auto) 0 10 ^3/uL (0-0.8); Eosinophils % (auto) 0.1 % (0.0-7.0); Monocytes # (auto) 0.1 10 ^3/uL (0-1.3)
[2019-07-05 04:01] LABS: Basophils % (auto) 0.9 % (0.0-2.0); Hemoglobin 7.6 g/dL (13.5-17.5); Lymphocytes # (auto) 0.6 10 ^3/uL (0.4-5.4); Mean Corpuscular Hemoglobin 27.8 pg (28.0-32.0); Mean Corpuscular Hgb Conc. 32.9 g/dL (32.0-36.0); Mean Corpuscular Volume 84.4 fL (80.0-100.0); Monocytes % (auto) 1.5 % (0.0-12.0); Neutrophils # (auto) 4.5 10 ^3/uL (1.6-8.6); Neutrophils % (auto) 85.5 % (37.0-80.0); Nucleated Red Blood Cells % 0.1 %; Platelet Count (auto) 263 10^3/uL (140-450); Red Blood Cells 2.72 10^6/uL (4.5-5.90); White Blood Cell 5.3 10^3/uL (4.4-10.8)
[2019-07-05 04:09] LABS: INR 2.38 (0.9-1.15); Partial Thromboplastin Time 59.5 sec (23.64-32.05)
[2019-07-05 04:15] LABS: Albumin 1.2 g/dL (3.4-5.0)
[2019-07-05 04:19] LABS: BUN/Creatinine Ratio 34.1; Bilirubin, Total 0.5 mg/dL (0.2-1.0); Total Protein 7.1 g/dL (6.4-8.2)
[2019-07-05 04:25] LABS: Calcium 5.9 mg/dL (8.5-10.1)
[2019-07-05] MEDS: ALBUTEROL SULF 2.5 MG/0.5ML(0.5%) NEB SOLN NEB SCH ×3 (06:32→22:16)
[2019-07-05] MEDS: IPRATROPIUM BROM 0.5 MG/2.5ML INH SOL NEB SCH ×3 (06:32→22:16)
[2019-07-05] MEDS: METOCLOPRAMIDE HCL 5MG/ml INJ 2ml VIAL IV SCH ×3 (06:33→22:20)
[2019-07-05] MEDS: HYDROCORTISONE SOD SUCC 100 MG/2ML INJ VIAL IV SCH ×3 (06:33→22:20)
[2019-07-05] MEDS: levoFLOXacin 750MG 150 ML IV SCH (06:33)
[2019-07-05] MEDS: ACCU-CHEK COMFORT CURVE STRIP VI SCH ×4 (06:33→23:38)
[2019-07-05] MEDS: InsuLIN REG 1unit/0.01ml Soln (100units/ml) SC SCH ×4 (06:57→23:38)
[2019-07-05] MEDS: INSULIN LANTUS (GLARGINE) 1 /0.01ml (100units/ml) SC SCH (06:59)
--- NOTE | 2019-07-05 07:30 | NUR ---
REPORT GIVEN TO MICHAEL CHATMAN.
[2019-07-05] MEDS: PHENYLEPHRINE IV 250 ML IV SCH (08:05)
[2019-07-05] MEDS: CeftoloZANE-TAZOB 1g/0.5g in D5W 5% 100 ML IV SCH ×3 (08:15→23:40)
[2019-07-05] MEDS: FLUCONAZOLE 200MG/100ML 100 ML IV SCH ×2 (09:54→11:08)
[2019-07-05] MEDS: MAGNESIUM OXIDE 400 MG TAB GT SCH (09:54)
[2019-07-05] MEDS: PANTOPRAZOLE 40 MG/10 ML VIAL INJ IV SCH (09:54)
[2019-07-05] MEDS: SODIUM CHLOR 0.9% PF (SALINE LOCK) 10ML VIAL/SYR IV SCH ×2 (09:55→22:20)
[2019-07-05] MEDS: MIDAZOLAM DRIP 50 mg/50mL 50 ML IV SCH (10:03)
[2019-07-05] MEDS: TOBRAMYCIN 300 MG/5 ML NEB SOLN NEB SCH ×2 (10:15→22:28)
--- NOTE | 2019-07-05 11:30 | NUR ---
DR. BEAL HERE TO SEE PATIENT. SEE MD NOTES AND EMR FOR ANY NEW ORDERS.
--- NOTE | 2019-07-05 12:03 | NUR ---
DR. PARKER HERE TO SEE PATIENT. SEE MD NOTES AND EMR FOR ANY NEW ORDERS.
--- NOTE | 2019-07-05 12:03 | NUR ---
DIALYSIS STARTED. Addendum: 07/05/19 at 1617 by ENA STALEY RN RN WRONG PATIENT
[2019-07-05] MEDS: DOPamine 1600MCG/ML D5W 250 ML IV SCH (12:14)
[2019-07-05] MEDS: LINEZOLID 600MG/300ML 300 ML IV SCH (12:14)
--- NOTE | 2019-07-05 12:50 | NUR ---
DR. ALCALA HERE TO SEE PATIENT. SEE MD NOTES AND EMR FOR ANY NEW ORDERS.
--- NOTE | 2019-07-05 13:00 | NUR ---
Respiratory note: PER DR. BERUMEN TIDAL VOLUME DECREASED TO [address] BERUMEN NO FOLLOW UP ABG AFTER VENT CHANGES.
--- NOTE | 2019-07-05 13:08 | NUR ---
PAULA OZUNA HERE TO SEE PATIENT. SEE MD NOTES AND EMR FOR ANY NEW ORDERS.
--- NOTE | 2019-07-05 14:30 | NUR ---
I faxed transfer order and today's MD progress notes, labs, vitals, CXR and medication list to [facility].
--- NOTE | 2019-07-05 15:25 | NUR ---
3L REMOVED DURING DIALYSIS. Addendum: 07/05/19 at 1617 by ENA STALEY RN RN WRONG PATIENT
[2019-07-05] MEDS: NOREPINEPHRINE BITARTRATE 16 MG in SODIUM CHL 0.9% 250 ML IV SCH (16:45)
[2019-07-05] MEDS ORDERED: WARFARIN SODIUM 2 MG TAB PO ONE (17:00)
[2019-07-05] MEDS: fentaNYL Drip 2500mCg/250mlNS 250 ML IV SCH (20:25)
[2019-07-05] MEDS: ATORVASTATIN 20 MG TAB PO SCH (22:19)
[2019-07-06] VITALS (89 sets, daily range): BP systolic 85–153; BP diastolic 22–60
[2019-07-06] MEDS: MIDAZOLAM DRIP 50 mg/50mL 50 ML IV SCH (00:42)
[2019-07-06] MEDS: LINEZOLID 600MG/300ML 300 ML IV SCH ×3 (01:07→22:11)
[2019-07-06] MEDS: ACCU-CHEK COMFORT CURVE STRIP VI SCH ×3 (05:32→17:16)
[2019-07-06] MEDS: INSULIN LANTUS (GLARGINE) 1 /0.01ml (100units/ml) SC SCH (05:33)
[2019-07-06] MEDS: InsuLIN REG 1unit/0.01ml Soln (100units/ml) SC SCH ×3 (05:33→17:42)
[2019-07-06] MEDS: METOCLOPRAMIDE HCL 5MG/ml INJ 2ml VIAL IV SCH ×3 (05:36→22:10)
[2019-07-06] MEDS: BUMETANIDE 2.5mg/10ml (0.25 mg/ml) INJ IV SCH (05:37)
[2019-07-06] MEDS: HYDROCORTISONE SOD SUCC 100 MG/2ML INJ VIAL IV SCH ×3 (05:37→22:11)
[2019-07-06] MEDS: ALBUTEROL SULF 2.5 MG/0.5ML(0.5%) NEB SOLN NEB SCH ×3 (06:22→22:03)
[2019-07-06] MEDS: TOBRAMYCIN 300 MG/5 ML NEB SOLN NEB SCH ×2 (06:22→22:03)
[2019-07-06] MEDS: IPRATROPIUM BROM 0.5 MG/2.5ML INH SOL NEB SCH ×3 (06:22→22:03)
[2019-07-06] MEDS: CeftoloZANE-TAZOB 1g/0.5g in D5W 5% 100 ML IV SCH ×2 (07:50→16:15)
[2019-07-06 09:38] LABS: INR 2.63 (0.9-1.15); Partial Thromboplastin Time 55.4 sec (23.64-32.05)
[2019-07-06] MEDS: PANTOPRAZOLE 40 MG/10 ML VIAL INJ IV SCH (10:22)
[2019-07-06] MEDS: SODIUM CHLOR 0.9% PF (SALINE LOCK) 10ML VIAL/SYR IV SCH ×2 (10:22→22:11)
[2019-07-06] MEDS: fentaNYL Drip 2500mCg/250mlNS 250 ML IV SCH (10:24)
--- NOTE | 2019-07-06 11:22 | NUR ---
Nutrition Follow-up Wt.: 140.0 kg Pt is intubated sedated with no family by bedside. Pt currently NPO with EN support on hold d/t high residuals per RN. per RN pt with fluid overload and hence will not be initiated on pn/ppn. pt had HD yesterday per records Est. Energy Needs: 1478-5641 kcal (20-23 kcal/kg BW), Est. Protein Needs: 102-114 gms/day (1.2-1.3 gms/kg Adj.BW). reassessed as pt on HD Labs: GLU 241 H, ALB 1.2 L, BUN 78 H, CREAT 2.29 H GI: Pt had 25 ml BM yesterday per RN doc. Skin: Louis scale 11, high risk. Please refer to wound assessment report for full details PES: 1) Obese, Class III r/t energy intake in excess of energy needs aeb BMI 47 kg/m2 and 202% IBW Recommendations: 1) Consider EN support with Nephro carb steady @ 45 ml/hr per MD approval if pt off propofol and on HD. 2) Resume PN support if pt unable to cain EN. 3) Advance diet gradually to oral CCHO 60g diet, when medically appropriate.3) Refer pt to CDE/RD for further nutrition education and weight monitoring upon discharge. 4) Continue current plan of care.
[2019-07-06] MEDS: DOPamine 1600MCG/ML D5W 250 ML IV SCH (13:00)
--- NOTE | 2019-07-06 13:21 | NUR ---
LEONARDO FROM [facility] [employer] [facility] CALLED AND WAS UPDATED ON PATIENTS CURRENT CONDITION. CURRENTLY OFF OF LEVOPHED AND VERSED WAS DISCONTINUED.
--- NOTE | 2019-07-06 14:31 | NUR ---
RT NOTE: PLEASE DISREGARD VENT CHARTING AT 1431 IT WAS MADE IN ERROR.
[2019-07-06] MEDS: NOREPINEPHRINE BITARTRATE 16 MG in SODIUM CHL 0.9% 250 ML IV SCH ×2 (16:44→22:30)
[2019-07-06] MEDS ORDERED: SODIUM FERR GLUC 62.5MG/5ML 125 MG in SODIUM CHL 0.9% 100 ML IV ONE (16:45)
[2019-07-06] MEDS ORDERED: IRON SUCROSE COMPLEX 200 MG in SODIUM CHL 0.9% 100 ML IV SCH (16:47)
[2019-07-06] MEDS ORDERED: WARFARIN SODIUM 1 MG TAB PO ONE (17:00)
[2019-07-06] MEDS: IRON SUCROSE COMPLEX 200 MG in SODIUM CHL 0.9% 100 ML IV SCH (17:16)
--- NOTE | 2019-07-06 19:15 | NUR ---
Opening Shift Note: Patient in currently on trach/vent; Shiley 8.0 inserted on 06/[address] Aviles. Settings: AC rate 20, vT 500, FiO2 35%, and PEEP 8. Neuro: adriana. pupils 3 mm size/sluggish/eye opening and facial grimacing to light pain/cough and gag normal. Cardio: NSR 80s; high HR on monitor intermittent related to patient tremors causing artifact; SBPs 100s-120s; generalized edema present with pitting +2/3; pulses palpable but weak. NGT to left nare: LIS started per Blaise Davila communication order for LIS on security shift manager. Ileostomy present on admission, bag currently emptied. Patino originally inserted on 05/27/19, replaced on 06/03/19 and bag replacement on 07/04/19. Skin: multiple problems, see charting. IV: PICC triple lumen in LUE inserted on 06/24/19. Patient is currently pending transfer to [place] but no ICU bed available at this time per SS note. Will continue to round/reposition/perform trach and oral care prn.
--- NOTE | 2019-07-06 20:30 | NUR ---
RT paged: patient's oxygen saturation is sustaining in low 90s; FiO2 increased from 35 to 40%
--- NOTE | 2019-07-06 21:00 | NUR ---
Per RT, FiO2 increased from 40 to 45%. Current oxygen saturation is sustaining in the mid 90s.
[2019-07-06] MEDS: ATORVASTATIN 20 MG TAB PO SCH (22:11)
--- NOTE | 2019-07-06 22:30 | NUR ---
Levophed drip restarted per protocol for low blood pressures: sustaining SBP in 80s/DBP in 20s.
[2019-07-07] VITALS (97 sets, daily range): BP systolic 84–148; BP diastolic 42–71
[2019-07-07] MEDS: CeftoloZANE-TAZOB 1g/0.5g in D5W 5% 100 ML IV SCH ×4 (00:37→23:44)
[2019-07-07] MEDS: ACCU-CHEK COMFORT CURVE STRIP VI SCH ×5 (00:38→23:44)
[2019-07-07] MEDS: InsuLIN REG 1unit/0.01ml Soln (100units/ml) SC SCH ×5 (00:38→23:46)
[2019-07-07 04:01] LABS: Basophils # (auto) 0 10 ^3/uL (0-0.2); Basophils % (auto) 0.3 % (0.0-2.0); Eosinophils # (auto) 0 10 ^3/uL (0-0.8); Lymphocytes # (auto) 0.9 10 ^3/uL (0.4-5.4); Monocytes # (auto) 0.2 10 ^3/uL (0-1.3); Nucleated Red Blood Cells % 0.7 %
[2019-07-07 04:04] LABS: Eosinophils % (auto) 0.1 % (0.0-7.0); Hemoglobin 7.8 g/dL (13.5-17.5); Lymphocytes % (auto) 18.4 % (10.0-50.0); Mean Corpuscular Hemoglobin 27.7 pg (28.0-32.0); Mean Corpuscular Hgb Conc. 32.7 g/dL (32.0-36.0); Mean Corpuscular Volume 84.8 fL (80.0-100.0); Neutrophils # (auto) 3.8 10 ^3/uL (1.6-8.6); Neutrophils % (auto) 77.2 % (37.0-80.0); Platelet Count (auto) 241 10^3/uL (140-450); Red Blood Cells 2.82 10^6/uL (4.5-5.90); Red Cell Distribution Width 17.2 % (11.8-14.3); White Blood Cell 4.9 10^3/uL (4.4-10.8)
[2019-07-07 04:13] LABS: INR 2.8 (0.9-1.15); Partial Thromboplastin Time 60.5 sec (23.64-32.05)
[2019-07-07 04:14] LABS: Potassium 3.2 mmol/L (3.5-5.1)
[2019-07-07 04:19] LABS: Albumin 1.4 g/dL (3.4-5.0); BUN/Creatinine Ratio 37.6; Calcium 6.1 mg/dL (8.5-10.1)
[2019-07-07 04:22] LABS: Bilirubin, Total 0.4 mg/dL (0.2-1.0); Total Protein 7.8 g/dL (6.4-8.2)
[2019-07-07] MEDS: ALBUTEROL SULF 2.5 MG/0.5ML(0.5%) NEB SOLN NEB SCH ×3 (06:17→22:06)
[2019-07-07] MEDS: TOBRAMYCIN 300 MG/5 ML NEB SOLN NEB SCH ×2 (06:18→22:06)
[2019-07-07] MEDS: IPRATROPIUM BROM 0.5 MG/2.5ML INH SOL NEB SCH ×3 (06:18→22:06)
[2019-07-07] MEDS: HYDROCORTISONE SOD SUCC 100 MG/2ML INJ VIAL IV SCH ×3 (06:21→22:03)
[2019-07-07] MEDS: METOCLOPRAMIDE HCL 5MG/ml INJ 2ml VIAL IV SCH ×3 (06:21→22:03)
[2019-07-07] MEDS: levoFLOXacin 750MG 150 ML IV SCH (06:21)
[2019-07-07] MEDS: BUMETANIDE 2.5mg/10ml (0.25 mg/ml) INJ IV SCH (06:23)
[2019-07-07] MEDS: INSULIN LANTUS (GLARGINE) 1 /0.01ml (100units/ml) SC SCH (06:32)
--- NOTE | 2019-07-07 07:25 | NUR ---
REPORT RECEIVED FROM ANIMATION DIRECTOR RN
--- NOTE | 2019-07-07 09:07 | NUR ---
DR. PARKER AT [facility] Addendum: 07/07/19 at 0921 by Ozzy Chahal RN INCORRECT PROVIDER
[2019-07-07] MEDS: POTASSIUM CHL 20MEQ/100ML 100 ML IV SCH ×2 (09:29→11:01)
[2019-07-07] MEDS ORDERED: POTASSIUM CHL 20MEQ/100ML 100 ML IV SCH (09:30)
[2019-07-07] MEDS: SODIUM CHLOR 0.9% PF (SALINE LOCK) 10ML VIAL/SYR IV SCH ×2 (09:34→22:04)
[2019-07-07] MEDS: PANTOPRAZOLE 40 MG/10 ML VIAL INJ IV SCH (09:34)
[2019-07-07] MEDS: CALCIUM ACETATE 667 MG CAP NG SCH ×3 (09:34→22:04)
--- NOTE | 2019-07-07 10:47 | NUR ---
DR. PARKER AT BEDSIDE
--- NOTE | 2019-07-07 10:52 | NUR ---
DR. DELANEY PAGED AWAITING CALLBACK
[2019-07-07] MEDS: IRON SUCROSE COMPLEX 200 MG in SODIUM CHL 0.9% 100 ML IV SCH (11:02)
[2019-07-07] MEDS ORDERED: SODIUM FERR GLUC 62.5MG/5ML 125 MG in SODIUM CHL 0.9% 100 ML IV SCH (12:00)
[2019-07-07] MEDS: LINEZOLID 600MG/300ML 300 ML IV SCH ×2 (12:10→23:44)
--- NOTE | 2019-07-07 12:58 | NUR ---
LUCHO PATTERSON FROM [facility] UPDATED ON PATIENT STATUS. ALL QUESTIONS AND CONCERNS ADDRESSED AT THAT TIME
[2019-07-07] MEDS: DOPamine 1600MCG/ML D5W 250 ML IV SCH (13:00)
--- NOTE | 2019-07-07 13:14 | NUR ---
WOUND CARE NURSE AT BEDSIDE FOR ASSESSMENT
--- NOTE | 2019-07-07 13:30 | NUR ---
WOUND CARE NOTE: IN TO SEE PATIENT FOR SKIN INTEGRITY MONITORING AT THIS TIME. PATIENT CONTINUES TO REST ON ICU LOW AIRLOSS BED. HE CONTINUES TO BE VENTILATED BY WAY OF TRACHEOSTOMY, NON RESPONSIVE AT THIS TIME. PATIENT CONTINUES TO HAVE MULTIPLE SKIN INTEGRITY ISSUES AT THIS TIME, INCLUDING SCABBED ABRASION TO THE LEFT EARLOBE, MILD MASD TO SACRUM/BUTTOCKS, OPEN SKIN TEARS/BLISTERS TO BLE, SCABBED ESCHAR TOES TO BILATERAL FEET, AND MUCOSAL ULCER AT TRACH SITE. NEW WOUND PHOTOS TAKEN AT THIS TIE OF ALL WOUNDS, EXCEPT TRACH SITE. UNABLE TO VISUALIZE THE ULCER UNDER TRACH COLLAR AT THIS TIME, IT IS TOO UNCOMFORTABLE FOR THE PATIENT. ALL WOUND STATS CAN BE FOUND WITHIN WOUND ASSESSMENT INTERVENTION, LINKED WITH THIS NOTE. LEFT EARLOBE LOOKS MUCH IMPROVED, WITH LIGHT BROWN SCAB OVER WHAT APPEARS TO BE AN ABRASION. NO OPEN OR DRAINING AREAS NOTED. LEFT OPEN TO AIR. SACRUM CONTINUES TO HAVE MILD MASD WITH MINOR SKIN EROSION TO VARIOUS AREAS OF BILATERAL BUTTOCK, INTRAGLUTEAL FOLD. THIS LOOKS MUCH IMPROVED, WELL. APPLIED ZGUARD, OPTIFOAM GENTLE SACRAL DRESSING TO UPPER SACRUM. RIGHT LATERAL THIGH HAS MILD SKIN EROSION FOR RESOLVING BLISTERS. APPLIED ZGUARD. RIGHT AND LEFT NGUYEN/CALVES CONTINUES TO HAVE MULTIPLE OPEN SKIN TEARS/BLISTERS NOTED. ALL WOUNDS DRESSED WITH THERAHONEY AND OPTIFOAM GENTLE DRESSINGS. ABDOMINAL SKIN FOLD AREAS ARE NOW PINK, BLANCHABLE. NO EVIDENCE OF ANY INTERTRIGO NOTED AT THIS TIME. RIGHT AND LEFT TOES CONTINUES TO HAVE SCABBED ABRASION WOUNDS, COVERED WITH DARK BROWN ESCHAR. NO OPEN OR DRAINING AREAS NOTED. LEFT OPEN TO AIR. XEROSIS OF BILATERAL LOWER EXTREMITIES LOOKS MUCH IMPROVED. PATIENT HAS BEEN RECEIVING BID APPLICATION WITH HYDRAGUARD OINTMENT TO SKIN. PATIENT REPOSITIONED ONTO LEFT SIDE, REDISTRIBUTING PRESSURE POINTS USING PILLOWS/WEDGES. RECOMMEND: CONTINUATION WITH ALL WOUND CARE ORDERS PREVIOUSLY PRESCRIBED BY MD. WOUND CARE TEAM WILL CONTINUE TO MONITOR. Addendum: 07/07/19 at 1511 by Marisol Garvey RN Amended: Links added.
[2019-07-07] MEDS ORDERED: Nepro With Carb Steady 1 Liter Bottle GT SCH (14:45)
--- NOTE | 2019-07-07 16:02 | NUR ---
PARTIAL LINEN CHANGE PERFORMED AT THIS TIME
--- NOTE | 2019-07-07 18:10 | NUR ---
Respiratory note: RECEIVED PT ON STANTON V200 VENT([id number]) TRACH TO VENT. VENT CONNECTED TO RED OUTLET AND O2 SOURCE ALARMS ARE SET AND AUDIBLE. AMBU BAG AND MASK AT BEDSIDE. BS ARE FINE COURSE SXD VIA TRACH FOR SMALL THIN CREAMY ZAMAN. WILL CONTINUE TO MONITOR Q2H AND NEEDED. RT NAME AND PAGER ASSIGNMENT WRITTEN ON PTS ROOM BOARD.
--- NOTE | 2019-07-07 20:00 | NUR ---
OPENING NOTES Patient in currently on trach/vent; Shiley 8.0 inserted on 06/[address] Aviles. Settings: AC rate 20, TV 500, FiO2 35%, and PEEP 8. Neuro: adriana. pupils 3 mm size/brisk/eye opening and facial grimacing to light pain/cough and gag normal. Cardio: NSR 100s; SBPs 120s-130s; generalized edema present with pitting +3; pulses palpable but weak. NGT to left nare: nepro running 10cc/hr. Ileostomy present on admission, dark green thin output. Patino originally inserted on 05/27/19, replaced on 06/03/19 and bag replacement on 07/04/19. Skin: multiple problems, see charting. IV: PICC triple lumen in LUE inserted on 06/24/19. Patient is currently pending transfer to [place] but no ICU bed available at this time per SS note. Will continue to round/reposition/perform trach and oral care prn.
--- NOTE | 2019-07-07 20:11 | NUR ---
Respiratory note: AT BEDSIDE FOR ROUTINE VENT CHECK. SXD VIA TRACH FOR SMALL ZAMAN/WHITE. NO VENT CHANGES DONE AT THIS TIME. WILL CONTINUE TO MONITOR.
[2019-07-07] MEDS: ATORVASTATIN 20 MG TAB PO SCH (22:04)
--- NOTE | 2019-07-07 22:06 | NUR ---
Respiratory note: AT BEDSIDE FOR ROUTINE VENT CHECK. SXD VIA TRACH FOR SMALL ZAMAN/WHITE. NO VENT CHANGES DONE AT THIS TIME. MED NEB TX GIVEN INLINE WITHOUT ADVERSE REACTION NOTED. WILL CONTINUE TO MONITOR.
--- NOTE | 2019-07-07 22:10 | NUR ---
FAMILY CALLED UPDATED [facility] () ON PATIENTS STATUS AND POC, QUESTIONS AND CONCERNS ADDRESSED.
[2019-07-08] VITALS (103 sets, daily range): BP systolic 107–160; BP diastolic 33–62
--- NOTE | 2019-07-08 00:10 | NUR ---
NG TUBE FEEDING RUNNING NEPRO AT 20CC/HR START 1900 STOPPED 0000 PER MID COMMUNICATION ORDER RESIDUAL 20CC
--- NOTE | 2019-07-08 00:15 | NUR ---
Respiratory note: AT BEDSIDE FOR ROUTINE VENT CHECK. TRACH CARE DONE WITHOUT INCIDENT AT THIS TIME. WILL CONTINUE TO MONITOR.
--- NOTE | 2019-07-08 02:01 | NUR ---
PM CARES FULL BATH AND BED LINEN CHANGE NEW OPTIFOAM DRESSING APPLIED TO SACRUM, BILATERAL INNER-THIGHS, BILATERALLY TO SIDE OF CALFS.
--- NOTE | 2019-07-08 02:14 | NUR ---
Respiratory note: AT BEDSIDE FOR ROUTINE VENT CHECK NO CHANGES MADE AT THIS TIME. WILL CONTINUE TO MONITOR.
--- NOTE | 2019-07-08 02:17 | NUR ---
CHANGED ILEOSTOMY BAG OLD ILEOSTOMY BAG WAS LEAKING
[2019-07-08 05:02] LABS: Basophils # (auto) 0 10 ^3/uL (0-0.2); Basophils % (auto) 0.1 % (0.0-2.0); Eosinophils # (auto) 0 10 ^3/uL (0-0.8); Hematocrit 22.7 % (41.0-53.0); Hemoglobin 7.2 g/dL (13.5-17.5); Lymphocytes # (auto) 0.8 10 ^3/uL (0.4-5.4); Lymphocytes % (auto) 17.1 % (10.0-50.0); Mean Corpuscular Hemoglobin 27.2 pg (28.0-32.0); Mean Corpuscular Volume 84.9 fL (80.0-100.0); Monocytes # (auto) 0.3 10 ^3/uL (0-1.3); Monocytes % (auto) 7.3 % (0.0-12.0); Neutrophils # (auto) 3.4 10 ^3/uL (1.6-8.6); Neutrophils % (auto) 75.5 % (37.0-80.0); Nucleated Red Blood Cells % 0.6 %; Platelet Count (auto) 172 10^3/uL (140-450); Red Blood Cells 2.67 10^6/uL (4.5-5.90); White Blood Cell 4.5 10^3/uL (4.4-10.8)
[2019-07-08 05:24] LABS: INR 2.64 (0.9-1.15)
[2019-07-08 05:26] LABS: Potassium 3.6 mmol/L (3.5-5.1)
[2019-07-08 05:32] LABS: BUN/Creatinine Ratio 42.7; Calcium 6.4 mg/dL (8.5-10.1)
[2019-07-08] MEDS: METOCLOPRAMIDE HCL 5MG/ml INJ 2ml VIAL IV SCH ×3 (05:53→22:39)
[2019-07-08] MEDS: CALCIUM ACETATE 667 MG CAP NG SCH ×3 (05:53→22:40)
[2019-07-08] MEDS: ACCU-CHEK COMFORT CURVE STRIP VI SCH ×3 (05:53→17:26)
[2019-07-08] MEDS: HYDROCORTISONE SOD SUCC 100 MG/2ML INJ VIAL IV SCH (05:53)
--- NOTE | 2019-07-08 05:55 | NUR ---
CRITICAL LAB VALUE - BUN WILL NOTIFY DAYSHIFT RN REGARDING BUN LEVEL
[2019-07-08] MEDS: InsuLIN REG 1unit/0.01ml Soln (100units/ml) SC SCH ×3 (06:06→17:28)
[2019-07-08] MEDS: ALBUTEROL SULF 2.5 MG/0.5ML(0.5%) NEB SOLN NEB SCH ×3 (06:07→22:06)
[2019-07-08] MEDS: IPRATROPIUM BROM 0.5 MG/2.5ML INH SOL NEB SCH ×3 (06:07→22:06)
[2019-07-08] MEDS: TOBRAMYCIN 300 MG/5 ML NEB SOLN NEB SCH ×2 (06:08→22:06)
--- NOTE | 2019-07-08 06:15 | NUR ---
Respiratory note: RECEIVED PATIENT ON RENTAL V200 ESPRIT VENT, TRACHED WITH AN 8 SHILEY CUFFED SECURED VIA TRACH TIE, AND MECHANICALLY VENTILATED WITH THE CHARTED SETTINGS. SPO2 99%, LUNG SOUNDS DIM T/O, SMALL AMOUNT OF THICK CLEAR SECRETIONS WHEN SUCTIONED. SKIN IS WARM/DRY TO THE TOUCH, A PRESSURE WOUND REMAINS ON THE NECK, UNDER FLANGE OF TRACH. SKIN IS REDDENED THROUGHOUT ENTIRE BODY AND EXTREMELY FLAKY WELL. THERE IS A NGT IN THE LEFT NARE AND SECURED TO THE NOSE, THERE IS A PICC LINE PLACED IN THE LEFT BICEP. NO OTHER ADVANCE ACCESS LINES NOTED. PITTING EDEMA NOTED ON BILATERAL UPPER AND LOWER EXTREMITIES. NO NEW CXR TO ASSESS. PATIENT IS UNRESPONSIVE TO BOTH VERBAL/TACTILE STIMULI AND IS SEDATED ON FENTANYL DRIP. HE IS RESTING COMFORTABLY AND TOLERATING VENT WELL. FIO2 DECREASED TO 30% AT THIS TIME, RN MADE AWARE OF CHANGE. VENT PLUGGED INTO RED OUTLET AND ALL ALARMS ARE SET AND AUDIBLE. WILL CONTINUE TO ASSESS PATIENT WELL VENTILATOR FUNCTION. [facility] RUN INLINE.
[2019-07-08] MEDS: BUMETANIDE 2.5mg/10ml (0.25 mg/ml) INJ IV SCH (06:35)
[2019-07-08] MEDS: INSULIN LANTUS (GLARGINE) 1 /0.01ml (100units/ml) SC SCH (06:40)
--- NOTE | 2019-07-08 07:27 | NUR ---
REPORT RECEIVED FROM REGIONAL ACCOUNT MANAGER RN
[2019-07-08] MEDS: CeftoloZANE-TAZOB 1g/0.5g in D5W 5% 100 ML IV SCH ×2 (07:48→15:27)
[2019-07-08] MEDS: PANTOPRAZOLE 40 MG/10 ML VIAL INJ IV SCH (09:39)
[2019-07-08] MEDS: SODIUM CHLOR 0.9% PF (SALINE LOCK) 10ML VIAL/SYR IV SCH ×2 (09:39→22:40)
--- NOTE | 2019-07-08 10:00 | NUR ---
PATIENT REPOSITIONED PATIENT TOLERATED WELL
[2019-07-08] MEDS: fentaNYL Drip 2500mCg/250mlNS 250 ML IV SCH ×2 (10:43→13:25)
[2019-07-08] MEDS: IRON SUCROSE COMPLEX 200 MG in SODIUM CHL 0.9% 100 ML IV SCH (10:48)
--- NOTE | 2019-07-08 11:21 | NUR ---
Nutrition Follow-up Wt.: 140.0 kg Pt is intubated sedated with no family by bedside. Pt currently NPO with EN support on hold d/t high residuals per RN. RN infonred of diet rec per MD approval. pt is not on HD Est. Energy Needs: 5009-8767 kcal (12-15 kcal/kg BW), Est. Protein Needs: 70-88 gms/day (0.8-1.0 gms/kg Adj.BW r/t elev RFT). Labs: BUN 93 H, CREAT 2.18 H, CHELO 217 H, CA 6.4 L, ALB 1.4 L. GI: Pt with ileostomy per RN doc gastric drainage of 50 ml. Skin: Louis scale 10, high risk. Please refer to wound assessment report for full details PES: 1) Obese, Class III r/t energy intake in excess of energy needs aeb BMI 47 kg/m2 and 202% IBW Recommendations: 1) Consider EN support with Glucerna @ 65 ml/hr per MD approval if pt off propofol and no HD. 2) Resume PN support if pt unable to cain EN. 3) Advance diet gradually to oral CCHO 60g diet, when medically appropriate.3) Refer pt to CDE/RD for further nutrition education and weight monitoring upon discharge. 4) Continue current plan of care.
--- NOTE | 2019-07-08 11:46 | NUR ---
NUTRITION PER MORTGAGE CONSULTANT CHANGE FEEDING TO GLUCERNA PATIENT TOLERATES
--- NOTE | 2019-07-08 12:24 | NUR ---
DR. PARKER AT BEDSIDE
[2019-07-08] MEDS: DOPamine 1600MCG/ML D5W 250 ML IV SCH (13:00)
--- NOTE | 2019-07-08 14:25 | NUR ---
PARTIAL LINEN CHANGE PERFORMED AT THIS TIME
--- NOTE | 2019-07-08 15:28 | NUR ---
Transfer order faxed to [facility].
[2019-07-08] MEDS: NOREPINEPHRINE BITARTRATE 16 MG in SODIUM CHL 0.9% 250 ML IV SCH (16:45)
--- NOTE | 2019-07-08 16:49 | NUR ---
FEEDING CONTINUES WITH APPROXIMATELY 10 CC RESIDUAL
[2019-07-08] MEDS ORDERED: WARFARIN SODIUM 1 MG TAB PO ONE (17:00)
--- NOTE | 2019-07-08 17:00 | NUR ---
ORAL CARE PERFORMED PATIENT TOLERATED WELL
--- NOTE | 2019-07-08 19:30 | NUR ---
Opening Shift Note Received pt on mechanical ventilator with tracheostomy. On fentanyl. Pt opens eyes to stimuli but does not respond. Facial grimacing noted when doing oral care or turns. Full assessment done see interventions. Multiple skin issues; see interventions. VSS. All alarms on and audible. Pt in full view of RN.
--- NOTE | 2019-07-08 22:30 | NUR ---
RESIDUALS Pt tolerating TF at this time with 10 ml residual. Will continue to monitor. TF going at 20.
[2019-07-08] MEDS: ATORVASTATIN 20 MG TAB PO SCH (22:40)
[2019-07-09] VITALS (102 sets, daily range): BP systolic 92–156; BP diastolic 33–85
[2019-07-09 04:24] LABS: Basophils # (auto) 0 10 ^3/uL (0-0.2); Basophils % (auto) 0.1 % (0.0-2.0); Eosinophils # (auto) 0 10 ^3/uL (0-0.8); Eosinophils % (auto) 0.1 % (0.0-7.0); Hemoglobin 7.5 g/dL (13.5-17.5); Lymphocytes # (auto) 1.8 10 ^3/uL (0.4-5.4); Lymphocytes % (auto) 23.5 % (10.0-50.0); Mean Corpuscular Hemoglobin 27.7 pg (28.0-32.0); Mean Corpuscular Hgb Conc. 32.9 g/dL (32.0-36.0); Mean Corpuscular Volume 84.2 fL (80.0-100.0); Monocytes # (auto) 0.8 10 ^3/uL (0-1.3); Monocytes % (auto) 9.9 % (0.0-12.0); Neutrophils # (auto) 5.1 10 ^3/uL (1.6-8.6); Neutrophils % (auto) 66.4 % (37.0-80.0); Nucleated Red Blood Cells % 0.3 %; Platelet Count (auto) 141 10^3/uL (140-450); Red Blood Cells 2.73 10^6/uL (4.5-5.90); Red Cell Distribution Width 17.1 % (11.8-14.3); White Blood Cell 7.6 10^3/uL (4.4-10.8)
[2019-07-09 04:32] LABS: INR 2.09 (0.9-1.15)
[2019-07-09 04:38] LABS: Calcium 6.8 mg/dL (8.5-10.1)
[2019-07-09 04:41] LABS: BUN/Creatinine Ratio 49.2
--- NOTE | 2019-07-09 04:45 | NUR ---
CARES PT GIVEN COMPLETE BED BATH AND LINEN CHANGE. PT TOLERATED WELL
[2019-07-09 05:02] LABS: Potassium 2.7 mmol/L (3.5-5.1)
--- NOTE | 2019-07-09 05:33 | NUR ---
Left message with nephrology regarding critical lab values. awaiting call back for orders
[2019-07-09] MEDS: levoFLOXacin 750MG 150 ML IV SCH (05:50)
[2019-07-09] MEDS: CALCIUM ACETATE 667 MG CAP NG SCH ×3 (05:50→22:48)
[2019-07-09] MEDS: METOCLOPRAMIDE HCL 5MG/ml INJ 2ml VIAL IV SCH ×3 (05:50→22:47)
[2019-07-09] MEDS: InsuLIN REG 1unit/0.01ml Soln (100units/ml) SC SCH ×5 (05:51→23:49)
[2019-07-09] MEDS: ALBUTEROL SULF 2.5 MG/0.5ML(0.5%) NEB SOLN NEB SCH ×3 (05:55→21:56)
[2019-07-09] MEDS: IPRATROPIUM BROM 0.5 MG/2.5ML INH SOL NEB SCH ×3 (05:55→21:56)
[2019-07-09] MEDS: ACCU-CHEK COMFORT CURVE STRIP VI SCH ×4 (06:05→17:58)
--- NOTE | 2019-07-09 06:36 | NUR ---
Per potassium protocol by , replacing potassium with 40 meq iv Addendum: 07/09/19 at 0636 by GIOVANNA AC RN WRONG PT
[2019-07-09] MEDS: POTASSIUM CHL 20MEQ/100ML 100 ML IV SCH ×5 (06:45→17:02)
--- NOTE | 2019-07-09 06:52 | NUR ---
Holding Bumex at this time due to critically low potassium level. Notified hospitalist. Aware of 20 meq potassium IV ordered by Tia, will administer. Addendum: 07/09/19 at 0656 by GIOVANNA AC RN Total of 60 meq of potassium ordered by Tia. Will notify day shift RN to infuse the remaining two bags.
[2019-07-09] MEDS: BUMETANIDE 2.5mg/10ml (0.25 mg/ml) INJ IV SCH ×2 (07:00→08:41)
[2019-07-09] MEDS: INSULIN LANTUS (GLARGINE) 1 /0.01ml (100units/ml) SC SCH (07:18)
[2019-07-09] MEDS: CeftoloZANE-TAZOB 1g/0.5g in D5W 5% 100 ML IV SCH ×3 (08:14)
[2019-07-09] MEDS ORDERED: POTASSIUM CHL 20MEQ/100ML 100 ML IV SCH (09:00)
[2019-07-09] MEDS: TOBRAMYCIN 300 MG/5 ML NEB SOLN NEB SCH ×2 (09:50→21:57)
[2019-07-09] MEDS: PANTOPRAZOLE 40 MG/10 ML VIAL INJ IV SCH (10:32)
[2019-07-09] MEDS: SODIUM CHLOR 0.9% PF (SALINE LOCK) 10ML VIAL/SYR IV SCH ×2 (10:33→22:00)
--- NOTE | 2019-07-09 10:44 | NUR ---
DR MADRIGAL AT BEDSIDE, ORDER TO CHECK POTASSIUM LEVEL AT 1200. ORDER PLACED.
[2019-07-09] MEDS: IRON SUCROSE COMPLEX 200 MG in SODIUM CHL 0.9% 100 ML IV SCH (11:59)
[2019-07-09] MEDS: DOPamine 1600MCG/ML D5W 250 ML IV SCH (13:00)
--- NOTE | 2019-07-09 13:59 | NUR ---
PAGED DR UMANA REGARDING LATEST POTASSIUM REDRAW 3.2. AWAITING CALL BACK. Addendum: 07/09/19 at 1400 by Bhargav Sánchez RN PAGEBrigid AT [phone]
--- NOTE | 2019-07-09 14:09 | NUR ---
1400 07/09/19 I faxed transfer order and Notice Regarding Post Stabilization to [facility]-document scanned into [employer]. I faxed today's MD progress notes, CXR, labs, vitals and medication list to [facility].
[2019-07-09] MEDS ORDERED: POTASSIUM CHL 20MEQ/100ML 100 ML IV ONE (14:30)
--- NOTE | 2019-07-09 14:47 | NUR ---
DR MADRIGAL CALLED BACK, AWARE RN OBTAINED ORDER FOR POTASSIUM 20 MEQ IV RIDER ONCE PER DR FRANCOIS AFTER REDRAW POTASSIUM 3.2. AWARE RN GIVING [address] FRANCOIS ORDER. DR MADRIGAL ORDERED POTASSIUM 40 MEQ IV RIDER ONCE FOR TOTAL OF 60 MEQ.
--- NOTE | 2019-07-09 16:27 | NUR ---
DR PARKER AT BEDSIDE
[2019-07-09] MEDS: fentaNYL Drip 2500mCg/250mlNS 250 ML IV SCH (16:46)
[2019-07-09] MEDS ORDERED: WARFARIN SODIUM 2 MG TAB PO ONE (17:00)
--- NOTE | 2019-07-09 17:44 | NUR ---
1730 07/09/19 I called [facility] and spoke with lease administration analyst Angelito, he stated they did receive the transfer order but are not accepting any ICU or SHON transfers at this time to [place] or [place] due to oversaturation. Inpatient authorization continues until 07/10/19 1000.
--- NOTE | 2019-07-09 18:20 | NUR ---
Respiratory note: RECEIVED PT ON STANTON V200 VENT([id number]) TRACH TO VENT. VENT CONNECTED TO RED OUTLET AND O2 SOURCE ALARMS ARE SET AND AUDIBLE. AMBU BAG AND MASK AT BEDSIDE. BS ARE FINE COURSE SXD VIA TRACH FOR THIN CREAMY ZAMAN SMALL AMOUNT. WILL CONTINUE TO MONITOR Q2H AND NEEDED. RT NAME AND PAGER ASSIGNMENT WRITTEN ON PTS ROOM BOARD.
[2019-07-09] MEDS: NOREPINEPHRINE BITARTRATE 16 MG in SODIUM CHL 0.9% 250 ML IV SCH (19:29)
--- NOTE | 2019-07-09 20:20 | NUR ---
Respiratory note: AT BEDSIDE FOR ROUTINE VENT CHECK. NO VENT CHANGES MADE AT THIS TIME. WILL CONTINUE TO MONITOR.
--- NOTE | 2019-07-09 21:57 | NUR ---
Respiratory note: AT BEDSIDE FOR ROUTINE VENT CHECK. NO VENT CHANGES MADE. MED NEB TX GIVEN INLINE VIA AEROGEN. NO ADVERSE REACTION NOTED. WILL CONTINUE TO MONITOR.
--- NOTE | 2019-07-09 22:00 | NUR ---
Residuals TF continued at 30 cc's/hr. residuals noted to be less than 10 at this time. will continue to monitor.
--- NOTE | 2019-07-09 22:30 | NUR ---
Family Pt's , Miranda called for an update. Password given and all questions and concerns addressed at this time.
[2019-07-09] MEDS: ATORVASTATIN 20 MG TAB PO SCH (22:48)
[2019-07-10] VITALS (102 sets, daily range): BP systolic 92–150; BP diastolic 33–70
--- NOTE | 2019-07-10 00:23 | NUR ---
Respiratory note: AT BEDSIDE FOR ROUTINE VENT CHECK. NO VENT CHANGES MADE. WILL CONTINUE TO MONITOR.
--- NOTE | 2019-07-10 02:10 | NUR ---
Respiratory note: AT BEDSIDE FOR ROUTINE VENT CHECK. NO VENT CHANGES MADE. TRACH CARE DONE WITHOUT INCIDENT. INLINE SX CATHETER CHANGED AT THIS TIME ALSO WITHOUT INCIDENT. WILL CONTINUE TO MONITOR.
--- NOTE | 2019-07-10 04:17 | NUR ---
Respiratory note: END OF SHIFT VENT CHECK. NO CHANGES DONE WILL HAVE DAY SHIFT CONTINUE POC.
--- NOTE | 2019-07-10 04:30 | NUR ---
Cares Pt given complete bed bath and full linen change. Pt tolerated well.
[2019-07-10 04:53] LABS: INR 1.88 (0.9-1.15)
[2019-07-10 04:58] LABS: BUN/Creatinine Ratio 62.5; Calcium 7.4 mg/dL (8.5-10.1); Potassium 3.9 mmol/L (3.5-5.1)
--- NOTE | 2019-07-10 05:00 | NUR ---
PICC Line Dressing Changes PICC line dressing change done with a sterile technique. Cleansed with chloraprep scrub/alcohol. Stat lock, and bio-patch as available. Occlusive dressing applied.
[2019-07-10] MEDS: InsuLIN REG 1unit/0.01ml Soln (100units/ml) SC SCH ×3 (06:00→18:13)
[2019-07-10] MEDS: CALCIUM ACETATE 667 MG CAP NG SCH ×3 (06:00→22:29)
[2019-07-10] MEDS: ACCU-CHEK COMFORT CURVE STRIP VI SCH ×4 (06:06→18:09)
[2019-07-10] MEDS: levoFLOXacin 750MG 150 ML IV SCH (06:07)
[2019-07-10] MEDS: INSULIN LANTUS (GLARGINE) 1 /0.01ml (100units/ml) SC SCH (06:07)
[2019-07-10] MEDS: METOCLOPRAMIDE HCL 5MG/ml INJ 2ml VIAL IV SCH ×3 (06:07→22:29)
[2019-07-10] MEDS: ALBUTEROL SULF 2.5 MG/0.5ML(0.5%) NEB SOLN NEB SCH ×3 (06:45→22:23)
[2019-07-10] MEDS: IPRATROPIUM BROM 0.5 MG/2.5ML INH SOL NEB SCH ×3 (06:45→22:23)
--- NOTE | 2019-07-10 08:00 | NUR ---
AM ASSESSMENT COMPLETED. PT REMAINS ON TRACH TO VENT. ON FENTANYL GTT AT 200 MCG/HR . MINIMAL TRACHEAL SECRETIONS COPIOUS ORAL ZAMAN SECRETIONS. PT TOLERATING VENTILATOR WITHOUT MAJOR DISCOMFORT. SWELLING DECREASING FROM A WEEK AGO. KAUR WITHOUT ANY URINE OUTPUT, FURTHER INVESTIGATION NEEDED. ALL MONITOR ALARMS VERIFIED. REPOSITIONED FOR COMFORT.
[2019-07-10] MEDS ORDERED: BUMETANIDE 2.5mg/10ml (0.25 mg/ml) INJ IV ONE (08:45)
--- NOTE | 2019-07-10 08:47 | NUR ---
DR. AMEZQUITA ROUNDRAZA. I NOTIFY HIM OF PT'S LOW UOP ONLY 50 ML LAST NIGHT. REVIEWED PT'S MEDS. PT IS SUPPOSED TO BE HAVING BUMEX 1 MG DAILY. PT DIDN'T RECEIVE THIS AM. RECEIVE ORDERS TO ADMINISTER THIS AM. KAUR WILL BE FLUSHED TOO. TF WILL BE CONTINUED PLANNED.
--- NOTE | 2019-07-10 09:02 | NUR ---
0900 07/10/19 I faxed transfer order and Notice Regarding Post Stabilization to [facility]-document scanned into [employer]. I faxed today's labs, vitals and medication list to [facility].
[2019-07-10] MEDS: SOD CHL 0.45% 1,000 ML IV SCH ×2 (09:16→22:48)
--- NOTE | 2019-07-10 09:54 | NUR ---
BUMEX GIVEN RX. KAUR FLUSHED UNSUCCESSFULLY. NEW KAUR INSERTED. URINE RETURNED 1250 ML OF DARK ICETEA COLOR URINE WITH SOME PINK TINGE SEDIMENTS. DR. STEFANO WOLFF, SHE WAS ROUNDING AT THIS TIME. PT ALSO STARTED ON 1/2 NS AT 75 ML/HR PER DR. UMANA ELECTRICAL PANEL BUILDER. PT TOLERATING TF. NO RESIDUALS THIS AM, GLUCERNA AT 40 ML /HR.
[2019-07-10] MEDS: TOBRAMYCIN 300 MG/5 ML NEB SOLN NEB SCH ×2 (10:09→22:23)
[2019-07-10] MEDS: Glucerna 1.2 Cal 1Liter BOTTLE GT SCH (10:32)
[2019-07-10] MEDS: PANTOPRAZOLE 40 MG/10 ML VIAL INJ IV SCH (11:02)
[2019-07-10] MEDS: IRON SUCROSE COMPLEX 200 MG in SODIUM CHL 0.9% 100 ML IV SCH (11:02)
[2019-07-10] MEDS: POTASSIUM EFFERVESENT TAB 25 MEQ GT SCH ×2 (11:02→22:29)
[2019-07-10] MEDS: SODIUM CHLOR 0.9% PF (SALINE LOCK) 10ML VIAL/SYR IV SCH ×2 (11:03→22:00)
--- NOTE | 2019-07-10 11:23 | NUR ---
Nutrition Follow-up Wt.: 140.0 kg Pt is intubated sedated with no family by bedside. Pt currently NPO with EN support with Glucerna @ 40 ml/hr providing 1152 kcals and 57 hm proteins. pt with inadequate EN support as it meets 58-74% kcals and 64/81% proteins Est. Energy Needs: 9459-7535 kcal (12-15 kcal/kg BW), Est. Protein Needs: 70-88 gms/day (0.8-1.0 gms/kg Adj.BW r/t elev RFT). Labs: BUN 95 H, CREAT 1.52 H, CA 7.4 L, GLU 127 H GI: Pt had 50 ml BM today per RN doc. Skin: Louis scale 10, high risk. Please refer to wound assessment report for full details PES: 1) Obese, Class III r/t energy intake in excess of energy needs aeb BMI 47 kg/m2 and 202% IBW Recommendations: 1) Consider EN support with Glucerna @ 65 ml/hr per MD approval. 2) Resume PN support if pt unable to cain EN. 3) Advance diet gradually to oral CCHO 60g diet, when medically appropriate.3) Refer pt to CDE/RD for further nutrition education and weight monitoring upon discharge. 4) Continue current plan of care.
[2019-07-10] MEDS: DOPamine 1600MCG/ML D5W 250 ML IV SCH (13:00)
--- NOTE | 2019-07-10 13:41 | NUR ---
2850 07/10/19 I received a call from complaint analyst Vanessa at [facility] (working with Deposit Clerk Dimitri) letting me know that they did receive the transfer order on this patient but they are currently not accepting any ICU transfers at [facility] due to oversaturation. I asked about other [facility] facilities that he can be transferred, she said that they are not transferring their patients to their out of area facilities at this time.
--- NOTE | 2019-07-10 14:03 | NUR ---
NOTIFIED DR. AGARWAL THAT PT HAS PINK TINGED URINE/ ICETEA COLOR (BLOODY) URINE NO BLOOD CLOTS. MD ADVISED ME TO CALL UROLOGIST AND TO NOTIFY THE. NEW CONSULTATION WRITTEN.
[2019-07-10] MEDS ORDERED: WARFARIN SODIUM 1 MG TAB PO ONE (17:00)
[2019-07-10] MEDS: fentaNYL Drip 2500mCg/250mlNS 250 ML IV SCH (17:46)
--- NOTE | 2019-07-10 19:00 | NUR ---
REPORT GIVEN TO HONG RN. PT STILL PENDING UROLOGIST CONSULTATION FOR HEMATURIA AND PENILE DISCHARGE. DR. AGARWAL WANTS TO CONTINUE COUMADIN. COUMADIN DOSE WAS GIVEN THIS AFTERNOON. PT AWAITING ON [facility] TO TRANSFER PER INSURANCE REQUEST.
[2019-07-10] MEDS: ATORVASTATIN 20 MG TAB PO SCH (22:29)
[2019-07-11] VITALS (96 sets, daily range): BP systolic 93–173; BP diastolic 30–82
--- NOTE | 2019-07-11 00:30 | NUR ---
Cares Partial linen change, CHG wipe bath given, z guard applied to peeling skin areas, meatal care done. Noted to have hematuria. Pt awake and answers questions with a head nod.
--- NOTE | 2019-07-11 00:49 | NUR ---
Temperature Axillary temp at 101.1. Tylenol given per NGT. Cooling measures initiated; fan, ice packs
--- NOTE | 2019-07-11 02:00 | NUR ---
Temp recheck 99.7 axillary
[2019-07-11 04:43] LABS: INR 1.71 (0.9-1.15); Partial Thromboplastin Time 39.9 sec (23.64-32.05)
[2019-07-11 04:48] LABS: Anion Gap 4 (5-15); BUN/Creatinine Ratio 60.6; Blood Urea Nitrogen 77 mg/dL (7-18); Calcium 7.3 mg/dL (8.5-10.1); Carbon Dioxide 26 mmol/L (21-32); Chloride 118 mmol/L (98-107); GFR African American 73 mL/min; GFR Non-African American 60 mL/min; Glucose 136 mg/dL (74-106); Potassium 4.2 mmol/L (3.5-5.1); Sodium 148 mmol/L (136-145)
[2019-07-11] MEDS: CALCIUM ACETATE 667 MG CAP NG SCH ×3 (05:28→22:00)
[2019-07-11] MEDS: METOCLOPRAMIDE HCL 5MG/ml INJ 2ml VIAL IV SCH ×3 (05:28→22:00)
[2019-07-11] MEDS: levoFLOXacin 750MG 150 ML IV SCH (05:28)
[2019-07-11] MEDS: ACCU-CHEK COMFORT CURVE STRIP VI SCH ×4 (05:29→17:47)
[2019-07-11 05:35] LABS: Monocytes # (auto) 0.9 10 ^3/uL (0-1.3); Neutrophils # (auto) 5.4 10 ^3/uL (1.6-8.6); Nucleated Red Blood Cells % 0.1 %
[2019-07-11 05:36] LABS: Basophils # (auto) 0.1 10 ^3/uL (0-0.2); Basophils % (auto) 0.6 % (0.0-2.0); Eosinophils # (auto) 1.2 10 ^3/uL (0-0.8); Eosinophils % (auto) 12.4 % (0.0-7.0); Hematocrit 19.7 % (41.0-53.0); Lymphocytes # (auto) 1.9 10 ^3/uL (0.4-5.4); Lymphocytes % (auto) 19.9 % (10.0-50.0); Mean Corpuscular Hemoglobin 28.1 pg (28.0-32.0); Mean Corpuscular Hgb Conc. 32.3 g/dL (32.0-36.0); Monocytes % (auto) 9.6 % (0.0-12.0); Neutrophils % (auto) 57.5 % (37.0-80.0); Platelet Count (auto) 71 10^3/uL (140-450); Red Blood Cells 2.27 10^6/uL (4.5-5.90); Red Cell Distribution Width 17.1 % (11.8-14.3); White Blood Cell 9.4 10^3/uL (4.4-10.8)
[2019-07-11] MEDS: BUMETANIDE 2.5mg/10ml (0.25 mg/ml) INJ IV SCH (05:38)
[2019-07-11 05:39] LABS: Hemoglobin 6.4 g/dL (13.5-17.5)
[2019-07-11] MEDS: InsuLIN REG 1unit/0.01ml Soln (100units/ml) SC SCH ×4 (05:44→18:00)
--- NOTE | 2019-07-11 05:50 | NUR ---
Received critical Hgb level. Paged Hospitalist.
--- NOTE | 2019-07-11 06:32 | NUR ---
Respiratory note: PT HAS SKIN BREAKDOWN UNDER FLANG OF TRACH. AREA CLEANED AND SKIN BARRIER PLACED.
[2019-07-11] MEDS: IPRATROPIUM BROM 0.5 MG/2.5ML INH SOL NEB SCH ×3 (06:38→22:04)
[2019-07-11] MEDS: ALBUTEROL SULF 2.5 MG/0.5ML(0.5%) NEB SOLN NEB SCH ×3 (06:38→22:03)
[2019-07-11] MEDS: INSULIN LANTUS (GLARGINE) 1 /0.01ml (100units/ml) SC SCH (06:48)
--- NOTE | 2019-07-11 07:00 | NUR ---
Hospitalist called back. New order for 1 prbc. Order entered
--- NOTE | 2019-07-11 07:20 | NUR ---
End of Shift Note Report given to day shift RN and care endorsed to COMPA Regalado
--- NOTE | 2019-07-11 09:15 | NUR ---
Resumed care at 0715, orders reviewed and ongoing assessments being done. Being treated for multiple problems and still requiring mechanical ventilation. Upon arrival eyes closed but opened when name called and able to nod head yes or no to simple questions. Oriented to place and situation, has been here since May 27, 2019 and a tracheostomy has been placed this hospitalization. Remains on a FentaNLY infusion for pain management. Dr. Calderon director product management at bedside to round at 0908. Discussed condition and plan of care. Will get one unit of PRBC's for H/H of 6.4-19.7. Noted hematuria, pending urology consult.
--- NOTE | 2019-07-11 10:07 | NUR ---
Dr. Tripp, urologist at bedside to evaluate. Per Dr. Tripp no intervention at this time and will continue to monitor.
[2019-07-11] MEDS: SODIUM CHLOR 0.9% PF (SALINE LOCK) 10ML VIAL/SYR IV SCH ×2 (10:10→22:00)
[2019-07-11] MEDS: TOBRAMYCIN 300 MG/5 ML NEB SOLN NEB SCH ×2 (10:30→22:04)
--- NOTE | 2019-07-11 10:30 | NUR ---
Multiple skin issues. All wounds addressed and care for per order. Skin very thin and constantly peeling off from head to toe, MD's on case aware. Changed ileostomy bag. Stoma pink/red and area cleansed.
--- NOTE | 2019-07-11 12:00 | NUR ---
Dr. Huff at bedside at 1153, discussed condition and plan of care. Per Dr. Huff will wean off FenatNLY gtt. Ordered a second unit of PRBC's to be given.
[2019-07-11] MEDS: IRON SUCROSE COMPLEX 200 MG in SODIUM CHL 0.9% 100 ML IV SCH (12:22)
[2019-07-11] MEDS: DOPamine 1600MCG/ML D5W 250 ML IV SCH (13:00)
--- NOTE | 2019-07-11 13:00 | NUR ---
Dr. Slater consulted for low platelets and anemia. Will continue to monitor.
--- NOTE | 2019-07-11 13:28 | NUR ---
Briana Byers STABLE HELPER rounded for cardiology, no further orders.
[2019-07-11] MEDS: PANTOPRAZOLE 40 MG/10 ML VIAL INJ IV SCH ×2 (14:14→22:00)
--- NOTE | 2019-07-11 14:14 | NUR ---
Protonix dose given at 1414. Scheduled for 10 am but unavailable, pharmacy was waiting for medication to arrive.
--- NOTE | 2019-07-11 16:35 | NUR ---
Dr. Linares at bedside, discussed condition and plan of care. Remains alert with sustain eye contact when awaken. Per Dr. Linares, will try CPAP mode as tolerated. Eunice JC made change. Reinforced the importance of deep breathing.
[2019-07-11] MEDS: NOREPINEPHRINE BITARTRATE 16 MG in SODIUM CHL 0.9% 250 ML IV SCH (16:45)
--- NOTE | 2019-07-11 18:22 | NUR ---
Unable to draw 1800 lab draw from PICC line. All ports flushed with no problem but no bleed return. Notified lab and liquid floor and wall applier was in and was able to peripherally obtain blood sample. Had to be placed back on AC mode. Contacted Sole JC, made her aware that his work of breathing increase and he expressed he was SOB. Placed back on previous settings.
--- NOTE | 2019-07-11 19:00 | NUR ---
Opening shift note: Primary RN Luis Carlos received report on patient. Patient with TRACH, VENT settings: AC 20, TV 500, FIO2 35, PEEP 8, O2 Sat 96%, bilateral lungs coarse, diminished. PICC line Left upper arm. Patino catheter draining via gravity with yellow urine. Safety precautions in place. Will continue to monitor.
[2019-07-11 19:05] LABS: Hematocrit 28.5 % (41.0-53.0); Hemoglobin 9.2 g/dL (13.5-17.5)
[2019-07-11] MEDS: ATORVASTATIN 20 MG TAB PO SCH (22:00)
[2019-07-12] VITALS (81 sets, daily range): BP systolic 112–187; BP diastolic 45–79
[2019-07-12] MEDS: ACCU-CHEK COMFORT CURVE STRIP VI SCH ×4 (00:15→17:52)
[2019-07-12] MEDS: InsuLIN REG 1unit/0.01ml Soln (100units/ml) SC SCH ×4 (00:16→18:05)
[2019-07-12 03:56] LABS: Basophils # (auto) 0.1 10 ^3/uL (0-0.2); Basophils % (auto) 0.5 % (0.0-2.0); Eosinophils % (auto) 8.1 % (0.0-7.0); Hematocrit 27.6 % (41.0-53.0); Hemoglobin 8.9 g/dL (13.5-17.5); Lymphocytes # (auto) 1.5 10 ^3/uL (0.4-5.4); Lymphocytes % (auto) 11.9 % (10.0-50.0); Mean Corpuscular Hemoglobin 27.5 pg (28.0-32.0); Mean Corpuscular Volume 85.7 fL (80.0-100.0); Monocytes # (auto) 1.3 10 ^3/uL (0-1.3); Monocytes % (auto) 10.7 % (0.0-12.0); Neutrophils # (auto) 8.5 10 ^3/uL (1.6-8.6); Neutrophils % (auto) 68.8 % (37.0-80.0); Nucleated Red Blood Cells % 0.1 %; Platelet Count (auto) 56 10^3/uL (140-450); Red Blood Cells 3.23 10^6/uL (4.5-5.90); Red Cell Distribution Width 16.8 % (11.8-14.3); White Blood Cell 12.3 10^3/uL (4.4-10.8)
[2019-07-12 04:16] LABS: Albumin 1.9 g/dL (3.4-5.0); Calcium 7.9 mg/dL (8.5-10.1); Magnesium 1.7 mg/dL (1.6-2.6); Potassium 3.6 mmol/L (3.5-5.1)
[2019-07-12 04:20] LABS: BUN/Creatinine Ratio 51.9; Bilirubin, Total 0.4 mg/dL (0.2-1.0); Total Protein 7.4 g/dL (6.4-8.2)
[2019-07-12] MEDS: METOCLOPRAMIDE HCL 5MG/ml INJ 2ml VIAL IV SCH ×3 (05:00→22:07)
[2019-07-12] MEDS: levoFLOXacin 750MG 150 ML IV SCH (05:00)
[2019-07-12] MEDS: CALCIUM ACETATE 667 MG CAP NG SCH ×3 (05:00→22:07)
--- NOTE | 2019-07-12 05:57 | NUR ---
Outputs: Patino: -1,700mL out Ileostomy bag: -350mL of soft liquid stool
[2019-07-12] MEDS: IPRATROPIUM BROM 0.5 MG/2.5ML INH SOL NEB SCH ×3 (06:43→22:02)
[2019-07-12] MEDS: TOBRAMYCIN 300 MG/5 ML NEB SOLN NEB SCH ×2 (06:44→22:00)
[2019-07-12] MEDS: ALBUTEROL SULF 2.5 MG/0.5ML(0.5%) NEB SOLN NEB SCH ×3 (06:44→22:02)
[2019-07-12] MEDS: INSULIN LANTUS (GLARGINE) 1 /0.01ml (100units/ml) SC SCH (06:50)
[2019-07-12] MEDS ORDERED: POTASSIUM EFFERVESENT TAB 25 MEQ PO ONE (07:45)
[2019-07-12] MEDS ORDERED: MAGNESIUM SULFATE 1GM/100ML 100 ML IV ONE (07:45)
--- NOTE | 2019-07-12 09:49 | NUR ---
Dr. Huff at bedside. Discussed condition and reviewed patient data.
--- NOTE | 2019-07-12 09:54 | NUR ---
Resumed care at 0710, orders reviewed and ongoing assessments being done. Being treated for multiple problems and still requiring mechanical ventilation. Upon arrival eyes closed but opened when name called and able to nod head yes or no to simple questions. Reoriented to place and situation. Has been here since May 27, 2019 and a tracheostomy has been placed this hospitalization. Daryl Byers BUSINESS INTELLIGENCE MANAGER rounded for cardiology 0810, discussed condition and plan of care. Reviewed new orders.
[2019-07-12] MEDS ORDERED: FUROSEMIDE 40 MG/4 ML VIAL IV SCH (10:00)
[2019-07-12] MEDS ORDERED: METOPROLOL TARTRATE 25 MG TAB PO SCH ×2 (10:00→13:40)
[2019-07-12] MEDS: LISINOPRIL 10 MG TAB PO SCH (10:23)
[2019-07-12] MEDS: PANTOPRAZOLE 40 MG/10 ML VIAL INJ IV SCH ×2 (10:23→22:06)
[2019-07-12] MEDS: SODIUM CHLOR 0.9% PF (SALINE LOCK) 10ML VIAL/SYR IV SCH ×2 (10:24→22:08)
[2019-07-12] MEDS: fentaNYL Drip 2500mCg/250mlNS 250 ML IV SCH (10:43)
--- NOTE | 2019-07-12 10:58 | NUR ---
Nutrition Follow-up Wt.: 140.0 kg Pt is intubated off sedation. Pt currently NPO with EN support with Glucerna @ 65 ml/hr providing 1872 kcals and 94g proteins. pt with adequate EN support as it meets 96-120% kcals and 107% proteins Est. Energy Needs: 0812-0080 kcal (12-15 kcal/kg BW), Est. Protein Needs: 70-88 gms/day (0.8-1.0 gms/kg Adj.BW r/t elev RFT). Labs: BUN 55H, Glu 194H, Ca 7.9L, Alb 1.9L GI: Pt had 50 ml BM today per RN doc. Skin: Louis scale 12, high risk. Please refer to wound assessment report for full details PES: 1) Obese, Class III r/t energy intake in excess of energy needs aeb BMI 47 kg/m2 and 202% IBW Recommendations: 1) Continue EN support with Glucerna @ 65 ml/hr per MD approval. 2) Resume PN support if pt unable to cain EN. 3) Advance diet gradually to oral CCHO 60g diet, when medically appropriate.3) Refer pt to CDE/RD for further nutrition education and weight monitoring upon discharge. 4) Continue current plan of care. F/u 2-3 day
--- NOTE | 2019-07-12 11:15 | NUR ---
Dr. Slater in to round. Reviewed patient data and made aware of drop in platelets. No signs and symptoms of bleeding noted. New orders discussed.
--- NOTE | 2019-07-12 12:20 | NUR ---
Dr. Blaise Davila superintendent stations phone in to check up on plan of care. Per Dr. Davila, if no transfer to [facility] may consider placement of a PEG tube next week.
[2019-07-12] MEDS: hydrALAZINE HCL 20 MG/ML VL IV PRN ×2 (12:34→18:27)
--- NOTE | 2019-07-12 12:34 | NUR ---
Noted increase in BP and hydralazine 10 mg order IVP for SBP >150. BP 171/67 and prn dose given.
[2019-07-12] MEDS: ACETAMINOPHEN 650 mg PER 20 mL UD GT PRN (12:52)
--- NOTE | 2019-07-12 12:52 | NUR ---
Noted increase in temperature, 100.8 orally. Medicated with Tylenol PRN per order. Ice packs applied and cool compress on forehead.
--- NOTE | 2019-07-12 13:20 | NUR ---
1315 07/12/19 I faxed transfer order and Notice Regarding Post Stabilization to [facility]-document scanned into [employer]. I faxed today's MD progress notes, labs, vitals and medication list to [facility].
[2019-07-12] MEDS ORDERED: HYDROcodone-ACET 5/325MG TAB PO PRN (13:45)
[2019-07-12] MEDS: METOPROLOL TARTRATE 25 MG TAB PO SCH ×3 (13:47→23:00)
[2019-07-12] MEDS: methylPREDNISolone SOD SUCC 125 MG/2 ML VL IV SCH ×2 (13:50→22:07)
--- NOTE | 2019-07-12 14:12 | NUR ---
Briana Byers NP (cardiology) had ordered to start metoprolol. Metoprolol documented as a allergy. Contacted Miranda via phone and asked her what type of reaction he has had. She could not remember if he was allergic to the medication. Contacted Briana OZUNA, in turn she spoke with the pharmacist. Okay to release medication and low dose ordered. 12.5 mg. Has been tachycardic for days and in and out of AFIB. At this time Afib 107 with a BP of 145/65. Temperature 99.0 orally now. Had been placed on CPAP mode after 0800. Placed back on AC mode at 1305. Increase in work of breathing and appeared fatigued. Ask if SOB and nodded head yes. Dr. Linares bridge inspector in unit and made aware.
[2019-07-12] MEDS: NOREPINEPHRINE BITARTRATE 16 MG in SODIUM CHL 0.9% 250 ML IV SCH (16:45)
--- NOTE | 2019-07-12 16:50 | NUR ---
PER DR. BARRIENTOS, PT REMOVED FROM VENT AND PLACED ON 10LPM TRACH COLLAR ON 35% FIO2 BANDAR . SPO2 97%, HR 104, BP 160/70, RR 24. RN ELLIOT MADE AWARE. WILL CONTINUE TO MONITOR PT.
--- NOTE | 2019-07-12 16:50 | NUR ---
Dr. Calderon, machine stuffer automatic was in to round. Made him aware of K level down to 3.4. Recurrent PVC's and potassium level was drawn. Ordered potassium replacement. Discussed condition and reviewed new orders.
[2019-07-12] MEDS: POTASSIUM CHL 20MEQ/100ML 100 ML IV SCH ×2 (17:07→18:01)
--- NOTE | 2019-07-12 18:42 | NUR ---
Tolerated trach collar for one hour, became SOB and returned to ventilator support. Remains responsive and continues to shake head yes or no to questions. Earlier in the shift wound care done per order and complete bed bath given and total linen change.
--- NOTE | 2019-07-12 20:00 | NUR ---
Opening shift note: Patient with TRACH, VENT settings: AC 20, TV 500, FIO2 35, PEEP 8, O2 Sat 97%, RR between 21 - 30, bilateral lungs coarse, diminished. Off sedation and drips, Glucerna running at 65 ml/hr, residual is 26 ml, will continue monitoring residual, HOB 35 decrees, ileostomy producing green/brown stool. PICC line Left upper arm. Patino catheter draining via gravity with yellow urine. Safety precautions in place. Will continue to monitor. Pt opens eyes, moves his head for yes and no questions, oriented pt to time/place/situation/environment/equipment/procedures.
[2019-07-12] MEDS: ATORVASTATIN 20 MG TAB PO SCH (22:07)
[2019-07-13] VITALS (66 sets, daily range): BP systolic 126–175; BP diastolic 47–110
[2019-07-13] MEDS: ACCU-CHEK COMFORT CURVE STRIP VI SCH ×5 (00:15→23:53)
[2019-07-13] MEDS: InsuLIN REG 1unit/0.01ml Soln (100units/ml) SC SCH ×5 (00:19→23:54)
--- NOTE | 2019-07-13 04:00 | NUR ---
Cooling measure implemented - Temp 99.1
[2019-07-13 04:35] LABS: Basophils # (auto) 0 10 ^3/uL (0-0.2); Eosinophils # (auto) 0 10 ^3/uL (0-0.8); Hemoglobin 9.5 g/dL (13.5-17.5); Lymphocytes # (auto) 0.9 10 ^3/uL (0.4-5.4); Monocytes # (auto) 0.2 10 ^3/uL (0-1.3)
[2019-07-13 04:37] LABS: Basophils % (auto) 0.2 % (0.0-2.0); Hematocrit 29.1 % (41.0-53.0); Lymphocytes % (auto) 8.9 % (10.0-50.0); Mean Corpuscular Hemoglobin 27.8 pg (28.0-32.0); Mean Corpuscular Hgb Conc. 32.7 g/dL (32.0-36.0); Mean Corpuscular Volume 85.2 fL (80.0-100.0); Monocytes % (auto) 1.9 % (0.0-12.0); Neutrophils # (auto) 9.3 10 ^3/uL (1.6-8.6); Nucleated Red Blood Cells % 0.2 %; Platelet Count (auto) 58 10^3/uL (140-450); Red Blood Cells 3.42 10^6/uL (4.5-5.90); Red Cell Distribution Width 16.9 % (11.8-14.3); White Blood Cell 10.4 10^3/uL (4.4-10.8)
[2019-07-13 04:46] LABS: BUN/Creatinine Ratio 38.8; Calcium 8.6 mg/dL (8.5-10.1); Potassium 4.3 mmol/L (3.5-5.1)
[2019-07-13 04:49] LABS: Bilirubin, Total 0.4 mg/dL (0.2-1.0)
--- NOTE | 2019-07-13 05:20 | NUR ---
CARES partial linen change partial bedbath given
[2019-07-13] MEDS: methylPREDNISolone SOD SUCC 125 MG/2 ML VL IV SCH ×3 (05:53→21:58)
[2019-07-13] MEDS: hydrALAZINE HCL 20 MG/ML VL IV PRN ×2 (05:54→19:07)
[2019-07-13] MEDS: METOCLOPRAMIDE HCL 5MG/ml INJ 2ml VIAL IV SCH ×3 (05:54→21:57)
[2019-07-13] MEDS: levoFLOXacin 750MG 150 ML IV SCH (05:54)
[2019-07-13] MEDS: CALCIUM ACETATE 667 MG CAP NG SCH ×3 (05:54→21:59)
--- NOTE | 2019-07-13 06:00 | NUR ---
Stopped the feeding - residual is 85 ml
--- NOTE | 2019-07-13 06:00 | NUR ---
BP 175/85 - administered hydralazine
[2019-07-13] MEDS: ALBUTEROL SULF 2.5 MG/0.5ML(0.5%) NEB SOLN NEB SCH ×3 (06:16→22:18)
[2019-07-13] MEDS: IPRATROPIUM BROM 0.5 MG/2.5ML INH SOL NEB SCH ×3 (06:16→22:18)
--- NOTE | 2019-07-13 06:22 | NUR ---
Respiratory note: RECEIVED PATIENT ON RENTAL V200 ESPRIT VENT, TRACHED WITH AN 8 SHILEY CUFFED SECURED VIA TRACH TIE, AND MECHANICALLY VENTILATED WITH THE ABOVE CHARTED SETTINGS. SPO2 96%, LUNG SOUNDS DIM T/O, SMALL AMOUNT OF THICK CLEAR SECRETIONS WHEN SUCTIONED. SKIN IS WARM/DRY TO THE TOUCH, A PRESSURE WOUND REMAINS ON THE NECK, UNDER FLANGE OF TRACH. SKIN IS EXTREMELY FLAKY THROUGHOUT. THERE IS A NGT IN THE LEFT NARE AND SECURED TO THE NOSE, THERE IS A PICC LINE PLACED IN THE LEFT BICEP. NO OTHER ADVANCE ACCESS LINES NOTED. PITTING EDEMA NOTED ON BILATERAL UPPER AND LOWER EXTREMITIES. NO NEW CXR TO ASSESS. PATIENT IS RESPONSIVE TO TACTILE STIMULI AND IS OFF ALL SEDATION. HE IS RESTING COMFORTABLY AND TOLERATING VENT WELL. VENT PLUGGED INTO RED OUTLET AND ALL ALARMS ARE SET AND AUDIBLE. WILL CONTINUE TO ASSESS PATIENT WELL VENTILATOR FUNCTION. [employer] INLINE.
[2019-07-13] MEDS: INSULIN LANTUS (GLARGINE) 1 /0.01ml (100units/ml) SC SCH (07:01)
--- NOTE | 2019-07-13 08:25 | NUR ---
Respiratory note: PATIENT TAKEN OFF VENTILATOR AND PLACED ON 30% COOL AEROSOL TRACH MASK, PER PROVIDER'S ORDER. RN MARYLOU MADE AWARE OF CHANGE. WILL CONTINUE TO MONITOR PATIENT CLOSELY. SPO2: 96% RR: 28 HR: 115 BP: 159/58
--- NOTE | 2019-07-13 08:55 | NUR ---
Respiratory note: PATIENT PLACED BACK ON VENTILATOR AT THIS TIME HE BECAME TACHYPNEIC, INCREASINGLY TACHYCARDIC, AND SPO2 DROPPED TO LOW 80'S. RN MARYLOU AT BEDSIDE TO ASSESS AND AWARE OF PLACEMENT BACK ON VENT. PATIENT SPENT APPROX 30MIN ON TRACH COLLAR.
[2019-07-13] MEDS: SODIUM CHLOR 0.9% PF (SALINE LOCK) 10ML VIAL/SYR IV SCH ×2 (10:00→22:24)
[2019-07-13] MEDS: PANTOPRAZOLE 40 MG/10 ML VIAL INJ IV SCH ×2 (10:14→21:57)
[2019-07-13] MEDS: FUROSEMIDE 20 MG/2 ML VIAL IV SCH (10:15)
[2019-07-13] MEDS: LISINOPRIL 10 MG TAB PO SCH (10:17)
[2019-07-13] MEDS: METOPROLOL TARTRATE 25 MG TAB PO SCH ×2 (10:17→21:58)
--- NOTE | 2019-07-13 10:40 | NUR ---
DR ANTONIO AT BEDSIDE AND EXAMINED PATIENT, DR GAVE OK TO USE FENTANYL DRIP ORDERED NEEDED FOR ANALGESIA/SEDATION AND INCREASED RR. DR AWARE THAT PATIENT RECEIVED METOPROLOL AND ALSO HAS ALLERGY UNVERIFIED ON FILE. NO ADVERSE REACTIONS ASSESSED AND DR STATED TO WATCH FOR ADVERSE REACTIONS.
[2019-07-13] MEDS: fentaNYL Drip 2500mCg/250mlNS 250 ML IV SCH (11:00)
[2019-07-13] MEDS: FREE WATER GT SCH ×3 (14:00→22:23)
--- NOTE | 2019-07-13 14:21 | NUR ---
Respiratory note: FIO2 DECREASED TO 305 AT THIS TIME. COMPA HICKMAN MADE AWARE OF CHANGE.
--- NOTE | 2019-07-13 17:45 | NUR ---
EKG COMPLETED DUE TO RUN OF VTACH ASSESSED (STRIP PLACED IN CHART) , EKG SHOWING ST WITH PACS
--- NOTE | 2019-07-13 18:15 | NUR ---
TEMP TEMP 101.1 AXILLARY, TYLENOL GIVEN ORDERED AND COOLING MEASURES IN PLACE.
[2019-07-13] MEDS: NOREPINEPHRINE BITARTRATE 16 MG in SODIUM CHL 0.9% 250 ML IV SCH (18:16)
[2019-07-13] MEDS: ACETAMINOPHEN 650 mg PER 20 mL UD GT PRN (18:23)
--- NOTE | 2019-07-13 19:50 | NUR ---
PLACED AN ORDER FOR MAG AND K PER PROTOCOL NOTED VTACH AT 1757 NOTED FREQUENT PVC'S AT 1935
--- NOTE | 2019-07-13 19:58 | NUR ---
UNABLE TO DRAW BLOOD FROM PICC LINE CALLED LAB TO DRAW MAG AND K
--- NOTE | 2019-07-13 20:00 | NUR ---
Opening shift note: Patient with TRACH, VENT settings: AC 20, TV 500, FIO2 30, PEEP 8, O2 Sat 95%, RR between 22 - 30, bilateral lungs clear, diminished. elevated timp 99, hr 121, bp in 150's. On fentanyl 100, HOB 35 decrees, ileostomy producing green/brown stool. PICC line Left upper arm. Patino catheter draining via gravity with yellow urine. Safety precautions in place. Will continue to monitor. Pt opens eyes, moves his head for yes and no questions, oriented pt to time/place/situation/environment/equipment/procedures.
[2019-07-13] MEDS: ATORVASTATIN 20 MG TAB PO SCH (21:58)
[2019-07-13] MEDS: TOBRAMYCIN 300 MG/5 ML NEB SOLN NEB SCH (22:00)
--- NOTE | 2019-07-13 22:50 | NUR ---
HEALTH [facility]ATE AT BEDSIDE COLLECTING K AND MAG LAB PER [facility] FIRST SAMPLE OF BLOOD HEMOLYZED/COAGULATED
--- NOTE | 2019-07-13 23:05 | NUR ---
FAMILY CALLED UPDATED [facility] () ON STATUS AND POC, QUESTIONS AND CONCERNS ADDRESSED.
[2019-07-13 23:48] LABS: Magnesium 1.5 mg/dL (1.6-2.6); Potassium 3.7 mmol/L (3.5-5.1)
[2019-07-14] VITALS (103 sets, daily range): BP systolic 114–181; BP diastolic 20–81
--- NOTE | 2019-07-14 00:09 | NUR ---
PAGED HOSPITALIST REGARDING LOW MAGNESIUM 1.5
--- NOTE | 2019-07-14 00:20 | NUR ---
HOSPITALIST CALLED BACK RECEIVED NEW ORDER - 3 GRAMS OF MAG RIDER
[2019-07-14] MEDS: MAGNESIUM SULFATE 1GM/100ML 100 ML IV SCH ×3 (00:47→03:05)
[2019-07-14] MEDS: hydrALAZINE HCL 20 MG/ML VL IV PRN (03:06)
[2019-07-14] MEDS: FREE WATER GT SCH ×6 (03:08→21:48)
--- NOTE | 2019-07-14 04:20 | NUR ---
Paged hospitalist regarding high BP 202/90
--- NOTE | 2019-07-14 04:22 | NUR ---
RT NOTE RT DID NOT TRY PT ON TRACH COLLAR OR T-PIECE TRIAL DURING NOC SHIFT. RT FELT IT WAS NOT SAFE TO DO DUE TO PT HAVING A HIGH TEMP AND ELEVATED CR FOR MOST OF THE SHIFT. RT WILL PASS INFORMATION ON TO DAY SHIFT RT.
[2019-07-14 04:38] LABS: BUN/Creatinine Ratio 40.4; Calcium 8.1 mg/dL (8.5-10.1); Potassium 3.4 mmol/L (3.5-5.1)
--- NOTE | 2019-07-14 05:00 | NUR ---
No reply from hospitalist gave scheduled BP medication early. Metoprolol and Lisinopril was given early - will inform day shift nurse.
[2019-07-14] MEDS: LISINOPRIL 10 MG TAB PO SCH (05:02)
[2019-07-14] MEDS: METOPROLOL TARTRATE 25 MG TAB PO SCH ×2 (05:02→21:48)
--- NOTE | 2019-07-14 05:39 | NUR ---
Paged hospitalist regarding low K (3.4) will remind him of frequent PVC's
[2019-07-14] MEDS ORDERED: LABETALOL HCL 5 MG/ML 4ML SYRINGE IV ONE (05:45)
[2019-07-14] MEDS ORDERED: POTASSIUM EFFERVESENT TAB 25 MEQ GT ONE ×2 (05:45→06:15)
--- NOTE | 2019-07-14 05:50 | NUR ---
Hospitalist called back - received new orders.
[2019-07-14] MEDS: methylPREDNISolone SOD SUCC 125 MG/2 ML VL IV SCH ×3 (05:57→21:48)
[2019-07-14] MEDS: METOCLOPRAMIDE HCL 5MG/ml INJ 2ml VIAL IV SCH ×3 (05:57→21:49)
--- NOTE | 2019-07-14 06:00 | NUR ---
pharmacy recommended switching K to 25 meq pharmacist said K effervescent can not be broken to 20 mEq, recommended giving 25 mEq full dose.
--- NOTE | 2019-07-14 06:00 | NUR ---
Holding free water. pt appears as he about to vomit when medication was given through NG tube, when asked patient if he feels like vomiting he nodded his head yes. monitoring pt, suctioned his mouth, provided oral care, head of bed is 45 decrees, keeping patient within visual field at all times from nursing desk
[2019-07-14 06:07] LABS: Basophils # (auto) 0 10 ^3/uL (0-0.2); Basophils % (auto) 0.1 % (0.0-2.0); Eosinophils # (auto) 0 10 ^3/uL (0-0.8); Eosinophils % (auto) 0.1 % (0.0-7.0); Hematocrit 29.9 % (41.0-53.0); Hemoglobin 9.5 g/dL (13.5-17.5); Lymphocytes # (auto) 1.6 10 ^3/uL (0.4-5.4); Lymphocytes % (auto) 9.4 % (10.0-50.0); Mean Corpuscular Hemoglobin 27.1 pg (28.0-32.0); Mean Corpuscular Hgb Conc. 31.6 g/dL (32.0-36.0); Mean Corpuscular Volume 85.8 fL (80.0-100.0); Monocytes % (auto) 5.5 % (0.0-12.0); Neutrophils # (auto) 14.9 10 ^3/uL (1.6-8.6); Neutrophils % (auto) 84.9 % (37.0-80.0); Nucleated Red Blood Cells % 0.1 %; Platelet Count (auto) 87 10^3/uL (140-450); Red Blood Cells 3.49 10^6/uL (4.5-5.90); Red Cell Distribution Width 16.9 % (11.8-14.3); White Blood Cell 17.6 10^3/uL (4.4-10.8)
[2019-07-14] MEDS: levoFLOXacin 750MG 150 ML IV SCH (06:09)
[2019-07-14] MEDS: ALBUTEROL SULF 2.5 MG/0.5ML(0.5%) NEB SOLN NEB SCH ×3 (06:09→22:19)
[2019-07-14] MEDS: IPRATROPIUM BROM 0.5 MG/2.5ML INH SOL NEB SCH ×3 (06:09→22:19)
[2019-07-14] MEDS: CALCIUM ACETATE 667 MG CAP NG SCH ×3 (06:09→21:48)
[2019-07-14] MEDS: ACCU-CHEK COMFORT CURVE STRIP VI SCH ×4 (06:10→23:47)
--- NOTE | 2019-07-14 06:17 | NUR ---
Holding Labetalol, systolic BP 154 Labetalol was ordered for systolic 160 or above
[2019-07-14] MEDS: InsuLIN REG 1unit/0.01ml Soln (100units/ml) SC SCH ×3 (06:18→19:04)
--- NOTE | 2019-07-14 06:34 | NUR ---
Will notify day shift nurse of elevated WBC count.
[2019-07-14] MEDS: INSULIN LANTUS (GLARGINE) 1 /0.01ml (100units/ml) SC SCH (06:35)
[2019-07-14] MEDS: TOBRAMYCIN 300 MG/5 ML NEB SOLN NEB SCH ×2 (06:55→22:19)
--- NOTE | 2019-07-14 07:30 | NUR ---
REPORT REPORT RECEIVED FROM CHAVA RNSHAHRIAR. BEDSIDE CHECK DONE. PT RESTING IN BED WITH TRACH TO VENT, VSS AND NO DISTRESS NOTED. CONTINUE TO MONITOR.
--- NOTE | 2019-07-14 09:40 | NUR ---
MD VISIT PT SEEN AND EXAMINED BY DR ANTONIO. UPDATED HIM ON THE PT'S CURRENT CONDITION INCLUDING INCREASE IN WBC TO 17.6, ASKED ABOUT REPEATING BLOOD CULTURES, HIGH BP DURING THE NIGHT TO 202/92 AND ASKED ABOUT INCREASING BP MED DOSES OR ADDING SOMETHING TO MED REGIMEN. ORDERS RECEIVED.
[2019-07-14] MEDS: FUROSEMIDE 20 MG/2 ML VIAL IV SCH (10:06)
[2019-07-14] MEDS: PANTOPRAZOLE 40 MG/10 ML VIAL INJ IV SCH ×2 (10:06→21:48)
[2019-07-14] MEDS: SODIUM CHLOR 0.9% PF (SALINE LOCK) 10ML VIAL/SYR IV SCH ×2 (10:07→21:48)
[2019-07-14] MEDS: amLODIPine BESYLATE 5 MG TAB PO SCH (10:07)
--- NOTE | 2019-07-14 11:45 | NUR ---
WOUND CARE NOTE: IN TO SEE PATIENT AT THIS TIME FOR WOUND REEVALUATION. PATIENT CONTINUES TO BE BENTILATED BY WAY OF TRACHEOSTOMY. HE IS AWAKE WITH EYES OPEN, NON VERBAL AT THIS TIME. PATIENT CONTINUES TO REST ON ICU LOW AIRLOSS BED. PATIENT HAS CURRENT NAHOMI SCORE OF 11. MANY OF HIS ABRASIONS/OPEN BLISTERS/SCRATCHES ARE RESOLVING WELL, WITH SCABBED CLOSED WOUNDS NOTED TO LEFT EAR, BILAT UPPER EXTREMITIES, LOWER EXTREMITIES. ALL LEFT OPEN TO AIR. HE HAS AN OPEN SKIN TEAR TO THE BACK,RIGHT UPPER POSTERIOR ARM, AND BLE. INTERTRIGINOUS RASH TO ABD/GROIN SKIN FOLDS LOOK MUCH IMPROVED, WITH PINK SKIN, MILD SKIN EROSION. ZGUARD APPLIED. SACRAL SKIN REMAINS PINK, BLANCHABLE. MASD HAS RESOLVED. APPLIED OPTIFOAM GENTLE SACRAL DRESSING PREVENTATIVE. ALL WOUNDS PHOTOGRAPHED FOR REFERENCE, PLACED IN CHART FOR REFERENCE. RECOMMEND: CONTINUATION WITH ALL WOUND CARE ORDERS PREVIOUSLY PRESCRIBED BY MD. WOUND CARE TEAM WILL CONTINUE TO MONITOR. Addendum: 07/14/19 at 1457 by Marisol Garvey RN Amended: Links added.
[2019-07-14] MEDS: fentaNYL Drip 2500mCg/250mlNS 250 ML IV SCH (12:32)
--- NOTE | 2019-07-14 12:46 | NUR ---
Nutrition Follow-up Wt.: 140.0 kg Pt is intubated off sedation. Pt currently NPO with EN support ordered with Glucerna @ 65 ml/hr providing 1872 kcals and 94g proteins. Per RN pt TF held d/t high residuals, attempting to correct with meds. Pt intake inadequate d/t TF hold. Considering reinitiating when medically feasible. Est. Energy Needs: 4989-5453 kcal (12-15 kcal/kg BW), Est. Protein Needs: 70-88 gms/day (0.8-1.0 gms/kg Adj.BW r/t elev RFT). Labs: BUN 55H, Cr 1.36H, Ca 8.1L Glu 324H, Alb 2.0L GI: Pt had 1300 ml BM 07/12 per RN doc. Skin: Louis scale 11, high risk. Please refer to wound assessment report for full details PES: 1) Obese, Class III r/t energy intake in excess of energy needs aeb BMI 47 kg/m2 and 202% IBW Recommendations: 1) Consider restarting EN support with Glucerna @ 65 ml/hr per MD approval. 2) Resume PN support if pt unable to cain EN. 3) Advance diet gradually to oral CCHO 60g diet, when medically appropriate.3) Refer pt to CDE/RD for further nutrition education and weight monitoring upon discharge. 4) Continue current plan of care. F/u 2-3 day
--- NOTE | 2019-07-14 15:50 | NUR ---
PLACED PT ON TRACH COLLAR AT THIS TIME ON 10L, ON 35% FIO2. RN VENKAT MADE AWARE, HR 113, SPO2 95% PT BANDAR. WELL.
--- NOTE | 2019-07-14 16:25 | NUR ---
PLACED PT BACK ON VENT AFTER 35 MINUTES ON TRACH COLLAR TRIAL DUE TO RR INCREASED 32 WITH HR 131. COMPA ROBLEDO MADE AWARE.
[2019-07-14] MEDS: NOREPINEPHRINE BITARTRATE 16 MG in SODIUM CHL 0.9% 250 ML IV SCH (16:45)
--- NOTE | 2019-07-14 19:40 | NUR ---
REPORT GIVEN TO ONCOMING KIERAN CHATMAN.
[2019-07-14] MEDS: ATORVASTATIN 20 MG TAB PO SCH (21:48)
[2019-07-14] MEDS: ACETAMINOPHEN 650 mg PER 20 mL UD GT PRN (23:47)
[2019-07-15] VITALS (93 sets, daily range): BP systolic 123–188; BP diastolic 27–108
--- NOTE | 2019-07-15 00:04 | NUR ---
Oral temp 101.2; PO Tylenol administered per orders and ice packs re-applied.
[2019-07-15] MEDS: FREE WATER GT SCH ×6 (01:29→23:08)
--- NOTE | 2019-07-15 02:11 | NUR ---
Approximately 50 ml gastric residuals noted; restarted feedings at 15 ml hour. Will continue to re-assess frequently.
[2019-07-15 03:42] LABS: Basophils # (auto) 0 10 ^3/uL (0-0.2); Eosinophils # (auto) 0 10 ^3/uL (0-0.8); Hemoglobin 8.7 g/dL (13.5-17.5); Lymphocytes # (auto) 1.4 10 ^3/uL (0.4-5.4); Nucleated Red Blood Cells % 0.1 %
[2019-07-15 03:44] LABS: Basophils % (auto) 0.1 % (0.0-2.0); Hematocrit 27.3 % (41.0-53.0); Lymphocytes % (auto) 8.7 % (10.0-50.0); Mean Corpuscular Hemoglobin 27.2 pg (28.0-32.0); Monocytes # (auto) 0.9 10 ^3/uL (0-1.3); Monocytes % (auto) 5.4 % (0.0-12.0); Neutrophils # (auto) 13.7 10 ^3/uL (1.6-8.6); Neutrophils % (auto) 85.8 % (37.0-80.0); Platelet Count (auto) 87 10^3/uL (140-450); Red Blood Cells 3.21 10^6/uL (4.5-5.90); Red Cell Distribution Width 16.8 % (11.8-14.3)
[2019-07-15 03:58] LABS: Albumin 2.1 g/dL (3.4-5.0); BUN/Creatinine Ratio 45.8; Calcium 8.5 mg/dL (8.5-10.1); Magnesium 1.9 mg/dL (1.6-2.6)
[2019-07-15 04:02] LABS: Bilirubin, Total 0.5 mg/dL (0.2-1.0); Total Protein 7.3 g/dL (6.4-8.2)
[2019-07-15 04:17] LABS: Potassium 2.8 mmol/L (3.5-5.1)
--- NOTE | 2019-07-15 04:21 | NUR ---
Nephrology paged regarding critical potassium 2.8
--- NOTE | 2019-07-15 04:36 | NUR ---
Second page to nephrology.
--- NOTE | 2019-07-15 04:51 | NUR ---
Third page to nephrology.
[2019-07-15] MEDS: InsuLIN REG 1unit/0.01ml Soln (100units/ml) SC SCH ×4 (05:28→18:16)
--- NOTE | 2019-07-15 05:30 | NUR ---
Spoke with hospitalist regarding critical potassium, new orders received.
--- NOTE | 2019-07-15 05:54 | NUR ---
Approximately 10 ml tube feed residual noted prior to scheduled H2O flush, will restart feedings in 1 hour.
[2019-07-15] MEDS: POTASSIUM CHL 20MEQ/100ML 100 ML IV SCH ×2 (05:55→07:39)
[2019-07-15] MEDS: ACCU-CHEK COMFORT CURVE STRIP VI SCH ×3 (05:56→18:15)
[2019-07-15] MEDS: levoFLOXacin 750MG 150 ML IV SCH (05:56)
[2019-07-15] MEDS: METOCLOPRAMIDE HCL 5MG/ml INJ 2ml VIAL IV SCH ×3 (05:56→23:10)
[2019-07-15] MEDS: CALCIUM ACETATE 667 MG CAP NG SCH ×3 (05:56→23:11)
[2019-07-15] MEDS: methylPREDNISolone SOD SUCC 125 MG/2 ML VL IV SCH ×3 (05:56→23:10)
--- NOTE | 2019-07-15 06:02 | NUR ---
bed scale reading -22.8 kg Addendum: 07/15/19 at 0604 by Marilyn Aguilar RN Amended: Links added.
[2019-07-15] MEDS: INSULIN LANTUS (GLARGINE) 1 /0.01ml (100units/ml) SC SCH (06:33)
--- NOTE | 2019-07-15 07:01 | NUR ---
Spoke with Dr. Weber; new orders received.
[2019-07-15] MEDS: ALBUTEROL SULF 2.5 MG/0.5ML(0.5%) NEB SOLN NEB SCH ×3 (07:10→22:12)
[2019-07-15] MEDS: IPRATROPIUM BROM 0.5 MG/2.5ML INH SOL NEB SCH ×3 (07:10→22:12)
--- NOTE | 2019-07-15 07:30 | NUR ---
REPORT REPORT RECEIVED FROM CHAVA RNKIERAN. PT RESTING IN BED , ON THE VENTILATOR WITH VSS AND NO DISTRESS NOTED.
--- NOTE | 2019-07-15 08:05 | NUR ---
ASSESSMENT PT RESTING IN BED WITH EYES CLOSED, BUT OPENS THEM TO HIS NAME. FOLLOWS SIMPLE COMMANDS. SEDATED ON FENTANYL AT 145 MCG/HR FOR COMFORT AND TO HELP CONTROL RR. PT WITH VENTILATOR TO RASHARD WYMAN #8, AC 20, TV 500, 30% FIO2 AND PEEP OF 8. LUNGS CLEAR THROUGHOUT. SUCTIONED FOR SMALL AMOUNT OF CLEAR THICK ORAL FLUID. O2 SAT 96%. TELE ST [address] IN LEAD V. PALPABLE PULSES TO ALL EXTREMITIES WITH GENERALIZED EDEMA NOTED. ABD SOFT WITH HYPOACTIVE BOWEL SOUNDS. ILEOSTOMY TO THE RIGHT ABD WITH SMALL AMOUNT OF THICK LIQUID BROWN BM. KAUR CATHETER DRAINING CLEAR YELLOW URINE. MULTIPLE SKIN ISSUES, PLEASE SEE WOUND ASSESSMENT. PT REPOSITIONED TO THE RIGHT SIDE. RAILS UP X4 AND BED IN LOW POSITION FOR PT SAFETY.
[2019-07-15] MEDS: PANTOPRAZOLE 40 MG/10 ML VIAL INJ IV SCH ×2 (10:31→23:09)
[2019-07-15] MEDS: METOPROLOL TARTRATE 25 MG TAB PO SCH (10:31)
[2019-07-15] MEDS: SODIUM CHLOR 0.9% PF (SALINE LOCK) 10ML VIAL/SYR IV SCH ×2 (10:31→23:10)
[2019-07-15] MEDS: amLODIPine BESYLATE 5 MG TAB PO SCH (10:32)
[2019-07-15] MEDS: TOBRAMYCIN 300 MG/5 ML NEB SOLN NEB SCH ×2 (11:22→22:14)
--- NOTE | 2019-07-15 11:30 | NUR ---
Respiratory note: PT PLACED ON 30% COOL MIST TRACH COLLAR. PT TOLERATING WELL.
[2019-07-15] MEDS: LISINOPRIL 10 MG TAB PO SCH (12:03)
[2019-07-15 12:46] LABS: BUN/Creatinine Ratio 46.6; Calcium 8.2 mg/dL (8.5-10.1); Potassium 3.3 mmol/L (3.5-5.1)
--- NOTE | 2019-07-15 13:40 | NUR ---
Respiratory note: PT TAKEN OFF TRACH COLLAR AND PLACED BACK ON PREVIOUS VENT SETTINGS.
[2019-07-15] MEDS: fentaNYL Drip 2500mCg/250mlNS 250 ML IV SCH (13:43)
[2019-07-15] MEDS: NOREPINEPHRINE BITARTRATE 16 MG in SODIUM CHL 0.9% 250 ML IV SCH (16:45)
--- NOTE | 2019-07-15 17:15 | NUR ---
WHILE APPLYING LOTION TO PT'S DRY SKIN, I FOUND A NEW SKIN TEAR ON THE RIGHT NGUYEN 2.6X 2.1X 0. CLEANED WITH NS, PATTED DRY WITH GAUZE AND APPLIED THERAHONEY AND OPTIFOAM DRESSING. PHOTOS TAKEN.
--- NOTE | 2019-07-15 18:06 | NUR ---
Respiratory note: RECEIVED PT ON STANTON V200 VENT ([id number]). TRACH TO VENT. VENT CONNECTED TO RED OUTLET AND O2 SOURCE. ALARMS ARE SET AND AUDIBLE. AMBU BAG/MASK AND EXTRA TRACH AT BEDSIDE. BS ARE FINE COURSE SXD SMALL THICK ZAMAN VIA TRACH WITHOUT INCIDENT. RT NAME AND PAGER ASSIGNMENT WRITTEN ON PTS ROOM BOARD. WILL CONTINUE TO MONITOR Q2H.
[2019-07-15] MEDS ORDERED: POTASSIUM CHL 20MEQ/100ML 100 ML IV ONE ×2 (19:00)
--- NOTE | 2019-07-15 19:30 | NUR ---
REPORT RECEIVED, ASSUMED CARE.
--- NOTE | 2019-07-15 19:30 | NUR ---
REPORT REPORT GIVEN TO CHAVA RAMÍREZ.
--- NOTE | 2019-07-15 20:04 | NUR ---
Respiratory note: AT BEDSIDE FOR ROUTINE VENT CHECK. BS ARE FINE COURSE, LAVAGED SXD VIA TRACH FOR THICK SMALL ZAMAN/BROWN MUCUS PLUG. IMPROVED BS AUSCULTATED POST SX. NO VENT CHANGES MADE WILL CONTINUE TO MONITOR.
[2019-07-15] MEDS: ACETAMINOPHEN 650 mg PER 20 mL UD GT PRN (20:51)
--- NOTE | 2019-07-15 22:10 | NUR ---
CALLED GAVE UPDATE ON PT. EXPLAINED POC AND ADDRESSED ANY ISSUES OR CONCERNS. RESPONDED WITH UNDERSTANDING AND COMPLIANCE.
--- NOTE | 2019-07-15 22:12 | NUR ---
Respiratory note: AT BEDSIDE FOR ROUTINE VENT CHECK. SXD FOR SMALL THIN ZAMAN VIA TRACH. MED NEB TX GIVEN INLINE VIA AEROGEN. FIO2 INCREASED TO 35%, COMPA RAMÍREZ AT BEDSIDE ND COMMUNICATED CHANGES MADE. WILL CONTINUE TO MONITOR PT Q2H VENT CHECKS.
--- NOTE | 2019-07-15 23:03 | NUR ---
ILEOSTOMY BAG CAME OFF PT. REPLACED ILEOSTOMY BAG WITH NEW ONE. Patient bathe/linen change Patient given partial bath. Skin integrity assessed for any changes. Linens changed. Patient repositioned for comfort.
[2019-07-15] MEDS: ATORVASTATIN 20 MG TAB PO SCH (23:11)
[2019-07-16] VITALS (46 sets, daily range): BP systolic 122–167; BP diastolic 34–89
[2019-07-16] MEDS: ACCU-CHEK COMFORT CURVE STRIP VI SCH ×4 (00:31→17:24)
[2019-07-16] MEDS: METOPROLOL TARTRATE 25 MG TAB PO SCH ×3 (00:32→21:56)
[2019-07-16] MEDS: InsuLIN REG 1unit/0.01ml Soln (100units/ml) SC SCH ×4 (00:37→17:27)
--- NOTE | 2019-07-16 01:39 | NUR ---
BELLE NUNEZ, MEENA 2ND TIME. Addendum: 07/16/19 at 0140 by Abdon Uribe RN WRONG PT.
--- NOTE | 2019-07-16 04:18 | NUR ---
Respiratory note: AT BEDSIDE FOR END OF SHIFT VENT CHECK. TRACH CARE DONE AT THIS TIME. OPTIFOAM THAT IS BEING PLACED TO PROTECT WOUND UNDER TRACH SITE IS CAUSING REDNESS ON PTS, WHERE ADHESIVE LAYS ON SKIN. RN DESIREE COMMUNICATED ON FINDINGS. NO CHANGES DONE WILL HAVE DAY SHIFT CONTINUE TO MONITOR.
[2019-07-16 04:26] LABS: Basophils # (auto) 0 10 ^3/uL (0-0.2); Eosinophils # (auto) 0 10 ^3/uL (0-0.8); Hematocrit 28.4 % (41.0-53.0); Hemoglobin 8.9 g/dL (13.5-17.5); Lymphocytes # (auto) 1.1 10 ^3/uL (0.4-5.4); Lymphocytes % (auto) 8.2 % (10.0-50.0); Mean Corpuscular Hemoglobin 27.1 pg (28.0-32.0); Mean Corpuscular Hgb Conc. 31.4 g/dL (32.0-36.0); Mean Corpuscular Volume 86.1 fL (80.0-100.0); Monocytes # (auto) 0.7 10 ^3/uL (0-1.3); Monocytes % (auto) 5.1 % (0.0-12.0); Neutrophils # (auto) 12.1 10 ^3/uL (1.6-8.6); Neutrophils % (auto) 86.7 % (37.0-80.0); Nucleated Red Blood Cells % 0.4 %; Platelet Count (auto) 121 10^3/uL (140-450); Red Blood Cells 3.29 10^6/uL (4.5-5.90); Red Cell Distribution Width 16.8 % (11.8-14.3)
[2019-07-16 05:02] LABS: Potassium 3.2 mmol/L (3.5-5.1)
[2019-07-16 05:09] LABS: Albumin 2.3 g/dL (3.4-5.0); Bilirubin, Total 0.5 mg/dL (0.2-1.0); Magnesium 2.1 mg/dL (1.6-2.6); Total Protein 7.3 g/dL (6.4-8.2)
[2019-07-16] MEDS: ACETAMINOPHEN 650 mg PER 20 mL UD GT PRN ×2 (05:20→14:42)
[2019-07-16] MEDS: FREE WATER GT SCH ×6 (05:26→21:57)
[2019-07-16] MEDS: methylPREDNISolone SOD SUCC 125 MG/2 ML VL IV SCH ×3 (05:28→21:55)
[2019-07-16] MEDS: METOCLOPRAMIDE HCL 5MG/ml INJ 2ml VIAL IV SCH ×3 (05:28→21:55)
[2019-07-16] MEDS: CALCIUM ACETATE 667 MG CAP NG SCH ×3 (05:29→21:55)
[2019-07-16] MEDS: levoFLOXacin 750MG 150 ML IV SCH (05:30)
[2019-07-16] MEDS: IPRATROPIUM BROM 0.5 MG/2.5ML INH SOL NEB SCH ×3 (06:02→22:51)
[2019-07-16] MEDS: ALBUTEROL SULF 2.5 MG/0.5ML(0.5%) NEB SOLN NEB SCH ×3 (06:02→22:51)
--- NOTE | 2019-07-16 06:13 | NUR ---
UNABLE TO WEIGH PT BED SCALE, SCALE HAS PT - 42 KG.
[2019-07-16] MEDS: INSULIN LANTUS (GLARGINE) 1 /0.01ml (100units/ml) SC SCH (06:45)
[2019-07-16] MEDS: fentaNYL Drip 2500mCg/250mlNS 250 ML IV SCH ×3 (08:00→21:48)
[2019-07-16] MEDS ORDERED: POTASSIUM CHLORIDE 40 MEQ, LIDOCAINE 1% (LOCAL ANESTH.) 4 ML in SODIUM CHL 0.9% 100 ML IV ONE (08:30)
--- NOTE | 2019-07-16 10:00 | NUR ---
NEPHROLOGY AT BEDSIDE DR UMANA UPDATED ON PATIENT'S STATUS AND MORNING LABS. NO VERBAL ORDERS RECEIVED AT THIS TIME, WILL ADMINISTER 300 MLS OF FREE WATER ORDERED AND SCHEDULED PER MD AND RE-EVALUATE SODIUM LEVEL TOMORROW MORNING, PER DR UMANA.
--- NOTE | 2019-07-16 10:15 | NUR ---
HOSPITALIST AT BEDSIDE/ALLERGY DR ANTONIO UPDATED ON PATIENT'S STATUS, DRIPS, MORNING LABS AND PENDING TRANSFER TO [facility]. NO VERBAL ORDERS RECEIVED AT THIS TIME. ALLERGY: PATIENT ALLERGIC TO METOPROLOL AND VERIFIED BY PATIENT HE NODDED HIS HEAD "YES" WHEN ASKED IF HE WAS ALLERGIC TO METOPROLOL. DR ANTONIO MADE AWARE - ORDERED TO CONTACT CARDIOLOGY AND NOTIFY.
[2019-07-16] MEDS: TOBRAMYCIN 300 MG/5 ML NEB SOLN NEB SCH ×2 (10:22→22:51)
[2019-07-16] MEDS: PANTOPRAZOLE 40 MG/10 ML VIAL INJ IV SCH ×2 (10:34→21:55)
[2019-07-16] MEDS: LISINOPRIL 10 MG TAB PO SCH (10:38)
[2019-07-16] MEDS: amLODIPine BESYLATE 5 MG TAB PO SCH (10:47)
[2019-07-16] MEDS: SODIUM CHLOR 0.9% PF (SALINE LOCK) 10ML VIAL/SYR IV SCH ×2 (10:48→21:56)
--- NOTE | 2019-07-16 10:52 | NUR ---
CALL RECEIVED FROM [facility] JACQUELINE WAS PROVIDED WITH REQUESTED INFORMATION. PER JACQUELINE, NO ICU BED AVAILABLE - PATIENT WILL NOT BE TRANSFERRED TODAY. DR PACO MCKNIGHT.
--- NOTE | 2019-07-16 10:57 | NUR ---
PAGED CARDIOLOGY REGARDING METOPROLOL, AWAITING RESPONSE.
--- NOTE | 2019-07-16 10:59 | NUR ---
RETURN CALL FROM CARDIOLOGY CHELLY MITCHELL, AWARE OF METOPROLOL ALLERGY - CHELLY STATES WAS NOT AWARE OF METOPROLOL ALLERGY - PHARMACY IS AWARE AND PATIENT IS GETTING LOW DOSE, NO S/S OF ALLERGIC REACTION NOTED. WILL ADMINISTER PER CARDIOLOGY ORDER.
--- NOTE | 2019-07-16 11:05 | NUR ---
Nutrition Follow-up Wt.: 140.0 kg Pt is intubated off sedation. Pt currently NPO with EN support held d/t high residuals, attempting to correct with meds. Est. Energy Needs: 5272-4826 kcal (12-15 kcal/kg BW), Est. Protein Needs: 70-88 gms/day (0.8-1.0 gms/kg Adj.BW r/t elev RFT). Labs: ALB 2.3 L, CA 8.3 L, BUN 61 H, GLU 332 H GI: Pt had 50 ml BM today per RN doc. Skin: Louis scale 11, high risk. Please refer to wound assessment report for full details PES: 1) Obese, Class III r/t energy intake in excess of energy needs aeb BMI 47 kg/m2 and 202% IBW Recommendations: 1) Consider restarting EN support with Glucerna @ 65 ml/hr per MD approval. 2) Resume PN support if pt unable to cain EN. 3) Advance diet gradually to oral CCHO 60g diet, when medically appropriate.3) Refer pt to CDE/RD for further nutrition education and weight monitoring upon discharge. 4) Continue current plan of care. F/u 2-3 day
--- NOTE | 2019-07-16 12:19 | NUR ---
1215 07/16/19 I faxed transfer order and Notice Regarding Post Stabilization to [facility]-document scanned into [employer]. I faxed today's MD progress notes, xrays, labs, vitals and medication list to [facility].
--- NOTE | 2019-07-16 15:55 | NUR ---
PLACED PT ON TRACH COLLAR ON 35% FIO2 ON 10LPM. PT BANDAR. WELL. SPO2 96%, HR 92, RR 20 WITH DIMINISHED BS. RN MIN MADE AWARE.
[2019-07-16] MEDS: NOREPINEPHRINE BITARTRATE 16 MG in SODIUM CHL 0.9% 250 ML IV SCH (16:45)
--- NOTE | 2019-07-16 18:51 | NUR ---
PT IS CURRENTLY ON TRACH COLLAR @ 12L AND 40% AND TOLERATING IT WELL @ THIS TIME. SPO2 99%, HR 91 AND RR 16. WILL CONTINUE TO MONITOR.
[2019-07-16] MEDS: ATORVASTATIN 20 MG TAB PO SCH (21:57)
[2019-07-16] MEDS: Glucerna 1.2 Cal 1Liter BOTTLE GT SCH (22:10)
[2019-07-17] VITALS (51 sets, daily range): BP systolic 82–178; BP diastolic 23–102
[2019-07-17] MEDS: ACCU-CHEK COMFORT CURVE STRIP VI SCH ×4 (00:33→17:56)
[2019-07-17] MEDS: InsuLIN REG 1unit/0.01ml Soln (100units/ml) SC SCH ×4 (00:36→17:57)
[2019-07-17] MEDS: FREE WATER GT SCH ×6 (01:41→22:03)
[2019-07-17] MEDS: IPRATROPIUM BROM 0.5 MG/2.5ML INH SOL NEB SCH ×3 (06:00→22:13)
[2019-07-17] MEDS: ALBUTEROL SULF 2.5 MG/0.5ML(0.5%) NEB SOLN NEB SCH ×3 (06:00→22:13)
[2019-07-17 06:08] LABS: Basophils # (auto) 0 10 ^3/uL (0-0.2); Basophils % (auto) 0.1 % (0.0-2.0); Eosinophils # (auto) 0 10 ^3/uL (0-0.8); Hematocrit 28.5 % (41.0-53.0); Lymphocytes # (auto) 0.7 10 ^3/uL (0.4-5.4); Lymphocytes % (auto) 6.1 % (10.0-50.0); Mean Corpuscular Hemoglobin 27.6 pg (28.0-32.0); Mean Corpuscular Hgb Conc. 31.6 g/dL (32.0-36.0); Mean Corpuscular Volume 87.2 fL (80.0-100.0); Monocytes # (auto) 0.8 10 ^3/uL (0-1.3); Monocytes % (auto) 6.7 % (0.0-12.0); Neutrophils # (auto) 9.8 10 ^3/uL (1.6-8.6); Neutrophils % (auto) 87.1 % (37.0-80.0); Nucleated Red Blood Cells % 1.9 %; Platelet Count (auto) 164 10^3/uL (140-450); Red Blood Cells 3.27 10^6/uL (4.5-5.90); Red Cell Distribution Width 17.1 % (11.8-14.3); White Blood Cell 11.3 10^3/uL (4.4-10.8)
[2019-07-17] MEDS: INSULIN LANTUS (GLARGINE) 1 /0.01ml (100units/ml) SC SCH (06:24)
[2019-07-17] MEDS: METOCLOPRAMIDE HCL 5MG/ml INJ 2ml VIAL IV SCH ×3 (06:25→22:01)
[2019-07-17] MEDS: levoFLOXacin 750MG 150 ML IV SCH (06:25)
[2019-07-17] MEDS: methylPREDNISolone SOD SUCC 125 MG/2 ML VL IV SCH ×3 (06:25→22:01)
[2019-07-17] MEDS: CALCIUM ACETATE 667 MG CAP NG SCH ×3 (06:25→22:02)
[2019-07-17 06:30] LABS: Albumin 2.2 g/dL (3.4-5.0); Calcium 7.3 mg/dL (8.5-10.1); Magnesium 1.7 mg/dL (1.6-2.6); Potassium 3.4 mmol/L (3.5-5.1)
[2019-07-17 06:36] LABS: BUN/Creatinine Ratio 48.4; Bilirubin, Total 0.5 mg/dL (0.2-1.0); Phosphorus 3.4 mg/dL (2.5-4.90); Total Protein 6.9 g/dL (6.4-8.2)
[2019-07-17] MEDS: TOBRAMYCIN 300 MG/5 ML NEB SOLN NEB SCH ×2 (07:54→22:13)
--- NOTE | 2019-07-17 08:41 | NUR ---
AT BEDSIDE DR UMANA AT BEDSIDE. UPDATED HIM ON PATIENT STATUS AND MORNING LAB VALUES. RECEIVED ORDERS TO CONTINUE WITH FREE WATER AND TO GIVE LASIX TO DIURESE. ORDERS TO BE ENTERED BY MD. WILL CONTINUE TO MONITOR PATIENT STATUS AND TRENDS IN LAB VALUES AND WILL UPDATE DR UMANA NEEDED.
[2019-07-17] MEDS: PANTOPRAZOLE 40 MG/10 ML VIAL INJ IV SCH ×2 (09:47→22:01)
[2019-07-17] MEDS: METOPROLOL TARTRATE 25 MG TAB PO SCH ×2 (09:48→22:03)
[2019-07-17] MEDS ORDERED: FUROSEMIDE 40 MG/4 ML VIAL IV ONE (10:15)
--- NOTE | 2019-07-17 10:28 | NUR ---
CALL FROM [facility], SPOKE WITH JACQUELINE . PROVIDED REQUESTED INFORMATION VITAL SIGNS AND DRIPS. PER JACQUELINE TRANSFER MAY BE NEXT WEEK, ROOM CURRENTLY NOT AVAILABLE. WILL BE NOTIFIED.
[2019-07-17] MEDS: POTASSIUM EFFERVESENT TAB 25 MEQ GT SCH ×2 (12:57→22:02)
[2019-07-17] MEDS ORDERED: LORazepam 2MG/ML-1ML VIAL IV ONE (13:00)
[2019-07-17] MEDS: SODIUM CHLOR 0.9% PF (SALINE LOCK) 10ML VIAL/SYR IV SCH ×2 (13:21→22:02)
[2019-07-17] MEDS: fentaNYL Drip 2500mCg/250mlNS 250 ML IV SCH (14:49)
[2019-07-17] MEDS: LISINOPRIL 10 MG TAB PO SCH (16:40)
[2019-07-17] MEDS: amLODIPine BESYLATE 5 MG TAB PO SCH (16:40)
[2019-07-17] MEDS: NOREPINEPHRINE BITARTRATE 16 MG in SODIUM CHL 0.9% 250 ML IV SCH (16:45)
--- NOTE | 2019-07-17 17:25 | NUR ---
WOUND/PICC DRESSING CHANGE PICC LINE DRESSING CHANGE COMPL Addendum: 07/17/19 at 1803 by Sujatha Roldan RN PICC LINE DRESSING CHANGE COMPLETED WITH STERILE TECHNIQUE. PATIENT TOLERATED WELL. WOUND DRESSING CHANGE WAS COMPLETED ON ALL WOUNDS FOLLOWING WOUND CARE NURSE RECOMMENDATIONS. PATIENT WAS EDUCATED AND IS CURRENTLY RESTING. CORRECTION- TIME PERFORMED 0465.
--- NOTE | 2019-07-17 18:06 | NUR ---
PT RECEIVED ON TRACH COLLAR WITH AN 8.0 SHILEY THAT IS SECURED AND PATENT. SPO2 95% ON 35% FIO2, RR 20, HR 106. NO RESPIRATORY DISTRESS NOTED. SPARE TRACH AT BEDSIDE. VENT ON STANDBY IF NEEDED.
--- NOTE | 2019-07-17 19:09 | NUR ---
END OF SHIFT NOTE PATIENT CURRENTLY ON TRACH COLLAR, TOLERATING WELL - ENDORSED CONTINUED CARE TO CLUSTER BORE OPERATOR RN.
--- NOTE | 2019-07-17 20:41 | NUR ---
WATER REPLACED FOR TRACH COLLAR. PT EXPERIENCED DESATURATION WITH SPO2 AT 85%. FIO2 INCREASED TO 45% AT THIS TIME. SPO2 SUSTAINED AT 95%. VENT ON STANDBY AT BEDSIDE. WILL CONTINUE TO MONITOR PT.
--- NOTE | 2019-07-17 21:30 | NUR ---
ANXIETY PATIENT IS ANXIOUS, AND HYPERTENSIVE. TEACHING GIVEN ON DISEASE CONDITION. REPOSITIONED FOR COMFORT. WILL MONITOR CLOSELY.
--- NOTE | 2019-07-17 22:00 | NUR ---
ANXIETY ATIVAN IS GIVEN FOR ANXIETY.
[2019-07-17] MEDS: LORazepam 2MG/ML-1ML VIAL IV PRN (22:01)
[2019-07-17] MEDS: ATORVASTATIN 20 MG TAB PO SCH (22:02)
[2019-07-18] VITALS (60 sets, daily range): BP systolic 94–160; BP diastolic 28–74
[2019-07-18] MEDS: ACCU-CHEK COMFORT CURVE STRIP VI SCH ×4 (00:37→17:30)
[2019-07-18] MEDS: InsuLIN REG 1unit/0.01ml Soln (100units/ml) SC SCH ×4 (00:38→17:48)
--- NOTE | 2019-07-18 02:10 | NUR ---
PT RESTING COMFORTABLY AT THIS TIME FIO2 TITRATED TO 35%. SPO2 99%, HR 77, RR 14. WILL CONTINUE TO MONITOR PT.
--- NOTE | 2019-07-18 02:24 | NUR ---
PT PLACED ON VENT WITH PREVIOUS SETTINGS OF AC 20, 500, +8, AND AN FIO2 OF 30%. PT PRESENTED WITH AN INCREASED WOB AND SPO2 DESATURATION TO 88%. SPO2 INCREASED TO 95% ON VENT. PT APPEARS MORE COMFORTABLE. WILL CONTINUE WITH TRACH COLLAR TOLERATED.
--- NOTE | 2019-07-18 06:00 | NUR ---
ASSESSMENT PATIENT IS AWAKE , ALERT AND FOLLOWING COMMANDS. REPOSITIONED Q2H. TOLERATING TUBE FEEDING.
[2019-07-18] MEDS: INSULIN LANTUS (GLARGINE) 1 /0.01ml (100units/ml) SC SCH (06:16)
[2019-07-18 06:22] LABS: Calcium 7.4 mg/dL (8.5-10.1); Potassium 4.2 mmol/L (3.5-5.1)
[2019-07-18 06:24] LABS: BUN/Creatinine Ratio 55.9
[2019-07-18] MEDS: METOCLOPRAMIDE HCL 5MG/ml INJ 2ml VIAL IV SCH ×3 (06:26→21:33)
[2019-07-18] MEDS: CALCIUM ACETATE 667 MG CAP NG SCH ×3 (06:26→21:34)
[2019-07-18] MEDS: FREE WATER GT SCH ×6 (06:27→21:45)
[2019-07-18] MEDS: LORazepam 2MG/ML-1ML VIAL IV PRN ×3 (06:27→21:33)
[2019-07-18] MEDS: levoFLOXacin 750MG 150 ML IV SCH (06:27)
[2019-07-18] MEDS: methylPREDNISolone SOD SUCC 125 MG/2 ML VL IV SCH ×3 (06:27→21:34)
--- NOTE | 2019-07-18 06:30 | NUR ---
ANXIETY ATIVAN IS GIVEN FOR ANXIETY.
[2019-07-18] MEDS: IPRATROPIUM BROM 0.5 MG/2.5ML INH SOL NEB SCH ×3 (07:41→22:07)
[2019-07-18] MEDS: ALBUTEROL SULF 2.5 MG/0.5ML(0.5%) NEB SOLN NEB SCH ×3 (07:42→22:07)
--- NOTE | 2019-07-18 08:15 | NUR ---
Briana BRAZER INDUCTION at the bedside, seen and examined patient at this time, plan increase Metoprolol due to tachycardia. Will continue to monitor and care.
--- NOTE | 2019-07-18 08:20 | NUR ---
Opening Shift Note Assumed care of patient, awake and communication by reading Lips, no complaining of pain noted. No S/S of distress/SOB, on vetilator: AC 20, TV 500 FiO2 40%, peep 8, RR 20-22/min, STV 500-550, O2 saturation 96%. Instructed on POC and to call for assist PRN, will continue to monitor for changes Q1hr and PRN. Able to follow direction, still severe weak, sitting up with high casper position per patient requested. Oriented date, time and place. RT at the bedside, plan to change to Trach collar later.
--- NOTE | 2019-07-18 08:50 | NUR ---
Dr. Robin seen patient at this time. Will inform Dr. Davila again for PEG placement due to patient will need ventilator (prolong ventilator) and plan to transfer to LTAC with ventilator.
--- NOTE | 2019-07-18 08:56 | NUR ---
PT. PLACED ON TRACH MASK AT THIS TIME AT 40% FIO2. PT. IS AWAKE AND ALERT, NO RESP. DISTRESS NOTED AT THIS TIME. OG=090,RR=24,SP02=96%,BL=716/51. CONTINUE TO MONITOR RESP. STATUS.
--- NOTE | 2019-07-18 09:00 | NUR ---
RT at the bedside, changed to trach collar O2 40% 10 LPM. Will continue to monitor and care.
--- NOTE | 2019-07-18 09:15 | NUR ---
Dr. Linares at the bedside, seen patient at this time, plan to continue trach collar as much as patient can tolerated. Will continue to monitor and care, RT was informed.
--- NOTE | 2019-07-18 10:00 | NUR ---
Mouth care provided, repositioning as well. Checked the content via NG tube, got 30 ml with curd and bile, retuned it. Free water given as order. Will continue to monitor and care.
--- NOTE | 2019-07-18 10:14 | NUR ---
PT. CHECKED, HE AWAKE AND ALERT, TOLERATING TRACH MASK WELL , TB=618,RR=28,SP02=95% ON 40% FI02. CONTINUE TO MONITOR PT. FOR S/S OF DISTRESS. TRACH COLLAR TO BE DONE LONG PT. TOLERATES .
[2019-07-18] MEDS ORDERED: METOPROLOL TARTRATE 25 MG TAB PO ONE ×2 (10:15)
[2019-07-18] MEDS: FUROSEMIDE 40 MG/4 ML VIAL IV SCH (10:17)
[2019-07-18] MEDS: PANTOPRAZOLE 40 MG/10 ML VIAL INJ IV SCH ×2 (10:17→21:33)
[2019-07-18] MEDS: LISINOPRIL 10 MG TAB PO SCH (10:18)
[2019-07-18] MEDS: POTASSIUM EFFERVESENT TAB 25 MEQ GT SCH ×2 (10:18→21:33)
[2019-07-18] MEDS: SODIUM CHLOR 0.9% PF (SALINE LOCK) 10ML VIAL/SYR IV SCH ×2 (10:18→21:34)
[2019-07-18] MEDS: amLODIPine BESYLATE 5 MG TAB PO SCH (10:18)
--- NOTE | 2019-07-18 11:42 | NUR ---
1130 07/18/19 I faxed today's MD progress notes, labs, vitals and medication list to [facility]. I faxed Notice Regarding Post Stabilzation to [facility]-document scanned into [employer]. I called [facility] and spoke with corporate analyst Santy-requested to speak with assigned piano case and bench assembler to request continued inpatient authorization and to request an update on the status of the LTAC request. Per Santy, assigned Export Sales Assistant Bessie is on the other line-he will have her give me a call back regarding authorization request and LTAC.
--- NOTE | 2019-07-18 11:49 | NUR ---
Nutrition Follow-up Notes Wt.: 140.0 kg Pt was awake, is ventilated at trach, slightly sedated with Fentanyl @ 7.5 ml/hr. Pt currently NPO with EN support Glucerna 1.2 running at 65 ml/hr, pt tolerating it well, with low residuals. Pt with no noted distress per RN doc. Will continue to closely monitor pertinent labs, PO intake and skin status prn. Will followup in 3-5 days Est. Energy Needs: 8522-1683 kcal (12-15 kcal/kg BW), Est. Protein Needs: 70-88 gms/day (0.8-1.0 gms/kg Adj.BW r/t elev RFT). Labs: ALB 2.2 L, CL 110 H, NA 150 H, GLU 351, A1c 10.0 H GI: Pt BM noted on 07/13/19 per RN doc. Skin: Louis scale 13, high risk. Please refer to wound assessment report for full details PES: 1) Obese, Class III r/t energy intake in excess of energy needs aeb BMI 47 kg/m2 and 202% IBW Recommendations: 1) Consider restarting EN support with Glucerna @ 65 ml/hr per MD approval. (RESOLVED) 2) Resume PN support if pt unable to cain EN. 3) Advance diet gradually to oral CCHO 60g diet, when medically appropriate. 4) Refer pt to CDE/RD for further nutrition education and weight monitoring upon discharge. 5) Continue current plan of care. F/u 3-5 day
--- NOTE | 2019-07-18 12:16 | NUR ---
Received a call from director case from [facility], update conditions and vital sign.
--- NOTE | 2019-07-18 12:18 | NUR ---
1215 07/18/19 I spoke with [place] History Faculty Member Bessie-she asked if patient can be downgraded to SHON status-then they could possibly transfer patient [facility] (they have SHON beds but no ICU beds). I spoke with Dr. Ricardo Robin-patient needs to remain ICU status-I relayed this information to History Faculty Member Bessie-she will speak with her senior care care team regarding LTAC-and give me a call back.
[2019-07-18] MEDS: hydrALAZINE HCL 20 MG/ML VL IV PRN (12:45)
[2019-07-18] MEDS: ACETAMINOPHEN 650 mg PER 20 mL UD GT PRN ×2 (12:46→21:33)
--- NOTE | 2019-07-18 12:50 | NUR ---
BT 100.4 F, BP 160/70 mmHg, Tylenol given for BT and Hydralazine given for SBP> 150, will continue to monitor and care.
--- NOTE | 2019-07-18 13:26 | NUR ---
1320 07/18/19 I received a call from [facility] [employer] Bessie letting me know that she spoke with her ad terminal makeup operator care department, and was told that they don't normally send patients to LTAC. She asked if patient could be transferred to sub acute instead (she also said that for sub acute, patient needs to be on trach collar for at least 24 hours, and PEEP needs to be no more than 5.0). I called Dr. Ricardo Robin and he said patient not stable enough for transfer to sub acute, it needs to be LTAC placement. I called [facility] [employer] Bessie back-she will relay this information to her housekeeper supervisor and give me a call back.
--- NOTE | 2019-07-18 13:47 | NUR ---
Checked NG tube, no content left, only air around 100ml, no N/V noted, free water given as ordered. Will continue to monitor and care.
--- NOTE | 2019-07-18 14:20 | NUR ---
SX'D TRACH FOR MODERATE AMOUNT OF THICK WHITE SECRETIONS. PT. IS AWAKE AND ALERT, NO RESP. DISTRESS NOTED. CONTINUE TO MONITOR RESP. STATUS.
[2019-07-18] MEDS: NOREPINEPHRINE BITARTRATE 16 MG in SODIUM CHL 0.9% 250 ML IV SCH (15:25)
--- NOTE | 2019-07-18 15:37 | NUR ---
PT. PLACED BACK ON VENT. WITH PRIOR VENT. SETTING. AC 20, NA=857, PEEP=8, FI02= 40%. PT. WAS GETTING AGITATED AND HAVING INCREASED WOB.
--- NOTE | 2019-07-18 15:40 | NUR ---
RT at the bedside, connected patient to Ventilator due to patient using muscle to breath, retraction, RR 26-32/min, O2 saturation 96-97%. Will continue to monitor and care.
--- NOTE | 2019-07-18 16:00 | NUR ---
Mouth care provided, repositioning at this time as well.
--- NOTE | 2019-07-18 17:55 | NUR ---
Checked NG content, got more than 60 ml left, returned back, hold tube feeding at this time, will continue to monitor and check in 30 minuted.
--- NOTE | 2019-07-18 18:45 | NUR ---
Rechecked NG content, got 30 ml left with air around 150 ml, returned back. Restart tube feeding at this time.
--- NOTE | 2019-07-18 19:10 | NUR ---
OPENING NOTE RECEIVED REPORT FROM DAY SHIFT RN. PATIENT ON 75 OF FENT, FOLLOWING COMMANDS AND TRACKING, TRACHED AND TOLERATING VENTILATOR. ST 120'S ON SAP TECHNICAL DEVELOPER WITH BP 125/54 ON NO PRESSURES. LEFT UPPER ARM PICC TRANSFUSING MEDICATIONS. LEFT NGT RUNNING GLUCERNA @65 WITH 110 RESIDUAL. KAUR PATENT TO GRAVITY. MULTIPLE SKIN AREAS OF CONCERN. FOR MORE INFORMATION SEE INTERVENTIONS. FOR GTTS AND THEIR TITRATIONS SEE IV SPREAD SHEET. BED LOCKED AND IN LOWEST POSITION. ALL FALL AND SAFETY PRECAUTIONS IN PLACE.
[2019-07-18] MEDS: fentaNYL Drip 2500mCg/250mlNS 250 ML IV SCH (19:26)
--- NOTE | 2019-07-18 21:31 | NUR ---
CALLED UPDATED ON PATIENT STATUS. ALL QUESTIONS ADDRESSED AT THIS TIME
[2019-07-18] MEDS: METOPROLOL TARTRATE 25 MG TAB PO SCH (21:35)
[2019-07-18] MEDS: ATORVASTATIN 20 MG TAB PO SCH (21:37)
[2019-07-18] MEDS ORDERED: METOPROLOL TARTRATE 25 MG TAB PO SCH (22:00)
--- NOTE | 2019-07-18 23:10 | NUR ---
REPORT GIVEN NOC NURSE SOPHIA TO ASSUME CARE
[2019-07-19] VITALS (46 sets, daily range): BP systolic 90–177; BP diastolic 37–89
[2019-07-19] MEDS: FREE WATER GT SCH ×6 (02:00→22:00)
[2019-07-19 04:57] LABS: Basophils # (auto) 0 10 ^3/uL (0-0.2); Basophils % (auto) 0.1 % (0.0-2.0); Eosinophils # (auto) 0 10 ^3/uL (0-0.8); Lymphocytes # (auto) 0.4 10 ^3/uL (0.4-5.4); Monocytes # (auto) 0.6 10 ^3/uL (0-1.3)
[2019-07-19 05:00] LABS: Hematocrit 29.4 % (41.0-53.0); Hemoglobin 9.1 g/dL (13.5-17.5); Mean Corpuscular Hemoglobin 27.2 pg (28.0-32.0); Mean Corpuscular Volume 87.9 fL (80.0-100.0); Monocytes % (auto) 5.4 % (0.0-12.0); Neutrophils % (auto) 90.5 % (37.0-80.0); Nucleated Red Blood Cells % 0.5 %; Platelet Count (auto) 234 10^3/uL (140-450); Red Blood Cells 3.35 10^6/uL (4.5-5.90); Red Cell Distribution Width 17.2 % (11.8-14.3); White Blood Cell 11.1 10^3/uL (4.4-10.8)
[2019-07-19 05:13] LABS: Potassium 4.1 mmol/L (3.5-5.1)
[2019-07-19 05:20] LABS: Albumin 2.2 g/dL (3.4-5.0); BUN/Creatinine Ratio 59.1; Bilirubin, Total 0.9 mg/dL (0.2-1.0); Calcium 7.4 mg/dL (8.5-10.1); Total Protein 6.6 g/dL (6.4-8.2)
[2019-07-19] MEDS: METOCLOPRAMIDE HCL 5MG/ml INJ 2ml VIAL IV SCH ×3 (06:00→22:00)
[2019-07-19] MEDS: methylPREDNISolone SOD SUCC 125 MG/2 ML VL IV SCH ×3 (06:00→22:00)
[2019-07-19] MEDS: InsuLIN REG 1unit/0.01ml Soln (100units/ml) SC SCH ×4 (06:00→18:37)
[2019-07-19] MEDS: ACCU-CHEK COMFORT CURVE STRIP VI SCH ×4 (06:00→18:23)
[2019-07-19] MEDS: levoFLOXacin 750MG 150 ML IV SCH (06:00)
[2019-07-19] MEDS: CALCIUM ACETATE 667 MG CAP NG SCH ×3 (06:00→22:00)
[2019-07-19] MEDS: ALBUTEROL SULF 2.5 MG/0.5ML(0.5%) NEB SOLN NEB SCH ×3 (06:15→22:53)
[2019-07-19] MEDS: IPRATROPIUM BROM 0.5 MG/2.5ML INH SOL NEB SCH ×3 (06:15→22:53)
[2019-07-19] MEDS: INSULIN LANTUS (GLARGINE) 1 /0.01ml (100units/ml) SC SCH (07:23)
--- NOTE | 2019-07-19 07:30 | NUR ---
REPORT REPORT RECEIVED FROM CHAVA RNSOPHIA. BEDSIDE CHECK DONE.
--- NOTE | 2019-07-19 07:45 | NUR ---
VENTILATOR SWITCHED DUE TO CURRENT RENTAL VENT ALARMING "OCCLUSION SV OPEN. " PT PLACED ON TRACH MASK WITH COOL AEROSOL AT 40% FIO2 BETWEEN SWITCHING VENTILATORS. NO INCIDENTS OCCURED DURING THE PROCESS. PT PLACED ON RUDDY V7 VENT WITH HEATED CIRCUIT ON PREVIOUS ORDERED SETTINGS OF AC RR 20, VT500, PEEP 8, 40% FIO2. SPO2 95%.
--- NOTE | 2019-07-19 08:25 | NUR ---
ASSESSMENT PT RESTING IN BED WITH EYES CLOSED, BUT OPENS EYES TO NAME AND FOLLOWS SIMPLE COMMANDS. LUNGS CLEAR AND DIMINISHED THROUGHOUT. ON THE VENTILATOR WITH SETTINGS OF: SHILEY #8 TRACH, AC 20, TV 500, 40% 40% AND PEEP OF 8. O2 SAT OF 96%. TELE ST [address] AND INVERTED T WAVE IN LEADS II AND AVF, ELEVATED ST IN LEAD V. PALPABLE PULSES TO ALL EXTREMITIES. ABD SOFT WTIH + BOWEL SOUNDS. LEFT NARES NGT WITH PLACEMENT VERIFIED AND NO RESIDUAL NOTED. RESTART FEEDING OF GLUCERNA 1.2 AT 65 ML/HR. RIGHT ILEOSTOMY EMPTIED OF 250 ML THICK BROWN LIQUID BM. KARU CATHETER DRAINING YELLOW URINE WITH SEDIMENT. MULTIPLE SKIN ISSUES. PLEASE SEE WOUND ASSESSMENT FOR INFORMATION. 3 LUMEN PICC TO THE LUE, SITE BENIGN. CURRENTLY SEDATED ON FENTANYL. REPOSITIONED FOR COMFORT . RAILS UP X4 AND BED IN LOW POSITION FOR PT SAFETY. CONTINUE TO MONITOR.
[2019-07-19] MEDS: fentaNYL Drip 2500mCg/250mlNS 250 ML IV SCH (09:00)
[2019-07-19] MEDS ORDERED: POTASSIUM EFFERVESENT TAB 25 MEQ PO ONE (10:00)
[2019-07-19] MEDS: POTASSIUM EFFERVESENT TAB 25 MEQ GT SCH ×2 (10:14→22:00)
[2019-07-19] MEDS: FUROSEMIDE 40 MG/4 ML VIAL IV SCH (10:15)
[2019-07-19] MEDS: SODIUM CHLOR 0.9% PF (SALINE LOCK) 10ML VIAL/SYR IV SCH ×2 (10:15→22:00)
[2019-07-19] MEDS: PANTOPRAZOLE 40 MG/10 ML VIAL INJ IV SCH ×2 (10:15→22:00)
--- NOTE | 2019-07-19 10:15 | NUR ---
REPOSITIONED FOR PT SAFETY. LUNGS WITH EXPIRATORY WHEEZES NOTED. GIVEN MEDS WITH SCHEDULED 300ML OF FREE WATER VIA NGT.
[2019-07-19] MEDS: amLODIPine BESYLATE 5 MG TAB PO SCH (10:16)
[2019-07-19] MEDS: METOPROLOL TARTRATE 25 MG TAB PO SCH ×3 (10:16→23:26)
--- NOTE | 2019-07-19 10:24 | NUR ---
DR BARRIENTOS AT BEDSIDE, PER MD PUT PT ON TRACH COLLAR. PT IS ON 40% COOL MIST AEROSOL. SPO2 97%, HR 104, RR 14. PT TOLERATING ADEQUATELY.
--- NOTE | 2019-07-19 10:30 | NUR ---
PLACED ON TRACH COLLAR AT 40% FIO2 BY RT JOE, PER MD ORDER. WILL KEEP ON PT TOLERATES. Addendum: 07/19/19 at 1948 by Geena Ferguson RN TOLERATING TRACH COLLAR WITH NO DISTRESS NOTED.
--- NOTE | 2019-07-19 12:15 | NUR ---
ACCUCHECK OF229 AND PT GIVEN 8 UNITS OF REGULAR INSULIN SQ.
[2019-07-19] MEDS: LISINOPRIL 10 MG TAB PO SCH (12:55)
[2019-07-19] MEDS: NOREPINEPHRINE BITARTRATE 16 MG in SODIUM CHL 0.9% 250 ML IV SCH (16:12)
[2019-07-19] MEDS: Glucerna 1.2 Cal 1Liter BOTTLE GT SCH (16:13)
--- NOTE | 2019-07-19 17:00 | NUR ---
CONSENT CALLED AND SPOKE WITH PT'S REGARDING DR TAB DELANEY'S PLAN TO PLACE A PEG TUBE EITHER THIS OR ON MONDAY. PT'S , MONICO, GAVE HER CONSENT.
--- NOTE | 2019-07-19 18:03 | NUR ---
Respiratory note: ASSESSED PT AT THIS TIME, PT ON TRACH COLLAR 10L 40% WITH CM. PT TOLERATING WELL, NO RESP DISTRESS NOTED, PT TRACHED WITH SIZE 8.0 SHILEY WITH NO REDNESS NOTED AROUND TRACH. TRACH CLEAN AT THIS TIME. WATER LEVEL ADEQUATE IN CM. WILL CONTINUE TO MONITOR
--- NOTE | 2019-07-19 19:25 | NUR ---
REPORT REPORT GIVEN TO SOPHIA LARSEN RN.
[2019-07-19] MEDS: ATORVASTATIN 20 MG TAB PO SCH (22:00)
[2019-07-20] VITALS (50 sets, daily range): BP systolic 109–198; BP diastolic 43–89
[2019-07-20] MEDS: InsuLIN REG 1unit/0.01ml Soln (100units/ml) SC SCH ×4 (01:00→18:14)
[2019-07-20] MEDS: FREE WATER GT SCH ×6 (02:00→22:02)
[2019-07-20] MEDS: hydrALAZINE HCL 20 MG/ML VL IV PRN ×2 (03:30→18:24)
[2019-07-20 04:39] LABS: Basophils # (auto) 0 10 ^3/uL (0-0.2); Eosinophils # (auto) 0 10 ^3/uL (0-0.8); Hematocrit 32.1 % (41.0-53.0); Hemoglobin 10.1 g/dL (13.5-17.5); Lymphocytes # (auto) 0.4 10 ^3/uL (0.4-5.4); Lymphocytes % (auto) 2.4 % (10.0-50.0); Mean Corpuscular Hemoglobin 27.3 pg (28.0-32.0); Mean Corpuscular Hgb Conc. 31.5 g/dL (32.0-36.0); Mean Corpuscular Volume 86.8 fL (80.0-100.0); Monocytes # (auto) 0.4 10 ^3/uL (0-1.3); Monocytes % (auto) 2.2 % (0.0-12.0); Neutrophils # (auto) 16.3 10 ^3/uL (1.6-8.6); Neutrophils % (auto) 95.4 % (37.0-80.0); Nucleated Red Blood Cells % 0.1 %; Platelet Count (auto) 289 10^3/uL (140-450); Red Cell Distribution Width 17.7 % (11.8-14.3); White Blood Cell 17.1 10^3/uL (4.4-10.8)
[2019-07-20 04:58] LABS: Albumin 2.4 g/dL (3.4-5.0); BUN/Creatinine Ratio 58.8; Magnesium 1.7 mg/dL (1.6-2.6); Potassium 3.8 mmol/L (3.5-5.1)
[2019-07-20 05:01] LABS: Bilirubin, Total 0.8 mg/dL (0.2-1.0); Total Protein 6.9 g/dL (6.4-8.2)
[2019-07-20] MEDS: IPRATROPIUM BROM 0.5 MG/2.5ML INH SOL NEB SCH ×3 (05:48→22:41)
[2019-07-20] MEDS: ALBUTEROL SULF 2.5 MG/0.5ML(0.5%) NEB SOLN NEB SCH ×3 (05:48→22:41)
[2019-07-20] MEDS: ACCU-CHEK COMFORT CURVE STRIP VI SCH ×4 (06:00→18:09)
[2019-07-20] MEDS: levoFLOXacin 750MG 150 ML IV SCH (06:01)
[2019-07-20] MEDS: methylPREDNISolone SOD SUCC 125 MG/2 ML VL IV SCH ×3 (06:01→22:02)
[2019-07-20] MEDS: METOCLOPRAMIDE HCL 5MG/ml INJ 2ml VIAL IV SCH ×3 (06:01→22:02)
[2019-07-20] MEDS: CALCIUM ACETATE 667 MG CAP NG SCH ×3 (06:01→21:58)
--- NOTE | 2019-07-20 06:42 | NUR ---
RT NOTE: PT WAS PLACED ON TRACH COLLAR AT THIS TIME. PT TOLERATING WELL. PT IS ON 40% AND 10 LPM COOL AEROSOL. RN AWARE OF CHANGES. WILL CONTINUE TO MONITOR PT.
[2019-07-20] MEDS: INSULIN LANTUS (GLARGINE) 1 /0.01ml (100units/ml) SC SCH (07:28)
[2019-07-20] MEDS: fentaNYL Drip 2500mCg/250mlNS 250 ML IV SCH (09:12)
[2019-07-20] MEDS: POTASSIUM EFFERVESENT TAB 25 MEQ GT SCH ×2 (09:39→21:58)
[2019-07-20] MEDS: LISINOPRIL 10 MG TAB PO SCH (09:40)
[2019-07-20] MEDS: amLODIPine BESYLATE 5 MG TAB PO SCH (09:41)
[2019-07-20] MEDS: PANTOPRAZOLE 40 MG/10 ML VIAL INJ IV SCH ×2 (09:41→22:02)
[2019-07-20] MEDS: SODIUM CHLOR 0.9% PF (SALINE LOCK) 10ML VIAL/SYR IV SCH ×2 (09:41→22:17)
[2019-07-20] MEDS: FUROSEMIDE 40 MG/4 ML VIAL IV SCH (09:42)
[2019-07-20] MEDS: FLUCONAZOLE 200MG/100ML 100 ML IV SCH ×2 (12:08→15:01)
[2019-07-20] MEDS: ACETAMINOPHEN 650 mg PER 20 mL UD GT PRN (12:20)
--- NOTE | 2019-07-20 13:20 | NUR ---
WOUND CARE NOTE: IN TO SEE PATIENT AT THIS TIME FOR WOUND REEVALUATION. PATIENT CONTINUES TO BE VENTILATED BY WAY OF TRACHEOSTOMY. HE IS AWAKE, ALERT, NON VERBAL AT THIS TIME, DUE TO TRACH. PATIENT HAS CURRENT NAHOMI SCORE OF 14. PATIENT CONTINUES TO BE MAX ASSIST, INCLUDING TURNING/REPOSITIONING. HIS MANY BLISTERS AND ABRASIONS CONTINUE TO IMPROVE, WITH MANY WOUNDS NOW SCABBED CLOSED. HE CONTINUES TO HAVE OPEN WOUNDS TO THE LEFT UPPER ARM, AND RIGHT NGUYEN. OPEN AND CLOSED WOUNDS COVERED WITH OPTIFOAM GENTLE DRESSINGS. ALL WOUNDS PHOTOGRAPHED AT THIS TIME PER PROTOCOL. ALL WOUND STATS CAN BE FOUND WITHIN WOUND ASSESSMENT, LINKED WITH THIS NOTE. PATIENT TOLERATED DRESSING CHANGES WELL, WITH NO PAIN NOTED BY PATIENT. RECOMMEND: CONTINUATION WITH ALL WOUND CARE ORDERS PREVIOUSLY PRESCRIBED BY MD. WOUND CARE TEAM WILL CONTINUE TO MONITOR. Addendum: 07/20/19 at 1625 by Marisol Garvey RN Amended: Links added.
--- NOTE | 2019-07-20 15:10 | NUR ---
RT NOTE: PT WAS TAKEN OFF OF VENTILATOR AND PLACED ON TRACH COLLAR. PT TOLERATING WELL. PT IS ON 40% 10 LPM COOL AEROSOL. RN MADE AWARE OF CHANGES WILL CONTINUE TO MONITOR PT.
[2019-07-20] MEDS: NOREPINEPHRINE BITARTRATE 16 MG in SODIUM CHL 0.9% 250 ML IV SCH (16:45)
--- NOTE | 2019-07-20 17:20 | NUR ---
Resumed care at 0725, orders reviewed and ongoing assessments being done. Being treated for multiple problems and remains ventilator dependent. Does open eyes spontaneously and can answer a simple question with nodding head yes and no. Requires total care and can not participate. Dr. Sparrow and Dr. Hayward both rounded at 0944 at bedside. Continue current plan of care. Tania wound care nurse in earlier today and assisted with wound care. Tania took pictures and reevaluation of skin done. Skin continues to peel and flake off. Skin integrity has been improving slowly. 1400 Replaced NGT, walked in room and found NGT on abdomen. Tube feeding off at the time. Asked if he had pulled it out and he shook his head yes. Reinforced the purpose of the NGT. Made him aware that if he kept pulling on medical tubes that it would be necessary to apply soft bilateral mittens. Has been complacent. 1510 TEJ RT placed him on Trach Collar, Fio2 40%. Doing well and in no acute respiratory distress.
--- NOTE | 2019-07-20 18:01 | NUR ---
Respiratory note: RECEIVED PT ON 40% TRACH COLLAR. SPO2 97%, HR 106, RR 18. TRACH SITE APPEARS CLEAN, SPARE TRACH AND SUPPLIES AT BEDSIDE. VENT AT BEDSIDE. WILL CONTINUE WITH CARE.
--- NOTE | 2019-07-20 18:44 | NUR ---
Dr. Raffy Davila rounded for possible PEG placement. History of Ileostomy. Called to ask why he had a ileostomy. Per he had intestinal ulcers that lead to perforated bowels. Dr. Davila wanted the information.
--- NOTE | 2019-07-20 19:30 | NUR ---
OPENING NOTE RECEIVED REPORT FROM MICHAEL CHATMAN AND ASSUMED CARE OF PT. PT CURRENTLY AWAKE IN BED AND TRACKING WITH EYES. HE SHAKES "YES" OR "NO" WHEN ASKED QUESTIONS. VITAL SIGNS STABLE. TRACH COLLAR APPLIED- PT TOLERATING WELL WITH NO INCREASED WOB, NO INCREASED RR OR DECREASED 02 SATS AT THIS TIME. KAUR CATHETER IN PLACE AND DRAINING APPROPRIATELY. SIDE RAILS UP FOR SAFETY. PT DENIES PAIN. WILL CONTINUE TO MONITOR AND ASSESS PT. Addendum: 07/20/19 at 2231 by CJ SMITH RN RN TUBE FEEDINGS RUNNING AT GOAL RATE OF 65 ML/HR. 10 ML OF RESIDUALS NOTED.
[2019-07-20] MEDS: ATORVASTATIN 20 MG TAB PO SCH (21:58)
[2019-07-20] MEDS: METOPROLOL TARTRATE 25 MG TAB PO SCH (22:00)
[2019-07-21] VITALS (41 sets, daily range): BP systolic 119–177; BP diastolic 35–82
--- NOTE | 2019-07-21 01:00 | NUR ---
PT CARE GAVE PT CHG BATH. GOWN AND FULL [place] CHANGE DONE. SKIN ASSESSED WITH NO NEW CHANGES NOTED AT THIS TIME. GENERALIZED SKIN REMAINS FLAKY AND SCALY. ORAL CARE DONE. PT TURNED AND REPOSITIONED IN BED.
[2019-07-21] MEDS: hydrALAZINE HCL 20 MG/ML VL IV PRN ×2 (01:11→18:22)
--- NOTE | 2019-07-21 01:30 | NUR ---
RESPIRATORY ASSESSMENT PT REMAINS ON TRACH COLLAR. ALL VITAL SIGNS STABLE AT THIS TIME. NO INCREASED WOB NOTED. PT SHAKES HIS HEAD "NO" WHEN ASKED IF HE IS HAVING DIFFICULTY BREATHING OR FEELING SOB. WILL CONTINUE TO MONITOR.
[2019-07-21] MEDS: FREE WATER GT SCH ×6 (03:27→22:00)
[2019-07-21 04:23] LABS: Basophils # (auto) 0 10 ^3/uL (0-0.2); Eosinophils # (auto) 0 10 ^3/uL (0-0.8); Hemoglobin 9.6 g/dL (13.5-17.5); Monocytes # (auto) 0.4 10 ^3/uL (0-1.3)
[2019-07-21 04:26] LABS: Hematocrit 31.1 % (41.0-53.0); Lymphocytes # (auto) 0.3 10 ^3/uL (0.4-5.4); Lymphocytes % (auto) 2.3 % (10.0-50.0); Mean Corpuscular Hemoglobin 27.2 pg (28.0-32.0); Mean Corpuscular Hgb Conc. 30.8 g/dL (32.0-36.0); Mean Corpuscular Volume 88.6 fL (80.0-100.0); Monocytes % (auto) 2.9 % (0.0-12.0); Neutrophils % (auto) 94.8 % (37.0-80.0); Platelet Count (auto) 264 10^3/uL (140-450); Red Blood Cells 3.51 10^6/uL (4.5-5.90); Red Cell Distribution Width 17.5 % (11.8-14.3); White Blood Cell 14.8 10^3/uL (4.4-10.8)
[2019-07-21 04:38] LABS: INR 1.29 (0.9-1.15); Partial Thromboplastin Time 24.1 sec (23.64-32.05)
[2019-07-21 04:43] LABS: Albumin 2.2 g/dL (3.4-5.0); Calcium 7.5 mg/dL (8.5-10.1); Potassium 3.8 mmol/L (3.5-5.1)
[2019-07-21 04:47] LABS: BUN/Creatinine Ratio 61.7; Bilirubin, Total 0.7 mg/dL (0.2-1.0); Total Protein 6.2 g/dL (6.4-8.2)
--- NOTE | 2019-07-21 06:00 | NUR ---
PICC LINE DRESSING CHANGE OLD DRESSING REMOVED USING CLEAN TECHNIQUE. NO S/S OF INFECTION NOTED AROUND AREA. STERILE TECHNIQUE USED TO APPLY NEW DRESSING. STAT LOCK AND BIOPATCH IN PLACE. DRESSING IS TIMED, DATED, AND INITIALED.
[2019-07-21] MEDS: ALBUTEROL SULF 2.5 MG/0.5ML(0.5%) NEB SOLN NEB SCH ×3 (06:05→22:31)
[2019-07-21] MEDS: IPRATROPIUM BROM 0.5 MG/2.5ML INH SOL NEB SCH ×3 (06:05→22:31)
[2019-07-21] MEDS: ACCU-CHEK COMFORT CURVE STRIP VI SCH ×4 (06:05→18:08)
[2019-07-21] MEDS: CALCIUM ACETATE 667 MG CAP NG SCH ×3 (06:12→22:00)
[2019-07-21] MEDS: levoFLOXacin 750MG 150 ML IV SCH (06:12)
[2019-07-21] MEDS: METOCLOPRAMIDE HCL 5MG/ml INJ 2ml VIAL IV SCH ×3 (06:13→22:00)
[2019-07-21] MEDS: methylPREDNISolone SOD SUCC 125 MG/2 ML VL IV SCH ×3 (06:13→22:00)
[2019-07-21] MEDS: InsuLIN REG 1unit/0.01ml Soln (100units/ml) SC SCH ×4 (07:16→18:22)
[2019-07-21] MEDS: INSULIN LANTUS (GLARGINE) 1 /0.01ml (100units/ml) SC SCH (07:17)
[2019-07-21] MEDS ORDERED: PHYTONADIONE(VitK) ORAL Susp 10mg/10ml(1mg/ml) PO ONE (09:15)
[2019-07-21] MEDS: PANTOPRAZOLE 40 MG/10 ML VIAL INJ IV SCH ×2 (10:37→22:00)
[2019-07-21] MEDS: FUROSEMIDE 40 MG/4 ML VIAL IV SCH (10:37)
[2019-07-21] MEDS: LISINOPRIL 10 MG TAB PO SCH (10:38)
[2019-07-21] MEDS: POTASSIUM EFFERVESENT TAB 25 MEQ GT SCH ×2 (10:38→22:00)
[2019-07-21] MEDS: METOPROLOL TARTRATE 25 MG TAB PO SCH ×2 (10:38→22:00)
[2019-07-21] MEDS: amLODIPine BESYLATE 5 MG TAB PO SCH (10:38)
[2019-07-21] MEDS: SODIUM CHLOR 0.9% PF (SALINE LOCK) 10ML VIAL/SYR IV SCH ×2 (10:39→22:00)
[2019-07-21] MEDS: fentaNYL Drip 2500mCg/250mlNS 250 ML IV SCH (10:43)
--- NOTE | 2019-07-21 10:57 | NUR ---
Nutrition Follow-up Notes Wt.: 140.0 kg Pt with trach collar. Pt currently NPO with EN support Glucerna 1.2 running at 65 ml/hr, providing 1872 kcals and 93 gm proteins, pt with adequate EN support as it meets 96-120% kcals and 105-132% proteins Est. Energy Needs: 9951-9229 kcal (12-15 kcal/kg BW), Est. Protein Needs: 70-88 gms/day (0.8-1.0 gms/kg Adj.BW r/t elev RFT). Labs: CA 7.5 L, CO2 39 H, ALB 2.2 L, BUN 50 H GLU 344 H GI: Pt had 550 ml BM today per RN doc. Skin: Louis scale 13, high risk. Please refer to wound assessment report for full details PES: 1) Obese, Class III r/t energy intake in excess of energy needs aeb BMI 47 kg/m2 and 202% IBW Recommendations: 1) Advance diet gradually to oral CCHO 60g diet, when medically appropriate. 2) Refer pt to CDE/RD for further nutrition education and weight monitoring upon discharge. 3) Continue current plan of care. F/u 3-5 day
[2019-07-21] MEDS: FLUCONAZOLE 200MG/100ML 100 ML IV SCH ×2 (11:31→12:55)
--- NOTE | 2019-07-21 13:12 | NUR ---
Resumed care at 0725, orders reviewed and ongoing assessments being done. Upon arrival asleep but easily awakens. Continues to answer simple questions by nodding head yes or no. Can not participate with self care, requires total care. maintains spontaneous respirations and has been off ventilator support since 1515 pm yesterday (with tracheostomy). [place] been in no acute respiratory distress. Dr. Hayward at bedside at 0910. Discussed condition and plan of care, new orders noted. Dr. Sparrow at bedside at 1030, no new orders. Tolerating tube feeding at 65 ml/hr, residuals less than 5mls.
[2019-07-21] MEDS: NOREPINEPHRINE BITARTRATE 16 MG in SODIUM CHL 0.9% 250 ML IV SCH (16:45)
--- NOTE | 2019-07-21 18:21 | NUR ---
Respiratory note: ASSESSED PT AT THIS TIME, PT TRACHED WITH SIZE 8.0 SHILEY AND ON TRACH COLLAR AT THIS TIME WITH CM, CHANGED WATER FOR CM AT THIS TIME, PT TOLERATING TRACH COLLAR WITH NO SIGNS OF RESP DISTRESS NOTED, TRACH SITE CLEAN WITH NO REDNESS NOTED AROUND STOMA, WILL CONTINUE TO MONITOR
[2019-07-21] MEDS: ATORVASTATIN 20 MG TAB PO SCH (22:00)
[2019-07-22] VITALS (44 sets, daily range): BP systolic 125–175; BP diastolic 40–95
[2019-07-22] MEDS: InsuLIN REG 1unit/0.01ml Soln (100units/ml) SC SCH ×4 (00:16→18:13)
[2019-07-22] MEDS: ACCU-CHEK COMFORT CURVE STRIP VI SCH ×4 (00:22→18:00)
[2019-07-22] MEDS: FREE WATER GT SCH ×6 (02:00→21:49)
[2019-07-22 04:30] LABS: Basophils # (auto) 0 10 ^3/uL (0-0.2); Eosinophils # (auto) 0 10 ^3/uL (0-0.8); Monocytes % (auto) 3.4 % (0.0-12.0)
[2019-07-22 04:32] LABS: Basophils % (auto) 0.1 % (0.0-2.0); Hematocrit 36.4 % (41.0-53.0); Lymphocytes # (auto) 0.4 10 ^3/uL (0.4-5.4); Mean Corpuscular Hemoglobin 27.7 pg (28.0-32.0); Mean Corpuscular Hgb Conc. 30.2 g/dL (32.0-36.0); Mean Corpuscular Volume 91.6 fL (80.0-100.0); Monocytes # (auto) 0.7 10 ^3/uL (0-1.3); Neutrophils # (auto) 20.8 10 ^3/uL (1.6-8.6); Neutrophils % (auto) 94.5 % (37.0-80.0); Nucleated Red Blood Cells % 0.1 %; Platelet Count (auto) 306 10^3/uL (140-450); Red Blood Cells 3.98 10^6/uL (4.5-5.90); Red Cell Distribution Width 18.1 % (11.8-14.3)
[2019-07-22] MEDS: fentaNYL Drip 2500mCg/250mlNS 250 ML IV SCH (04:37)
[2019-07-22 04:45] LABS: Albumin 2.2 g/dL (3.4-5.0); Calcium 7.9 mg/dL (8.5-10.1); Potassium 4.2 mmol/L (3.5-5.1)
[2019-07-22 04:48] LABS: Bilirubin, Total 0.5 mg/dL (0.2-1.0); Total Protein 6.7 g/dL (6.4-8.2)
[2019-07-22] MEDS: methylPREDNISolone SOD SUCC 125 MG/2 ML VL IV SCH (05:53)
[2019-07-22] MEDS: levoFLOXacin 750MG 150 ML IV SCH (05:53)
[2019-07-22] MEDS: METOCLOPRAMIDE HCL 5MG/ml INJ 2ml VIAL IV SCH ×3 (05:53→21:50)
[2019-07-22] MEDS: CALCIUM ACETATE 667 MG CAP NG SCH ×3 (05:54→21:51)
[2019-07-22] MEDS: INSULIN LANTUS (GLARGINE) 1 /0.01ml (100units/ml) SC SCH (05:57)
[2019-07-22] MEDS: IPRATROPIUM BROM 0.5 MG/2.5ML INH SOL NEB SCH ×3 (06:24→22:38)
[2019-07-22] MEDS: ALBUTEROL SULF 2.5 MG/0.5ML(0.5%) NEB SOLN NEB SCH ×3 (06:24→22:38)
[2019-07-22 06:28] LABS: BUN/Creatinine Ratio 51.7
--- NOTE | 2019-07-22 07:30 | NUR ---
REPORT REPORT RECEIVED FROM CHAVA RNSUPA. BEDSIDE CHECK DONE. PT RESTING IN BED WITH EYES CLOSED AND IN NO DISTRESS. CURRENTLY ON TRACH COLLAR AT 50% FIO2. CONTINUE TO MONITOR.
--- NOTE | 2019-07-22 08:25 | NUR ---
ASSESSMENT PT RESTING IN BED WITH EYES CLOSED. OPENS EYES TO NAME AND FOLLOWS SIMPLE COMMANDS, PT TRYING TO TALK BUT I AM HAVING TROUBLE UNDERSTANDING WHAT HE IS SAYING. NO SPONTANEOUS MOVEMENT NOTED. LUNGS ARE CLEAR AND DIMINISHED THROUGHOUT. O2 AT 50% FIO2 VIA TRACH COLLAR. O2 SAT OF 99%. TELE SR 96 WITH PACS AND PVCS WITH DEPRESSED ST IN LEAD II AND ELEVATED ST IN LEAD V. +2 PITTING EDEMA NOTED TO BOTH FEET AND ANKLES AND LEFT FOREARM AND HAND. ABD SOFT WITH HYPOACTIVE BOWEL SOUNDS. ILEOSTOMY BAG IN PLACE TO RIGHT ABD, DRAINING LIQUID BROWN BM. EMPTIED OF 25ML AND GAS. LEFT NARES NGT, PLACEMENT VERIFIED WITH 5 ML BILE RESIDUAL. NPO , QUESTIONABLE PEG PLACEMENT TODAY. KAUR CATHETER DRAINING YELLOW URINE WITH SEDIMENT. PILL KEVIN TO THE LUE, SITE BENIGN. CURRENTLY INFUSING FENTANYL AT 100 MCG/HR. . PT TURNED TO HIS SIDE. OPTIFOAM IN PLACE TO HIS SACRUM, SKIN UNDERNEATH IS CLEAR. OPTIFOAM TO LEFT FLANK OVER ABRASION THAT SCAB HAS COME OFF, PINK SKIN. OPTIFOAM TO RIGHT WRIST OVER 2 SCABBED AREAS. RIGHT CALF WITH OPTIFOAM OVER SKIN TEAR WITH PINK WOUND BED AND ALSO A SCAB. BLACK SCABBED AREAS NOTED TO RIGHT FOOT TOES #2,3,4. SEE WOUND CARE ASSESSMENT. RAILS UP X4 AND BED IN LOW POSITION FOR PT SAFETY. CONTINUE TO MONITOR.
[2019-07-22 09:19] LABS: INR 1.15 (0.9-1.15)
[2019-07-22] MEDS: POTASSIUM EFFERVESENT TAB 25 MEQ GT SCH ×2 (10:00→10:09)
--- NOTE | 2019-07-22 10:00 | NUR ---
MD VISIT PT SEEN AND EXAMINED BY DR JAMES. I UPDATED HIM ON THE PT'S CURRENT CONDITION. NO NEW ORDERS.
[2019-07-22] MEDS: PANTOPRAZOLE 40 MG/10 ML VIAL INJ IV SCH ×2 (10:09→21:49)
--- NOTE | 2019-07-22 10:10 | NUR ---
MD VISIT PT SEEN BY DR PARKER. I UPDATED HER ON THE PT'S CURRENT CONDITION.
[2019-07-22] MEDS: FUROSEMIDE 40 MG/4 ML VIAL IV SCH (10:13)
[2019-07-22] MEDS: SODIUM CHLOR 0.9% PF (SALINE LOCK) 10ML VIAL/SYR IV SCH ×2 (10:13→21:50)
[2019-07-22] MEDS: METOPROLOL TARTRATE 25 MG TAB PO SCH ×2 (10:13→21:52)
[2019-07-22] MEDS: amLODIPine BESYLATE 5 MG TAB PO SCH (10:14)
--- NOTE | 2019-07-22 10:30 | NUR ---
POTASSIUM OF 4.2 AND SCHEDULED FOR POTASSIUM [address] WITH [address] PARKER, HOLD DOSE.
[2019-07-22] MEDS: MICAFUNGIN SODIUM 100 MG in SODIUM CHL 0.9% 100 ML IV SCH (10:48)
[2019-07-22] MEDS: MEROPENEM 1GM IVPB 100 ML IV SCH ×2 (11:50→18:08)
--- NOTE | 2019-07-22 12:00 | NUR ---
ACCUCHECK OF 228 WITH 8 UNITS OF REGULAR INSULIN SQ GIVEN. REPOSITIONED FOR COMFORT.
[2019-07-22] MEDS: LISINOPRIL 10 MG TAB PO SCH (12:19)
[2019-07-22] MEDS ORDERED: MAGNESIUM SULFATE 1GM/100ML 100 ML IV ONE (15:00)
--- NOTE | 2019-07-22 15:55 | NUR ---
SWALLOW EVALUATED. PATIENT HAS TRACH, NEW SPEAKING VALVE. PATIENT HAS SOME NATURAL TEETH, SOME MISSING. ABLE TO FOLLOW DIRECTIONS. ABLE TO TOLERATE PUREE DIET TEXTURE WITH THIN LIQUIDS WITH NO OVERT SIGNS OR SYMPTOMS OF ASPIRATION. PATIENT WILL REQUIRE MAX ASSISTANCE FOR FEEDING. NURSING NOTIFIED.
--- NOTE | 2019-07-22 16:30 | NUR ---
MD/YOVANA CALLED AND SPOKE WITH DR PARKER ADVISING HER THAT PT PASSED THE SWALLOW EVALUATION FOR PUREED DIET WITH THIN LIQUIDS . SHE WANTS TO ORDER THAT DIET AND CONTINUE THE TUBE FEEDING BUT AT THE REDUCED RATE OF 35 ML/HR , TO ENSURE THAT THE PT GETS THE NEEDED AMOUNT OF NUTRITION.
[2019-07-22] MEDS: NOREPINEPHRINE BITARTRATE 16 MG in SODIUM CHL 0.9% 250 ML IV SCH (16:45)
[2019-07-22] MEDS: hydrALAZINE HCL 20 MG/ML VL IV PRN (16:59)
--- NOTE | 2019-07-22 18:45 | NUR ---
NUTRITION/OXYGENATION AFTER FEEDING PT A JUICE AND ABOUT 1/2 OF HIS SOUP, PT'S O2 SATS WENT DOWN TO 85%. INCREASED O2 TO 6LM VIA NC WITH ONLY SLIGHT IMPROVEMENT TO 85%. CHANGED PT TO OXYMIZER AND GRADUALLY WORKED MY WAY UP TO 11 L/M AND 90% SAT BY 1904.
--- NOTE | 2019-07-22 19:15 | NUR ---
OPENING NOTE RECEIVED REPORT FROM DAY SHIFT RN. PATIENT OFF SEDATION, FOLLOWING COMMANDS WATCHING TV, TRACHED WITH SPEAKING VALVE. ST 140'S ON HEEL SPRAYER FIRST WITH BP 145/64 ON NO PRESSURES. LEFT UPPER ARM PICC TRANSFUSING MEDICATIONS. LEFT NGT RUNNING GLUCERNA HELD FOR PO FEEDING. KAUR PATENT TO GRAVITY. MULTIPLE SKIN AREAS OF CONCERN. FOR MORE INFORMATION SEE INTERVENTIONS. FOR GTTS AND THEIR TITRATIONS SEE IV SPREAD SHEET. BED LOCKED AND IN LOWEST POSITION. ALL FALL AND SAFETY PRECAUTIONS IN PLACE.
--- NOTE | 2019-07-22 19:20 | NUR ---
REPORT GIVEN TO NIGHT RN, MARK. BEDSIDE CHECK DONE.
[2019-07-22] MEDS: methylPREDNISolone SOD SUCC 40 MG/ML VL IV SCH (21:50)
[2019-07-22] MEDS: ENOXAPARIN SOD 100 MG/1 ML SYRINGE SC SCH (21:51)
[2019-07-22] MEDS: ATORVASTATIN 20 MG TAB PO SCH (21:51)
--- NOTE | 2019-07-22 23:03 | NUR ---
Respiratory note: PT TAKEN OF SPEAKING VALVE AND PLACED ON TRACH COLLAR 15 L/M 50%. PT IS TOLERATING CHANGE WELL RN MARK AWARE OF CHANGE. WILL CONTINUE TO MONITOR.
[2019-07-23] VITALS (36 sets, daily range): BP systolic 104–176; BP diastolic 37–92
[2019-07-23] MEDS: InsuLIN REG 1unit/0.01ml Soln (100units/ml) SC SCH ×4 (00:37→18:09)
[2019-07-23] MEDS: ACCU-CHEK COMFORT CURVE STRIP VI SCH ×4 (00:38→17:57)
--- NOTE | 2019-07-23 02:48 | NUR ---
Respiratory note: PT PLACED BACK ON SPEAKING VALVE WITH 11 L/M OXYMIZER. DURING TRACH CARE I CAN TELL PT WAS A LITTLE SHORT OF BREATH AND AND HAD A 28 RR. PT MOUTHED THAT HE WANTED THE SPEAKING VALVE BACK ON. ONCE PLACING THE SPEAKING VALVE BACK ON PT RR DROPPED TO 18 AND PT SEEMED MORE COMFORTABLE WITH IT ON. COMPA FLORES AT BEDSIDE AND AWARE OF CHANGE. WILL CONTINUE TO MONITOR.
[2019-07-23] MEDS: FREE WATER GT SCH ×6 (03:28→22:08)
[2019-07-23] MEDS: MEROPENEM 1GM IVPB 100 ML IV SCH ×3 (03:28→17:56)
--- NOTE | 2019-07-23 03:55 | NUR ---
COMPLETE BED BATH GIVEN TO PATIENT SKIN REASSESSED AND NO NEW BREAK DOWN NOTED, COMPLETE LINEN CHANGE.
[2019-07-23] MEDS: ALBUTEROL SULF 2.5 MG/0.5ML(0.5%) NEB SOLN NEB SCH ×3 (05:50→22:15)
[2019-07-23] MEDS: IPRATROPIUM BROM 0.5 MG/2.5ML INH SOL NEB SCH ×3 (05:50→22:15)
[2019-07-23] MEDS: METOCLOPRAMIDE HCL 5MG/ml INJ 2ml VIAL IV SCH ×3 (06:00→22:09)
[2019-07-23] MEDS: CALCIUM ACETATE 667 MG CAP NG SCH ×3 (06:00→22:00)
[2019-07-23] MEDS: hydrALAZINE HCL 20 MG/ML VL IV PRN (06:23)
[2019-07-23 06:39] LABS: Albumin 2.5 g/dL (3.4-5.0); Calcium 8.4 mg/dL (8.5-10.1); Potassium 4.5 mmol/L (3.5-5.1)
[2019-07-23 06:42] LABS: BUN/Creatinine Ratio 56.8; Bilirubin, Total 0.6 mg/dL (0.2-1.0); Total Protein 6.9 g/dL (6.4-8.2)
[2019-07-23] MEDS: INSULIN LANTUS (GLARGINE) 1 /0.01ml (100units/ml) SC SCH (07:00)
[2019-07-23 07:25] LABS: Hematocrit 35.1 % (41.0-53.0); Hemoglobin 10.9 g/dL (13.5-17.5); Mean Corpuscular Hemoglobin 27.4 pg (28.0-32.0); Mean Corpuscular Hgb Conc. 31.2 g/dL (32.0-36.0); Platelet Count (auto) 296 10^3/uL (140-450); Red Blood Cells 3.99 10^6/uL (4.5-5.90); White Blood Cell 23.4 10^3/uL (4.4-10.8)
[2019-07-23 07:27] LABS: Basophils % (manual) 0 (0.0-2.0); Blast Cells 0; Eosinophils % (manual) 0 (0-7); Metamyelocytes % 0; Promyelocytes % 0; Reactive Lymphocytes 0
--- NOTE | 2019-07-23 07:30 | NUR ---
REPORT REPORT RECEIVED FROM MARK MENDOZA. BEDSIDE CHECK DONE. PT RESTING QUIETLY WITH VSS. CONTINUE TO MONITOR.
--- NOTE | 2019-07-23 07:45 | NUR ---
ASSESSMENT PT IN BED , AWAKE AND FOLLOWS SIMPLE COMMANDS. MINIMAL MOVEMENTS NOTED OF BUE. PT WITH SPEAKING VALVE IN TRACH, SHILEY 8. PT WITH OXYMIZER AT 10 L/M WITH O2 SAT OF 95%. LUNGS CLEAR AND DIMINISHED THROUGHOUT. TELE ST 116. PALPABLE PULSES TO ALL EXTREMITIES. ABD SOFT WITH HYPOACTIVE BOWEL SOUNDS NOTED. RIGHT ABD ILEOSTOMY BAG IN PLACE WITH SMALL AMOUNT OF THICK LIQUID BROWN BM. KAUR CATHETER DRAINING YELLOW URINE WITH SEDIMENT NOTED. LEFT NARES NGT WITH + PLACEMENT AND 5ML BILE RESIDUALNOTED. GLUCERNA 1.2 INFUSING AT 35 ML/HR. PT WITH 3 LUMEN PICC LINE TO LUE, SITE BENIGN, ALL PORTS FLUSH BUT DO NOT PULL BACK BLOOD. BED IN LOW POSITION AND RAILS UP FOR PT SAFETY. SEE WOUND ASSESSMENT FOR SKIN CONDITION. CONTINUE TO MONITOR.
[2019-07-23 07:53] LABS: Band Neutrophils % (manual) 1; Lymphocytes % (manual) 8 (10.0-50.0); Monocytes % (manual) 1 (0-12); Myelocytes % 1
[2019-07-23] MEDS: PANTOPRAZOLE 40 MG/10 ML VIAL INJ IV SCH ×2 (10:39→22:08)
[2019-07-23] MEDS: methylPREDNISolone SOD SUCC 40 MG/ML VL IV SCH ×2 (10:42→22:09)
[2019-07-23] MEDS: SODIUM CHLOR 0.9% PF (SALINE LOCK) 10ML VIAL/SYR IV SCH ×2 (10:42→22:09)
[2019-07-23] MEDS: amLODIPine BESYLATE 5 MG TAB PO SCH (10:43)
[2019-07-23] MEDS: METOPROLOL TARTRATE 25 MG TAB PO SCH (10:43)
[2019-07-23] MEDS: ENOXAPARIN SOD 100 MG/1 ML SYRINGE SC SCH ×2 (10:44→22:10)
--- NOTE | 2019-07-23 11:19 | NUR ---
Nutrition Follow-up Notes Wt.: 106.7 kg Pt with trach collar. Pt diet advanced to pureed with thin liquids with EN support Glucerna 1.2 running at 35 ml/hr, providing 1008 kcals and 50 gm proteins, pt with inadequate EN support as it meets 52-65% kcals and 57-64% proteins Est. Energy Needs: 6029-9543 kcal (12-15 kcal/kg BW), Est. Protein Needs: 70-88 gms/day (0.8-1.0 gms/kg Adj.BW r/t elev RFT). Labs: Ca 8.4L, CO2 36H, Gluc 267H, Alb 2.5L, BUN 42H GI: Pt had 300 ml BM today per RN doc. Skin: Louis scale 12, high risk. Please refer to wound assessment report for full details PES: 1) Obese, Class III r/t energy intake in excess of energy needs aeb BMI 47 kg/m2 and 202% IBW Recommendations: 1) Advance diet gradually to oral CCHO 60g diet, when medically appropriate. 2) Refer pt to CDE/RD for further nutrition education and weight monitoring upon discharge. 3) Continue current plan of care. F/u 3-5 day
--- NOTE | 2019-07-23 12:30 | NUR ---
ACCUCHECK OF 186 AND PT GIVEN 4 UNITS OF REGULAR INSULIN SQ.
[2019-07-23] MEDS: LISINOPRIL 10 MG TAB PO SCH (13:38)
[2019-07-23] MEDS: MICAFUNGIN SODIUM 100 MG in SODIUM CHL 0.9% 100 ML IV SCH (14:10)
[2019-07-23] MEDS ORDERED: LABETALOL HCL 5 MG/ML 4ML SYRINGE IV ONE (14:23)
[2019-07-23] MEDS: LABETALOL HCL 5 MG/ML 4ML SYRINGE IV PRN (14:28)
[2019-07-23] MEDS ORDERED: AMIODARONE HCL 200 MG TAB PO ONE (14:30)
[2019-07-23] MEDS: NOREPINEPHRINE BITARTRATE 16 MG in SODIUM CHL 0.9% 250 ML IV SCH (16:45)
--- NOTE | 2019-07-23 19:15 | NUR ---
OPENING NOTE RECEIVED REPORT FROM DAY SHIFT RN. PATIENT OFF SEDATION, FOLLOWING COMMANDS WATCHING TV, TRACHED WITH SPEAKING VALVE. OXYMIZER @ 10L STATING >93%. ST 130'S ON BINDERY OPERATOR WITH BP 165/64 ON NO PRESSURES. LEFT UPPER ARM PICC TRANSFUSING MEDICATIONS. LEFT NGT RUNNING GLUCERNA HELD FOR PO FEEDING. KAUR PATENT TO GRAVITY. MULTIPLE SKIN AREAS OF CONCERN. FOR MORE INFORMATION SEE INTERVENTIONS. FOR GTTS AND THEIR TITRATIONS SEE IV SPREAD SHEET. BED LOCKED AND IN LOWEST POSITION. ALL FALL AND SAFETY PRECAUTIONS IN PLACE.
--- NOTE | 2019-07-23 19:31 | NUR ---
CRITICAL LAB NOTIFIED BY LAB THAT PT'S GLUCOSE IS CRITICAL AT 35. LET HER KNOW MY ACCUCHECKS WERE LO, 28 AND 30 AND THAT PT HAD BEEN GIVEN AN ELICEO OF D50 AND LIGHT TRUCK DRIVER AWARE.
--- NOTE | 2019-07-23 19:32 | NUR ---
REPORT REPORT GIVEN TO MARK LARSEN RN.
--- NOTE | 2019-07-23 20:31 | NUR ---
consents signed for procedure tomorrow telephone consent signed by naida vann. see paper chart
[2019-07-23] MEDS: AMIODARONE HCL 200 MG TAB PO SCH (22:09)
[2019-07-23] MEDS: METOPROLOL TARTRATE 50 MG TAB PO SCH (22:10)
[2019-07-23] MEDS: ATORVASTATIN 20 MG TAB PO SCH (22:10)
[2019-07-24] VITALS (39 sets, daily range): BP systolic 118–189; BP diastolic 48–81
[2019-07-24] MEDS: FREE WATER GT SCH ×6 (02:00→22:00)
[2019-07-24] MEDS: ACCU-CHEK COMFORT CURVE STRIP VI SCH ×4 (04:44→18:06)
[2019-07-24] MEDS: MEROPENEM 1GM IVPB 100 ML IV SCH ×3 (04:45→18:05)
[2019-07-24 05:04] LABS: Hematocrit 35.6 % (41.0-53.0); Hemoglobin 10.9 g/dL (13.5-17.5); Mean Corpuscular Hgb Conc. 30.4 g/dL (32.0-36.0); Mean Corpuscular Volume 88.6 fL (80.0-100.0); Platelet Count (auto) 303 10^3/uL (140-450); Red Blood Cells 4.02 10^6/uL (4.5-5.90); Red Cell Distribution Width 17.7 % (11.8-14.3); White Blood Cell 27.6 10^3/uL (4.4-10.8)
[2019-07-24 05:07] LABS: Band Neutrophils % (manual) 0; Basophils % (manual) 0 (0.0-2.0); Blast Cells 0; Eosinophils % (manual) 0 (0-7); Metamyelocytes % 0; Myelocytes % 0; Promyelocytes % 0; Reactive Lymphocytes 0
[2019-07-24 05:50] LABS: Potassium 4.3 mmol/L (3.5-5.1)
[2019-07-24 05:52] LABS: INR 1.14 (0.9-1.15); Partial Thromboplastin Time 24.5 sec (23.64-32.05)
[2019-07-24 05:59] LABS: BUN/Creatinine Ratio 61.7; Calcium 7.9 mg/dL (8.5-10.1)
[2019-07-24] MEDS: CALCIUM ACETATE 667 MG CAP NG SCH ×3 (06:00→22:00)
[2019-07-24] MEDS: InsuLIN REG 1unit/0.01ml Soln (100units/ml) SC SCH ×4 (06:02→18:05)
[2019-07-24] MEDS: INSULIN LANTUS (GLARGINE) 1 /0.01ml (100units/ml) SC SCH (06:03)
[2019-07-24] MEDS: METOCLOPRAMIDE HCL 5MG/ml INJ 2ml VIAL IV SCH ×3 (06:03→20:53)
[2019-07-24] MEDS: IPRATROPIUM BROM 0.5 MG/2.5ML INH SOL NEB SCH ×3 (06:29→22:06)
[2019-07-24] MEDS: ALBUTEROL SULF 2.5 MG/0.5ML(0.5%) NEB SOLN NEB SCH ×3 (06:29→22:06)
--- NOTE | 2019-07-24 06:29 | NUR ---
Respiratory note: Received pt from overnight cashier. Pt with tracheostomy 8.0 Shiley, spare trach and obturator available at bedside. Stoma is asymptomatic. Pt with speaking valve in place, cuff deflated, wearing 10lpm oxymizer, SPO2 98%. Lung sounds diminished exp wheezing in bilateral upper lobes, medneb tx administered via mask, no adverse reactions noted. Pt denies need for suction, suction not indicated. Will continue to monitor.
[2019-07-24 07:02] LABS: Lymphocytes % (manual) 2 (10.0-50.0); Monocytes % (manual) 2 (0-12)
--- NOTE | 2019-07-24 08:00 | NUR ---
OPENING Report received from Jose TAYLOR RN. Care initiated and initial assessment complete.
--- NOTE | 2019-07-24 11:00 | NUR ---
BEDSIDE: Romy Stanton bedside.
[2019-07-24] MEDS: AMIODARONE HCL 200 MG TAB PO SCH ×2 (11:19→20:57)
[2019-07-24] MEDS: SODIUM CHLOR 0.9% PF (SALINE LOCK) 10ML VIAL/SYR IV SCH ×2 (11:19→22:00)
[2019-07-24] MEDS: PANTOPRAZOLE 40 MG/10 ML VIAL INJ IV SCH ×2 (11:19→20:53)
[2019-07-24] MEDS: METOPROLOL TARTRATE 50 MG TAB PO SCH ×2 (11:20→20:56)
[2019-07-24] MEDS: amLODIPine BESYLATE 5 MG TAB PO SCH (11:21)
[2019-07-24] MEDS: ENOXAPARIN SOD 100 MG/1 ML SYRINGE SC SCH ×2 (11:21→20:57)
[2019-07-24] MEDS: LISINOPRIL 10 MG TAB PO SCH (11:21)
[2019-07-24] MEDS: MICAFUNGIN SODIUM 100 MG in SODIUM CHL 0.9% 100 ML IV SCH (11:22)
--- NOTE | 2019-07-24 12:30 | NUR ---
BEDSIDE: Andrews Sparrow bedside.
--- NOTE | 2019-07-24 12:30 | NUR ---
OFF TO CT With transporter and Radiology Nurse Nelida. [Portable monitor and O2 attached.
[2019-07-24] MEDS: hydrALAZINE HCL 20 MG/ML VL IV PRN (12:36)
[2019-07-24] MEDS: LABETALOL HCL 5 MG/ML 4ML SYRINGE IV PRN ×2 (12:36→18:59)
--- NOTE | 2019-07-24 12:50 | NUR ---
RETURNED FROM CT Patient reattached to bedside monitor. Patient reports no issues.
--- NOTE | 2019-07-24 13:15 | NUR ---
FULL LINEN CHANGE Patient tolerated well.
--- NOTE | 2019-07-24 14:45 | NUR ---
Trach care completed without incident. Deep tracheal suctioned x2 for large amount thick white secretions. Placed pt back on oxymizer 9lpm with speaking valve attached, pt tolerating well, SPO2 96%. No s/s of respiratory distress noted.
[2019-07-24] MEDS: NOREPINEPHRINE BITARTRATE 16 MG in SODIUM CHL 0.9% 250 ML IV SCH (15:11)
[2019-07-24] MEDS: Glucerna 1.2 Cal 1Liter BOTTLE GT SCH (15:11)
--- NOTE | 2019-07-24 18:00 | NUR ---
TOLERATING FOOD AND WATER Jell-O fed with no events or distress. Thin liquids given with no events or distress.
--- NOTE | 2019-07-24 18:10 | NUR ---
Respiratory note: At bedside pt on speaking valve. Bs heard are fine course t/o, asked pt if I could sx. Pt said yes. Sxd via trach X2 for large thin creamy yellow/rosario secretions.
--- NOTE | 2019-07-24 18:30 | NUR ---
PICC Line Dressing Changed PICC line dressing change done with a sterile technique. Cleansed with chloraprep. Stat lock, and bio-patch placed. Occlusive dressing applied.
--- NOTE | 2019-07-24 19:30 | NUR ---
Opening Shift Note Received pt on 10 lpm oxymizer saturations at 98% no s/s of resp distress. Pt is trached with speaking valve in place. Pt follows commands alert and oriented times 3. Intermittent periods of confusion. VSS. Full assessment done see interventions. Left upper arm picc line in place. Left NGT in place running tube feeding. No residuals noted. Multiple skin issues; see wound/skin assessment. Bed locked in lowest position. All alarms on and audible. Call light within reach.
--- NOTE | 2019-07-24 20:30 | NUR ---
Nutrition TF held for PO feeding. Pt ate 25% of dinner with no s/s of distress.
[2019-07-24] MEDS: ATORVASTATIN 20 MG TAB PO SCH (20:53)
--- NOTE | 2019-07-24 22:30 | NUR ---
Family Pt's Miranda called for an update. Password provided by and update given. All questions and concerns addressed at this time.
[2019-07-25] VITALS (16 sets, daily range): BP systolic 132–172; BP diastolic 40–65
--- NOTE | 2019-07-25 | NUR ---
TF stopped at this time. Implementing NPO after midnight order for procedure today.
[2019-07-25] MEDS: ACCU-CHEK COMFORT CURVE STRIP VI SCH ×4 (00:02→18:00)
[2019-07-25] MEDS: FREE WATER GT SCH ×6 (02:00→22:00)
[2019-07-25] MEDS: MEROPENEM 1GM IVPB 100 ML IV SCH ×3 (02:00→18:30)
--- NOTE | 2019-07-25 03:30 | NUR ---
Cares Pt given complete bed bath and partial linen change. Bag to ileostomy changed. Stoma beefy red and skin surrounding benign. Pt tolerated well
[2019-07-25 04:28] LABS: Hematocrit 34.1 % (41.0-53.0); Hemoglobin 10.6 g/dL (13.5-17.5); Mean Corpuscular Hemoglobin 27.4 pg (28.0-32.0); Mean Corpuscular Volume 88.5 fL (80.0-100.0); Platelet Count (auto) 273 10^3/uL (140-450); Red Blood Cells 3.86 10^6/uL (4.5-5.90); Red Cell Distribution Width 18.5 % (11.8-14.3); White Blood Cell 21.8 10^3/uL (4.4-10.8)
[2019-07-25 04:53] LABS: Basophils % (manual) 0 (0.0-2.0); Blast Cells 0; Metamyelocytes % 0; Myelocytes % 0; Promyelocytes % 0; Reactive Lymphocytes 0
[2019-07-25 04:55] LABS: Potassium 3.7 mmol/L (3.5-5.1)
[2019-07-25 05:04] LABS: BUN/Creatinine Ratio 66.7; Bilirubin, Total 0.5 mg/dL (0.2-1.0); Calcium 7.6 mg/dL (8.5-10.1); Total Protein 5.8 g/dL (6.4-8.2)
[2019-07-25 05:53] LABS: INR 1.2 (0.9-1.15); Partial Thromboplastin Time 34.5 sec (23.64-32.05)
[2019-07-25] MEDS: CALCIUM ACETATE 667 MG CAP NG SCH ×3 (06:00→22:00)
[2019-07-25] MEDS: InsuLIN REG 1unit/0.01ml Soln (100units/ml) SC SCH ×4 (06:00→18:00)
[2019-07-25] MEDS: METOCLOPRAMIDE HCL 5MG/ml INJ 2ml VIAL IV SCH ×3 (06:06→22:00)
[2019-07-25] MEDS: INSULIN LANTUS (GLARGINE) 1 /0.01ml (100units/ml) SC SCH (06:06)
[2019-07-25] MEDS: IPRATROPIUM BROM 0.5 MG/2.5ML INH SOL NEB SCH ×3 (07:38→22:27)
[2019-07-25] MEDS: ALBUTEROL SULF 2.5 MG/0.5ML(0.5%) NEB SOLN NEB SCH ×3 (07:39→22:27)
--- NOTE | 2019-07-25 07:57 | NUR ---
Received report from Adeola CHATMAN. Patient awake in bed, RT bedside, change in O2 to 4L on oximizer. Patient is scheduled for LE Angiogram today, is NPO, anticoagulants held. Patient has tracheostomy and illiostomy. Vital HR 92 BP 152/53 SPO2 97% T 98.4, NSR to NS-Tach, and varying runs of AFIB which is reported to be baseline for the patient. Will continue to monitor.
[2019-07-25 08:10] LABS: Band Neutrophils % (manual) 3; Eosinophils % (manual) 1 (0-7); Lymphocytes % (manual) 1 (10.0-50.0); Monocytes % (manual) 3 (0-12)
--- NOTE | 2019-07-25 08:30 | NUR ---
Dr. Rodriguez bedside. No new orders.
--- NOTE | 2019-07-25 09:40 | NUR ---
Libia from [facility] case management called for clinical update on patient. Current labs, hemodynamics, nutrition, mobility, respiratory and plan of care was reported to underwriting sales representative.
[2019-07-25] MEDS: amLODIPine BESYLATE 5 MG TAB PO SCH (10:08)
[2019-07-25] MEDS: AMIODARONE HCL 200 MG TAB PO SCH ×2 (10:08→22:00)
[2019-07-25] MEDS: LISINOPRIL 10 MG TAB PO SCH (10:08)
[2019-07-25] MEDS: LABETALOL HCL 5 MG/ML 4ML SYRINGE IV PRN ×3 (10:13→15:21)
[2019-07-25] MEDS: ENOXAPARIN SOD 100 MG/1 ML SYRINGE SC SCH ×2 (10:34→22:00)
[2019-07-25] MEDS: PANTOPRAZOLE 40 MG/10 ML VIAL INJ IV SCH ×2 (10:34→22:00)
[2019-07-25] MEDS: MICAFUNGIN SODIUM 100 MG in SODIUM CHL 0.9% 100 ML IV SCH (10:35)
[2019-07-25] MEDS: METOPROLOL TARTRATE 50 MG TAB PO SCH ×2 (10:35→22:00)
--- NOTE | 2019-07-25 11:17 | NUR ---
Nutrition Follow-up Notes Wt.: 102.2 kg Pt with trach collar. pt was NPO this am for angiogram. Est. Energy Needs: 7615-9765 kcal (12-15 kcal/kg BW), Est. Protein Needs: 70-88 gms/day (0.8-1.0 gms/kg Adj.BW r/t elev RFT). Labs: BUN 30 H, GLU 138 H, ALB 2.0 L, CA 7.6 L. GI: Pt had 150 ml BM today per RN doc. Skin: Louis scale 12, high risk. Please refer to wound assessment report for full details PES: 1) Obese, Class III r/t energy intake in excess of energy needs aeb BMI 47 kg/m2 and 202% IBW Recommendations: 1) Advance diet gradually to oral CCHO 60g diet, when medically appropriate OR resume feeds as medically feasible. 2) Refer pt to CDE/RD for further nutrition education and weight monitoring upon discharge. 3) Continue current plan of care. F/u 2-3 day
--- NOTE | 2019-07-25 12:44 | NUR ---
Requesting to call brother Hill. Patient does not want to talk with , would like to call brother Hill, patient started crying at the request.
--- NOTE | 2019-07-25 13:22 | NUR ---
VOICE WRITING REPORTER Called and spoke with Jonelle and she stated that Dr. Xie has cancelled the procedure for today.I inquired about whether or not to hold the Enoxaparin for tomorrow, she stated to call in the a.m. Will hold enoxaparin for 07/26/2019 on eMAR and put a not in for instructions.
--- NOTE | 2019-07-25 14:15 | NUR ---
Tracheal Suctioning Deep suctioning, sterile, patient able to cough at while suctioning. Moderate white secretions collected. Patient then was able to cough on his own and move secretions. No more audible breath sounds.
--- NOTE | 2019-07-25 14:30 | NUR ---
Hygiene Patient has serous liquid from PICC line dressing, not from insertion site but due to generalized edema and skin weekping. Patient has redness on arm, no warm, but d./t moisture under dressing. Skin cleansed and barrier towellette applied. Partial bed bath completed, skin all over body is peeling. Patient did not tolerate change of bedding or bathing well - he wanted to be left alone. Patient teaching regarding proper hygiene.
--- NOTE | 2019-07-25 15:00 | NUR ---
Nurse Practioner, Cardiac Angiogram will be rescheduled for 07/26/19. Monday. Orders in computer to hold Enoxaparin (held on eMar), new Coag labs ordered for patient in a.m.
[2019-07-25] MEDS: LORazepam 2MG/ML-1ML VIAL IV PRN (15:22)
--- NOTE | 2019-07-25 15:29 | NUR ---
Administered Labetalol IV d/t sustained systolic BP of 160. Patient awake all day and has increased restlessness and agitation, administered Ativan as prescribed.
[2019-07-25] MEDS: NOREPINEPHRINE BITARTRATE 16 MG in SODIUM CHL 0.9% 250 ML IV SCH (16:45)
--- NOTE | 2019-07-25 18:12 | NUR ---
Shift Summary Patient asleep in bed at end of shift after receiving Ativan IV for restlessness and agitation this afternoon. Scheduled LE Angiogram Dr. Xie was rescheduled for tomorrow 07/26/19, Nurse Practioner put in new orders for coags in the a.m. and to hold scheduled enoxaparin for a.m. Patient off of trache collar, with oxymizer at 6 L end of shift. Patient was suctioned several times today, patient encouraged to cough self and mobilized secretions, but he could not d/t weakness. Moderate secretions, white/clear. Lung sounds initially course, after suctioning was better. Patient helped move in bed today, encouraged to increase mobility. Patient received Labetalol IV per PRN orders, 2x. Patino catheter output 600 ml clear yellow urine. Patients skin is weeping around most of upper torso. Left PICC line dressing changed to serous fluid from skin/ not from insertion site. Patient experiencing periods of restlessness and confusion and wants to go home now. Patient was re oriented. Lower extremities cool, hyperpigmented , pulses weak but present - doppler only. Patient restarted on tube feeding at 1300 at 35 ml/hr once procedure was cancelled. No PT today.
--- NOTE | 2019-07-25 18:20 | NUR ---
NPO after midnight
--- NOTE | 2019-07-25 19:19 | NUR ---
Report given to Aftab CHATMAN.
[2019-07-25] MEDS: ATORVASTATIN 20 MG TAB PO SCH (22:00)
[2019-07-26] VITALS (19 sets, daily range): BP systolic 70–206; BP diastolic 38–87
[2019-07-26] MEDS: MEROPENEM 1GM IVPB 100 ML IV SCH ×3 (02:25→18:00)
[2019-07-26] MEDS: FREE WATER GT SCH ×6 (02:25→22:00)
[2019-07-26 04:24] LABS: Hematocrit 34.1 % (41.0-53.0); Hemoglobin 10.7 g/dL (13.5-17.5); Mean Corpuscular Hemoglobin 27.8 pg (28.0-32.0); Mean Corpuscular Hgb Conc. 31.5 g/dL (32.0-36.0); Mean Corpuscular Volume 88.5 fL (80.0-100.0); Platelet Count (auto) 270 10^3/uL (140-450); Red Blood Cells 3.85 10^6/uL (4.5-5.90); Red Cell Distribution Width 18.4 % (11.8-14.3)
[2019-07-26 04:27] LABS: Band Neutrophils % (manual) 0; Basophils % (manual) 0 (0.0-2.0); Blast Cells 0; Eosinophils % (manual) 0 (0-7); Metamyelocytes % 0; Myelocytes % 0; Promyelocytes % 0; Reactive Lymphocytes 0
[2019-07-26 04:42] LABS: BUN/Creatinine Ratio 48.3; Calcium 7.7 mg/dL (8.5-10.1); Potassium 3.8 mmol/L (3.5-5.1)
[2019-07-26 04:56] LABS: Lymphocytes % (manual) 13 (10.0-50.0); Monocytes % (manual) 5 (0-12)
[2019-07-26 05:08] LABS: INR 1.15 (0.9-1.15); Partial Thromboplastin Time 28.9 sec (23.64-32.05)
[2019-07-26] MEDS: InsuLIN REG 1unit/0.01ml Soln (100units/ml) SC SCH ×4 (05:43→18:00)
[2019-07-26] MEDS: ACCU-CHEK COMFORT CURVE STRIP VI SCH ×4 (05:43→18:00)
[2019-07-26] MEDS: METOCLOPRAMIDE HCL 5MG/ml INJ 2ml VIAL IV SCH ×2 (06:21→14:00)
[2019-07-26] MEDS: CALCIUM ACETATE 667 MG CAP NG SCH ×2 (06:21→15:24)
[2019-07-26] MEDS: INSULIN LANTUS (GLARGINE) 1 /0.01ml (100units/ml) SC SCH (06:54)
--- NOTE | 2019-07-26 07:03 | NUR ---
Received Report From Aftab CHATMAN . Patient awake in bed. Status unchanged. Plan is for Angio bilateral extremities. Both legs are hyperpigmented, micro skin tears with weeping and some that are bleeding. Skin on LE very cool to touch, pulses weak by doppler, patient is able to move LE. Tube feeding held since midnight. Will continue to monitor.
[2019-07-26] MEDS: ENOXAPARIN SOD 100 MG/1 ML SYRINGE SC SCH ×2 (07:09→22:00)
[2019-07-26] MEDS ORDERED: IOHEXOL 350 MG/ML 100ML IJ ONE ×2 (07:39→15:28)
[2019-07-26] MEDS ORDERED: LIDOCAINE 2%HCL (LOCAL ANESTH.) INJ 20ML MDV ONE ×2 (07:39→15:27)
--- NOTE | 2019-07-26 07:42 | NUR ---
Dr. Sparrow Spoke with Physician updated on status, patient on trach collar and supplemental oxygen. No new orders, continue with plan of care.
--- NOTE | 2019-07-26 08:00 | NUR ---
Collections Manager Called and spoke with Lazarus CHATMAN , plan is for 0900 procedure time.
--- NOTE | 2019-07-26 08:25 | NUR ---
Jalousies Installer Per Anabell, patient has been approved for one visitor for twenty minutes - patients Jacqui. I spoke with patient and talked to about a plan for the visit. I will call patients once he is back from surgery today.
--- NOTE | 2019-07-26 08:38 | NUR ---
laboratory tech regarding plan for respiratory Called unit to ask if Dr. Xie would like patient on ventilator during procedure d/t intolerance with positioning.
[2019-07-26] MEDS: MICAFUNGIN SODIUM 100 MG in SODIUM CHL 0.9% 100 ML IV SCH (09:06)
[2019-07-26] MEDS: AMIODARONE HCL 200 MG TAB PO SCH ×2 (09:07→22:00)
[2019-07-26] MEDS: PANTOPRAZOLE 40 MG/10 ML VIAL INJ IV SCH ×2 (09:07→22:00)
[2019-07-26] MEDS: amLODIPine BESYLATE 5 MG TAB PO SCH (09:08)
[2019-07-26] MEDS: METOPROLOL TARTRATE 50 MG TAB PO SCH (09:08)
[2019-07-26] MEDS: LISINOPRIL 10 MG TAB PO SCH (09:09)
--- NOTE | 2019-07-26 09:10 | NUR ---
Trach Suctioning Patient could not clear secretions and patient had audible breath sounds, moist. Sterile trach suctioning performed by RN. Moderate pink/brown thick secretions.
--- NOTE | 2019-07-26 09:10 | NUR ---
Side Seam Tender schedule Call from unit, moved surgery to 1200 and patient will be on ventilator for procedure.
--- NOTE | 2019-07-26 09:21 | NUR ---
Hygiene Oral hygiene, new bedding and chucks surrounding body d/t weeping of skin and dry flakyness.
--- NOTE | 2019-07-26 09:24 | NUR ---
PICC line dressing changed Dressing is saturated with clear/yellow fluid from edamatous skin. Will notify hospitalist on skin integrity on left arm.
--- NOTE | 2019-07-26 09:47 | NUR ---
PICC RN Spoke with PICC nurse regarding possibility of patient getting a new line d/t skin breakdown, advancing redness, and possible cellulitis. She states patient might be a better candidate for midline d/t right arm DVT. Will discuss with hospitalist.
[2019-07-26] MEDS: ALBUTEROL SULF 2.5 MG/0.5ML(0.5%) NEB SOLN NEB SCH ×3 (10:44→22:21)
[2019-07-26] MEDS: IPRATROPIUM BROM 0.5 MG/2.5ML INH SOL NEB SCH ×3 (10:44→22:21)
--- NOTE | 2019-07-26 11:30 | NUR ---
Patient on Bedpan Patient requested to have bedpan for BM. Patient tolerated turning poorly, was in alot of discomfort with his skin and respirations increased and he desaturated and took time to recover.
--- NOTE | 2019-07-26 12:23 | NUR ---
DR. Rodriguez bedside Updated on left arm skin integrity and advancing redness. New order to upper extremity bilateral DVT ultrasound to rule out DVT on right arm, and to assess PICC line for left. New order for Midline or PICC line.
--- NOTE | 2019-07-26 13:00 | NUR ---
Suctioning Trach Patient unable to clear secretions, RN performed trach suctioning, sterile. Moderate thin/thick brown/red secretions. Lung sounds upper airway post suctioning, less course. Patient teaching regarding clearing secretions and coughing.
--- NOTE | 2019-07-26 13:55 | NUR ---
PICC/MIDLINE RN bedside RN is bedside to see about midline insertion.
--- NOTE | 2019-07-26 14:09 | NUR ---
Midline Rn PICC/Midline nurse was unable to find left arm vein for placement. Will wait until ultrasound is complete.
[2019-07-26] MEDS: LORazepam 2MG/ML-1ML VIAL IV PRN (14:17)
--- NOTE | 2019-07-26 14:36 | NUR ---
Respiratory note: PT 1400 TX HELD. PT IS GOING TO GRAPHIC DESIGN TEACHER.
--- NOTE | 2019-07-26 14:57 | NUR ---
Kirby Station Attendant Phone call to get update on plan of care and current vitals.
[2019-07-26] MEDS ORDERED: EPINEPHrine HCL 1 MG/10 ML SYRG ONE (15:38)
[2019-07-26] MEDS ORDERED: ANGIOMAX 250 MG VIAL IV ONE (15:38)
[2019-07-26] MEDS ORDERED: ATROPINE SULF 1 MG/10ml SYR ONE (15:38)
[2019-07-26] MEDS ORDERED: SODIUM CHL 0.9% 0 ML ONE (15:39)
--- NOTE | 2019-07-26 15:44 | NUR ---
Pt to golf course laborer on simple mask at 15L over trach collar. Pt on zoll and with 2 RNs and 1 RT. pt tolerated transfer to procedure table and put on monitor. pt remains on zoll.
[2019-07-26] MEDS ORDERED: fentaNYL CITRATE 100 MCG/2 ML VL ONE (15:56)
[2019-07-26] MEDS ORDERED: MIDAZOLAM HCL 1MG/1ML-2 ML VIAL ONE (15:57)
[2019-07-26] MEDS ORDERED: PHENYLEPHRINE HCL 10 MG/ML VL ONE (16:12)
[2019-07-26] MEDS: DOXYCYCLINE 100MG/250ML 250 ML IV SCH (16:30)
--- NOTE | 2019-07-26 16:30 | NUR ---
Report to Albert CHATMAN. RT awaiting vent set up in room.
[2019-07-26] MEDS: NOREPINEPHRINE BITARTRATE 16 MG in SODIUM CHL 0.9% 250 ML IV SCH (16:45)
--- NOTE | 2019-07-26 16:52 | NUR ---
Pt to ICU on BVM on zoll with 2 RNs and RT. Pt to room 102 without incident. Pt placed on monitor and site checked with RN.
--- NOTE | 2019-07-26 17:24 | NUR ---
physical therapy- Pt. placed on hold for PT today, pt off unit to cathlab
--- NOTE | 2019-07-26 18:00 | NUR ---
Patient hypotensive, started on LEvo and bolus 0.9% NS per legal research analyst .
--- NOTE | 2019-07-26 18:00 | NUR ---
Back from Vocational Ed Instructor Patient back from procedure, there was nothing the physician could do. Right femoral groin insertion. No bleeding from site.
--- NOTE | 2019-07-26 20:57 | NUR ---
Report given to Aftab Nelson
[2019-07-26] MEDS: METOPROLOL TARTRATE 25 MG TAB PO SCH (21:49)
[2019-07-26] MEDS: ATORVASTATIN 20 MG TAB PO SCH (22:00)
[2019-07-27] VITALS (94 sets, daily range): BP systolic 9–161; BP diastolic 41–116
[2019-07-27] MEDS: ENOXAPARIN SOD 100 MG/1 ML SYRINGE SC SCH ×2 (00:30→09:08)
[2019-07-27] MEDS: FREE WATER GT SCH ×6 (02:00→22:00)
[2019-07-27] MEDS: MEROPENEM 1GM IVPB 100 ML IV SCH ×3 (02:00→18:20)
[2019-07-27] MEDS: DOXYCYCLINE 100MG/250ML 250 ML IV SCH (04:30)
[2019-07-27 05:45] LABS: Red Cell Distribution Width 18.1 % (11.8-14.3)
[2019-07-27 05:53] LABS: Hemoglobin 8.8 g/dL (13.5-17.5); Mean Corpuscular Hemoglobin 27.4 pg (28.0-32.0); Mean Corpuscular Hgb Conc. 31.4 g/dL (32.0-36.0); Mean Corpuscular Volume 87.2 fL (80.0-100.0); Platelet Count (auto) 285 10^3/uL (140-450); Red Blood Cells 3.21 10^6/uL (4.5-5.90); White Blood Cell 24.1 10^3/uL (4.4-10.8)
[2019-07-27] MEDS: ACCU-CHEK COMFORT CURVE STRIP VI SCH ×4 (06:00→18:15)
[2019-07-27] MEDS: InsuLIN REG 1unit/0.01ml Soln (100units/ml) SC SCH ×4 (06:00→18:00)
[2019-07-27 06:01] LABS: Basophils % (manual) 0 (0.0-2.0); Blast Cells 0; Eosinophils % (manual) 0 (0-7); Metamyelocytes % 0; Myelocytes % 0; Promyelocytes % 0; Reactive Lymphocytes 0
[2019-07-27] MEDS: ALBUTEROL SULF 2.5 MG/0.5ML(0.5%) NEB SOLN NEB SCH ×3 (06:04→22:05)
[2019-07-27] MEDS: IPRATROPIUM BROM 0.5 MG/2.5ML INH SOL NEB SCH ×3 (06:04→22:05)
[2019-07-27 06:05] LABS: Potassium 3.3 mmol/L (3.5-5.1)
[2019-07-27 06:16] LABS: BUN/Creatinine Ratio 38.5; Calcium 7.7 mg/dL (8.5-10.1)
[2019-07-27] MEDS: INSULIN LANTUS (GLARGINE) 1 /0.01ml (100units/ml) SC SCH (07:00)
--- NOTE | 2019-07-27 07:15 | NUR ---
RECEIVED REPORT FROM SOPHIA CHATMAN AND ASSUMED CARE OF PATIENT.
--- NOTE | 2019-07-27 08:00 | NUR ---
PATIENT TEMP 101.7 - ICE PACKS APPLIED TO BILAT GROINS AND AXILLA, FAN CURRENT PLACED ON PATIENT.
[2019-07-27 08:22] LABS: Band Neutrophils % (manual) 2; Lymphocytes % (manual) 7 (10.0-50.0); Monocytes % (manual) 7 (0-12)
[2019-07-27] MEDS: LISINOPRIL 10 MG TAB PO SCH (08:57)
[2019-07-27] MEDS: amLODIPine BESYLATE 5 MG TAB PO SCH (08:58)
[2019-07-27] MEDS: METOPROLOL TARTRATE 25 MG TAB PO SCH ×2 (08:58→22:00)
[2019-07-27] MEDS: PANTOPRAZOLE 40 MG/10 ML VIAL INJ IV SCH (09:08)
[2019-07-27] MEDS: MICAFUNGIN SODIUM 100 MG in SODIUM CHL 0.9% 100 ML IV SCH (09:09)
[2019-07-27] MEDS: AMIODARONE HCL 200 MG TAB PO SCH ×2 (09:10→22:00)
[2019-07-27] MEDS: Glucerna 1.2 Cal 1Liter BOTTLE GT SCH (09:35)
--- NOTE | 2019-07-27 11:00 | NUR ---
PATIENT WITH LG AMT THICK ZAMAN/ BROWN SECRETIONS VIA TRACH AND AROUND TRACH. DR JAMES VISITS AND EXAMINES PATIENT - ORDERS RECEIVED FOR BRONCHOSCOPY. CALL PLACED TO PATIENT'S [place] FOR CONSENT - MESSAGE LEFT ON VOICEMAIL.
[2019-07-27] MEDS ORDERED: D5W 5% 1,000 ML IV ONE (11:15)
--- NOTE | 2019-07-27 11:30 | NUR ---
Raffy ROMAN ACNP VISITS AND EXAMINES PATIENT - ORDERS RECEIVED.
--- NOTE | 2019-07-27 12:28 | NUR ---
WOUND CARE NOTE: Wound care in to see patient for reevaluation of wounds and skin integrity monitoring.Patient continue resting in ICU bed in Rm. 102. He's on vent via trach. He's awake, alert. Patient appears to be in no pain using Newman Roberts Faces Pain Scale, however mild pain noted upon turning. He's max assist in turning and repositioning and his Louis score is 13. Skin assessment done with the assistance of patient's nurse and ICU knockout worker. Patient's multiple wounds continue to improve. L ear scabbed abrasion now display intact pink skin, it seems scab came off. Mucosal ulcer to upper chest/distal neck is also closed with mild redness, staff cleaning and applying dry sterile gauze. Patient's extremities still display edema and erythema with multiple intact scabs and ecchymosis ti bilateral upper extremities and BLE has scabbed abrasions that are clean and dry, left open to air. Rt barakat wound also resolving, cleansed and changed dressing as ordered. No pressure injury noted, however superficial skin tear noted to R lower buttock. Distal buttock, upper thigh MASD has dry peeling skin. Megan care given and applied Z Guard cream. New photograph of mentioned skin issue are taken for reference. Patient tolerated well. Repositioned for comfort facing his Lt. side, redistributed pressure points with wedges and pillows. COMPA Judge at bedside. RECOMMENDATION: Continuation of all wound care orders prescribed by MD, continue with skin/wound plan of care, continue monitoring by wound care while patient is hospitalized. Addendum: 07/27/19 at 1751 by Phyllis Gil RN Amended: Links added.
--- NOTE | 2019-07-27 14:00 | NUR ---
CONTINUE TO AWAIT RETURN CALL FROM PATIENT'S FOR CONSENT FOR BRONCHOSCOPY - DR JAMES INFORMED - STATES WILL ATTEMPT BRONCHOSCOPY TOMORROW.
[2019-07-27] MEDS: LINEZOLID 600MG/300ML 300 ML IV SCH (14:17)
[2019-07-27] MEDS: fentaNYL Drip 2500mCg/250mlNS 250 ML IV SCH (15:10)
[2019-07-27] MEDS: NOREPINEPHRINE BITARTRATE 16 MG in SODIUM CHL 0.9% 250 ML IV SCH (16:45)
--- NOTE | 2019-07-27 17:55 | NUR ---
BS 57 - 1 AMP D50% GIVEN IVP
--- NOTE | 2019-07-27 18:50 | NUR ---
RE-CHECK BS 111
[2019-07-28] VITALS (80 sets, daily range): BP systolic 78–160; BP diastolic 33–70
[2019-07-28] MEDS: LINEZOLID 600MG/300ML 300 ML IV SCH ×2 (00:30→12:04)
[2019-07-28] MEDS: PANTOPRAZOLE 40 MG/10 ML VIAL INJ IV SCH ×3 (00:30→22:00)
[2019-07-28] MEDS: ATORVASTATIN 20 MG TAB PO SCH ×2 (00:30→22:00)
[2019-07-28] MEDS: MEROPENEM 1GM IVPB 100 ML IV SCH ×3 (02:16→18:06)
[2019-07-28] MEDS: FREE WATER GT SCH ×6 (02:17→22:00)
[2019-07-28 04:27] LABS: Eosinophils # (auto) 0.4 10 ^3/uL (0-0.8); Hematocrit 23.8 % (41.0-53.0); Hemoglobin 7.7 g/dL (13.5-17.5); Lymphocytes # (auto) 1.3 10 ^3/uL (0.4-5.4); Mean Corpuscular Hgb Conc. 32.2 g/dL (32.0-36.0); Monocytes # (auto) 1.4 10 ^3/uL (0-1.3); Monocytes % (auto) 8.2 % (0.0-12.0)
[2019-07-28 04:30] LABS: Basophils # (auto) 0.1 10 ^3/uL (0-0.2); Basophils % (auto) 0.3 % (0.0-2.0); Eosinophils % (auto) 2.2 % (0.0-7.0); Lymphocytes % (auto) 7.2 % (10.0-50.0); Mean Corpuscular Hemoglobin 27.9 pg (28.0-32.0); Mean Corpuscular Volume 86.8 fL (80.0-100.0); Neutrophils # (auto) 14.5 10 ^3/uL (1.6-8.6); Neutrophils % (auto) 82.1 % (37.0-80.0); Nucleated Red Blood Cells % 0.1 %; Platelet Count (auto) 201 10^3/uL (140-450); Red Blood Cells 2.74 10^6/uL (4.5-5.90); Red Cell Distribution Width 18.3 % (11.8-14.3); White Blood Cell 17.6 10^3/uL (4.4-10.8)
[2019-07-28 04:40] LABS: Albumin 1.7 g/dL (3.4-5.0); Calcium 7.3 mg/dL (8.5-10.1)
[2019-07-28 04:44] LABS: BUN/Creatinine Ratio 38.6; Bilirubin, Total 0.5 mg/dL (0.2-1.0); Total Protein 5.3 g/dL (6.4-8.2)
[2019-07-28 04:58] LABS: Potassium 2.9 mmol/L (3.5-5.1)
[2019-07-28] MEDS: ALBUTEROL SULF 2.5 MG/0.5ML(0.5%) NEB SOLN NEB SCH ×3 (05:39→22:03)
[2019-07-28] MEDS: IPRATROPIUM BROM 0.5 MG/2.5ML INH SOL NEB SCH ×3 (05:39→22:03)
[2019-07-28] MEDS: ACCU-CHEK COMFORT CURVE STRIP VI SCH ×4 (06:00→18:13)
[2019-07-28] MEDS: InsuLIN REG 1unit/0.01ml Soln (100units/ml) SC SCH ×4 (06:00→18:16)
[2019-07-28] MEDS: INSULIN LANTUS (GLARGINE) 1 /0.01ml (100units/ml) SC SCH (07:00)
[2019-07-28] MEDS ORDERED: D5W 5% 1,000 ML IV ONE (08:30)
[2019-07-28] MEDS: MICAFUNGIN SODIUM 100 MG in SODIUM CHL 0.9% 100 ML IV SCH (08:43)
[2019-07-28] MEDS: POTASSIUM CHL 20MEQ/100ML 100 ML IV SCH ×3 (08:50→12:04)
--- NOTE | 2019-07-28 09:20 | NUR ---
RESPIRATORY RT Nallely at bedside and decreased FIO2 to 30% sating 100%. Will continue to monitor patient.
[2019-07-28] MEDS: LISINOPRIL 10 MG TAB PO SCH (10:00)
[2019-07-28] MEDS: ENOXAPARIN SOD 100 MG/1 ML SYRINGE SC SCH ×2 (10:00→22:00)
[2019-07-28] MEDS: amLODIPine BESYLATE 5 MG TAB PO SCH (10:00)
[2019-07-28] MEDS: ACETAMINOPHEN 650 mg PER 20 mL UD GT PRN ×2 (10:23→22:00)
[2019-07-28] MEDS: AMIODARONE HCL 200 MG TAB PO SCH ×2 (10:24→22:00)
[2019-07-28] MEDS: METOPROLOL TARTRATE 25 MG TAB PO SCH ×2 (10:24→22:30)
[2019-07-28] MEDS ORDERED: LIDOCAINE HCL 2% TOP JELLY 5ML TOP ONE (12:43)
[2019-07-28] MEDS ORDERED: EPINEPHrine HCL 1 MG/1 ML AMP ONE (12:43)
[2019-07-28] MEDS ORDERED: BENZOCAINE (DENTAL) 20 % SPRAY 60ML MT ONE (12:43)
[2019-07-28] MEDS ORDERED: LIDOCAINE 2%HCL (LOCAL ANESTH.) INJ 20ML MDV ONE (12:43)
[2019-07-28] MEDS ORDERED: SODIUM CHLORIDE LOCK 0 ML ONE (12:43)
--- NOTE | 2019-07-28 13:00 | NUR ---
OR TEAM OR team at bedside to set up to bronchoscopy.
--- NOTE | 2019-07-28 14:22 | NUR ---
RADIOLOGY cardiopulmonary technician at bedside to obtain study.
[2019-07-28] MEDS: fentaNYL Drip 2500mCg/250mlNS 250 ML IV SCH (15:10)
--- NOTE | 2019-07-28 15:25 | NUR ---
Respiratory note: TRACH CARE PERFORMED.ALARMS VERIFIED AND AUDIBLE. BS CLEAR AND DIMINISHED. SUCTION NOT INDICATED. PT IS GROGGY.WILL REFRAIN FROM PLACING PT ON TRACH COLLAR UNTIL PT IS MORE ALERT.COMPA LUGO AWARE.NO VENT CHANGES ORDERED AT THIS TIME, WILL ENDORSE PT CARE TO NOC RT.
--- NOTE | 2019-07-28 15:38 | NUR ---
Nutrition Follow-up Notes Wt.: 102 kg Per RN pt feeding is being held 07/27 for procedure. Pt will begin feeding when medically feasible after per RN. Est. Energy Needs: 9047-8711 kcal (12-15 kcal/kg BW), Est. Protein Needs: 70-88 gms/day (0.8-1.0 gms/kg Adj.BW r/t elev RFT). Labs: BUN 34H, GLUC 168H, Ca 7.3L, Alb 1.7L GI: Pt had 425 ml BM today per RN doc. Skin: Louis scale 12, high risk. Please refer to wound assessment report for full details PES: 1) Obese, Class III r/t energy intake in excess of energy needs aeb BMI 47 kg/m2 and 202% IBW Recommendations: 1) Advance diet gradually to oral CCHO 60g diet, when medically appropriate OR resume feeds as medically feasible. 2) Refer pt to CDE/RD for further nutrition education and weight monitoring upon discharge. 3) Continue current plan of care. F/u 2-3 day
[2019-07-28] MEDS: NOREPINEPHRINE BITARTRATE 16 MG in SODIUM CHL 0.9% 250 ML IV SCH (16:45)
--- NOTE | 2019-07-28 19:45 | NUR ---
Opening Shift Note: Patient is A&Ox4, able to move head yes and no; follow simple commands. Patient is trached/vent: size 8.0/settings: AC rate 20; FiO2 30%; PEEP 8; vT 550. Patient is currently refusing to have trach suctioning at this time. Cardio: Afib 70s-90s; SBPs 90s-120; weak but palpable pulses in all extremities. L. NGT running glucerna @ 35 ml/hr = goal; residual 0 ml. Patient did have a BM; plus has a RLQ ileostomy with dark brown/green output liquid. Patino originally inserted on 05/27/19 (has had catheter changes). Multiple skin issues: see charting. IV: LUE PICC triple lumen running D5W @ 75 ml/hr x1 bag total; inserted on 06/24/19. Will continue to round/reposition/perform oral care prn.
[2019-07-29] VITALS (79 sets, daily range): BP systolic 100–207; BP diastolic 29–64
[2019-07-29] MEDS: LINEZOLID 600MG/300ML 300 ML IV SCH ×2 (00:16→13:23)
[2019-07-29] MEDS: MEROPENEM 1GM IVPB 100 ML IV SCH ×3 (02:00→18:22)
[2019-07-29] MEDS: FREE WATER GT SCH ×6 (02:00→22:05)
[2019-07-29 04:39] LABS: Basophils # (auto) 0.1 10 ^3/uL (0-0.2)
[2019-07-29 04:42] LABS: Basophils % (auto) 0.6 % (0.0-2.0); Eosinophils # (auto) 0.4 10 ^3/uL (0-0.8); Eosinophils % (auto) 2.1 % (0.0-7.0); Hematocrit 21.2 % (41.0-53.0); Lymphocytes # (auto) 1.2 10 ^3/uL (0.4-5.4); Lymphocytes % (auto) 6.8 % (10.0-50.0); Mean Corpuscular Hemoglobin 27.9 pg (28.0-32.0); Mean Corpuscular Volume 87.3 fL (80.0-100.0); Monocytes # (auto) 1.5 10 ^3/uL (0-1.3); Monocytes % (auto) 8.8 % (0.0-12.0); Neutrophils # (auto) 14.3 10 ^3/uL (1.6-8.6); Neutrophils % (auto) 81.7 % (37.0-80.0); Nucleated Red Blood Cells % 0.4 %; Platelet Count (auto) 179 10^3/uL (140-450); Red Blood Cells 2.43 10^6/uL (4.5-5.90); Red Cell Distribution Width 18.6 % (11.8-14.3); White Blood Cell 17.5 10^3/uL (4.4-10.8)
--- NOTE | 2019-07-29 05:00 | NUR ---
All dressing changed per orders. Ileostomy bag changed related to leaking.
[2019-07-29 05:01] LABS: BUN/Creatinine Ratio 40.5; Calcium 7.4 mg/dL (8.5-10.1); Potassium 3.3 mmol/L (3.5-5.1)
[2019-07-29 05:05] LABS: Hemoglobin 6.8 g/dL (13.5-17.5)
[2019-07-29] MEDS: InsuLIN REG 1unit/0.01ml Soln (100units/ml) SC SCH ×4 (05:14→18:20)
[2019-07-29] MEDS: ACCU-CHEK COMFORT CURVE STRIP VI SCH ×4 (05:15→18:12)
--- NOTE | 2019-07-29 05:15 | NUR ---
Patient bathe/linen change Patient given complete CHG bath. Skin integrity assessed for any changes. Linens and gown changed. Patient repositioned for comfort.
--- NOTE | 2019-07-29 05:40 | NUR ---
Critical Hgb: 6.8 per lab; potassium low at 3.3. Will page at 0600 for orders.
--- NOTE | 2019-07-29 06:00 | NUR ---
Page sent to coroner transport technician hospitalist in regards to abnormal labs. New orders received for 1 units of PRBCs/new type and screen/40 meq potassium replacement for potassium of 3.3
[2019-07-29] MEDS: ALBUTEROL SULF 2.5 MG/0.5ML(0.5%) NEB SOLN NEB SCH ×3 (06:06→22:08)
[2019-07-29] MEDS: IPRATROPIUM BROM 0.5 MG/2.5ML INH SOL NEB SCH ×3 (06:06→22:08)
[2019-07-29] MEDS ORDERED: POTASSIUM CHL 20MEQ/100ML 200 ML IV ONE (06:20)
--- NOTE | 2019-07-29 06:30 | NUR ---
Type and screen sent to lab via [facility] system. New blood band received.
[2019-07-29] MEDS: INSULIN LANTUS (GLARGINE) 1 /0.01ml (100units/ml) SC SCH (06:47)
[2019-07-29] MEDS: POTASSIUM CHL 20MEQ/100ML 100 ML IV SCH ×2 (06:47→09:10)
[2019-07-29] MEDS: ACETAMINOPHEN 650 mg PER 20 mL UD GT PRN (06:48)
[2019-07-29] MEDS: MICAFUNGIN SODIUM 100 MG in SODIUM CHL 0.9% 100 ML IV SCH (09:13)
--- NOTE | 2019-07-29 09:30 | NUR ---
MENDOZA MITCHELL RUG DRY ROOM ATTENDANT VISITS AND EXAMINES PATIENT - ORDER RECEIVED.
--- NOTE | 2019-07-29 10:00 | NUR ---
DR PARKER VISITS AND EXAMINES PATIENT - ORDERS RECEIVED.
[2019-07-29] MEDS: AMIODARONE HCL 200 MG TAB PO SCH ×2 (10:36→22:05)
[2019-07-29] MEDS: PANTOPRAZOLE 40 MG/10 ML VIAL INJ IV SCH ×2 (10:36→22:05)
[2019-07-29] MEDS: amLODIPine BESYLATE 5 MG TAB PO SCH (10:38)
[2019-07-29] MEDS: METOPROLOL TARTRATE 25 MG TAB PO SCH ×2 (10:40→22:06)
[2019-07-29] MEDS: LISINOPRIL 10 MG TAB PO SCH (10:45)
--- NOTE | 2019-07-29 11:30 | NUR ---
FIRST UNIT PRBC'S STARTED - WILL MONITOR CLOSELY FOR S/S TRANSFUSION REACTION.
--- NOTE | 2019-07-29 12:51 | NUR ---
1245 07/29/19 I faxed transfer order and Notice Regarding Post Stabilization to [facility]-document scanned into One [employer]. I faxed today's CXR, labs, vitals and medication list to [facility].
[2019-07-29] MEDS: MAGNESIUM SULFATE 1GM/100ML 100 ML IV SCH ×2 (13:16→15:26)
--- NOTE | 2019-07-29 14:00 | NUR ---
DR JAMES VISITS AND EXAMINES PATIENT - ORDERS RECEIVED.
--- NOTE | 2019-07-29 14:30 | NUR ---
FIRST UNIT PRBC'S TRANSFUSED COMPLETELY WITHOUT S/S TRANSFUSION REACTION.
--- NOTE | 2019-07-29 14:45 | NUR ---
DR NORRIS RETURNS TO ICU AND COMPLETES REQUIRED TRANSFER DOCUMENTS.
--- NOTE | 2019-07-29 15:07 | NUR ---
CALL PLACED TO DR Lashawn DELANEY RE: PATIENT'S BM'S LAST HS PER DR NORRIS REQUEST.
[2019-07-29] MEDS: fentaNYL Drip 2500mCg/250mlNS 250 ML IV SCH (15:10)
[2019-07-29] MEDS: FUROSEMIDE 20 MG/2 ML VIAL IV SCH (15:25)
[2019-07-29] MEDS: NOREPINEPHRINE BITARTRATE 16 MG in SODIUM CHL 0.9% 250 ML IV SCH (15:26)
--- NOTE | 2019-07-29 15:30 | NUR ---
SECOND UNIT OF PRBC'S STARTED PER ORDERS - WILL MONITOR CLOSELY FOR S/S TRANSFUSION REACTION.
--- NOTE | 2019-07-29 15:30 | NUR ---
DR DELANEY RETURNS CALL - NOTIFIED OF DROP IN H&H AND PRBC TRANSFUSION AND THAT PATIENT HAD 2 BM RECTALLY OVERNIGHT - ORDERS RECEIVED.
--- NOTE | 2019-07-29 16:25 | NUR ---
Respiratory note: PLACED PT ON TRACH COLLAR 30% FIO2 8L AT THIS TIME. PT TOLERATING WELL. WILL ENDORSE TO NOC RT.
--- NOTE | 2019-07-29 17:15 | NUR ---
AMY FROM [employer] [facility] - GIVEN UPDATE ON PATIENT CONDITION.
--- NOTE | 2019-07-29 17:15 | NUR ---
PATIENT REMAINS ON TRACH COLLAR AT 30% - SAO2 DECREASED TO 86% - RT NOTIFIED - O2 INCREASED TO 40%
--- NOTE | 2019-07-29 18:04 | NUR ---
1730 07/29/19 I called [facility] and spoke with Canteen Manager Laurie regarding the transfer order for this patient. Per Laurie, they do not think the patient is stable for transfer to [facility] today due to low HGB/blood transfusion-inpatient authorization extended until 07/30/19 1000.
--- NOTE | 2019-07-29 18:20 | NUR ---
SECOND UNIT OF PRBC'S TRANSFUSED WITHOUT S/S TRANSFUSION REACTION
[2019-07-29] MEDS: Glucerna 1.2 Cal 1Liter BOTTLE GT SCH (18:23)
--- NOTE | 2019-07-29 18:35 | NUR ---
PATIENT STATES HIS ILEOSTOMY SURGERY WAS IN [place] OVER 5 YEARS AGO - CALL PLACED TO DR Lashawn DELANEY TO INFORM HER OF INABILITY TO OBTAIN PATIENT O.R. RECORDS.
--- NOTE | 2019-07-29 18:55 | NUR ---
DR Lashawn DELANEY RETURNS CALL - INFORMED OF INABILITY TO OBTAIN OLD MEDICAL RECORDS - STATES TO MONITOR PATIENT FOR RECTAL STOOLS VS ILEOSTOMY STOOLS.
--- NOTE | 2019-07-29 20:00 | NUR ---
REPORT RECEIVED AND ASSUMED CARE; SEE INTERVENTIONS FOR ASSESSMENT; SEE IV SPREADSHEET FOR GTTS; VS STABLE AT THIS TIME; PT. IS CURRENTLY ON TRACH COLLAR-NOT MECHANICALLY VENTED CHARTED IN ASSESSMENT, AND ON 40% FIO2 AND PT. STATES HE IS DOING OK AND NOT TIRED OF YET; WILL CONT. TO MONITOR.
[2019-07-29] MEDS: ATORVASTATIN 20 MG TAB PO SCH (22:05)
[2019-07-30] VITALS (29 sets, daily range): BP systolic 121–195; BP diastolic 31–64
[2019-07-30] MEDS: LINEZOLID 600MG/300ML 300 ML IV SCH ×2 (00:45→11:40)
[2019-07-30] MEDS: ACCU-CHEK COMFORT CURVE STRIP VI SCH ×4 (00:45→18:00)
[2019-07-30] MEDS: InsuLIN REG 1unit/0.01ml Soln (100units/ml) SC SCH ×4 (00:45→18:00)
[2019-07-30] MEDS: FREE WATER GT SCH ×6 (02:00→20:58)
[2019-07-30] MEDS: MEROPENEM 1GM IVPB 100 ML IV SCH ×3 (02:00→18:00)
--- NOTE | 2019-07-30 02:46 | NUR ---
PATIENT REPORTED TO R.T. THAT HE WAS GETTING TIRED AND WANTED TO BE PLACED BACK ON VENTILATOR; R.T. PROVIDING TRACH CARE AND PLACING PT. BACK ON VENTILATOR.
--- NOTE | 2019-07-30 02:53 | NUR ---
Respiratory note: PT REQUESTED TO GO BACK ON VENTILATOR TO SLEEP AND RELAX. PT ORIGINALLY WAS ON TRACH COLLAR 8LPM, 40% AND TOLERATING WELL ALL NIGHT. PT PLACED BACK ON VENT AND WITH ABOVE ORDERED VENT SETTINGS. CUFF INFLATED. PT HAS A SIZE 8.0 SHILEY NON-DISPOSABLE INNER CANNULA. TRACH CARE PERFORMED WITH NO COMPLICATIONS NOTED. TRACH DRAINING WITH NO SKIN BREAKDOWN NOTED. SXN THIN TANNISH SECRETIONS. BS RHONICH T/O. BVM AND SPARE TRACH AT BEDSIDE.
[2019-07-30 04:58] LABS: Hematocrit 28.8 % (41.0-53.0); Hemoglobin 9.5 g/dL (13.5-17.5); Mean Corpuscular Hemoglobin 28.7 pg (28.0-32.0); Mean Corpuscular Hgb Conc. 32.9 g/dL (32.0-36.0); Mean Corpuscular Volume 87.4 fL (80.0-100.0); Platelet Count (auto) 169 10^3/uL (140-450); White Blood Cell 13.6 10^3/uL (4.4-10.8)
[2019-07-30 05:16] LABS: Band Neutrophils % (manual) 0; Basophils % (manual) 0 (0.0-2.0); Blast Cells 0; Metamyelocytes % 0; Myelocytes % 0; Promyelocytes % 0; Reactive Lymphocytes 0
[2019-07-30 05:52] LABS: Calcium 7.6 mg/dL (8.5-10.1); Potassium 3.3 mmol/L (3.5-5.1)
[2019-07-30 05:55] LABS: BUN/Creatinine Ratio 36.1
[2019-07-30] MEDS: ALBUTEROL SULF 2.5 MG/0.5ML(0.5%) NEB SOLN NEB SCH ×3 (05:56→22:03)
[2019-07-30] MEDS: IPRATROPIUM BROM 0.5 MG/2.5ML INH SOL NEB SCH ×3 (05:56→22:03)
[2019-07-30] MEDS: INSULIN LANTUS (GLARGINE) 1 /0.01ml (100units/ml) SC SCH (07:29)
--- NOTE | 2019-07-30 07:45 | NUR ---
ILEOSTOMY BAG CHANGED Ileostomy bag changed. Site cleaned and prepped. Patient tolerated well.
[2019-07-30 07:57] LABS: Eosinophils % (manual) 1 (0-7); Lymphocytes % (manual) 5 (10.0-50.0); Monocytes % (manual) 8 (0-12)
--- NOTE | 2019-07-30 08:00 | NUR ---
OPENING Report received from Eunice TAYLOR RN. Care initiated and initial assessment complete.
[2019-07-30] MEDS: POTASSIUM CHL 20MEQ/100ML 100 ML IV SCH ×2 (09:27→11:21)
[2019-07-30] MEDS: FUROSEMIDE 20 MG/2 ML VIAL IV SCH (09:28)
[2019-07-30] MEDS: MAGNESIUM OXIDE 400 MG TAB PO SCH ×2 (09:29→22:00)
[2019-07-30] MEDS: PANTOPRAZOLE 40 MG/10 ML VIAL INJ IV SCH ×2 (09:29→22:00)
[2019-07-30] MEDS: amLODIPine BESYLATE 5 MG TAB PO SCH (09:29)
[2019-07-30] MEDS: METOPROLOL TARTRATE 25 MG TAB PO SCH ×2 (09:30→22:00)
[2019-07-30] MEDS: AMIODARONE HCL 200 MG TAB PO SCH ×2 (09:30→22:00)
--- NOTE | 2019-07-30 09:30 | NUR ---
SPOKE TO [facility] REP Spoke to Laurie at [facility] and updated her on patient status.
--- NOTE | 2019-07-30 09:40 | NUR ---
IS ARCHITECT [facility] No new orders received. Discussed plan of care.
[2019-07-30] MEDS: MICAFUNGIN SODIUM 100 MG in SODIUM CHL 0.9% 100 ML IV SCH (10:05)
--- NOTE | 2019-07-30 10:26 | NUR ---
PT PLACED ON TRACH COLLAR ON 10L AT 35% FIO2. RN CALVIN MADE AWARE. HR 65, SPO2 98%, RR, 18. BS ARE COARSE SX WITH SMALL RETURN.
--- NOTE | 2019-07-30 10:30 | NUR ---
PATIENT ON TRACH COLLAR Tolerating fairly.
--- NOTE | 2019-07-30 11:07 | NUR ---
1100 07/30/19 I spoke with [facility] Resilient Tile Installer Laurie-provided her with verbal update on the status of this patient. Per Laurie she is looking for a bed for this patient at [place] or [place]. I faxed transfer order and Notice Regarding Post Stabilization to [facility]-document scanned into One [employer]. I faxed today's labs, vitals and medication list to [facility].
--- NOTE | 2019-07-30 11:20 | NUR ---
Nutrition Follow-up Notes Wt.: 107.0 kg Pt is ventilated at [facility], NPO with RT at bedside for possible CPAP. pt was off feeds for same. pt was on EN feeds with Glucerna @ 35 ml/hr Est. Energy Needs: 8939-5991 kcal (12-15 kcal/kg BW), Est. Protein Needs: 70-88 gms/day (0.8-1.0 gms/kg Adj.BW r/t elev RFT). Labs: BUN 22 H, CA 7.6 L, ALB 1.7 L, GLU 186 H GI: Pt BM today per RN doc. Skin: Louis scale 10, high risk. Please refer to wound assessment report for full details PES: 1) Obese, Class III r/t energy intake in excess of energy needs aeb BMI 47 kg/m2 and 202% IBW Recommendations: 1) Consider restarting EN support with Glucerna @ 65 ml/hr per MD approval if pt fails CPAP 2) Resume PN support if pt unable to cain EN. 3) Advance diet gradually to oral CCHO 60g diet, when medically appropriate. 4) Refer pt to CDE/RD for further nutrition education and weight monitoring upon discharge. 5) Continue current plan of care. F/u 2-3 days
--- NOTE | 2019-07-30 12:30 | NUR ---
BEDSIDE: [facility] No new orders received.
[2019-07-30] MEDS: fentaNYL Drip 2500mCg/250mlNS 250 ML IV SCH (15:10)
[2019-07-30] MEDS: NOREPINEPHRINE BITARTRATE 16 MG in SODIUM CHL 0.9% 250 ML IV SCH (15:16)
--- NOTE | 2019-07-30 16:00 | NUR ---
SPOKE TO : [facility] lincoln for transfer complete.
[2019-07-30] MEDS: LORazepam 2MG/ML-1ML VIAL IV PRN (16:09)
[2019-07-30] MEDS: ACETAMINOPHEN 650 mg PER 20 mL UD GT PRN (16:10)
[2019-07-30] MEDS ORDERED: diphenhdrAMINE HCL 50 MG/1 ML VL IV ONE (16:30)
--- NOTE | 2019-07-30 16:37 | NUR ---
1631 07/30/19 I called [facility] and spoke with financial planning analyst Vipul (working with Single Needle Operator Laurie) to request an update on the status of the transfer request. Per Vipul, there are no ICU beds at [facility]. They did speak with patient's and offered her [place] or [place] but she stated that was too far. Per Vipul, inpatient authorization is extended until 07/31/19 1000
--- NOTE | 2019-07-30 18:15 | NUR ---
Respiratory note: RECEIVED PT ON VENT V6. TRACH TO VENT PT. VENT UNIT CONNECTED TO RED OUTLET AND O2 SOURCE ALARMS ARE SET AND AUDIBLE AMBU BAG/ MASK AND EXTRA TRACH AT BEDSIDE. BS ARE FINE COURSE PT DENIES NEED TO SXD AT THIS TIME, PTS CURRENT TEMP READING AT 99.9. NEW TRACH SPONGE PLACED. RT NAME AND PAGER ASSIGNMENT WRITTEN ON PTS ROOM BOARD. WILL CONTINUE TO MONITOR Q2H AND NEEDED.
--- NOTE | 2019-07-30 19:30 | NUR ---
report received and assumed care; see interventions for assessment; vs stable at this time; pt. currently back on ventilator as unable to tolerate trach mask today-pt. stated he was to tired; will cont. to monitor.
[2019-07-30] MEDS: ATORVASTATIN 20 MG TAB PO SCH (22:00)
[2019-07-31] VITALS (34 sets, daily range): BP systolic 99–184; BP diastolic 33–121
[2019-07-31] MEDS: MEROPENEM 1GM IVPB 100 ML IV SCH ×3 (02:00→18:10)
[2019-07-31] MEDS: FREE WATER GT SCH ×3 (02:00→10:00)
--- NOTE | 2019-07-31 05:30 | NUR ---
MORNING CARE PROVIDED; LINEN CHANGE AND BED BATH WITH HCG WIPES; LINO-CARE PROVIDED WITH WASHCLOTHS AND BASIN; ORAL CARE PROVIDED; PT. TOLERATED WELL.
[2019-07-31 05:48] LABS: Hematocrit 27.3 % (41.0-53.0); Hemoglobin 9.1 g/dL (13.5-17.5); Mean Corpuscular Hemoglobin 29.4 pg (28.0-32.0); Mean Corpuscular Hgb Conc. 33.2 g/dL (32.0-36.0); Mean Corpuscular Volume 88.5 fL (80.0-100.0); Platelet Count (auto) 142 10^3/uL (140-450); Red Blood Cells 3.09 10^6/uL (4.5-5.90); Red Cell Distribution Width 17.7 % (11.8-14.3); White Blood Cell 11.6 10^3/uL (4.4-10.8)
[2019-07-31] MEDS: InsuLIN REG 1unit/0.01ml Soln (100units/ml) SC SCH ×4 (05:58→18:00)
[2019-07-31] MEDS: INSULIN LANTUS (GLARGINE) 1 /0.01ml (100units/ml) SC SCH (05:58)
[2019-07-31] MEDS: ACCU-CHEK COMFORT CURVE STRIP VI SCH ×4 (05:58→18:11)
[2019-07-31 06:03] LABS: Potassium 3.4 mmol/L (3.5-5.1)
[2019-07-31] MEDS: ALBUTEROL SULF 2.5 MG/0.5ML(0.5%) NEB SOLN NEB SCH ×3 (06:17→21:50)
[2019-07-31] MEDS: IPRATROPIUM BROM 0.5 MG/2.5ML INH SOL NEB SCH ×3 (06:17→21:50)
[2019-07-31 06:19] LABS: BUN/Creatinine Ratio 32.3; Calcium 7.5 mg/dL (8.5-10.1); Magnesium 1.6 mg/dL (1.6-2.6)
[2019-07-31 07:03] LABS: Basophils % (manual) 0 (0.0-2.0); Blast Cells 0; Metamyelocytes % 0; Myelocytes % 0; Promyelocytes % 0; Reactive Lymphocytes 0
--- NOTE | 2019-07-31 08:00 | NUR ---
OPENING Report received from [facility] willow Dawson. Care initiated and initial assessment complete.
[2019-07-31 08:17] LABS: Band Neutrophils % (manual) 1; Eosinophils % (manual) 4 (0-7); Lymphocytes % (manual) 10 (10.0-50.0); Monocytes % (manual) 6 (0-12)
--- NOTE | 2019-07-31 09:30 | NUR ---
ILEOSTOMY CHANGED Patient tolerated well.
--- NOTE | 2019-07-31 09:44 | NUR ---
0940 07/31/19 I received a call from [facility] Ground Service Equipment Mechanic Laurie letting me know that she is looking for an ICU bed for this patient at [place] or [place]. I provided her with contact information for Dr. Huff. I provided Laurie with a verbal update on the status of the patient including today's labs and CXR.
[2019-07-31] MEDS: MAGNESIUM OXIDE 400 MG TAB PO SCH (09:46)
[2019-07-31] MEDS: FUROSEMIDE 20 MG/2 ML VIAL IV SCH (09:47)
[2019-07-31] MEDS: PANTOPRAZOLE 40 MG/10 ML VIAL INJ IV SCH ×2 (09:47→21:47)
[2019-07-31] MEDS: amLODIPine BESYLATE 5 MG TAB PO SCH (09:47)
[2019-07-31] MEDS: METOPROLOL TARTRATE 25 MG TAB PO SCH ×2 (09:47→21:48)
[2019-07-31] MEDS: MICAFUNGIN SODIUM 100 MG in SODIUM CHL 0.9% 100 ML IV SCH (09:57)
--- NOTE | 2019-07-31 11:21 | NUR ---
1120 07/31/19 I faxed transfer order and Notice Regarding Post Stabilization to [facility]-document scanned into One Content. I faxed today's CXR, labs, vitals and medication list to [facility].
--- NOTE | 2019-07-31 12:00 | NUR ---
PARTIAL LINEN CHANGE Patient tolerated well.
[2019-07-31] MEDS: LINEZOLID 600MG/300ML 300 ML IV SCH ×2 (12:52)
[2019-07-31] MEDS: fentaNYL Drip 2500mCg/250mlNS 250 ML IV SCH (12:53)
[2019-07-31] MEDS: AMIODARONE HCL 200 MG TAB PO SCH ×2 (12:53→21:48)
[2019-07-31] MEDS: NOREPINEPHRINE BITARTRATE 16 MG in SODIUM CHL 0.9% 250 ML IV SCH (12:54)
[2019-07-31] MEDS ORDERED: POTASSIUM EFFERVESENT TAB 25 MEQ GT ONE (17:45)
--- NOTE | 2019-07-31 20:41 | NUR ---
Encouraged to use resistance band. Demonstrated on how to use resistance bands, pt is too weak to use them.
[2019-07-31 20:53] LABS: INR 1.01 (0.9-1.15)
[2019-07-31] MEDS ORDERED: WARFARIN SODIUM 1 MG TAB PO ONE (21:15)
--- NOTE | 2019-07-31 21:44 | NUR ---
Okay to crush warfarin per pharmacy Nasra (pharmacist) gave okay to crush warfarin and give it via NG tube
[2019-07-31] MEDS: ATORVASTATIN 20 MG TAB PO SCH (21:48)
--- NOTE | 2019-07-31 23:58 | NUR ---
SPOKE TO FAMILY MEMBER OVER PHONE UPDATED MONICO () ON PT'S STATUS AND POC, ALL QUESTIONS AND CONCERNS ADDRESSED. LET HER KNOW THAT MARISOL WAS MOVED TO MONDAY.
[2019-08-01] VITALS (78 sets, daily range): BP systolic 93–151; BP diastolic 21–94
[2019-08-01] MEDS: LINEZOLID 600MG/300ML 300 ML IV SCH ×2 (00:43→12:21)
--- NOTE | 2019-08-01 02:00 | NUR ---
PT REFUSING TURNING
[2019-08-01] MEDS: MEROPENEM 1GM IVPB 100 ML IV SCH ×3 (02:18→17:56)
--- NOTE | 2019-08-01 02:22 | NUR ---
PAGED HOSPITALIST PT ITCHING AND APPEARS AGITATED
[2019-08-01] MEDS ORDERED: diphenhdrAMINE HCL 12.5 MG/5 ML UD GT ONE (02:30)
--- NOTE | 2019-08-01 02:30 | NUR ---
PT REFUSING CARES PT REFUSING BATH TO UPPER BODY, BUT DID ALLOW TO WASH HIS LOWER EXTREMITIES. REFUSING BED CHANGE, PT PULLING HANDS AWAY FROM WASH CLOTH, ASKED HIM IF HE WANTS BATH, HE STATED NO IN A WEAK VOICE. PT APPEARS AGITATED. PT DID ALLOW ME TO CHANGE HIS GOWN. I WILL CONTINUE TO REASSESS IF HE ALLOWS ME TO CHANGE HIS BED.
[2019-08-01 04:44] LABS: INR 1.02 (0.9-1.15)
--- NOTE | 2019-08-01 04:51 | NUR ---
FULL BED LINEN CHANGE PT TOLERATED WELL
[2019-08-01] MEDS: InsuLIN REG 1unit/0.01ml Soln (100units/ml) SC SCH ×4 (05:46→17:58)
[2019-08-01] MEDS: ACCU-CHEK COMFORT CURVE STRIP VI SCH ×4 (05:46→17:56)
[2019-08-01] MEDS: ALBUTEROL SULF 2.5 MG/0.5ML(0.5%) NEB SOLN NEB SCH ×4 (06:05→22:24)
[2019-08-01] MEDS: IPRATROPIUM BROM 0.5 MG/2.5ML INH SOL NEB SCH ×4 (06:05→22:24)
[2019-08-01] MEDS: INSULIN LANTUS (GLARGINE) 1 /0.01ml (100units/ml) SC SCH (06:33)
--- NOTE | 2019-08-01 08:00 | NUR ---
OPENING Report received from Octavio TAYLOR RN. Care initiated and initial assessment complete.
[2019-08-01] MEDS: METOPROLOL TARTRATE 25 MG TAB PO SCH ×2 (09:30→22:10)
[2019-08-01] MEDS: PANTOPRAZOLE 40 MG/10 ML VIAL INJ IV SCH ×2 (09:30→22:09)
[2019-08-01] MEDS: amLODIPine BESYLATE 5 MG TAB PO SCH (09:31)
[2019-08-01] MEDS: AMIODARONE HCL 200 MG TAB PO SCH ×2 (09:31→22:11)
--- NOTE | 2019-08-01 09:48 | NUR ---
0945 08/01/19 I spoke with [facility] English Teacher Laurie on 07/31/19 asking for an update on the status of the transfer request. Per Laurie they have no ICU beds available at [facility], inpatient authorization extended until 08/01/19 1000.
--- NOTE | 2019-08-01 09:51 | NUR ---
0950 08/01/19 I called [facility] and spoke with entry analyst Doriat-I requested to speak with today's assigned residential case manager regarding their ICU bed availability. Per Dorita, the assigned residential case manager today is Ksenia and she is in a meeting right now-I asked that she call me when available to discuss transfer.
--- NOTE | 2019-08-01 11:00 | NUR ---
Respiratory note: PT TAKEN OFF OF VENT, AND PLACED ON 8L 30% FIO2 TRACH COLLAR PER DR JAMES ORDER. PT TOLERATING CHANGE WELL. RN MADE AWARE. WILL CONTINUE TO MONITOR PT.
--- NOTE | 2019-08-01 11:05 | NUR ---
TRACH COLLAR Patient is tolerating the trach collar well.
--- NOTE | 2019-08-01 11:30 | NUR ---
Respiratory note: SPEAKING VALVE PLACED ON TRACH. PT REQUESTED TO BE SUCTIONED. SX PT FOR SCANT AMOUNT OF THICK, WHITE SECRETIONS. GAG REFLEX NOTED. PT SAID HE FELT MUCH BETTER, BUT FELT EXTREMELY WEAK. SPO2 98% ON 4L NC, HR 74, RR 19, BS CLEAR/DIMINISHED BILATERALLY. PT TOLERATING CHANGE WELL. RN MADE AWARE. WILL CONTINUE TO MONITOR PT.
--- NOTE | 2019-08-01 11:35 | NUR ---
CHANGED TO NC Patient is on the NC, tolerating well.
--- NOTE | 2019-08-01 12:00 | NUR ---
ROM Encouraged patient to utilize resistance bands and exercise. Patient refused.
[2019-08-01 12:04] LABS: Hematocrit 28.8 % (41.0-53.0); Hemoglobin 9.3 g/dL (13.5-17.5); Mean Corpuscular Hemoglobin 28.8 pg (28.0-32.0); Mean Corpuscular Hgb Conc. 32.3 g/dL (32.0-36.0); Mean Corpuscular Volume 89.4 fL (80.0-100.0); Platelet Count (auto) 131 10^3/uL (140-450); Red Blood Cells 3.22 10^6/uL (4.5-5.90); Red Cell Distribution Width 18.1 % (11.8-14.3); White Blood Cell 12.7 10^3/uL (4.4-10.8)
[2019-08-01 12:06] LABS: Band Neutrophils % (manual) 0; Basophils % (manual) 0 (0.0-2.0); Blast Cells 0; Metamyelocytes % 0; Myelocytes % 0; Promyelocytes % 0; Reactive Lymphocytes 0
[2019-08-01 12:14] LABS: BUN/Creatinine Ratio 28.6; Calcium 7.7 mg/dL (8.5-10.1); Potassium 3.8 mmol/L (3.5-5.1)
[2019-08-01] MEDS: MICAFUNGIN SODIUM 100 MG in SODIUM CHL 0.9% 100 ML IV SCH (12:21)
[2019-08-01 12:26] LABS: Eosinophils % (manual) 1 (0-7); Lymphocytes % (manual) 7 (10.0-50.0); Monocytes % (manual) 5 (0-12)
--- NOTE | 2019-08-01 12:42 | NUR ---
1230 08/01/19 I faxed transfer order and Notice Regarding Post Stabilization to [facility]-document scanned into One Content. I faxed today's MD progress notes, labs, vitals and medication list to [facility].
--- NOTE | 2019-08-01 14:42 | NUR ---
1430 08/01/19 I received a call from [facility] Corporate Administrator Ksenia letting me know that there are no ICU beds available at [facility]. Inpatient authorization extended until 08/02/19 1000.
[2019-08-01] MEDS: fentaNYL Drip 2500mCg/250mlNS 250 ML IV SCH (15:10)
--- NOTE | 2019-08-01 15:11 | NUR ---
Nutrition Follow-up Notes Wt.: 106.0 kg Pt was awake, alert, with no relatives at bedside when rounded this morning. Pt EN nutrition support is temporarily suspended d/t scheduled medical procedure. Pt with no distress. Will continue to closely monitor pertinent labs, PO intake and skin status prn. Will followup in 2-3 days Est. Energy Needs: 6746-7080 kcal (12-15 kcal/kg BW), Est. Protein Needs: 70-88 gms/day (0.8-1.0 gms/kg Adj.BW r/t elev RFT). Labs: GLU 128 H, A1c 10.0 H GI: Pt last noted BM on 07/27 per RN doc. Skin: Louis scale 11, high risk. Please refer to wound assessment report for full details PES: 1) Obese, Class III r/t energy intake in excess of energy needs aeb BMI 47 kg/m2 and 202% IBW Recommendations: 1) Consider restarting EN support with Glucerna @ 65 ml/hr per MD approval if pt fails CPAP 2) Resume PN support if pt unable to cain EN. 3) Advance diet gradually to oral CCHO 60g diet, when medically appropriate. 4) Refer pt to CDE/RD for further nutrition education and weight monitoring upon discharge. 5) Continue current plan of care. F/u 2-3 days
--- NOTE | 2019-08-01 15:15 | NUR ---
BM Patient had forrester pasty BM.
--- NOTE | 2019-08-01 15:25 | NUR ---
COMPLETE LINEN CHANGE Complete linen change done at this time. Patient did not tolerate well, he became combative, pushing nurses away, cussing, and refusing further care.
--- NOTE | 2019-08-01 15:30 | NUR ---
COMBATIVE Patient is cussing at primary RN, myself, and nurses attempting to help me with his turns and care.
--- NOTE | 2019-08-01 15:30 | NUR ---
ILEOSTOMY BAG CHANGED Bag was leaking. Roughly 500cc output. Patient started to complain to leave him alone. Was able to successfully change Ileostomy bag and clean site appropriately.
--- NOTE | 2019-08-01 15:50 | NUR ---
PT REFUSED MEDNEB TX. PT STATED HE FEELS FINE, AND HE JUST WANTS TO GO HOME. RN MADE AWARE.
[2019-08-01] MEDS: NOREPINEPHRINE BITARTRATE 16 MG in SODIUM CHL 0.9% 250 ML IV SCH (16:40)
[2019-08-01] MEDS: LORazepam 2MG/ML-1ML VIAL IV PRN ×2 (16:42→22:09)
[2019-08-01] MEDS ORDERED: WARFARIN SODIUM 5 MG TAB PO ONE ×2 (17:00)
--- NOTE | 2019-08-01 17:30 | NUR ---
REFUSED LABS Patient is refusing to allow primary RN, myself, draw labs from PICC line. Attempting to push me away and pull arm away. Refusing mini lab operator to draw labs. Unable to send labs at this time due to patient refusal.
--- NOTE | 2019-08-01 17:43 | NUR ---
RESISTIVE TO CARE Patient is trying to grab myself, primary RN, as well as RNs helping with care. Patient is being verbally assaultive and making inappropriate comments towards me. Reminded patient to keep his hands to himself. Attempting to reorient patient as he is being combative and confused.
--- NOTE | 2019-08-01 19:20 | NUR ---
CAN NOT OBTAIN BLOOD SAMPLE VIA PICC LINE, NO BLOOD RETURN. PT REFUSING BANK MESSENGER TO DRAW BLOOD.
--- NOTE | 2019-08-01 19:22 | NUR ---
SHIFT ASSESSMENT PT REFUSING ASSESSMENT, STATING NOT TO TOUCH HIM AND PUSHING MY HANDS AWAY, GOWN IS OFF, REFUSING TO TURN, DOES NOT ALLOW ME TO PLACE ICE BACKS TO COOL HIM DOWN (TEMP 99.3). USING FAN TO COOL HIM DOWN. DOESN'T LET ME TO ATTACH PULSE OXIMETER OR PUT ON HIS GOWN. I WILL TRY TO REASSESS LATER IN THE SHIFT. EDUCATED PT ON PURPOSE OF INTERVENTIONS, PT STILL REFUSING ALL INTERVENTIONS. WILL CONTINUE TO MONITOR.
--- NOTE | 2019-08-01 19:50 | NUR ---
MEENA HOSPITALIST - PT AGITATED
--- NOTE | 2019-08-01 19:55 | NUR ---
HOSPITALIST RETURNED CALL NEW ORDERS RECEIVED
--- NOTE | 2019-08-01 20:29 | NUR ---
OPENING NOTE PT IS AGITATED, ON NC, NO SIGN OF RESPIRATORY DISTRESS, WAS ABLE TO PLACE PULSE OXIMETER ON RIGHT EAR, SP02 96%, RR 26. TEMP 99.5, USING FAN TO BRING TEMPERATURE DOWN, PT STILL REFUSING TO BE TURNED, REFUSING ASSESSMENT. AGAIN EDUCATED ON THE PURPOSE OF TURNING AND ASSESSMENT, PT STATING THAT HE WANTS TO BE LEFT ALONE. 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 PT WITHIN THE SIGHT OF NURSING STATION, WILL ROUND ON HIM EVERY 15 MIN AND PRN.
[2019-08-01] MEDS: ATORVASTATIN 20 MG TAB PO SCH (22:10)
--- NOTE | 2019-08-01 22:32 | NUR ---
PT REFUSED MED NEB TX AND TRACH CARE AT THIS TIME. SPO2 95% ON 5L NC, HR 94, RR 21. DESPITE RECOMMENDATION AND EXPLANATION OF INTERVENTIONS, PT IS REFUSING. PASSY-FAITH SPEAKING VALVE REMAINS IN PLACE. NO RESPIRATORY DISTRESS NOTED. WILL RETURN TO ATTEMPT TRACH CARE.
[2019-08-02] VITALS (54 sets, daily range): BP systolic 94–160; BP diastolic 24–69
[2019-08-02] MEDS: ACCU-CHEK COMFORT CURVE STRIP VI SCH ×4 (00:20→17:45)
[2019-08-02] MEDS: LINEZOLID 600MG/300ML 300 ML IV SCH (00:20)
--- NOTE | 2019-08-02 00:41 | NUR ---
PT HAD BOWEL MOVEMENT SMALL BM, GERARDO COLOR
--- NOTE | 2019-08-02 00:50 | NUR ---
CARES PARTIAL BED BATH PROVIDED WITH FULL BED LINEN CHANGE. PT WAS CUSSING DURING BED CHANGE. APPLIED OPTIFOAM TO SACRAL AREA.
--- NOTE | 2019-08-02 01:10 | NUR ---
PT MAKING THREATS PT STATED "I WILL FIND YOU AND STAB YOU ALL"
--- NOTE | 2019-08-02 01:38 | NUR ---
PAGED RT REGARDING LOW SPO2 PT SLEEPING, BREATHING THROUGH HIS MOUTH, SPO2 DROPPED LOW 88%
--- NOTE | 2019-08-02 01:41 | NUR ---
RT AT BEDSIDE
[2019-08-02] MEDS: MEROPENEM 1GM IVPB 100 ML IV SCH ×2 (02:13→09:36)
--- NOTE | 2019-08-02 02:40 | NUR ---
PAGED RT REGARDING LOW SPO2 AND WHEEZING
[2019-08-02] MEDS: IPRATROPIUM BROM 0.5 MG/2.5ML INH SOL NEB SCH ×4 (02:58→20:33)
[2019-08-02] MEDS: ALBUTEROL SULF 2.5 MG/0.5ML(0.5%) NEB SOLN NEB SCH ×4 (02:58→20:33)
--- NOTE | 2019-08-02 02:59 | NUR ---
PT HAD INCREASED WOB AND EXPIRATORY WHEEZES. UNABLE TO CLEAR PREVIOUSLY REFUSED MEDICATION ON EMAR, BUT MED NEB TX ADMINISTERED. PASSY FAITH VALVE REMOVED AND PLACED IN RESPIRATORY DEPARTMENT. PT PLACED ON TRACH COLLAR WITH 35% FIO2. SUCTIONED TRACH FOR LARGE AMOUNT OF THICK PALE YELLOW SECRETIONS. PT APPEARS MUCH MORE COMFORTABLE AT THIS TIME. SPO2 99% ON 35% TRACH COLLAR.
[2019-08-02 04:00] LABS: Basophils # (auto) 0.1 10 ^3/uL (0-0.2); Basophils % (auto) 0.9 % (0.0-2.0); Eosinophils # (auto) 0.3 10 ^3/uL (0-0.8); Eosinophils % (auto) 3.1 % (0.0-7.0); Hematocrit 26.8 % (41.0-53.0); Hemoglobin 8.7 g/dL (13.5-17.5); Lymphocytes # (auto) 1.1 10 ^3/uL (0.4-5.4); Lymphocytes % (auto) 9.8 % (10.0-50.0); Mean Corpuscular Hemoglobin 28.8 pg (28.0-32.0); Mean Corpuscular Hgb Conc. 32.4 g/dL (32.0-36.0); Mean Corpuscular Volume 88.8 fL (80.0-100.0); Monocytes % (auto) 9.3 % (0.0-12.0); Neutrophils # (auto) 8.5 10 ^3/uL (1.6-8.6); Neutrophils % (auto) 76.9 % (37.0-80.0); Platelet Count (auto) 136 10^3/uL (140-450); Red Blood Cells 3.02 10^6/uL (4.5-5.90); Red Cell Distribution Width 17.4 % (11.8-14.3); White Blood Cell 11.1 10^3/uL (4.4-10.8)
--- NOTE | 2019-08-02 04:10 | NUR ---
PT IS ASLEEP PT RESTING IN BED, NO S/S OF RESPIRATORY DISTRESS, SATURATING IN 99%.
[2019-08-02 04:16] LABS: INR 1.07 (0.9-1.15); Partial Thromboplastin Time 25.2 sec (23.64-32.05)
[2019-08-02 04:21] LABS: Calcium 7.3 mg/dL (8.5-10.1); Potassium 3.4 mmol/L (3.5-5.1)
[2019-08-02 04:25] LABS: BUN/Creatinine Ratio 34.1
--- NOTE | 2019-08-02 05:40 | NUR ---
MEENA CALLED BACK REGARDING LOW K K 3.4, NO NEW ORDERS Addendum: 08/02/19 at 0635 by SHAHRIAR KEYS RN RN HOSPITALIST CALLED BACK REGARDING LOW K INCOMPLETE TITLE
[2019-08-02] MEDS: InsuLIN REG 1unit/0.01ml Soln (100units/ml) SC SCH ×5 (06:06→23:48)
[2019-08-02] MEDS: INSULIN LANTUS (GLARGINE) 1 /0.01ml (100units/ml) SC SCH (06:43)
--- NOTE | 2019-08-02 08:00 | NUR ---
OPENING Report received from Octavio TAYLOR RN. Care initiated and initial assessment complete.
--- NOTE | 2019-08-02 08:45 | NUR ---
REFUSING CARE Patient refusing wound care at this time.
[2019-08-02] MEDS: MICAFUNGIN SODIUM 100 MG in SODIUM CHL 0.9% 100 ML IV SCH (09:22)
[2019-08-02] MEDS: POTASSIUM CHL 20MEQ/100ML 100 ML IV SCH ×2 (09:23→12:15)
[2019-08-02] MEDS: PANTOPRAZOLE 40 MG/10 ML VIAL INJ IV SCH ×2 (09:31→22:48)
[2019-08-02] MEDS: METOPROLOL TARTRATE 25 MG TAB PO SCH ×2 (09:32→22:00)
[2019-08-02] MEDS: amLODIPine BESYLATE 5 MG TAB PO SCH (09:33)
[2019-08-02] MEDS: AMIODARONE HCL 200 MG TAB PO SCH ×2 (09:33→22:49)
--- NOTE | 2019-08-02 09:53 | NUR ---
Respiratory note: REMOVED SPEAKING VALVE AND PLACED PT ON 4L NC. SPO2 96%. SUCTIONED PATIENT FOR MODERATE AMOUNT OF THICK WHITE SECRETION PRIOR TO PUTTING SPEAKING VALVE ON.
--- NOTE | 2019-08-02 10:04 | NUR ---
BEDSIDE: Refugio Huff bedside. New orders received.
--- NOTE | 2019-08-02 10:12 | NUR ---
SPOKE TO [facility] transfer rep Bessie is requesting to see if patient would be appropriate for step down unit.
--- NOTE | 2019-08-02 10:14 | NUR ---
SPOKE TO : Refugio Huff states patient can transfer as a [facility] patient to [place]. Orders to be placed by .
[2019-08-02] MEDS ORDERED: FUROSEMIDE 20 MG/2 ML VIAL IV ONE (10:15)
[2019-08-02] MEDS ORDERED: MAGNESIUM SULFATE 1GM/100ML 100 ML IV ONE (10:30)
--- NOTE | 2019-08-02 10:30 | NUR ---
RESISTIVE TO CARE Patient attempting to push me away. Refusing care at this time.
[2019-08-02] MEDS ORDERED: ONDANSETRON HCL 4 MG/2 ML VIAL IV ONE (11:45)
[2019-08-02] MEDS ORDERED: LIDOCAINE VISCOUS 2% 15ML UD ONE (11:45)
[2019-08-02] MEDS ORDERED: MIDAZOLAM HCL 1MG/1ML-2 ML VIAL IV ONE (11:45)
--- NOTE | 2019-08-02 11:45 | NUR ---
BEDSIDE: Ro[facility] ROLAND bedside for MARISOL.
--- NOTE | 2019-08-02 11:59 | NUR ---
MARISOL COMPLETE Patient tolerating fairly. Some desaturation noted. Assessing and increasing O2.
--- NOTE | 2019-08-02 12:01 | NUR ---
CHANGED TO OXYMIZER Patient on Oxymizer at 6, no response, changed to 10.
--- NOTE | 2019-08-02 12:10 | NUR ---
CHANGED TO SIMPLE MASK Simple mask on at 10L.
--- NOTE | 2019-08-02 12:25 | NUR ---
CHANGED TO TRACH COLLAR Patient placed on trach collar at 70% O2 10L.
--- NOTE | 2019-08-02 12:41 | NUR ---
PICC DRESSING CHANGE PICC line dressing change done with a sterile technique. Cleansed with chloraprep. Stat lock, and bio-patch placed. Occlusive dressing applied.
[2019-08-02] MEDS: NOREPINEPHRINE BITARTRATE 16 MG in SODIUM CHL 0.9% 250 ML IV SCH (12:43)
[2019-08-02] MEDS: fentaNYL Drip 2500mCg/250mlNS 250 ML IV SCH (12:44)
--- NOTE | 2019-08-02 13:22 | NUR ---
1315 08/02/19 I faxed transfer order and Notice Regarding Post Stabilization to [facility]-document scanned into One [employer]. I faxed today's MD progress notes, labs, vitals and medication list to [facility]. I called [facility] and spoke with lead systems analyst Connor-I requested to speak with community case manager regarding transfer order. Per Connor the assigned community case manager is Bessie and she is not available right now. I made Connor aware that patient is stable for transfer to [facility] at [facility]. I requested that community case manager Bessie call me regarding transfer request.
--- NOTE | 2019-08-02 13:45 | NUR ---
PT REC'D TO BED 264 WITH RN AND CCT ON COOL MIST VIA TRACH COLLAR AT 50%. PT LETHARGIC, WILL ROUSE TO PAINFUL STIMULI. ON MONITOR, SR 64. HOB ELEVATED. BR 127/39, SPO2 99%. SKIN PINK, W/D
--- NOTE | 2019-08-02 14:15 | NUR ---
NGT PLACEMENT CHECKED BY AUSCULTATION, POSITIVE WITH NO RESIDUAL, KAUR TO GRAVITY, TRACH COLLAR IN PLACE AT 50% AND 10L, PATIENT HAS A SIZE 8 SHILEY TO THE THROAT, HE HAS NUMEROUS SKIN TEARS TO THE BODY WITH OPTIFOAM APPLIED AND INTACT, ILEOSTOMY TO THE RT SIDE OF THE ABD WITH GREEN DRAINAGE, NGT TO THE RT NARES, PICC LINE TO THE ABRAM ALL LUMENS FLUSHED, PATIENT IS LETHARGIC
--- NOTE | 2019-08-02 15:00 | NUR ---
PATIETN STILL SLEEPING AT THE IS TIME
--- NOTE | 2019-08-02 15:56 | NUR ---
TRACH CARE BEING DONE BY RT
--- NOTE | 2019-08-02 16:00 | NUR ---
Respiratory note: TITRATED FIO2 TO 40% ON COOL MIST AEROSOL, COMPA CORTES
--- NOTE | 2019-08-02 16:30 | NUR ---
FEEDING OF GLUCERNA STARTED AT 35ML/HR BY THE FEEDING PUMP, NO RESIDUAL SEEN
--- NOTE | 2019-08-02 16:33 | NUR ---
1630 08/02/19 I called [facility] and spoke with java systems analyst Oneyda (working with Job Press Operator Bessie)-they have no [facility] beds available at [place] or [place]. Inpatient authorization has been extended until 08/03/19.
--- NOTE | 2019-08-02 16:51 | NUR ---
PATIENT WOKE UP AND EXPRESS TO HIM THAT HE WAS IN A NEW ROOM AND MY NAME, SAID OKAY AND WENT BACK TO SLEEP
[2019-08-02] MEDS ORDERED: WARFARIN SODIUM 5 MG TAB PO ONE (17:00)
--- NOTE | 2019-08-02 17:41 | NUR ---
PATIENT WAS MOUTHING WORDS TO ME AND STATED HE DOESN'T WANT TO GO TO [facility], EXPRESS HIM THAT IT IS HIS INSURANCE AND SOMETIMES THEY WANT PATIENTS TO COME TO THEIR HOSPITAL
--- NOTE | 2019-08-02 18:00 | NUR ---
O2 SAT DROPPING TO 87%, PATIENT'S TRACH SUCTIONED USING STERILE TECHNIQUE AND O2 SAT CAME BACK UP TO 93%
--- NOTE | 2019-08-02 18:30 | NUR ---
RT IN TO SEE THE PATIENT, NO TREATMENT GIVEN, ADJUSTED THE O2 LEVEL, KAUR TO GRAVITY, ILEOSTOMY IN THE RT ABDOMINAL WALL PATENT AND DRAINING, PICC LINE TO THE ABRAM INTACT AND PATENT, GLUCERNA INFUSING INTO THE RT SNARES BY THE FEEDING PUMP AT 35ML/HR, TRACH TO THE THROAT SIZE 6 SHILEY, O2 BY THE TRACH COLLAR, WILL CONTINUE TO MONITOR AND GIVE REPORT TO THE NEXT SHIFT
--- NOTE | 2019-08-02 18:30 | NUR ---
RT NOTE PT WA SEEN BY RT FOR QUICK ASSESSMENT. COMPA JARRETT STATES SHE JUST SUCTIONED THE PATIENT. PT IS TRACHED AND ON COOL AEROSOL 10L/40% AT THIS TIME. PT APPEARS SLEEPY BUT IS AWAKE. HR 70 AND RR 29. WATER LEVEL IS ADEQUATE. SPEAKING VALVE FOR PT IS CURRENTLY BOXED AND IN THE RT DEPARTMENT. CONT ORDERED Addendum: 08/02/19 at 1917 by Zoe Clement RT Amended: Links added.
--- NOTE | 2019-08-02 20:00 | NUR ---
Pt desat to 88%, deep suctioned, then down to 84%. RT paged. Treatment given and boost in FiO2 to 70%. Pt tolerated well. Will continue to monitor.
--- NOTE | 2019-08-02 20:34 | NUR ---
RT NOTE PT WAS SEEN BY RT FOR DESATURATION EPISODE. PT WAS FOUND ON 40% AT 10L VIA TRACH COLLAR. COMPA SHELLEY SUCTIONED PT TWICE WITH MINIMAL RETURN. BILATERAL BS ARE DIMINISHED. RT INCREASED FIO2 TO 70% AND GAVE BREATHING TX. SPARE TRACH AT BEDSIDE AND OBTURATOR ON WALL AT HOB. POST TX SAT 97% WITH INCREASED AERATION. FIO2 DECREASED BACK TO 40%. COMPA SHELLEY AWARE Addendum: 08/02/19 at 2045 by Zoe Clement RT Amended: Links added.
--- NOTE | 2019-08-02 20:57 | NUR ---
RT NOTE INCREASED FIO2 TO 50%
[2019-08-02] MEDS: ATORVASTATIN 20 MG TAB PO SCH (22:48)
--- NOTE | 2019-08-02 23:00 | NUR ---
Pt 50% FiO2, 10L tolerating well. Stable at this time. called to check on pt. Pt informed that called and nodding in acknowledgement. No S/S of distress. Will continue to monitor.
[2019-08-03] VITALS (67 sets, daily range): BP systolic 75–181; BP diastolic 21–82
--- NOTE | 2019-08-03 02:11 | NUR ---
Stable, resting with eyes closed. Tolerating trach collar. Will continue to monitor.
--- NOTE | 2019-08-03 04:04 | NUR ---
RT NOTE TRACH CARE DONE. PT DESATURATED A LITTLE WHILE DOING CARES, SO RT INFLATED THE CUFF, BAGGED THE PATIENT TO 100% POX AND THEN PLACED PT BACK ON 50% COOL AEROSOL. DRAIN BAG EMPTIED. COMPA SHELLEY AT BEDSIDE AND AWARE. CONT ORDERED Addendum: 08/03/19 at 0405 by Zoe Clement RT Amended: Links added.
--- NOTE | 2019-08-03 04:16 | NUR ---
paged, bp 69/29. Pulse ox 88, resp paged. Resp at bedside.
--- NOTE | 2019-08-03 04:25 | NUR ---
RT NOTE PT WAS NOT ARROUSABLE AND WAS DESATURATING. ABG DRAWN AND PT WAS PLACED BACK ON VENT ON PREVIOUS SETTINGS PER ABG RESULTS. SPUTUM WAS NOT OBTAINABLE AT THIS TIME. PT WAS PLACED ON VENT V6 ON STATED SETTINGS. VENT IS PLUGGED TO RED OUTLET. ALARMS ARE ON AND AUDIBLE TO NURSING. 8.0 MIGRANT LEADER TRACH SECURED WITH TRACH TIES. CONT ORDERED Addendum: 08/03/19 at 0443 by Zoe Clement RT Amended: Links added.
--- NOTE | 2019-08-03 04:34 | NUR ---
Pt placed on vent. repaged. BP 63/32, pt not responsive. Will continue to monitor. HR 77, pulse ox 99 on vent.
--- NOTE | 2019-08-03 04:40 | NUR ---
New order for 1 Liter bolus and to recheck pressure in 1 hour. Will continue to monitor.
--- NOTE | 2019-08-03 04:58 | NUR ---
Bolus infusing. BP now 77/41, HR 75.
[2019-08-03] MEDS ORDERED: SODIUM CHLORIDE 0.9% 1,000 ML IV ONE (05:00)
[2019-08-03 05:33] LABS: INR 1.13 (0.9-1.15)
--- NOTE | 2019-08-03 05:54 | NUR ---
BP 79/46 Pt now opening eyes, head elevated off pillow looking around. Dr. Chaudhry informed of current VS and condition. Ordered to continue to monitor closely.
[2019-08-03] MEDS: ACCU-CHEK COMFORT CURVE STRIP VI SCH ×4 (06:00→17:14)
--- NOTE | 2019-08-03 06:00 | NUR ---
MD updated on bp starting to come up, ordered to continue to monitor.
--- NOTE | 2019-08-03 07:00 | NUR ---
Pt had large liquid BM rectally and approx 400 out via ileostomy. Ileostomy bag was leaking and came off. Ostomy bag replaced and now patent.
[2019-08-03] MEDS: IPRATROPIUM BROM 0.5 MG/2.5ML INH SOL NEB SCH ×3 (07:28→22:15)
[2019-08-03] MEDS: ALBUTEROL SULF 2.5 MG/0.5ML(0.5%) NEB SOLN NEB SCH ×3 (07:28→22:15)
--- NOTE | 2019-08-03 08:14 | NUR ---
MD saldana, bp sys 79. Report given to AM shift. Pt not stable at this time.
--- NOTE | 2019-08-03 08:15 | NUR ---
Received report from Eunice CHATMAN. Patient SBP has been 60's to 70's since 399, urine output 754 ml for the past 12 hours. Paged Hospitalist. Awaiting call back. Patient transferred by garde managerOCMPA Sandoval and Eunice RT to ICU via hospital bed on quality assurance monitor chassis and vent. Gave report to Naida CHATMAN.
--- NOTE | 2019-08-03 08:15 | NUR ---
PICC line dressing changed due to wet weeping tissue in the left arm. Skin tear close to site, 2x2 placed under dressing. All port claves changed. Only red port flushes well, other are very hard to flush.
--- NOTE | 2019-08-03 08:20 | NUR ---
Due to emergent issues Insulin R and Lantus were not given prior to transfer.
--- NOTE | 2019-08-03 08:20 | NUR ---
RT Transport Note: Patient transported to ICU 108 with RN. Patient transported to and from procedure on ventilator with previous ordered settings. Patient on lunchroom monitor with alarms set and audible, ambu-bag/mask connected to 02 tank. Patient returned to room with no adverse reaction noted. Transport completed without incident.
--- NOTE | 2019-08-03 08:25 | NUR ---
Received call from Dr Hayward, updated on patient's status, verbalized understanding. Received telephone order to start patient on Levophed drip and transfer patient to ICU. Orders read back and verified.
[2019-08-03] MEDS ORDERED: NOREPINEPHRINE 8 MG/250ML KIT 250 ML IV ONE (08:26)
[2019-08-03] MEDS ORDERED: NOREPINEPHRINE 8 MG/250ML KIT 250 ML IV SCH (08:30)
--- NOTE | 2019-08-03 08:30 | NUR ---
notified of transfer to ICU.
--- NOTE | 2019-08-03 08:30 | NUR ---
RECEIVED PT FROM [facility]ON PT LETHARGIC CONNECTED TO VENTILATOR VIAL ZAMZAM WYMAN. PT IS AROUSABLE, ABLE TO FOLLOW COMMANDS BUT FALLS BACK TO SLEEP. 8.0 SHILEY TO AC20 TV 550 30 % FIO2 PEEP 8, LS WITH RHONCHI AND DIMINISHED ON THE BASIS. PT CAME TO ICU FOR HYPOTENSION, PT HAS BEEN HYPOTENSIVE SINCE 399 PER REPORT RECEIVED FROM COMPA SORIANO AND TRENDS SEEN ON MONITOR HISTORY. PT ALSO HAS HAD NO UOP ACCORDING TO REPORT RECEIVED SINCE 399. PT'S ILEOSTOMY BAG WAS ABOUT TO BURST OUT FILLED WITH AIR AND 500 ML OF LIQUID STOOL. BAG EMPTIED AT THIS TIME. LEVOPHED STARTED AT 2 MCG /MIN PER DR. BURRELL WHO SAY TO DO WHAT EVER IT TAKES TO STABILIZE PT. SHE' LL FIGURE OUT WHO WILL BE ASSIGN TO PT LATER ON. PT IS DR. PARKER'S PT WHO IS OFF TODAY.
[2019-08-03] MEDS: amLODIPine BESYLATE 5 MG TAB PO SCH (10:00)
[2019-08-03] MEDS: METOPROLOL TARTRATE 25 MG TAB PO SCH ×2 (10:00→21:21)
[2019-08-03] MEDS: FUROSEMIDE 20 MG/2 ML VIAL IV SCH (10:00)
--- NOTE | 2019-08-03 10:00 | NUR ---
HOLD P.T. BECAUSE OF TRANSFER TO ICU.
[2019-08-03] MEDS: MICAFUNGIN SODIUM 100 MG in SODIUM CHL 0.9% 100 ML IV SCH ×2 (10:40→11:12)
[2019-08-03] MEDS: PANTOPRAZOLE 40 MG/10 ML VIAL INJ IV SCH ×2 (10:40→11:12)
--- NOTE | 2019-08-03 11:01 | NUR ---
PICC LINE UNABLE TO GIVE BACK BLOOD FOR LAB DRAW . ONE OF THE PORTS COMPLETELY OCCLUDED WHILE ATTEMPTING TO DRAW BLOOD FOR AM LABS AND BLOOD CULTURES. I NOTIFIED DR. BARRIENTOS. I ALSO NOTIFIED HIM THAT ALL THE PORT ARE VERY DIFFICULT TO FLUSH.
[2019-08-03] MEDS: AMIODARONE HCL 200 MG TAB PO SCH ×2 (11:12→21:33)
[2019-08-03] MEDS: INSULIN LANTUS (GLARGINE) 1 /0.01ml (100units/ml) SC SCH (11:19)
--- NOTE | 2019-08-03 11:19 | NUR ---
DR. PARKER CALLED TO GET AN UPDATE ON PT'S CONDITION SHE WANTED TO MAKE SURE PT GOT LABS DRAWN A CBC, CMP . I UPDATED HER ON PT'S CONDITION. I NOTIFIED HER THAT PT'S ABRAM PICC LINE WAS MALFUNCTIONING, NOT WANTING TO FLUSH, IT HAD TOO MUCH RESISTANCE , ARM LOOKS PINK, BRUISED, PUFFY AND IT FEELS WARM. MD AGREED THAT PICC LINE NEEDS TO COME OUT AND THAT PT NEEDS ANOTHER LINE ON RT. ARM. I TOLD HER PT HAS A RESTRICTED ARM BAND ON THAT ARM. SHE REVIEWED ME'S MEDICAL RECORD AND STATES THAT ARM IS OKAY TO USE. PT'S BOTH ARMS ARE ADENOMATOUS AND PT IS A DIFFICULT STICK. I CALLED INSURANCE UNDERWRITER SALES REQUESTING FOR THE MIDLINE RN WHOM I WAS BANDAR THER IS NO ONE IN THE WEEKENDS.
[2019-08-03] MEDS: NOREPINEPHRINE 8 MG/250ML KIT 250 ML IV SCH (11:23)
[2019-08-03 11:25] LABS: Basophils # (auto) 0.1 10 ^3/uL (0-0.2); Basophils % (auto) 0.6 % (0.0-2.0); Eosinophils # (auto) 0 10 ^3/uL (0-0.8); Eosinophils % (auto) 0.3 % (0.0-7.0); Hematocrit 29.5 % (41.0-53.0); Hemoglobin 9.4 g/dL (13.5-17.5); Lymphocytes # (auto) 1.4 10 ^3/uL (0.4-5.4); Lymphocytes % (auto) 9.9 % (10.0-50.0); Mean Corpuscular Hemoglobin 28.8 pg (28.0-32.0); Mean Corpuscular Hgb Conc. 31.8 g/dL (32.0-36.0); Mean Corpuscular Volume 90.6 fL (80.0-100.0); Monocytes % (auto) 6.8 % (0.0-12.0); Neutrophils % (auto) 82.4 % (37.0-80.0); Platelet Count (auto) 150 10^3/uL (140-450); Red Blood Cells 3.26 10^6/uL (4.5-5.90); Red Cell Distribution Width 18.6 % (11.8-14.3); White Blood Cell 14.6 10^3/uL (4.4-10.8)
--- NOTE | 2019-08-03 11:32 | NUR ---
WOUND CARE NOTE: Wound care in to see patient for reevaluation of wounds and skin integrity monitoring. Patient transferred yesterday to SDU and now back again in ICU. Patient is resting in ICU bed in Rm. 108. He's on vent via trach. He's awake, alert, respond to verbal and tactile stimuli. Patient appears to be in no pain using Newman Roberts Faces Pain Scale. He's max assist in turning and repositioning and his Louis score is 11. Patient's multiple wounds continue to improve. L ear scabbed abrasion now display intact pink skin, no scab noted. Mucosal ulcer to upper chest/distal neck is also closed with mild redness, routine staff/RT cleaning and applying dry sterile gauze. Patient's bilateral upper and lower extremities still display edema and erythema with multiple intact scabs and ecchymosis. Rt barakat skin tear continue to improve, clean and dry with C/D/I dressing. Skin tear to Rt upper arm is well approximated, clean and dry. Skin tears (1x1.2cm, 2.5x1cm) to weeping edematous Lt. upper arm and forearm is red with moderate serous drainage. Cleansed and changed the dressing as ordered. New photograph of mentioned skin issue are taken for reference. Unable to turn patient to check sacral and back as patent's BP is low 84/51. Patient tolerated well. Wound care will try to see patient at later time for sacral and back assessment. RECOMMENDATION: Continuation of all wound care orders prescribed by MD, continue with skin/wound plan of care, continue monitoring by wound care while patient is hospitalized. Addendum: 08/03/19 at 1548 by Phyllis Gil RN Amended: Links added.
[2019-08-03 11:45] LABS: Potassium 4.9 mmol/L (3.5-5.1)
[2019-08-03 11:50] LABS: Albumin 1.7 g/dL (3.4-5.0); Bilirubin, Total 0.4 mg/dL (0.2-1.0); Calcium 7.9 mg/dL (8.5-10.1)
--- NOTE | 2019-08-03 12:12 | NUR ---
Nutrition Follow-up Notes Wt.: 103.8 kg Pt`s ventilated with no family by bedside. pt is currently NPO Est. Energy Needs: 9353-2224 kcal (12-15 kcal/kg BW), Est. Protein Needs: 70-88 gms/day (0.8-1.0 gms/kg Adj.BW r/t elev RFT). Labs: CA 7.3 L, GLU 153 H GI: Pt had 200 ml BM noted per RN doc. Skin: Louis scale 11, high risk. Please refer to wound assessment report for full details PES: 1) Obese, Class III r/t energy intake in excess of energy needs aeb BMI 47 kg/m2 and 202% IBW Recommendations: 1) Consider restarting EN support with Glucerna @ 65 ml/hr per MD approval if pt continues to be NPO 2) Resume PN support if pt unable to cain EN. 3) Advance diet gradually to oral CCHO 60g diet, when medically appropriate. 4) Refer pt to CDE/RD for further nutrition education and weight monitoring upon discharge. 5) Continue current plan of care. F/u 2-3 days
[2019-08-03] MEDS: InsuLIN REG 1unit/0.01ml Soln (100units/ml) SC SCH ×3 (12:35→17:25)
--- NOTE | 2019-08-03 13:10 | NUR ---
NOTIFIED DR. BARRIENTOS THAT PICC LINE NEEDS TO COME OUT, ITS NO LONGER FUNCTIONAL, THAT WE ARE IN NEED OF AN IV LINE. MD WILL INSERT A CENTRAL LINE.
[2019-08-03] MEDS: Glucerna 1.2 Cal 1Liter BOTTLE GT SCH ×2 (14:00→16:57)
[2019-08-03] MEDS ORDERED: WARFARIN SODIUM 5 MG TAB PO ONE (17:00)
--- NOTE | 2019-08-03 19:00 | NUR ---
BM ELIMINATION PT HAD A LARGE LOSE BM VIA ILEOSTOMY WITH AIR, BAG LEAKED OUT. PT REQUIRED A PARTIAL BATH WITH LINEN CHANGE. ILEOSTOMY BAG REPLACED. PT TOLERATING TF.
--- NOTE | 2019-08-03 20:00 | NUR ---
SHIFT OPENING NOTE RECEIVED PATIENT AWAKE, FOLLOWS SIMPLE COMMANDS, NODS YES AND NO TO QUESTIONS. TRACH 8.0 SHILEY WITH VENT SETTINGS AC 20, TV 550, 30% FI02, PEEP 8. THICK WHITE SECRETIONS SUCTIONS OUT OF TRACH. ON LEVOPHED AT 2. ILEOSTOMY TO RIGHT ABDOMEN WITH LIQUID BROWN STOOL OUTPUT. NG TUBE TO LEFT NARE INFUSING GLUCERNA AT 30 ML/H. NO RESIDUALS NOTED. KAUR CATH DRAINING COLE URINE TO GRAVITY. GENERALIZED SKIN TEARS AND SCABS THROUGHOUT BODY. RIGHT FEMORAL TLC INFUSING DRIP. PHYSICAL ASSESSMENT COMPLETED, SEE INTERVENTIONS. INSTRUCTED ON POC. WILL CLOSELY MONITOR.
[2019-08-03] MEDS: ATORVASTATIN 20 MG TAB PO SCH (21:33)
--- NOTE | 2019-08-03 23:10 | NUR ---
RECEIVED A CALL FROM PATIENTS MONICO UPDATED HER ON PATIENTS STATUS
[2019-08-04] VITALS (91 sets, daily range): BP systolic 72–187; BP diastolic 23–107
[2019-08-04] MEDS: ACCU-CHEK COMFORT CURVE STRIP VI SCH ×4 (00:25→17:17)
[2019-08-04] MEDS: ACETAMINOPHEN 650 mg PER 20 mL UD GT PRN ×2 (00:25→12:07)
[2019-08-04] MEDS: InsuLIN REG 1unit/0.01ml Soln (100units/ml) SC SCH ×4 (00:37→17:15)
[2019-08-04 04:23] LABS: Hemoglobin 8.4 g/dL (13.5-17.5); Lymphocytes # (auto) 1.8 10 ^3/uL (0.4-5.4); Monocytes # (auto) 1.2 10 ^3/uL (0-1.3); Red Cell Distribution Width 18.1 % (11.8-14.3); White Blood Cell 14.2 10^3/uL (4.4-10.8)
[2019-08-04 04:26] LABS: Basophils # (auto) 0.1 10 ^3/uL (0-0.2); Eosinophils # (auto) 0.1 10 ^3/uL (0-0.8); Eosinophils % (auto) 0.9 % (0.0-7.0); Hematocrit 25.9 % (41.0-53.0); Lymphocytes % (auto) 12.6 % (10.0-50.0); Mean Corpuscular Hgb Conc. 32.5 g/dL (32.0-36.0); Mean Corpuscular Volume 89.2 fL (80.0-100.0); Monocytes % (auto) 8.3 % (0.0-12.0); Neutrophils % (auto) 77.2 % (37.0-80.0); Nucleated Red Blood Cells % 0.1 %; Platelet Count (auto) 140 10^3/uL (140-450); Red Blood Cells 2.91 10^6/uL (4.5-5.90)
[2019-08-04 04:37] LABS: INR 1.14 (0.9-1.15); Partial Thromboplastin Time 35.5 sec (23.64-32.05)
[2019-08-04 04:43] LABS: Calcium 7.7 mg/dL (8.5-10.1)
[2019-08-04 04:45] LABS: Albumin 1.5 g/dL (3.4-5.0); BUN/Creatinine Ratio 20.4
[2019-08-04 04:48] LABS: Bilirubin, Total 0.4 mg/dL (0.2-1.0); Total Protein 5.7 g/dL (6.4-8.2)
[2019-08-04] MEDS: INSULIN LANTUS (GLARGINE) 1 /0.01ml (100units/ml) SC SCH (05:53)
[2019-08-04] MEDS: IPRATROPIUM BROM 0.5 MG/2.5ML INH SOL NEB SCH ×3 (06:36→22:45)
[2019-08-04] MEDS: ALBUTEROL SULF 2.5 MG/0.5ML(0.5%) NEB SOLN NEB SCH ×3 (06:36→22:45)
--- NOTE | 2019-08-04 07:20 | NUR ---
END OF SHIFT REPORT GIVEN AND CARE ENDORSED TO JASWANT HERNANDEZ LEVO AT 2.
--- NOTE | 2019-08-04 08:00 | NUR ---
AM ASSESSMENT COMPLETED. PT EASILY AROUSABLE. REMAINS ON LEVOPHED AT 2 MCS/KG FOR B/P SUPPORT. PT'S BP WNL AT CURRENT RATE BUT PT IS VERY FRAIL WHEN LEVO IS TURNED OFF, BP DROPS TO THE 70'S PER MILLER KILN DRIED SALT REPORT. STILL REMAINS ON VENTILATOR: VIA TRACH AC 20 TV 550 30 % FIO2 PEEP 8, SPO2 IN THE MID 90'S PT COUGHING UP THICK WHITE SECRETIONS THROUGH TRACH. PT ON SR WITH PAC'S. NGT WITH GLUCERNA AT 35 ML/HR HOB AT 30 DEGREE SARA. ILEOSTOMY EMPTIED AT THIS TIME. EDUCATED ON POC PT VERBALIZED UNDERSTANDING.
[2019-08-04] MEDS: NOREPINEPHRINE 8 MG/250ML KIT 250 ML IV SCH (08:30)
[2019-08-04] MEDS: METOPROLOL TARTRATE 25 MG TAB PO SCH ×3 (10:00→22:00)
[2019-08-04] MEDS: FUROSEMIDE 20 MG/2 ML VIAL IV SCH (10:00)
[2019-08-04] MEDS: amLODIPine BESYLATE 5 MG TAB PO SCH (10:00)
--- NOTE | 2019-08-04 10:28 | NUR ---
[facility] CALLED TO GET AN UPDATE ON PT'S CONDITION I UPDATED THEM ON PT'S CURRENT VITAL SIGNS PLUS CURRENT LEVOPHED AT ONLY 2 VITOR/MIN TO KEEP SBP ABOVE 90. TRANSFER CENTER WILL PROCEED WITH A REQUEST FOR A BED FOR A STABLE ICU PT. I INFORMED HER THAT MD HAS STILL NOT ROUNDED ON PT, BUT I WOULD REQUEST FOR TRANSFER ORDER TO ICU.
--- NOTE | 2019-08-04 10:30 | NUR ---
NOTIFIED WHO IS COVERING FOR THAT [facility] HAD REQUESTED FOR A NEW TRANSFER ORDER AND I ALSO NOTIFIED HIM OF PT'S UOP AVERAGING 200 ML PER 12 HR SHIFT, BUT PT HAS BEEN HAVING 1000 ML OUTPUT OF LIQUID BM PER SHIFT. I ALSO MENTIONED TO HIM OF ALL THE AM MEDICATIONS THAT I WAS HOLDING D/T HYPOTENSION, NORVASC,LASIX AND METOPROLOL. WAS PLEASED WITH THE INFORMATION GIVEN TO HIM. HE AGREED TO RE- DO NEW PAPER WORK TO FACILITATE PT'S TRANSFER TO [facility]. I FACILITATED HIM BY ANSWERING QUESTIONS REGARDING PT'S CURRENT CONDITION AND MEDICATIONS.
--- NOTE | 2019-08-04 10:46 | NUR ---
WOUND CARE NOTE: Able to assess patient's sacral and back at this time with the help of patient's nurse, COMPA Pascal. Patient's multiple intact scabs and ecchymosis to bilateral posterior calves remain the same, scabbed and clean and dry, left open to air. Patient's sacral buttocks remain intact with multi superficial linear skin tears from peeling dry skin from resolving MASD. No pressure injury noted. Megan care given and applied Z Guard cream. Patient developed 3.0x1.0cm open partial thickness skin tear to posterior back. Skin tear is red, clean and dry with pink surrounding skin. Cleansed and dressing changed as ordered. Photograph of mentioned skin issue are taken for reference. Patient tolerated well. Repositioned for comfort facing his Rt. side, redistributed pressure points with pillows. COMPA Pascal at bedside. RECOMMENDATION: Continuation of all wound care orders prescribed by MD, continue with skin/wound plan of care, continue monitoring by wound care while patient is hospitalized.
--- NOTE | 2019-08-04 11:26 | NUR ---
[facility] CALLED TO INFORM ME THAT THERE IS NO ICU BEDS TO TRANSFER PT. I NOTIFIED. DR. ANTONIO WHO STILL WORKING ON UPDATING PT'S MED RECONCILIATION LIST AND PT'S TRANSFER DISCHARGE SUMMARY.
[2019-08-04] MEDS: PANTOPRAZOLE 40 MG/10 ML VIAL INJ IV SCH ×2 (11:31→22:29)
[2019-08-04] MEDS: AMIODARONE HCL 200 MG TAB PO SCH ×2 (11:31→22:29)
--- NOTE | 2019-08-04 12:07 | NUR ---
PAIN MEDICATED FOR GENERALIZED PAIN 09/29 WITH 650 MG OF TYLENOL VIA NGT.
--- NOTE | 2019-08-04 13:00 | NUR ---
PAIN RESOLVED. PT DENIES ANY PAIN AT THIS TIME.
--- NOTE | 2019-08-04 16:25 | NUR ---
DR. Lashawn DELANEY CALLED TO GET AN UPDATE ON PT'S CONDITION SHE WAS ASKING IF PT HAS GI BLEED. I TOLD HER NOT ANY OBVIOUS GI BLEED BLEED, PT WAS SHON STATUS FOR A DAY AND THEN BECAME HYPOTENSIVES AN HAD TO BE PLACED BACK ON LEVOPHED, HE HAS BEEN ON LEVOPHED ONLY AT 2 VITOR/MIN ONLY UNTIL NOON TIME. NOW HE IS OFF LEVOPHED AND HE STILL WAITING FOR A BED TO BE TRANSFERRED TO [place].
[2019-08-04] MEDS ORDERED: WARFARIN SODIUM 2 MG TAB PO ONE (17:00)
[2019-08-04] MEDS: Glucerna 1.2 Cal 1Liter BOTTLE GT SCH (17:32)
--- NOTE | 2019-08-04 18:00 | NUR ---
PARTIAL BATH GIVEN. LINEN CHANGED . ALL DRESSINGS TO SKIN TEARS REMAIN INTACT. REPOSITIONED FOR COMFORT. ORAL CARE PROVIDED.
--- NOTE | 2019-08-04 19:42 | NUR ---
REPORT GIVEN TO COMPA KIMBROUGH.
--- NOTE | 2019-08-04 20:00 | NUR ---
ADMITTED ON 05/27/19 WITH DYSPNEA THAT WAS EXACERBATED WITH WALKING AND RIGHT LEG SWELLING. A FEW SCABS ON TOES. LOWER LEGS HOT RED IN COLOR, LUMPY. OVER TIME DEVELOPED A SKIN RASH THAT LEG TO AN ALL BODY REDNESS AND FLAKY SKIN. INTUBATED, EXTUBATED, WENT INTO STRIDOR AND WAS REINTUBATED. ON 06/18, SIZE [address] SHILEY [address] PLACED BY DR MUNIZ. PROLONGED COURSE OF LEVOPHED AND A PSEUDOMONAS INFECTION. AT ONE POINT WAS ON A BUMEX DRIP. ON 07/10 RECEIVED 2 UPC. POOR TOLERANCE OF TUBE FEEDING LED TO TPN FOR NUTRTION. LATER TRIED TUBE FEEDING AGAIN AND THE RATE IS NOW AT 35CC/HR. DEVELOPED A RIGHT UPPER ARM DVT WHERE A PICC LINE WAS. NOW: TRIPLE LUMEN RIGHT GROIN. HAS MULTIPLE SKIN ISSUES. RIGHT NGUYEN RESOLVING SKIN TEAR. RIGHT POSTERIOR CALF DARKENED SCABS WITH FOAM DRESSING. LEFT UPPER ARM ARE 2 SKIN TEARS THAT ARE OOZING SEROUS FLUID. HAS A SCAB ON THE TOE OF THE RIGHT FOOT. HAS A MUCOSAL ULCER NEAR TRACH. HAS LEFT POSTERIOR CALF SCABS.
[2019-08-04] MEDS: ATORVASTATIN 20 MG TAB PO SCH (22:28)
[2019-08-05] VITALS (96 sets, daily range): BP systolic 83–143; BP diastolic 21–68
--- NOTE | 2019-08-05 | NUR ---
DESATURATION TO 88%. LARGE AMOUNT OF WHITE SECRETIONS FROM THE ETT. HIGH PIP PRESSURE. ORAL CARE DONE. RESOLVED THE SITUATION. HE IS COMFORTABLE NOW. ILEOSTOMY BAG BLEW. IT IS DRAINING BROWN LIQUID. A SMALL % OF THE SKIN UNDER THE ILEOSTOMY DEVICE IS RED. SKIN PREP USED BEFORE PLACING A NEW ILEOSTOMY BAG. LINEN CHANGE. NOTED SKIN REDNESS ON LINO AREA. FULL RANGE OF MOTION EXERCISES PERFORMED.ALL EXTREMITIES ARE STIFF. RIGHT SHOULDER DISCOMFORT.
--- NOTE | 2019-08-05 03:35 | NUR ---
AM LAB DRAW
[2019-08-05] MEDS: ACETAMINOPHEN 650 mg PER 20 mL UD GT PRN ×3 (04:29→22:27)
[2019-08-05] MEDS: InsuLIN REG 1unit/0.01ml Soln (100units/ml) SC SCH ×4 (06:00→17:40)
[2019-08-05] MEDS: ACCU-CHEK COMFORT CURVE STRIP VI SCH ×4 (06:00→17:40)
--- NOTE | 2019-08-05 06:00 | NUR ---
DESATURATION. SUCTIONED SEVERAL TIMES FOR THICK WHITE SECRETIONS.
[2019-08-05 06:12] LABS: Basophils # (auto) 0.1 10 ^3/uL (0-0.2); Basophils % (auto) 1.2 % (0.0-2.0); Eosinophils # (auto) 0.3 10 ^3/uL (0-0.8); Eosinophils % (auto) 2.2 % (0.0-7.0); Hemoglobin 8.2 g/dL (13.5-17.5); Lymphocytes # (auto) 1.9 10 ^3/uL (0.4-5.4); Lymphocytes % (auto) 15.3 % (10.0-50.0); Mean Corpuscular Hemoglobin 29.5 pg (28.0-32.0); Mean Corpuscular Hgb Conc. 32.8 g/dL (32.0-36.0); Mean Corpuscular Volume 89.9 fL (80.0-100.0); Monocytes # (auto) 1.1 10 ^3/uL (0-1.3); Monocytes % (auto) 8.8 % (0.0-12.0); Neutrophils % (auto) 72.5 % (37.0-80.0); Platelet Count (auto) 127 10^3/uL (140-450); Red Blood Cells 2.79 10^6/uL (4.5-5.90); Red Cell Distribution Width 18.8 % (11.8-14.3); White Blood Cell 12.3 10^3/uL (4.4-10.8)
[2019-08-05 06:29] LABS: Potassium 4.1 mmol/L (3.5-5.1)
[2019-08-05 06:31] LABS: INR 1.3 (0.9-1.15); Partial Thromboplastin Time 32.9 sec (23.64-32.05)
[2019-08-05] MEDS: ALBUTEROL SULF 2.5 MG/0.5ML(0.5%) NEB SOLN NEB SCH ×3 (06:41→21:55)
[2019-08-05] MEDS: IPRATROPIUM BROM 0.5 MG/2.5ML INH SOL NEB SCH ×3 (06:41→21:55)
[2019-08-05 06:46] LABS: Albumin 1.6 g/dL (3.4-5.0); BUN/Creatinine Ratio 26.5; Bilirubin, Total 0.4 mg/dL (0.2-1.0); Calcium 8.1 mg/dL (8.5-10.1); Total Protein 5.8 g/dL (6.4-8.2)
[2019-08-05] MEDS: INSULIN LANTUS (GLARGINE) 1 /0.01ml (100units/ml) SC SCH (07:00)
--- NOTE | 2019-08-05 07:07 | NUR ---
HELD LANTUS BASED ON LOW BLOOD SUGAR
--- NOTE | 2019-08-05 07:35 | NUR ---
INITIAL CONTACT Report received from Odalys CHATMAN, care assumed Patient observed resting in bed. Patient is awake, alert, and oriented x2-3. Patient able to follow simple commands. Afebrile. Patient denies pain or discomfort. Pules palpable bilaterally. Pitting edema present upper and lower extremities. Lungs clear anteriorly. Patient is trache to ventilator at this time, tolerating well. Oxygen saturation greater than 95%. Respirations are even and unlabored, no signs of distress present. NGT present with tube feedings running, no residual noted. Right quadrant ileuostomy noted. See skin/ wound assessment. Patient repositioned in bed with maximum assistance. Alarms in place. Call light within reach. Patient instructed to call for assistance, pt verbalized understanding. Will continue to monitor.
[2019-08-05] MEDS: NOREPINEPHRINE 8 MG/250ML KIT 250 ML IV SCH (08:30)
--- NOTE | 2019-08-05 09:30 | NUR ---
PHARMACY Called to request antibiotic to be sent. Pharmacy currently out of [facility], will receive shipment this morning. Antibiotic will be administered late.
[2019-08-05] MEDS: AMIODARONE HCL 200 MG TAB PO SCH ×2 (09:46→22:27)
[2019-08-05] MEDS: PANTOPRAZOLE 40 MG/10 ML VIAL INJ IV SCH ×2 (09:46→22:26)
[2019-08-05] MEDS: FUROSEMIDE 20 MG/2 ML VIAL IV SCH (09:46)
[2019-08-05] MEDS: METOPROLOL TARTRATE 25 MG TAB PO SCH ×2 (09:49→22:27)
[2019-08-05] MEDS: amLODIPine BESYLATE 5 MG TAB PO SCH (10:00)
--- NOTE | 2019-08-05 11:16 | NUR ---
MD VISIT at bedside assessing patient. MD reviewing medical chart. MD would like to increase tube feeding goal and attempt to place patient on trache collar. RT to be notified.
--- NOTE | 2019-08-05 11:43 | NUR ---
MD VISIT Dr.Gomez salas at bedside. MD wants patient to be placed on trach collar as long as he tolerates it.
--- NOTE | 2019-08-05 11:48 | NUR ---
Nutrition Follow-up Notes Wt.: 103.8 kg Pt`s ventilated with no family by bedside. pt is currently NPO on EN support with Glucerna @ 35 ml/hr providing 1008 kcals and 50 gm proteins. Est. Energy Needs: 5487-4271 kcal (12-15 kcal/kg BW), Est. Protein Needs: 70-88 gms/day (0.8-1.0 gms/kg Adj.BW r/t elev RFT). Labs: BUN 22 H, CA 8.1 L, ALB 1.6 L. GI: Pt had 100 ml BM noted per RN doc. Skin: Louis scale 13 mod risk. Please refer to wound assessment report for full details PES: 1) Obese, Class III r/t energy intake in excess of energy needs aeb BMI 47 kg/m2 and 202% IBW Recommendations: 1) Advance EN support with Glucerna @ 65 ml/hr per MD approval if pt continues to be NPO 2) Resume PN support if pt unable to cain EN. 3) Advance diet gradually to oral CCHO 60g diet, when medically appropriate. 4) Refer pt to CDE/RD for further nutrition education and weight monitoring upon discharge. 5) Continue current plan of care. F/u 2-3 days
[2019-08-05] MEDS: MICAFUNGIN SODIUM 100 MG in SODIUM CHL 0.9% 100 ML IV SCH (12:02)
--- NOTE | 2019-08-05 12:25 | NUR ---
TRACH COLLAR TRIAL Removed pt from ventilator and placed on trach collar as ordered, with cool aerosol FIO2 30%. Pt is awake/alert, tolerating changes well, denies SOB, no s/s of respiratory distress noted. HR 83, RR 20, SPO2 100%, BP 104/27. RN made aware of changes. Will continue to monitor.
[2019-08-05] MEDS ORDERED: Glucerna 1.2 Cal 1Liter BOTTLE GT SCH (13:45)
--- NOTE | 2019-08-05 13:45 | NUR ---
PATIENTS TRANSPORTER ROUNDS [place]ers PATIENTS TRANSPORTER at bedside.
--- NOTE | 2019-08-05 14:30 | NUR ---
TRACH CARE Pt remains on trach collar tolerating well. Deep tracheal suctioned x2 for large thick yellow secretions. Medneb tx administered via trach collar, no adverse reactions noted. Trach care done without incident. Will continue to monitor.
--- NOTE | 2019-08-05 14:40 | NUR ---
1430 08/05/19 I spoke with [facility] [employer] Team Member Eve and let her know that Dr. Huff is placing an order to transfer to [facility] ICU status. Per Eve, they have no ICU beds available at [facility]-inpatient authorization is extended until 08/06/19 1000.
--- NOTE | 2019-08-05 15:38 | NUR ---
DESATURATION Patient oxygen saturation decreased to 85%. Patient c/o shortness of breath. Patient positioned in high fowlers and deep tracheal suctioning performed. Oxygen level increased. RT paged to bedside.
--- NOTE | 2019-08-05 15:40 | NUR ---
Respiratory note: Notified by RN that pt with desat, RN suctioned and increased FIO2 on trach collar to 40%. Now maintaining SPO2 94%, still tolerating trach collar well.
--- NOTE | 2019-08-05 16:30 | NUR ---
Respiratory note: Pt still tolerating trach collar well, HR 93, RR 21, SPO2 97% on trach collar FIO2 35%. Deep tracheal suctioned for moderate thick pale yellow. Pt denies SOB, no s/s of respiratory distress. Will endorse care to oncoming therapist.
--- NOTE | 2019-08-05 16:32 | NUR ---
CARES Partial linen change complete and skin reassessment performed. Megan care performed, z-gaurd applied to buttocks. Skin pealing and sloughing off. Small skin tear noted on medial back. Patient repositioned on side. Tube feeding residual check, no residual noted. Bed locked in lowest position, alarms in place. Call light within reach.
[2019-08-05] MEDS ORDERED: WARFARIN SODIUM 2 MG TAB PO ONE (17:00)
--- NOTE | 2019-08-05 19:14 | NUR ---
REPORT Report given to Odalys CHATMAN, care endorsed.
--- NOTE | 2019-08-05 19:25 | NUR ---
Respiratory note: TOOK PATIENT OFF TRACH COLLAR AND PLACED ON VENT PER PATIET'S REQUEST. PATIENT KEPT HITTING THE BED, STATING HE HAD A HARD TIME BREATHING AND NEEDED TO GO BACK ON THE VENT.
--- NOTE | 2019-08-05 19:36 | NUR ---
ADMITTED ORIGINALLY WITH SWOLLEN RED LEGS AND DYSPNEA. TRACH 8 SHILEY PERFORMED ON 06/19/2019. DIFFICULTY GETTING HIM OFF THE VENTILATOR. CURRENTLY ON TRACH COLLAR. REQUESTED TO GO BACK ON VENTILATOR. RT CALLED. TUBE FEEDING: GLUCERNA AT 45CC/HR. KAUR IN PLACE DRAINING CLEAR YELLOW LIQUID TO DOWN DRAIN BAG. SKIN REMAINS FLAKY , BUT VASTLY IMPROVED. ILEOSTOMY BAG INTACT AND DRAINING BROWN LIQUID. LAST UA CULTURE SHOWED YEAST. AMLODIPINE HELD. LOPRESSOR DOSE REDUCED. 2+ PITTING EDEMA IN LEGS. CUFF ON LEFT LOWER LEG. HYPERPIGMENTATION BILATERAL LOWER EXTREMITIES. NOTED SCABS ON RIGHT POSTERIOR CALF. SCAB ON TOE RIGHT FOOT. SKIN TEAR ON RIGHT UPPER ARM AND LEFT FOREARM. NSR WITHOUT ECTOPY.
--- NOTE | 2019-08-05 19:45 | NUR ---
RT HERE. THE PATIENT HAD BEEN PLACED BACK ON THE VENTILATOR AT 1929. HE IS NOW REQUESTING TO GO BACK ON TRACH COLLAR. WE EXPLAINED TO HIM THE NEED FOR 1-2 HOURS REST BEFORE WE PLACE HIM BACK ON THE TRACH COLLAR. HE IS ACCEPTABLE TO THAT. ASSESSMENT COMPLETED. ASSESSED WOUNDS AND DRESSING. CHANGED THE LEFT UPPER ARM SKIN TEAR FOAM DRESSING. IT WAS SATURATED WITH SEROUS FLUID. SCABS ON TOES STABLE, NO DRNG. RIGHT FOREARM SKIN TEAR DRESSING DRY AND SECURE. THE RIGHT LOWER LEG FOAM DRESSINGS STABLE. ALL PULSES PALPABLE. EXTREMITIES ARE WARM. HOB LET DOWN A LITTLE. ILEOSTOMY HAS APPROXIMATELY 50CC IN IT. BAG IS SECURE. TEMP UP. ICE BAG TO BACK OF NECK.
[2019-08-05 20:11] LABS: Urine Bacteria NONE SEEN /hpf (None Seen); Urine Blood TRACE /uL (Negative); Urine Hyaline Cast MOD /lpf (0 - 2); Urine Mucus FEW (None Seen); Urine Specific Gravity 1.016 (1.001-1.035); Urine WBC 8 /hpf (0 - 3)
--- NOTE | 2019-08-05 21:25 | NUR ---
Respiratory note: PLACED PATIENT BACK ON TRACH COLLAR PER PATIENT'S REQUEST. PT DOES NOT WANT TO BE ON THE VENT ANYMORE. RN AT BEDSIDE. PT IS ON 35% COOL AEROSOL AT 10L. HR 96, RR 18, SPO2 100%, BP 102/53.
--- NOTE | 2019-08-05 21:25 | NUR ---
PATIENT IS REQUESTING TRACH COLLAR. RT HERE TO MAKE THE CHANGE TO TRACH COLLAR.
--- NOTE | 2019-08-05 22:00 | NUR ---
RT GAVE THE PATIENT A TREATMENT. SUCTIONED FOR A LARGE AMOUNT OF WHITE SECRETIONS. MEDS GIVEN. ALL PORTS OF RIGHT FEMORAL CENTRAL LINE FLUSHED. TUBE FEED RESIDUAL WAS 5CC. EMPTIED THE ILEOSTOMY FOR 205CC. REPOSITIONED TO LEFT SIDE. KAUR OUTPUT OK. NSR WITH OUT ECTOPY.
[2019-08-05] MEDS: ATORVASTATIN 20 MG TAB PO SCH (22:26)
[2019-08-06] VITALS (96 sets, daily range): BP systolic 77–161; BP diastolic 18–68
--- NOTE | 2019-08-06 | NUR ---
REPOSITIONED. ORAL CARE. SUCTIONED TRACH FOR LARGE AMOUNT OF WHITE SECRETIONS. AWAKE. CALLING ME IN THE ROOM AT LEAST TWICE AN HOUR FOR DIFFERENT THINGS. OFFERED HIM THE CHANCE TO GO BACK TO THE VENTILATOR, BUT HE PREFERRED TO STAY OFF. HE STATED: i HAVE BEEN HERE FOR A LONG TIME". TAKING SHALLOW BREATHS. BEGINNING TO TAKE MORE BREATHS, O2 SATURATION GRADUALLY DECREASING , HR BEGINNING TO GO UP. TOLERATING TUBE FEEDINGS WITH LOW RESIDUAL. PITTING EDEMA PERSISTS.
--- NOTE | 2019-08-06 02:00 | NUR ---
RT PLACED PATIENT BACK ON VENTILATOR TO REST WHEN THE HR WAS 106, SBP 132, RR WAS 28 AND O2 SAT WAS 91%. ATIVAN GIVEN. CHG BATH GIVEN. NOW , HE IS RESTING,.
[2019-08-06] MEDS: LORazepam 2MG/ML-1ML VIAL IV PRN ×2 (02:23→11:03)
--- NOTE | 2019-08-06 04:00 | NUR ---
CHG BATH. COMPLETE LINEN CHANGE.
[2019-08-06] MEDS: InsuLIN REG 1unit/0.01ml Soln (100units/ml) SC SCH ×5 (06:00→23:42)
--- NOTE | 2019-08-06 06:00 | NUR ---
ILEOSTOMY BAG LEAKED. NEW BAG APPLIED. SKIN UNDER BAG IS GETTING MORE RED. AREA CLEANED . DRIED. BARRIER FILM PLACED. NEW BAG ONL COMPLETE LINEN AND GOWN CHANGE. NSR . TOLERATING TUBE FEEDING.
[2019-08-06] MEDS: IPRATROPIUM BROM 0.5 MG/2.5ML INH SOL NEB SCH ×3 (06:12→22:16)
[2019-08-06] MEDS: ALBUTEROL SULF 2.5 MG/0.5ML(0.5%) NEB SOLN NEB SCH ×3 (06:12→22:16)
[2019-08-06 06:26] LABS: INR 1.49 (0.9-1.15)
[2019-08-06] MEDS: ACCU-CHEK COMFORT CURVE STRIP VI SCH ×5 (06:27→23:42)
--- NOTE | 2019-08-06 07:35 | NUR ---
INITIAL CONTACT Report received from Odalys CHATMAN, care assumed Patient observed resting in bed. Patient is awake, alert, and oriented x 2-3. Patient able to follow simple commands. Afebrile. Patient denies pain or discomfort. Pules palpable bilaterally. Lungs clear anteriorly. Patient is on trach collar, tolerating well. Oxygen saturation greater than 95%. Respirations are even and unlabored, no signs of distress present. NGT present with tube feedings running, no residual noted. Right quadrant ileostomy noted. See skin/ wound assessment. Patient repositioned in bed with maximum assistance. Alarms in place. Call light within reach. Patient instructed to call for assistance, pt verbalized understanding. Will continue to monitor.
--- NOTE | 2019-08-06 07:35 | NUR ---
Respiratory note: PT TAKEN OFF VENT AND PLACED ON 35% COOL MIST AEROSOL TRACH COLLAR.PT IS AWAKE, ALERT, AND APPROPRIATELY RESPONSIVE TO VERBAL COMMANDS.
[2019-08-06] MEDS: PANTOPRAZOLE 40 MG/10 ML VIAL INJ IV SCH ×2 (09:41→22:00)
[2019-08-06] MEDS: FUROSEMIDE 20 MG/2 ML VIAL IV SCH (09:42)
[2019-08-06] MEDS: MICAFUNGIN SODIUM 100 MG in SODIUM CHL 0.9% 100 ML IV SCH (09:42)
[2019-08-06] MEDS: AMIODARONE HCL 200 MG TAB PO SCH ×2 (09:42→22:00)
[2019-08-06] MEDS: METOPROLOL TARTRATE 25 MG TAB PO SCH ×2 (09:42→22:00)
[2019-08-06] MEDS: amLODIPine BESYLATE 5 MG TAB PO SCH (10:00)
[2019-08-06] MEDS: ACETAMINOPHEN 650 mg PER 20 mL UD GT PRN ×2 (11:03→18:46)
--- NOTE | 2019-08-06 11:30 | NUR ---
RESPIRATORY Patient c/o of being short of breath. Oxygen saturation 95% with respirations even, and unlabored. Patient on trach collar. Breathing treatment not due at this time. PRN anxiety medication given prior to allow patient to relax due to feeling anxious. RT paged to bedside.
--- NOTE | 2019-08-06 11:45 | NUR ---
MD VISIT Dr.Tanjavour salas at bedside.
--- NOTE | 2019-08-06 11:45 | NUR ---
Respiratory note: PT PLACED BACK ON VENT. PT APPEARS DIAPHORETIC, SLIGHTLY TACHYPNEIC, WITH DIMINISHED BS.RN MENDOZA AWARE OF CHANGES.
--- NOTE | 2019-08-06 13:09 | NUR ---
I placed a page out to Dr. Huff to ask if patient is stable for transfer to [facility] today.
--- NOTE | 2019-08-06 13:46 | NUR ---
1345 08/06/19 I faxed transfer order and Notice Regarding Post Stabilization to [facility]-document scanned into [employer]. I faxed today's MD progress notes, labs, vitals, and medication list to [facility]. I spoke with patient's Miranda [phone]-she verified that she only wants him transferred to [facility] or [facility] because the other facilities are too far away.
--- NOTE | 2019-08-06 14:23 | NUR ---
1415 08/06/19 I called [facility] and spoke with benefits analyst Oneyda (working with assigned case management social worker Gayathri). Per Oneyda, [employer] Gayathri is on the other line at this time. Per Oneyda they did receive the transfer order, I provided her with contact information for Dr. Huff as well as the nurse's station. I requested that case management social worker Gayathri call me [facility] regarding transfer and also to discuss LTAC/request for [facility]. I let Oneyda know that I am only here until 1630, that we have someone internal controls specialist until 1900 pageable through the hospital switchboard operator supervisor. Oneyda is unable to tell me whether or not they have ICU beds available at this time.
--- NOTE | 2019-08-06 14:29 | NUR ---
RT IN ROOM GIVING PATIENT A TREATMENT. WILL ATTEMPT P.T. LATER.
--- NOTE | 2019-08-06 16:10 | NUR ---
CARES/WOUND CARE Wound care performed on left elbow and medial back. Photographs obtained. Megan care and partial linen change complete. Patient repositioned on side, bed locked in lowest position, call light within reach.
[2019-08-06] MEDS ORDERED: WARFARIN SODIUM 2 MG TAB PO ONE (17:00)
--- NOTE | 2019-08-06 17:45 | NUR ---
PHARMACY Called pharmacy request Coumadin dose for this evening. Medication not in patient personal cassette.
--- NOTE | 2019-08-06 18:07 | NUR ---
VIOLET/TRANSFER [facility] strategic partnership representative requesting to see if patient may be downgraded to SHON status to allow for transfer to their facility. ASSISTANT NEWS DIRECTOR paged. Spoke with Henri OZUNA regarding patient status and pending transfer. Orders received to place patient as SHON status. Discharge order faxed to [facility].
--- NOTE | 2019-08-06 18:45 | NUR ---
PAIN Patient c/o right shoulder pain. Tylenol PRN given.
--- NOTE | 2019-08-06 19:11 | NUR ---
REPORT Report given to Odalys CHATMAN, care endorsed.
--- NOTE | 2019-08-06 19:30 | NUR ---
PATIENT IS POUNDING ON THE SIDERAIL, UNABLE TO PUSH THE CALL [place] BUTTON. HE IS REQUESTING TO GO BACK ON HE VENTILATOR. HE WAS RECENTLY PUT ON TRACH COLLAR. SINUS TACHYCARDIA 109. SBP 169. RR 25. O2 SAT 95%. ENCOURAGED HIM TO TRY TO CALM DOWN BY TAKING DEEPER , LESS BREATHS. HE JUST KEPT SAYING "PUT ME BACK, PUT ME BACK". DISCUSSED THE SITUATION WITH THE RT. WE PUT HIM BACK WHEN HIS SAT WENT TO 94%. PATIENT'S FACE IS RED. HE WAS TAKING SHALLOW BREATHS.
--- NOTE | 2019-08-06 20:00 | NUR ---
HE IS NOW ON THE VENTILATOR. MUCH MORE CALM. CLOSING HIS EYES TO SLEEP. LOW GRADE TEMP. TYLENOL WAS GIVEN AT 1846. LUNGS CLEAR. ABDOMEN SOFT. TOLERATING THE INCREASED RATE ON HIS GLUCERNA TODAY. RESIDUAL 2CC. FLUSHED NGT WITH WATER AND THEN ASPIRATED. REPOSITIONED PATIENT TO SIDE. EMPTIED HIS ILEOSTOMY (200CC OF BROWN LIQUID). ILEOSTOMY BAG IS SECURE. ALL PULSES PALPABLE. ALL DRESSINGS OVER WOUNDS SECURE , DRAINING SEROUS FLUID. WOUNDS ON RIGHT AND LEFT ARMS, BOTH LOWER LEGS AND SCABS ON TOES. SKIN TEAR ON SACRAL AREA. KAUR IN PLACE WITH MARGINAL OUTPUT. CENTRAL LINE IN RIGHT FEMORAL AREA. NO FLUIDS GOING. ALL PORTS FLUSHED WITH NORMAL SALINE. SINUS TACHYCARDIA WITHOUT ECTOPY. HR DECREASING GRADUALLY . SBP 133. O2 SAT 99-100%. HE HAS BEEN SLEEPING SINCE.
[2019-08-06] MEDS: ATORVASTATIN 20 MG TAB PO SCH (22:00)
--- NOTE | 2019-08-06 22:00 | NUR ---
[facility] CALLED WITH A BED ASSIGNMENT FOR [facility] ROOM 202. IMAGING DISC REQUESTED.
--- NOTE | 2019-08-06 23:48 | NUR ---
CD IMAGE, TRANSFER PACKET TOGETHER. REPORT CALLED TO COMPA CUENCA AT [facility]. PATIENT TO BE TRANSFERRED TO ROOM 202. CALLED HIS AND SHE IS AWARE OF THE TRANSFER TO [facility] AND THE ROOM NUMBER. ACCEPTING PHYSICIAN DR Chepe ROGERS.
[2019-08-07] VITALS: BP 98/30
[2019-08-07 00:15] VITALS: BP 98/25
--- NOTE | 2019-08-07 00:26 | NUR ---
[facility] HERE FOR PICKUP. , MONICO CALLED. SHE IS AWARE THE AMBULANCE PERSONNEL ARE HERE TO PICK HIM UP.
--- NOTE | 2019-08-07 00:39 | NUR ---
[facility] LEFT THE UNIT
== END 2019-08-07 00:35 | disposition short-term general hospital (02) | DRG 4 ==
LOC: ER 17:43 → EDBD 17:43 → TELE 17:44 → DOU IN ICU 05-28 04:20 → ICU WEST 06-06 08:12 → DOU IN ICU 08-02 13:45 → ICU WEST 08-03 08:10
PROVIDERS: ADMIT Nurse Practitioner; ATTEND Internal Medicine Nephrology
PROC: 5A1955Z Respiratory Ventilation, Greater than 96 Consecutive Hours (ICD-10-PCS; 2019-05-27)
PROC: 0BH17EZ Insertion of Endotracheal Airway into Trachea, Via Natural or Artificial Opening (ICD-10-PCS; 2019-05-27)
PROC: 02HV33Z Insertion of Infusion Device into Superior Vena Cava, Percutaneous Approach (ICD-10-PCS; 2019-05-27)
PROC: 5A1935Z Respiratory Ventilation, Less than 24 Consecutive Hours (ICD-10-PCS; 2019-06-02)
PROC: 0BH17EZ Insertion of Endotracheal Airway into Trachea, Via Natural or Artificial Opening (ICD-10-PCS; 2019-06-02)
PROC: 5A09357 Assistance with Respiratory Ventilation, Less than 24 Consecutive Hours, Continuous Positive Airway Pressure (ICD-10-PCS; 2019-06-02)
PROC: 5A09357 Assistance with Respiratory Ventilation, Less than 24 Consecutive Hours, Continuous Positive Airway Pressure (ICD-10-PCS; 2019-06-03)
PROC: 5A09357 Assistance with Respiratory Ventilation, Less than 24 Consecutive Hours, Continuous Positive Airway Pressure (ICD-10-PCS; 2019-06-04)
PROC: 5A1955Z Respiratory Ventilation, Greater than 96 Consecutive Hours (ICD-10-PCS; 2019-06-04)
PROC: 0BH17EZ Insertion of Endotracheal Airway into Trachea, Via Natural or Artificial Opening (ICD-10-PCS; 2019-06-04)
PROC: 0B978ZZ Drainage of Left Main Bronchus, Via Natural or Artificial Opening Endoscopic (ICD-10-PCS; 2019-06-05)
PROC: 0B938ZZ Drainage of Right Main Bronchus, Via Natural or Artificial Opening Endoscopic (ICD-10-PCS; 2019-06-05)
PROC: 30233K1 Transfusion of Nonautologous Frozen Plasma into Peripheral Vein, Percutaneous Approach (ICD-10-PCS; 2019-06-12)
PROC: 0B110F4 Bypass Trachea to Cutaneous with Tracheostomy Device, Open Approach (ICD-10-PCS; principal; 2019-06-19 09:30)
PROC: 03HY32Z Insertion of Monitoring Device into Upper Artery, Percutaneous Approach (ICD-10-PCS; 2019-06-21)
PROC: 4A133B1 Monitoring of Arterial Pressure, Peripheral, Percutaneous Approach (ICD-10-PCS; 2019-06-21)
PROC: 4A133J1 Monitoring of Arterial Pulse, Peripheral, Percutaneous Approach (ICD-10-PCS; 2019-06-21)
PROC: 02HV33Z Insertion of Infusion Device into Superior Vena Cava, Percutaneous Approach (ICD-10-PCS; 2019-06-24)
PROC: 0BJ08ZZ Inspection of Tracheobronchial Tree, Via Natural or Artificial Opening Endoscopic (ICD-10-PCS; 2019-06-30)
PROC: 30233N1 Transfusion of Nonautologous Red Blood Cells into Peripheral Vein, Percutaneous Approach (ICD-10-PCS; 2019-07-11)
PROC: B41G1ZZ Fluoroscopy of Left Lower Extremity Arteries using Low Osmolar Contrast (ICD-10-PCS; 2019-07-26)
PROC: B41F1ZZ Fluoroscopy of Right Lower Extremity Arteries using Low Osmolar Contrast (ICD-10-PCS; 2019-07-26)
PROC: B41J1ZZ Fluoroscopy of Other Lower Arteries using Low Osmolar Contrast (ICD-10-PCS; 2019-07-26)
PROC: 0B9D7ZX Drainage of Right Middle Lung Lobe, Via Natural or Artificial Opening, Diagnostic (ICD-10-PCS; 2019-07-28)
PROC: B246ZZ4 Ultrasonography of Right and Left Heart, Transesophageal (ICD-10-PCS; 2019-08-02)
PROC: 02HV33Z Insertion of Infusion Device into Superior Vena Cava, Percutaneous Approach (ICD-10-PCS; 2019-08-03)
PROC: B548ZZA Ultrasonography of Superior Vena Cava, Guidance (ICD-10-PCS; 2019-08-03)
DX: A41.9 Sepsis, unspecified organism (principal); R65.21 Severe sepsis with septic shock; I21.A1 Myocardial infarction type 2; J96.21 Acute and chronic respiratory failure with hypoxia; N17.0 Acute kidney failure with tubular necrosis; J18.0 Bronchopneumonia, unspecified organism; J15.1 Pneumonia due to Pseudomonas; E43 Unspecified severe protein-calorie malnutrition; I50.43 Acute on chronic combined systolic (congestive) and diastolic (congestive) heart failure; J15.6 Pneumonia due to other Gram-negative bacteria; E87.1 Hypo-osmolality and hyponatremia; J44.1 Chronic obstructive pulmonary disease with (acute) exacerbation; E87.3 Alkalosis; J98.11 Atelectasis; Z68.42 Body mass index [BMI] 45.0-49.9, adult; I82.621 Acute embolism and thrombosis of deep veins of right upper extremity; J95.851 Ventilator associated pneumonia; E87.0 Hyperosmolality and hypernatremia; I48.92 Unspecified atrial flutter; F13.239 Sedative, hypnotic or anxiolytic dependence with withdrawal, unspecified; I48.19 Other persistent atrial fibrillation; D68.69 Other thrombophilia; N39.0 Urinary tract infection, site not specified; I13.0 Hypertensive heart and chronic kidney disease with heart failure and stage 1 through stage 4 chronic kidney disease, or unspecified chronic kidney disease; J44.0 Chronic obstructive pulmonary disease with (acute) lower respiratory infection; Z16.11 Resistance to penicillins; L03.114 Cellulitis of left upper limb; Z99.11 Dependence on respirator [ventilator] status; E66.01 Morbid (severe) obesity due to excess calories; E87.5 Hyperkalemia; N18.3 Chronic kidney disease, stage 3 (moderate); E11.22 Type 2 diabetes mellitus with diabetic chronic kidney disease; E11.51 Type 2 diabetes mellitus with diabetic peripheral angiopathy without gangrene; E87.6 Hypokalemia; I48.91 Unspecified atrial fibrillation; E83.42 Hypomagnesemia; D50.0 Iron deficiency anemia secondary to blood loss (chronic); D69.6 Thrombocytopenia, unspecified; R31.0 Gross hematuria; D63.1 Anemia in chronic kidney disease; E11.65 Type 2 diabetes mellitus with hyperglycemia; E78.5 Hyperlipidemia, unspecified; N40.1 Benign prostatic hyperplasia with lower urinary tract symptoms; I25.10 Atherosclerotic heart disease of native coronary artery without angina pectoris; D64.9 Anemia, unspecified; F41.9 Anxiety disorder, unspecified; I25.2 Old myocardial infarction; Z93.2 Ileostomy status; Z74.01 Bed confinement status; Z79.01 Long term (current) use of anticoagulants; Z82.49 Family history of ischemic heart disease and other diseases of the circulatory system; Z86.718 Personal history of other venous thrombosis and embolism; Z83.3 Family history of diabetes mellitus; Z87.442 Personal history of urinary calculi; Z87.891 Personal history of nicotine dependence; Z93.3 Colostomy status; Z03.818 Encounter for observation for suspected exposure to other biological agents ruled out; Z88.5 Allergy status to narcotic agent; Z79.4 Long term (current) use of insulin
CPT/HCPCS: 10022; 31622; 31624; 36415; 36569; 36600; 71045; 71250; 74018; 74176; 75716; 76705; 76775; 80048; 80053; 80202; 81001; 82040; 82270; 82306; 82570; 82728; 82805; 82962; 83010; 83036; 83605; 83615; 83735; 83880; 83930; 83935; 83970; 84100; 84132; 84156; 84300; 84443; 84478; 84484; 85007; 85014; 85018; 85025; 85027; 85045; 85379; 85610; 85652; 85730; 86141; 86850; 86880; 86900; 86901; 86920; 87040; 87070; 87077; 87081; 87086; 87088; 87186; 87205; 87804; 87880; 92610; 93005; 93306; 93312; 93925; 93971; 94002; 94003; 94640; 94660; 97110; 97163; 97530; 99152; 99153; 99291; A4605; A4618; C9113; G0378; J0171; J0330; J0610; J0696; J1100; J1450; J1756; J1815; J1956; J2001; J2185; J2248; J2250; J2405; J2543; J2704; J3430; J3480; J3490; J7060; J7131; P9047; Q9956